=== PATIENT | male | born 1945 | race Caucasian/White ===

== ENCOUNTER 2018-06-25 05:37 | Outpatient (CLI) | payer BC ==
[~2018-06-25] VITALS: Ht 165.1 cm; Wt 88.5 kg
[~2018-06-25 05:37] MED LIST: ASCO500T20 GT; ASP81TEC PO; CALC400T8 PO; CHOL10003 PO; CLOP75TA PO; FENO135C PO; MTP25TSR PO; OMG1KC PO; SMV20T PO
[2018-06-25] MEDS ORDERED: VITA400T9 PO (11:13)
[2018-06-25] MEDS ORDERED: ASPI-999 PO (11:13)
[2018-06-25] MEDS ORDERED: ASCO500T7 PO (11:13)
[2018-06-25] MEDS ORDERED: CLOP75TA69 PO (11:13)
[2018-06-25] MEDS ORDERED: SIMV20TA3 PO (11:13)
[2018-06-25] MEDS ORDERED: CHOL100045 PO (11:13)
[2018-06-25] MEDS ORDERED: OMG1KC PO (11:13)
[2018-06-25] MEDS ORDERED: METO-387 PO (11:13)
[2018-06-26] MEDS ORDERED: FERR-84 PO (11:14)
== END 2018-06-25 11:15 | disposition home or self-care (01) ==
LOC: PREOP 05:37
PROVIDERS: ATTEND Internal Medicine
DX: Z01.818 Encounter for other preprocedural examination (principal)

== ENCOUNTER 2018-06-26 09:06 | Day surgery (SDC) | payer BC ==
--- NOTE | 2018-06-24 12:05 | HISTORY AND PHYSICAL ---
DATE OF SERVICE: COLONOSCOPY HISTORY AND PHYSICAL HISTORY OF PRESENT ILLNESS: The patient is a 73-year-old white male who 9 days ago felt a gurgling sensation in the left lower quadrant area. He then had some urgency and when he went past, but he considered to be a large amount of bright red blood. He denied any associated pain, cramping or bowel habit change. It did subsided 3 days later and had the same set of symptoms. They were not associated with any significant physical activity or trauma. There was a large again this time associated with some mild weakness. He called and was instructed to discontinue aspirin and Plavix that he takes for coronary artery disease. Since that time, he has had no large amount of bleeding, but has had a small amount of bright red blood with each stool. He denies any hemorrhoidal type sensation. He has had no angina, has been a little more fatigued, but denies any increase in dyspnea on exertion, orthopnea, PND or pedal edema. He also denies any problems with heartburn, dysphagia or abdominal pain. PAST MEDICAL HISTORY: Significant for known diverticular disease, last colonoscopy was 3-1/2 years ago at which time he had no evidence for neoplasia, now with moderate diverticular disease. 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 He has had no problems with acute coronary syndrome or any subsequent complications of any form of vascular disease. MEDICATIONS: Plavix 75 mg daily, Zocor 20 mg daily, baby aspirin 81 mg daily and Toprol-XL 25 mg daily. FAMILY HISTORY: He is not aware of any family history for GI tract malignancy. PHYSICAL EXAMINATION: GENERAL: Reveals a white male, questionable mild facial pallor. The conjunctiva and palms are not pale. SKIN: Evaluation was otherwise unremarkable. VITAL SIGNS: Blood pressure 148/60 with a heart rate of 66 and regular, weight 208.2 pounds, was down 7.8 pounds from 6 weeks ago. HEENT: Unremarkable. Sclerae nonicteric. CHEST: Clear to auscultation. CARDIOVASCULAR: Reveals regular rate and rhythm without murmur, S3 or S4. ABDOMEN: Soft, supple without mass, organomegaly or tenderness. EXTREMITIES: Reveal no cyanosis, clubbing or edema. ASSESSMENT AND PLAN: 1. The patient was set up for diagnostic colonoscopy for rectal bleeding. He was sent to the lab for a CBC to evaluate for underlying anemia and will continue to hold aspirin and Plavix. He was scheduled for colonoscopy on 06/26. Prep instructions and Suprep kit were given and questions were answered. 2. Coronary artery disease, clinically stable. The patient had stopped his simvastatin as well, but he was advised to resume simvastatin, continuing to hold aspirin and Plavix. Job ID: [id number] DocumentID: [id number] Dictated Date: 06/24/2018 11:46:48 Claims Collector Date: 06/24/2018 12:04:46 Dictated By: YOAN GONZALEZ MD
[~2018-06-26] VITALS: Ht 165.1 cm; Wt 88.5 kg
[~2018-06-26 09:06] MED LIST changes: +ASCO500T7 PO; +ASPI-999 PO; +CHOL100045 PO; +CLOP75TA69 PO; +METO-387 PO; +SIMV20TA3 PO; +VITA400T9 PO
[2018-06-26 09:10] VITALS: BP 125/62
[2018-06-26] MEDS ORDERED: D5 LR IV SOLUTION 1,000 ML IV ONE (09:11)
--- OUTSIDE RECORDS SUMMARY | 2018-06-26 09:21 | XMS REPORT | Continuity of Care Document ---
Demographics Preferred Language Unknown Marital Status Unknown Quaker Affiliation Unknown Race Unknown Ethnic Group Unknown Author Author [facility] Address Unknown Phone Unavailable Allergies Active Description Code Type Severity Reaction Onset Reported/Identified Relationship to Patient Clinical Status Yes No Known Drug Allergies [id number] Drug Allergy Unknown N/A 05/09/2008 Medications There is no data. Problems Date Dx Coded Attending Type Code Diagnosis Diagnosed By 08/26/2012 V04.81 FLU DX (3 YRS AND ABOVE, IM) 11/29/2014 LISA BURROWS, YOAN Magaña Ot 562.10 DIVERTICULOSIS COLON (W/O MENT OF HEMORR 11/29/2014 YOAN GONZALEZ MD Ot 569.84 ANGIODYSPLASIA INTESTINE (W/O MENT OF HE 11/29/2014 YOAN GONZALEZ MD Ot V76.51 SCREEN MAL NEOP-COLON 07/02/2016 MALCOLM VALDOVINOS PRISON PSYCHIATRIST Ot 414.00 CORON ATHEROSCLER NOS TYPE VESSEL, NATIV 07/02/2016 YOAN GONZALEZ MD Ot 786.2 COUGH 07/02/2016 YOAN GONZALEZ MD Ot V72.84 EXAM PRE-OPERATIVE NOS 07/03/2016 RAFAELA BURROWS FACC, ADELA FACP CCDS Ot E66.9 OBESITY, UNSPECIFIED 07/03/2016 ADELA RUSSO MD, FACC FACP CCDS Ot E78.4 OTHER HYPERLIPIDEMIA 07/03/2016 RAFAELA BURROWS FACC, ADELA FACP CCDS Ot I25.10 ATHSCL HEART DISEASE OF [place] CORONARY 07/03/2016 RAFAELA BURROWS FACC, ALI FACP CCDS Ot I65.23 OCCLUSION AND STENOSIS OF [place] 07/08/2016 ADELA RUSSO MD, FACC FACP CCDS Ot E66.9 OBESITY, UNSPECIFIED 07/08/2016 ADELA RUSSO MD, FACC FACP CCDS Ot E78.4 OTHER HYPERLIPIDEMIA 07/08/2016 RAFAELA BURROWS FACC, ALI FACP CCDS Ot I25.10 ATHSCL HEART DISEASE OF [place] CORONARY 07/08/2016 ADELA RUSSO MD, FACC FACP CCDS Ot I65.23 OCCLUSION AND STENOSIS OF [place] 07/12/2016 RAFAELA MD FACC, ALI FACP CCDS Ot E66.9 OBESITY, UNSPECIFIED 07/12/2016 RAFAELA BURROWS FACC, ALI FACP CCDS Ot E78.4 OTHER HYPERLIPIDEMIA 07/12/2016 RAFAELA BURROWS FACC, ALI FACP CCDS Ot I25.10 ATHSCL HEART DISEASE OF [place] CORONARY 07/12/2016 RAFAELA BURROWS FACC, ALI FACP CCDS Ot I65.23 OCCLUSION AND STENOSIS OF [place] 09/19/2017 BAIMALCOLM ENNIS L PRISON PSYCHIATRIST Ot 414.00 CORON ATHEROSCLER NOS TYPE VESSEL, NATIV 09/19/2017 YOAN GONZALEZ MD Ot 786.2 COUGH 09/19/2017 LISA BURROWS, YOAN [place] Ot V72.84 EXAM PRE-OPERATIVE NOS 09/19/2017 RAFAELA BURROWS FACC, ALI FACP CCDS Ot E66.9 OBESITY, UNSPECIFIED 09/19/2017 RAFAELA BURROWS FACC, ALI FACP CCDS Ot E78.4 OTHER HYPERLIPIDEMIA 09/19/2017 RAFAELA BURROWS FACC, ALI FACP CCDS Ot I25.10 ATHSCL HEART DISEASE OF [place] CORONARY 09/19/2017 RAFAELA BURROWS FACC, ALI FACP CCDS Ot I65.23 OCCLUSION AND STENOSIS OF [place] 10/06/2017 BAIMARCO A ENNISHER L PRISON PSYCHIATRIST Ot 414.00 CORON ATHEROSCLER NOS TYPE VESSEL, NATIV 10/06/2017 YOAN GONZALEZ MD Ot 786.2 COUGH 10/06/2017 YOAN GONZALEZ MD Ot V72.84 EXAM PRE-OPERATIVE NOS 10/06/2017 RAFAELA BURROWS FACC, ADELA FACP CCDS Ot E66.9 OBESITY, UNSPECIFIED 10/06/2017 RAFAELA BURROWS FACC, ALI FACP CCDS Ot E78.4 OTHER HYPERLIPIDEMIA 10/06/2017 RAFAELA BURROWS FACC, ALI FACP CCDS Ot I25.10 ATHSCL HEART DISEASE OF [place] CORONARY 10/06/2017 RAFAELA BURROWS FACC, ALI FACP CCDS Ot I65.23 OCCLUSION AND STENOSIS OF [place] 06/24/2018 MALCOLM VALDOVINOS L PRISON PSYCHIATRIST Ot 414.00 CORON ATHEROSCLER NOS TYPE VESSEL, NATIV 06/24/2018 YOAN GONZALEZ MD Ot 786.2 COUGH 06/24/2018 YOAN GONZALEZ MD Ot V72.84 EXAM PRE-OPERATIVE NOS 06/24/2018 RAFAELA BURROWS FACC, ALI FACP CCDS Ot E66.9 OBESITY, UNSPECIFIED 06/24/2018 RAFAELA BURROWS FACC, ALI FACP CCDS Ot E78.4 OTHER HYPERLIPIDEMIA 06/24/2018 RAFAELA BURROWS FACC, ALI FACP CCDS Ot I25.10 ATHSCL HEART DISEASE OF [place] CORONARY 06/24/2018 RAFAELA BURROWS FACC, ALI FACP CCDS Ot I65.23 OCCLUSION AND STENOSIS OF [place] 06/24/2018 BAIMARCO A ENNISHER L PRISON PSYCHIATRIST Ot 414.00 CORON ATHEROSCLER NOS TYPE VESSEL, NATIV 06/24/2018 YOAN GONZALEZ MD Ot 786.2 COUGH 06/24/2018 YOAN GONZALEZ MD Ot V72.84 EXAM PRE-OPERATIVE NOS 06/24/2018 RAFAELA BURROWS FACC, ALI FACP CCDS Ot E66.9 OBESITY, UNSPECIFIED 06/24/2018 RAFAELA BURROWS FACC, ALI FACP CCDS Ot E78.4 OTHER HYPERLIPIDEMIA 06/24/2018 RAFAELA BURROWS FACC, ALI FACP CCDS Ot I25.10 ATHSCL HEART DISEASE OF [place] CORONARY 06/24/2018 RAFAELA BURROWS FACC, ALI FACP CCDS Ot I65.23 OCCLUSION AND STENOSIS OF [place] 06/25/2018 ADRIMARCO A ENNISHER L PRISON PSYCHIATRIST Ot 414.00 CORON ATHEROSCLER NOS TYPE VESSEL, NATIV 06/25/2018 YOAN GONZALEZ MD Ot 786.2 COUGH 06/25/2018 YOAN GONZALEZ MD Ot V72.84 EXAM PRE-OPERATIVE NOS 06/25/2018 RAFAELA BARRAZAC, ADELA FACP CCDS Ot E66.9 OBESITY, UNSPECIFIED 06/25/2018 RAFAELA BURROWS FACC, ALI FACP CCDS Ot E78.4 OTHER HYPERLIPIDEMIA 06/25/2018 RAFAELA BURROWS FACC, ALI FACP CCDS Ot I25.10 ATHSCL HEART DISEASE OF [place] CORONARY 06/25/2018 RAFAELA BURROWS FACC, ALI FACP CCDS Ot I65.23 OCCLUSION AND STENOSIS OF [place] 06/26/2018 MARCO A VALDOVINOSHER L PRISON PSYCHIATRIST Ot 414.00 CORON ATHEROSCLER NOS TYPE VESSEL, NATIV 06/26/2018 YOAN GONZALEZ MD Ot 786.2 COUGH 06/26/2018 YOAN GONZALEZ MD Ot V72.84 EXAM PRE-OPERATIVE NOS 06/26/2018 RAFAELA BARRAZAC, ALI FACP CCDS Ot E66.9 OBESITY, UNSPECIFIED 06/26/2018 RAFAELA BURROWS FACC, ADELA FACP CCDS Ot E78.4 OTHER HYPERLIPIDEMIA 06/26/2018 RAFAELA BURROWS FACC, ADELA FACP CCDS Ot I25.10 ATHSCL HEART DISEASE OF [place] CORONARY 06/26/2018 RAFAELA BURROWS FACC, ADELA FACP CCDS Ot I65.23 OCCLUSION AND STENOSIS OF [place] Procedures There is no data. Results There is no data. Encounters ACCT No. Visit Date/Time Discharge Status Pt. Type Provider Facility Loc./Unit Complaint [id number] 08/26/2012 15:45:00 08/26/2012 23:59:59 CLS Outpatient [id number] 08/26/2012 16:14:09 RECURRING [id number] 07/02/2016 12:27:00 07/02/2016 23:59:59 CLS Outpatient RAFAELA BURROWS FACC, ADELA FACP CCDS [facility] CARD CAD,OBESITY, HYPERLIPIDEMIA,CAROTID ARTERY DIS [id number] 11/29/2014 07:16:00 11/29/2014 09:40:00 DIS Outpatient YOAN GONZALEZ MD [facility] SDC SCREENING [id number] 11/24/2014 05:55:00 11/24/2014 23:59:59 CLS Outpatient YOAN GONZALEZ MD [facility] PREOP SCREENING [id number] 07/02/2013 15:48:00 07/02/2013 23:59:59 CLS Outpatient YOAN GONZALEZ MD [facility] RAD PERSISTANT COUGH [id number] 04/08/2013 08:08:00 04/08/2013 23:59:59 CLS Outpatient MALCOLM VALDOVINOS [facility] RAD CAD [id number] 06/26/2018 09:06:00 ACT Outpatient YOAN GONZALEZ MD [facility] ENDO RECTAL BLEEDING [id number] 06/25/2018 05:37:00 ACT Outpatient YOAN GONZALEZ MD [facility] PREOP COLONOSCOPY [id number] 11/29/2014 07:16:57 ACT Document Registration
[2018-06-26] MEDS ORDERED: D5 LR IV SOLUTION 1,000 ML IV STA (09:29)
[2018-06-26] MEDS ORDERED: LIDOCAINE JELLY 2% 6 ML SYRINGE MM PRN (09:30)
[2018-06-26] MEDS ORDERED: MIDAZOLAM 2 MG/2 ML (VERSED) VIAL IVP ONE (09:30)
[2018-06-26] MEDS ORDERED: fentaNYL INJECTION 100 MCG/2 ML AMP IVP ONE (09:30)
--- NOTE | 2018-06-26 10:43 | Pre-Op Note & Conscious Sedat ---
Pre-Operative Progress Note H&P Reviewed The H&P was reviewed, patient examined and no changes noted. Date H&P Reviewed: Jun 26, 2018 Time H&P Reviewed: 10:40 Conscious Sedation Pre-Proced ASA Score 2 For ASA 3 and 4: Consider anesthesia and medical clearance. Also, for patients with a history of failed moderate sedation consider anesthesia. Airway Lungs Heart ASA score ASA 1: a normal healthy patient ASA 2: a patient with a mild systemic disease (mid diabetes, controlled hypertension, obesity ASA 3: a patient with a severe systemic disease that limits activity (angina , COPD, prior Myocardial infarction) ASA 4: a patient with an incapacitating disease that is a constant threat to life (CHF, renal failure) ASA 5: a moribund patient not expected to survive 24 hrs. (ruptured aneurysm) ASA 6: a declared brain patient whose organs are being harvested. For emergent operations, add the letter E after the classification Mallampati Classification Grade 3 Sedation Plan Analgesia, Amnesia, Plan communicated to team members, Discussed options with patient/fam, Discussed risks with patient/fam The patient is an appropriate candidate to undergo the planned procedure, sedation, and anesthesia. The patient immediately re-assessed prior to indication. YOAN GONZALEZ MD Jun 26, 2018 10:43
[2018-06-26] MEDS ORDERED: fentaNYL INJECTION 100 MCG/2 ML AMP ONE (10:46)
[2018-06-26] MEDS ORDERED: MIDAZOLAM 2 MG/2 ML (VERSED) VIAL ONE ×2 (10:46)
[2018-06-26] MEDS ORDERED: LIDOCAINE JELLY 2% 6 ML SYRINGE ONE (10:46)
[2018-06-26] MEDS ORDERED: FERR-84 PO (11:14)
[2018-06-26 11:20] VITALS: BP 140/62
[2018-06-26 11:50] VITALS: BP 131/63
[2018-06-26 11:55] VITALS: BP 131/63
--- NOTE | 2018-06-26 18:50 | OPERATIVE REPORT ---
DATE OF SERVICE: 06/26/2018 COLONOSCOPY SUMMARY Diagnostic colonoscopy for rectal bleeding with secondary anemia and hemoglobin of 8.6 on blood test from 06/24/2018. The patient was placed in left lateral decubitus position. Prior to undergoing colonoscopy, digital rectal evaluation was performed. Anal sphincter tone was normal and the perianal reflex was intact. Prostate was anodular and nontender and unremarkable in size. There was no evidence for blood on the examining finger. No rectal vault abnormalities were noted. The colonoscope was then inserted in the rectum under direct visualization and advanced to cecum. The cecum was identified by identification of the ileocecal valve and cecal strap. Photographic documentation was obtained. Careful inspection was made as the colonoscope was withdrawn. FINDINGS: There is no evidence for internal or external hemorrhoids and no blood was noted throughout the colon on today's procedure. The rectum was unremarkable. A moderate number of small to medium size sigmoid diverticulum were present, some with a little more vascular than average, but no definitive bleeding site is being identified and no evidence to suggest diverticulitis was noted. No overt vascular malformations were noted. The descending colon, splenic flexure, transverse colon, hepatic flexure, ascending colon and cecum were unremarkable. ASSESSMENT: Mild to moderate diverticular disease predominately involving the sigmoid colon was present. Suspected source of this patient's bleeding and most likely cause of moderate anemia. The patient was advised to remain off of the aspirin and Plavix as he is more than a year out from stent placement. We will likely be abdicating resuming a baby aspirin upon return to the office in one week. We will initiate iron 325 mg q.a.m. daily with vitamin C with repeat blood counts on return. Job ID: [id number] DocumentID: [id number] Dictated Date: 06/26/2018 12:14:46 Culinary Arts Teacher Date: 06/26/2018 18:49:25 Dictated By: YOAN GONZALEZ MD [facility]
== END 2018-06-26 11:56 | disposition home or self-care (01) ==
LOC: ENDO 09:06
PROVIDERS: ATTEND Internal Medicine
DX: K57.31 Diverticulosis of large intestine without perforation or abscess with bleeding (principal); D64.9 Anemia, unspecified; I25.10 Atherosclerotic heart disease of native coronary artery without angina pectoris; Z79.02 Long term (current) use of antithrombotics/antiplatelets; Z79.82 Long term (current) use of aspirin; Z79.899 Other long term (current) drug therapy; Z95.5 Presence of coronary angioplasty implant and graft

== ENCOUNTER → 2018-10-13 | Outpatient (CLI) | payer BC ==
[~2018-10-13] VITALS: Ht 165.1 cm; Wt 97.1 kg
[~2018-10-13] MED LIST changes: +CATHETER FLUSH 10 ML SYR IV PRN; +FERR-84 PO; +REGADENOSON 0.4 MG/5 ML SYR (LEXISCAN) IV ONE
[2018-10-13 09:39] VITALS: BP 173/85
[2018-10-13 09:42] VITALS: BP 167/83
--- NOTE | 2018-10-13 23:44 | STRESS TEST ---
DATE OF SERVICE: 10/13/2018 RESTING AND POST REGADENOSON TECHNETIUM-99M TETROFOSMIN SPECT CT IMAGING ORDERING PHYSICIAN: Lori Vann APRN CLINICAL DIAGNOSIS: Coronary artery disease. Baseline images were carried out after injection of 10.71 mCi of technetium-99m Tetrofosmin. This was followed by 0.4 mg regadenoson and 30.8 mCi of technetium-99m Tetrofosmin for stress imaging. The electrocardiogram showed sinus rhythm with intermittent isolated premature ventricular contractions. The patient had a feeling of palpitations following regadenoson infusion, which resolved in a few minutes. Review of images at rest and following stress indicates a small fixed basal inferior perfusion defect. Gated images showed localized basal inferior hypokinesis. This appears to be a small basal inferior infarction without significant ischemia. Left ventricular ejection fraction is calculated to be 73%. Left ventricular end-diastolic volume is 72 mL. TID is absent (1.05). CONCLUSIONS: 1. This study is suggestive of a small basal inferior infarction without significant ischemia. 2. Localized basal inferior hypokinesis. 3. Left ventricular ejection fraction is calculated to be 73%. Job ID: [id number] DocumentID: [id number] Dictated Date: 10/13/2018 17:44:21 Shirt Creaser Date: 10/13/2018 23:43:15 Dictated By: ADELA RUSSO MD, MA, FACP, FACC,
== END ==
LOC: CARD 08:03
PROVIDERS: ATTEND Nurse Practitioner Family
DX: I25.10 Atherosclerotic heart disease of native coronary artery without angina pectoris (principal); I77.9 Disorder of arteries and arterioles, unspecified; I10 Essential (primary) hypertension; E78.5 Hyperlipidemia, unspecified
CPT/HCPCS: 78452; 93017

== ENCOUNTER → 2019-06-14 | Outpatient (CLI) | payer BC ==
[~2019-06-14] MED LIST changes: -CATHETER FLUSH 10 ML SYR IV PRN; -REGADENOSON 0.4 MG/5 ML SYR (LEXISCAN) IV ONE
--- NOTE | 2019-06-14 16:37 | Diagnostic Imaging Report ---
INDICATION: Falls. Confusion. Amnesia. TECHNIQUE: Routine non contrast-enhanced axial images were obtained from the skull base to the vertex. Auto Exposure Controls were utilized during the CT exam to meet ALARA standards for radiation dose reduction COMPARISON: None. FINDINGS: The ventricles and cortical sulci are diffusely prominent, compatible with age-related volume loss. There are confluent areas of abnormal, low attenuation in the periventricular white matter. This is consistent with small vessel ischemic changes; age-indeterminate. There is no prior study available for comparison. There is no midline shift or mass-effect. No acute intra-axial hemorrhage is seen. There are no abnormal areas of increased or decreased density to suggest acute hemorrhage or edema. No extra-axial masses or collections are present. The bony calvarium is intact. The visualized paranasal sinuses are unremarkable. The mastoid air cells are clear. IMPRESSION: 1. No acute intracranial abnormality. No CT evidence of mass, acute infarct or intracranial hemorrhage. 2. Small vessel ischemic changes in the periventricular and subcortical white matter; likely chronic. Dictated by: Dictated on workstation # [id number]
--- NOTE | 2019-06-14 16:57 | Diagnostic Imaging Report ---
PROCEDURE: CT chest without contrast. TECHNIQUE: Multiple contiguous axial images were obtained through the chest without the use of intravenous contrast. Auto Exposure Controls were utilized during the CT exam to meet ALARA standards for radiation dose reduction. INDICATION: Chest wall contusion. Multiple falls. COMPARISON: None. FINDINGS: Evaluation of the lung bowens demonstrates several bilateral pulmonary micronodules, all measuring 4 mm or less in diameter (images 41, 59, 66, 70, and 104, series 4). There is no focal consolidation, large effusion, nor pneumothorax. Cardiomediastinal structures show normal heart size. There is moderate scattered calcified coronary atherosclerosis. There is probable stent within the right coronary artery. Evaluation is degraded by motion artifact. Note is also made of moderate scattered calcified aortic atherosclerosis. No pathologically enlarged or morphologically abnormal adenopathy is seen within the mediastinum, celso, nor axilla. 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 Osseous structures show age-related degenerative changes. No acute abnormalities are identified. No lytic or blastic bony lesions are seen. Included portions of the upper abdomen suggest partially visualized mass of the left kidney. Area in question measures 3.9 x 3.2 cm. There is also generalized hypodense appearance of liver suggestive of background hepatic steatosis. IMPRESSION: 1. No acute cardiopulmonary process is identified. 2. Multiple small bilateral pulmonary micronodules. Please see below for follow-up recommendations. 3. Moderate calcified aortic and coronary atherosclerosis. 4. Findings suggestive of partially visualized left renal mass. Follow-up with dedicated CT of the abdomen with and without contrast is recommended. 5. Hepatic steatosis. PULMONARY NODULE FOLLOW-UP Multiple nodules: <6 mm: * Low risk patient - no routine follow up * High risk patient - optional CT at 12 months 6-8 mm in size: * Low risk patient - Ct at 3-6 months, then consider CT at 18-24 months * High risk patient - CT at 3-6 months, then at 18-24 months >8 mm: * Low risk patient - CT at 3-6 months, then consider CT at 18-24 months * High risk patient - CT at 3-6 months, then at 18-24 months (Use most suspicious nodule as guide to management. Follow up interval may vary according to size and risk) Dictated by: Dictated on workstation # [id number]
== END ==
LOC: RAD 16:06
PROVIDERS: ATTEND Nurse Practitioner Family
DX: I25.10 Atherosclerotic heart disease of native coronary artery without angina pectoris (principal); K76.0 Fatty (change of) liver, not elsewhere classified; S92.355A Nondisplaced fracture of fifth metatarsal bone, left foot, initial encounter for closed fracture; M79.672 Pain in left foot; R41.3 Other amnesia; S20.212A Contusion of left front wall of thorax, initial encounter; W18.39XA Other fall on same level, initial encounter; I10 Essential (primary) hypertension; E78.49 Other hyperlipidemia; R91.8 Other nonspecific abnormal finding of lung field
CPT/HCPCS: 70450; 71250

== ENCOUNTER → 2019-09-16 | Outpatient (CLI) | payer BC ==
[~2019-09-16] MED LIST changes: -METO-387 PO; +SIMV20TA26 PO; -SIMV20TA3 PO
--- NOTE | 2019-09-16 15:09 | Diagnostic Imaging Report ---
INDICATION: COUGH, PAST TOBACCOISM COMPARISON: 07/02/2013. FINDINGS: Frontal and lateral views of the chest demonstrate normal heart size and pulmonary vascularity. The lungs are clear. There are no signs of infiltrate, pleural effusions or pneumothoraces. The visualized osseous structures show no acute abnormalities. IMPRESSION: 1. No acute process. No signs of infiltrates, effusions or pneumothoraces. Dictated by: Dictated on workstation # [id number]
== END ==
LOC: RAD 13:39
PROVIDERS: ATTEND Internal Medicine
DX: R05 Cough (principal); Z87.891 Personal history of nicotine dependence
CPT/HCPCS: 71046

== ENCOUNTER 2020-07-06 18:01 | Inpatient (IN) | payer BC, MEDICARE ==
[~2020-07-06] VITALS: Ht 165 cm; Wt 102.6 kg
[2020-07-06] MEDS ORDERED: ASPIRIN 81 MG CHEW (CHILDREN'S ASA) PO ONE (18:30)
[2020-07-06] MEDS ORDERED: ENOXAPARIN 100 MG/1 ML (LOVENOX) SYR SC ONE (18:30)
--- NOTE | 2020-07-06 18:30 | ED Respiratory ---
General Chief Complaint: Cough/Cold/Flu Symptoms Stated Complaint: POSITIVE COVID/FEVER/SOB Source: patient (PT IS AN EXTREMELY VAGUE AND DIFFICULT AND POOR HISTORIAN) History of Present Illness Date Seen by Provider: Jul 06, 2020 Time Seen by Provider: 18:09 Initial Comments PT ARRIVES VIA POV FROM HOME STATES HE TESTED + FOR COVID ON Friday07/05/20-YESTERDAY--DONE AT [facility] [place] STATES HE STARTED GETTING SICK ON FRIDAY NIGHT 07/02/20 C/O NON-PRODUCTIVE COUGH C/O FEVER UP TO 101 C/O SHORTNESS OF BREATH AND ORTHOPNEA FOR THE LAST 2 DAYS NO CHEST PAIN + PALPITATIONS THE LAST COUPLE OF DAYS--"MY HEART'S FELT A LITTLE FUNNY"- DESCRIBES IRREGULAR HEART BEAT NO GI SYMPTOMS NO HEADACHE NO BODY ACHES NO LOSS OF TASTE OR SMELL STATES HE "HAD A ROUGH NIGHT LAST NIGHT" BUT WAS BETTER DURING THE DAY TODAY IS UNCLEAR WHAT SYMPTOMS ARE DIFFERENT TONIGHT TOOK 1 "TYLENOL" YESTERDAY FOR FEVER, BUT IT UPSET HIS STOMACH SO HE HAS NOT TAKEN ANYTHING ELSE FOR HIS SYMPTOMS HAS HX OF CAD WITH STENT X 1--12 YEARS AGO. HAD STEMI WITH COMPLETE HEART BLOCK AND CARDIOGENIC SHOCK 2007-- PT IS ON TOPROL AND 81 MG ASPIRIN PCP: DR. GONZALEZ MEDICAL IMAGING DIRECTOR: DR. RUSSO Allergies and Home Medications Allergies Coded Allergies: No Known Drug Allergies (Verified , 05/23/08) Home Medications Ascorbic Acid 500 Mg Tablet, 500 MG PO DAILY, (Reported) Cholecalciferol (Vitamin D3) 1,000 Unit Tablet, 1,000 UNIT PO DAILY, (Reported) Ferrous Sulfate 325 Mg Tablet, 325 MG PO DAILY Prescribed by: YOAN GONZALEZ on 06/26/18 1114 Metoprolol Succinate 25 Mg Tab.er.24h, 25 MG PO DAILY, (Reported) [place] 3 Polyunsat Fatty Acids 1,000 Mg Cap, 1,000 MG PO DAILY, (Reported) Simvastatin 20 Mg Tablet, 20 MG PO DAILY, (Reported) Vitamin E Mixed 400 Unit Tablet, 400 UNIT PO DAILY, (Reported) Patient Home Medication List Home Medication List Reviewed: Yes Review of Systems Review of Systems Constitutional: see HPI, fever, malaise EENTM: no symptoms reported Respiratory: see HPI, cough, dyspnea on exertion, orthopnea, short of breath Cardiovascular: see HPI; No chest pain, No edema, No palpitations, No syncope; vascular heart diseas Gastrointestinal: no symptoms reported; No abdominal pain, No diarrhea, No loss of appetite, No nausea, No vomiting Genitourinary: no symptoms reported Musculoskeletal: no symptoms reported Skin: no symptoms reported Psychiatric/Neurological: No Symptoms Reported; Denies Headache Hematologic/Lymphatic: No Symptoms Reported Immunological/Allergic: no symptoms reported Past Aoqepyz-Skmvpo-Yxfdfs Hx Past Med/Social Hx: Reviewed and Corrections made Patient Social History Alcohol Use: Denies Use Recreational Drug Use: No Smoking Status: Never a Smoker Recent Foreign Travel: No Contact w/Someone Who Travel: No Recent Hopitalizations: No Seasonal Allergies Seasonal Allergies: No Past Medical History Surgeries: Yes (CARDIAC CATH-STENT X 1 TO RCA) Appendectomy, Cardiac, Coronary Stent Respiratory: No Cardiac: Yes (2007--STEMI WITH COMPLETE HEART BLOCK AND CARDIOGENIC SHOCK 2007;STENT X 1 ) Coronary Artery Disease, Heart Attack, High Cholesterol, Hypertension Neurological: No Reproductive Disorders: No Genitourinary: No Gastrointestinal: No Musculoskeletal: Yes Arthritis Endocrine: No HEENT: No Cancer: No Psychosocial: No Integumentary: No Blood Disorders: No Family Medical History ADDITIONAL PMH/PSH: -CARDIAC CATH 2007--STEMI/COMPLETE HEART BLOCK/CARDIOGENIC SHOCK WITH STENT X 1 TO RCA -MOST RECENT STRESS TEST 10/13/2018--EF 73% -COLONOSCOPIES--MOST RECENT 11/2014--DIVERTICULAR DISEASE Physical Exam Vital Signs - First Documented 07/06/20 18:11 Temp 36.2 Pulse 122 Resp 28 B/P (MAP) 187/103 (131) Pulse Ox 96 O2 Delivery Nasal Cannula O2 Flow Rate 2.00 Capillary Refill : Height: 5'5.00" Weight: 214lbs. 0.0oz. 97.426761pc; 35.6 BMI Method: General Appearance: WD/WN, no apparent distress, other (TALKS AT LENGTH IN FULL SENTENCES) HEENT: PERRL/EOMI Neck: normal inspection Respiratory: no respiratory distress, no accessory muscle use, decreased breath sounds (DECREASED IN BASES); No rales, No rhonchi, No wheezing Cardiovascular: no JVD, no murmur, tachycardia, irregularly irregular Gastrointestinal: normal bowel sounds, non tender, soft Extremities: no calf tenderness, normal capillary refill, pedal edema (TRACE BILATERALLY) Neurologic/Psychiatric: no motor/sensory deficits, alert, normal mood/affect, oriented x 3 (BUT POOR MEMORY) Skin: normal color, warm/dry Focused Exam Lactate Level 07/06/20 08:26: Lactic Acid Level 0.89 Lactic Acid Level Laboratory Tests Test 07/06/20 08:26 Lactic Acid Level 0.89 MMOL/L (0.50-2.00) Progress/Results/Core Measures Suspected Sepsis SIRS Temperature: Pulse: Respiratory Rate: Laboratory Tests 07/06/20 18:15: White Blood Count 5.1 Blood Pressure / Mean: 07/06/20 08:26: Lactic Acid Level 0.89 Laboratory Tests 07/06/20 18:15: Creatinine 0.98, INR Comment 0.9, Platelet Count 195, Total Bilirubin 0.4 Results/Orders Lab Results Laboratory Tests Test 07/06/20 08:26 07/06/20 18:15 Range/Units Lactic Acid Level 0.89 0.50-2.00 MMOL/L White Blood Count 5.1 4.3-11.0 10^3/uL Red Blood Count 4.54 4.30-5.52 10^6/uL Hemoglobin 13.0 L 13.3-17.7 g/dL Hematocrit 41 40-54 % Mean Corpuscular Volume 90 80-99 fL Mean Corpuscular Hemoglobin 29 25-34 pg Mean Corpuscular Hemoglobin Concent 32 32-36 g/dL Red Cell Distribution Width 14.0 10.0-14.5 % Platelet Count 195 130-400 10^3/uL Mean Platelet Volume 10.3 9.0-12.2 fL Immature Granulocyte % (Auto) 1 % Neutrophils (%) (Auto) 76 H 42-75 % Lymphocytes (%) (Auto) 14 12-44 % Monocytes (%) (Auto) 9 0-12 % Eosinophils (%) (Auto) 0 0-10 % Basophils (%) (Auto) 0 0-10 % Neutrophils # (Auto) 3.9 1.8-7.8 10^3/uL Lymphocytes # (Auto) 0.7 L 1.0-4.0 10^3/uL Monocytes # (Auto) 0.5 0.0-1.0 10^3/uL Eosinophils # (Auto) 0.0 0.0-0.3 10^3/uL Basophils # (Auto) 0.0 0.0-0.1 10^3/uL Immature Granulocyte # (Auto) 0.0 0.0-0.1 10^3/uL Erythrocyte Sedimentation Rate 36 H 0-30 MM/HR Prothrombin Time 12.8 12.2-14.7 SEC INR Comment 0.9 0.8-1.4 Activated Partial Thromboplast Time 40 H 24-35 SEC D-Dimer 0.28 0.00-0.49 UG/ML Sodium Level 133 L 135-145 MMOL/L Potassium Level 3.7 3.6-5.0 MMOL/L Chloride Level 99 98-107 MMOL/L Carbon Dioxide Level 21 21-32 MMOL/L Anion Gap 13 5-14 MMOL/L Blood Urea Nitrogen 14 7-18 MG/DL Creatinine 0.98 0.60-1.30 MG/DL Estimat Glomerular Filtration Rate > 60 BUN/Creatinine Ratio 14 Glucose Level 114 H 70-105 MG/DL Calcium Level 8.9 8.5-10.1 MG/DL Corrected Calcium 8.9 8.5-10.1 MG/DL Magnesium Level 1.5 L 1.6-2.4 MG/DL Total Bilirubin 0.4 0.1-1.0 MG/DL Aspartate Amino Transf (AST/SGOT) 70 H 5-34 U/L Alanine Aminotransferase (ALT/SGPT) 80 H 0-55 U/L Alkaline Phosphatase 49 40-136 U/L Lactate Dehydrogenase 278 H 125-220 U/L Total Creatine Kinase 92 30-200 U/L Creatine Kinase MB 0.6 <6.6 NG/ML Myoglobin 51.5 10.0-92.0 NG/ML Troponin I 0.028 <0.028 NG/ML C-Reactive Protein High Sensitivity 2.95 H 0.00-0.50 MG/DL B-Type Natriuretic Peptide 45.9 <100.0 PG/ML Total Protein 7.4 6.4-8.2 GM/DL Albumin 4.0 3.2-4.5 GM/DL Procalcitonin 0.08 <0.10 NG/ML TSH [place] Testing 1.66 0.35-4.94 UIU/ML Micro Results Microbiology 07/06/20 Influenza Types A,B Antigen (WONG) - Final, Complete My Orders Orders - GARRETT HERRERA DO Ed Iv/Invasive Line Start (07/06/20 18:09) Ekg Tracing (07/06/20 18:09) O2 (07/06/20 18:09) Monitor-Rhythm Ecg Trace Only (07/06/20 18:09) BNP (07/06/20 18:09) Cbc With Automated Diff (07/06/20 18:09) Comprehensive Metabolic Panel (07/06/20 18:09) Creatine Kinase (07/06/20 18:09) Creatine Kinase Mb (07/06/20 18:09) Hs C Reactive Protein (07/06/20 18:09) Fibrin Degradation Products (07/06/20 18:09) Lactic Acid Analyzer (07/06/20 18:09) Magnesium (07/06/20 18:09) Procalcitonin (Pct) (07/06/20 18:09) Protime With Inr (07/06/20 18:09) Partial Thromboplastin Time (07/06/20 18:09) Ua Culture If Indicated (07/06/20 18:09) Blood Culture (07/06/20 18:09) Influenza A And B Antigens (07/06/20 18:09) Erythrocyte Sedimentation Rate (07/06/20 18:09) Myoglobin Serum (07/06/20 18:09) Troponin I (07/06/20 18:09) Chest 1 View, Ap/Pa Only (07/06/20 18:09) LDH (07/06/20 18:09) Enoxaparin Injection (Lovenox Injection) (07/06/20 18:30) Aspirin Chewable Tablet (Baby Aspirin Ch (07/06/20 18:30) Diltiazem Injection (Cardizem Injection) (07/06/20 18:30) Metoprolol Succinate (Xl) Tab (Toprol Xl (07/06/20 19:00) Ekg Tracing (07/06/20 18:52) Diltiazem Drip Pre-Mix (Cardizem Drip Pr (07/06/20 18:56) Magnesium 1 Gm/100 Ml Ivpb (Magnesium Bryan (07/06/20 19:15) Thyroid Analyzer (07/06/20 19:47) Medications Given in ED Current Medications Medications Dose Ordered Sig/Caden Route Start Time Stop Time Status Last Admin Dose Admin Aspirin 324 mg ONCE ONCE PO 07/06/20 18:30 07/06/20 18:32 DC 07/06/20 18:39 324 MG Diltiazem HCl 10 mg ONCE ONCE IVP 07/06/20 18:30 07/06/20 18:32 DC 07/06/20 18:39 10 MG Enoxaparin Sodium 100 mg ONCE ONCE SC 07/06/20 18:30 07/06/20 18:32 DC 07/06/20 18:39 100 MG Vital Signs/I&O 07/06/20 07/06/20 18:11 18:11 Temp 36.2 Pulse 122 Resp 28 B/P (MAP) 187/103 (131) Pulse Ox 96 O2 Delivery Nasal Cannula Room Air O2 Flow Rate 2.00 Capillary Refill : Progress Note : Progress Note PLACED IN ISOLATION ROOM PPE WORN AT ALL TIMES O2 SATS 93-95% ON ROOM AIR--PLACED ON O2 AT 2L/NC AND O2 SATS UP TO 99% GIVEN ASPIRIN, LOVENOX, TOPROL XL AND CARDIZEM FOR [id number] WITH RVR--RATE CONTROLLED TO < 100. OTHER VITALS STABLE PT HELD / BOARDED IN ER DUE TO NO ICU BEDS AT THIS TIME AND DUE TO COVID PANDEMIC, ALL LOCAL AND REGIONAL HOSPITALS OVER SEVERAL STATES ALL ARE FULL. ECG Initial ECG Impression Date: Jul 06, 2020 Initial ECG Impression Time: 18:25 Initial ECG Rate: 121 Initial ECG Rhythm: A Fib/Flutter (WTIH RVR) Initial ECG Comparisson: Changed (FROM 2007) EKG : EKG Time: 19:08 Rate: 86 Rhythm: A Fib/Flutter Diagnostic Imaging Comments CXR--PER RADIOLOGIST REPORT AT 193 FINDINGS: Stable overall appearance of the cardiomediastinal silhouette. There is no identified pneumothorax. There is no large pleural effusion. There is no radiographically apparent interval focal airspace consolidation. IMPRESSION: No radiographically apparent interval acute cardiopulmonary abnormality. Reviewed: Reviewed by Me Departure Communication (Admissions) 1937--SPOKE WITH DR. BURGESS, HOSPITALIST, ACCEPTS PT FOR ADMIT. PT NOT CANDIDATE FOR REMDESIVIR OR DECADRON AT THIS TIME. HE WILL DISCUSS CONVALESCENT PLASMA WITH THE PATIENT IN THE MORNING 1943--SPOKE WITH DECISION SUPPORT MANAGER. WE WILL HOLD/BOARD THE PT IN ER, UNTIL ICU BED OPENS UP ( PT ON CARDIZEM DRIP, AND THEREFORE NEEDS ICU BED) 1947--SPOKE WITH DR. HOLLINGSWORTH, MEDICAL IMAGING DIRECTOR, ADVISES ADDITION OF CARDIZEM 60 MG PO Q6 HOURS. Impression Primary Impression: COVID-19 virus infection Additional Impressions: HTN (hypertension) NEW ONSET ATRIAL FIBRILLATION/FLUTTER WITH RVR Disposition: ADMITTED INPATIENT Condition: Stable Admissions Decision to Admit Reason: Admit from ER (General) Decision to Admit/Date: Jul 06, 2020 Time/Decision to Admit Time: 19:40 Departure-Patient Inst. Referrals: YOAN GONZALEZ MD (PCP/Family) Primary Care Physician GARRETT HERRERA DO Jul 06, 2020 18:30
[2020-07-06 18:33] LABS: BASOPHILS % (AUTO) 0 % (0-10); EOSINOPHILS % (AUTO) 0 % (0-10); HEMATOCRIT 41 % (40-54); LYMPHOCYTES # (AUTO) 0.7 10^3/uL (1.0-4.0); LYMPHOCYTES % (AUTO) 14 % (12-44); MEAN CORPUSCULAR HEMOGLOBIN 29 pg (25-34); MEAN CORPUSCULAR HGB CONC 32 g/dL (32-36); MEAN CORPUSCULAR VOLUME 90 fL (80-99); MEAN PLATELET VOLUME 10.3 fL (9.0-12.2); MONOCYTES # (AUTO) 0.5 10^3/uL (0.0-1.0); MONOCYTES % (AUTO) 9 % (0-12); NEUTROPHILS # (AUTO) 3.9 10^3/uL (1.8-7.8); NEUTROPHILS % (AUTO) 76 % (42-75); PLATELET COUNT 195 10^3/uL (130-400); WHITE BLOOD COUNT 5.1 10^3/uL (4.3-11.0)
[2020-07-06 18:50] LABS: FIBRIN DEGRADATION PRODUCTS 0.28 UG/ML (0.00-0.49); INR 0.9 (0.8-1.4); PROTHROMBIN TIME PATIENT 12.8 SEC (12.2-14.7)
[2020-07-06 18:55] LABS: ALANINE AMINOTRANSFERASE 80 U/L (0-55); ALKALINE PHOSPHATASE 49 U/L (40-136); BILIRUBIN,TOTAL 0.4 MG/DL (0.1-1.0); BUN/CREATININE RATIO 14; CALCIUM 8.9 MG/DL (8.5-10.1); CARBON DIOXIDE 21 MMOL/L (21-32); CHLORIDE 99 MMOL/L (98-107); CREATINE KINASE 92 U/L (30-200); CREATININE SERUM 0.98 MG/DL (0.60-1.30); GFR ESTIMATED > 60; GLUCOSE 114 MG/DL (70-105); MAGNESIUM 1.5 MG/DL (1.6-2.4); POTASSIUM 3.7 MMOL/L (3.6-5.0); SODIUM 133 MMOL/L (135-145); TOTAL PROTEIN 7.4 GM/DL (6.4-8.2)
[2020-07-06] MEDS ORDERED: dilTIAZem DRIP PRE-MIX 125 ML IV ONE (18:56)
[2020-07-06] MEDS ORDERED: meTOproloL SUCCINATE 50 MG (TOPROL XL) TAB PO SCH (19:00)
[2020-07-06] MEDS: dilTIAZem DRIP PRE-MIX 125 ML IV SCH ×3 (19:10→22:00)
[2020-07-06 19:16] LABS: CREATINE KINASE MB 0.6 NG/ML (<6.6)
[2020-07-06 19:19] LABS: ERYTHROCYTE SEDIMENTATION RATE 36 MM/HR (0-30)
--- NOTE | 2020-07-06 19:28 | Diagnostic Imaging Report ---
EXAMINATION: Chest radiograph, portable AP view. DATE: 07/06/2020 7:26 PM. INDICATION: 75-year-old male, fever. Shortness of breath. Covid positive. COMPARISON: September 16, 2019. FINDINGS: Stable overall appearance of the cardiomediastinal silhouette. There is no identified pneumothorax. There is no large pleural effusion. There is no radiographically apparent interval focal airspace consolidation. IMPRESSION: No radiographically apparent interval acute cardiopulmonary abnormality. Dictated by: Dictated on workstation # [id number]
[2020-07-06] MEDS: MAGNESIUM 1 GM/100 ML IVPB 100 ML IV SCH ×2 (19:30→21:25)
[2020-07-06] MEDS ORDERED: PANTOPRAZOLE 40 MG (PROTONIX) VIAL ONE (20:02)
[2020-07-06] MEDS ORDERED: PANTOPRAZOLE 40 MG (PROTONIX) VIAL IV ONE (20:15)
[2020-07-06] MEDS ORDERED: D5 1/2 NS W/KCL 20 MEQ/L 1,000 ML IV ONE (22:33)
[2020-07-06 22:45] VITALS: BP 120/54
[2020-07-06] MEDS ORDERED: dilTIAZem DRIP PRE-MIX 125 ML IV SCH (23:30)
[2020-07-06 23:38] LABS: BILIRUBIN,URINE NEGATIVE (NEGATIVE); CLARITY,URINE CLEAR; COLOR,URINE YELLOW; GLUCOSE, URINE (UA) NEGATIVE (NEGATIVE); KETONES,URINE NEGATIVE (NEGATIVE); LEUKOCYTE ESTERASE ,URINE NEGATIVE (NEGATIVE); NITRITE,URINE NEGATIVE (NEGATIVE); PROTEIN,URINE 1+ (NEGATIVE)
[2020-07-06 23:57] LABS: BACTERIA,URINE NEGATIVE /HPF; HYALINE CASTS, URINE 0-2 /LPF; SQUAMOUS EPITHELIAL CELL,UR RARE /HPF; WBC,URINE 0-2 /HPF
[2020-07-07] MEDS: D5 1/2 NS W/KCL 20 MEQ/L 1,000 ML IV SCH ×2 (00:24→08:04)
[2020-07-07] MEDS ORDERED: NS 100 ML (IVPB) BAG IV ONE (01:00)
[2020-07-07] MEDS ORDERED: IOHEXOL 350 MG/ML 100 ML (OMNIPAQUE 350) VIAL IV ONE (01:00)
[2020-07-07] MEDS ORDERED: HOLD METFORMIN - RECEIVED CONTRAST 20 ML VIAL IV SCH (01:00)
[2020-07-07 03:10] LABS: BASOPHILS % (AUTO) 0 % (0-10); EOSINOPHILS % (AUTO) 0 % (0-10); HEMATOCRIT 35 % (40-54); HEMOGLOBIN 11.4 g/dL (13.3-17.7); LYMPHOCYTES % (AUTO) 22 % (12-44); MEAN CORPUSCULAR HEMOGLOBIN 29 pg (25-34); MEAN CORPUSCULAR HGB CONC 32 g/dL (32-36); MEAN CORPUSCULAR VOLUME 90 fL (80-99); MEAN PLATELET VOLUME 10.5 fL (9.0-12.2); MONOCYTES # (AUTO) 0.4 10^3/uL (0.0-1.0); MONOCYTES % (AUTO) 8 % (0-12); NEUTROPHILS # (AUTO) 3.2 10^3/uL (1.8-7.8); NEUTROPHILS % (AUTO) 70 % (42-75); PLATELET COUNT 176 10^3/uL (130-400); WHITE BLOOD COUNT 4.7 10^3/uL (4.3-11.0)
[2020-07-07 03:21] LABS: ALBUMIN 3.4 GM/DL (3.2-4.5); CHLORIDE 98 MMOL/L (98-107); POTASSIUM 3.7 MMOL/L (3.6-5.0); SODIUM 131 MMOL/L (135-145)
[2020-07-07 03:22] LABS: CALCIUM 8.2 MG/DL (8.5-10.1)
[2020-07-07 03:24] LABS: GLUCOSE 125 MG/DL (70-105); TOTAL PROTEIN 6.2 GM/DL (6.4-8.2)
[2020-07-07 03:25] LABS: BILIRUBIN,TOTAL 0.3 MG/DL (0.1-1.0); CARBON DIOXIDE 21 MMOL/L (21-32)
[2020-07-07 03:27] LABS: ALKALINE PHOSPHATASE 41 U/L (40-136); GFR ESTIMATED > 60
[2020-07-07 03:28] LABS: BUN/CREATININE RATIO 16
[2020-07-07 03:30] LABS: ALANINE AMINOTRANSFERASE 68 U/L (0-55); MAGNESIUM 2.2 MG/DL (1.6-2.4)
--- NOTE | 2020-07-07 06:33 | Diagnostic Imaging Report ---
PROCEDURE: CT angiography of the chest with contrast. TECHNIQUE: Multiple contiguous axial images were obtained through the chest after uneventful bolus administration of intravenous contrast. 3D reconstructed CTA MIP acquisitions were also performed. Auto Exposure Controls were utilized during the CT exam to meet ALARA standards for radiation dose reduction. INDICATION: Dyspnea. COMPARISON: Chest radiograph 07/06/2020. FINDINGS: Examination limited by respiratory motion and contrast timing. No large or central pulmonary emboli. Normal heart size. No pericardial effusion. No mediastinal, hilar or axillary lymphadenopathy. No pleural effusion or pneumothorax. Mild patchy scattered groundglass opacities. Simple appearing cysts in the liver. No acute osseous findings. IMPRESSION: 1. No large or central pulmonary emboli. 2. Mild patchy groundglass opacities in the lung bases are nonspecific but could be seen with an infectious/inflammatory process, including COVID. Report was faxed to Felipe/RN Infection Control by arash at 6:32am. Dictated by: Dictated on workstation # [id number]
--- NOTE | 2020-07-07 08:46 | NUR ---
RN educated pt on Aflutter/Afib diagnosis. Pt educated on medications and cardioversion possibility. Pt is currently awaiting physician to explain procedures and confirm diagnosis at this time. VSS at this time. Pt remains on cardizem gtt. Will continue to monitor.
[2020-07-07] MEDS ORDERED: PANTOPRAZOLE 40 MG (PROTONIX) VIAL IV SCH (09:00)
[2020-07-07] MEDS ORDERED: ENOXAPARIN 100 MG/1 ML (LOVENOX) SYR SC SCH (09:00)
[2020-07-07] MEDS ORDERED: ASPIRIN E.C. 325 MG (ECOTRIN) TABLET PO SCH (09:00)
[2020-07-07] MEDS ORDERED: APIX5TAB PO (10:16)
[2020-07-07] MEDS ORDERED: DILT240C90 PO (10:16)
[2020-07-07] MEDS ORDERED: DEXA6TAB PO (10:17)
--- NOTE | 2020-07-07 10:24 | NUR ---
CM/SS discharge planning. Patient will be sent home with a new prescription for Eliquis. The patient has commercial insurance; therefore, qualifies for both the 30-day-free and the 10 dollar co-pay card. CM/SS provided both to the patient's nurse. No further needs.
--- NOTE | 2020-07-07 10:54 | Consultation-Cardiology ---
HPI-Cardiology Cardiology Consultation Date of Consultation 07/07/20 Date of Admission Time Seen by Provider: 10:50 Indication: atrial fibrillation HPI 75 years old gentleman with history of coronary artery disease, hypertension hyperlipidemia. Patient started to have increasing shortness of breath, cough productive. Fever. Diagnosed with COVID-19 pneumonia. He was noted to be in atrial fibrillation/flutter. Reported episode of palpitation for the past couple of days. No chest pain. No syncope or near syncopal episode. On arrival he was started on Cardizem drip and his heart rate became better controlled. He denied any chest pain. Last stress test was done last year Home Medications & Allergies Allergies: Coded Allergies: No Known Drug Allergies (Verified , 05/23/08) Home Medication List Reviewed: Yes YFT-Zjjogv-Rfgvby Hx Patient Social History Marital Status: Employed/Student: retired Alcohol Use: Denies Use Recreational Drug Use: No Smoking Status: Never a Smoker Recent Foreign Travel: No Recent Infectious Disease Expo: No Recent Hopitalizations: No Past Medical History Discussed below Family Medical History Family Medical Hx Noncontributory Review of Systems-General Review of Systems Constitutional: see HPI, fever, malaise EENTM: no symptoms reported Respiratory: see HPI, cough, dyspnea on exertion, orthopnea, short of breath Cardiovascular: see HPI; No chest pain, No edema; palpitations; No syncope; vascular heart diseas Gastrointestinal: no symptoms reported, see HPI; No abdominal pain, No diarrhea, No loss of appetite, No nausea, No vomiting Genitourinary: no symptoms reported, see HPI Musculoskeletal: no symptoms reported, see HPI Skin: no symptoms reported, see HPI Psychiatric/Neurological: No Symptoms Reported, See HPI; Denies Headache Reviewed Test Results Reviewed Test Results Lab Laboratory Tests Test 07/06/20 18:15 07/06/20 22:20 07/06/20 23:10 07/07/20 02:29 Range/Units White Blood Count 5.1 4.7 4.3-11.0 10^3/uL Red Blood Count 4.54 3.93 L 4.30-5.52 10^6/uL Hemoglobin 13.0 L 11.4 L 13.3-17.7 g/dL Hematocrit 41 35 L 40-54 % Mean Corpuscular Volume 90 90 80-99 fL Mean Corpuscular Hemoglobin 29 29 25-34 pg Mean Corpuscular Hemoglobin Concent 32 32 32-36 g/dL Red Cell Distribution Width 14.0 14.1 10.0-14.5 % Platelet Count 195 176 130-400 10^3/uL Mean Platelet Volume 10.3 10.5 9.0-12.2 fL Immature Granulocyte % (Auto) 1 0 % Neutrophils (%) (Auto) 76 H 70 42-75 % Lymphocytes (%) (Auto) 14 22 12-44 % Monocytes (%) (Auto) 9 8 0-12 % Eosinophils (%) (Auto) 0 0 0-10 % Basophils (%) (Auto) 0 0 0-10 % Neutrophils # (Auto) 3.9 3.2 1.8-7.8 10^3/uL Lymphocytes # (Auto) 0.7 L 1.0 1.0-4.0 10^3/uL Monocytes # (Auto) 0.5 0.4 0.0-1.0 10^3/uL Eosinophils # (Auto) 0.0 0.0 0.0-0.3 10^3/uL Basophils # (Auto) 0.0 0.0 0.0-0.1 10^3/uL Immature Granulocyte # (Auto) 0.0 0.0 0.0-0.1 10^3/uL Erythrocyte Sedimentation Rate 36 H 0-30 MM/HR Prothrombin Time 12.8 12.2-14.7 SEC INR Comment 0.9 0.8-1.4 Activated Partial Thromboplast Time 40 H 24-35 SEC D-Dimer 0.28 0.54 H 0.00-0.49 UG/ML Sodium Level 133 L 131 L 135-145 MMOL/L Potassium Level 3.7 3.7 3.6-5.0 MMOL/L Chloride Level 99 98 98-107 MMOL/L Carbon Dioxide Level 21 21 21-32 MMOL/L Anion Gap 13 12 5-14 MMOL/L Blood Urea Nitrogen 14 18 7-18 MG/DL Creatinine 0.98 1.10 0.60-1.30 MG/DL Estimat Glomerular Filtration Rate > 60 > 60 BUN/Creatinine Ratio 14 16 Glucose Level 114 H 125 H 70-105 MG/DL Calcium Level 8.9 8.2 L 8.5-10.1 MG/DL Corrected Calcium 8.9 8.7 8.5-10.1 MG/DL Magnesium Level 1.5 L 2.2 1.6-2.4 MG/DL Total Bilirubin 0.4 0.3 0.1-1.0 MG/DL Aspartate Amino Transf (AST/SGOT) 70 H 58 H 5-34 U/L Alanine Aminotransferase (ALT/SGPT) 80 H 68 H 0-55 U/L Alkaline Phosphatase 49 41 40-136 U/L Lactate Dehydrogenase 278 H 125-220 U/L Total Creatine Kinase 92 30-200 U/L Creatine Kinase MB 0.6 <6.6 NG/ML Myoglobin 51.5 10.0-92.0 NG/ML Troponin I 0.028 0.071 H <0.028 NG/ML C-Reactive Protein High Sensitivity 2.95 H 0.00-0.50 MG/DL B-Type Natriuretic Peptide 45.9 <100.0 PG/ML Total Protein 7.4 6.2 L 6.4-8.2 GM/DL Albumin 4.0 3.4 3.2-4.5 GM/DL Procalcitonin 0.08 <0.10 NG/ML TSH [place] Testing 1.66 0.35-4.94 UIU/ML Urine Color YELLOW Urine Clarity CLEAR Urine pH 6.0 5-9 Urine Specific [place] 1.010 L 1.016-1.022 Urine Protein 1+ H NEGATIVE Urine Glucose (UA) NEGATIVE NEGATIVE Urine Ketones NEGATIVE NEGATIVE Urine Nitrite NEGATIVE NEGATIVE Urine Bilirubin NEGATIVE NEGATIVE Urine Urobilinogen 1.0 < = 1.0 MG/DL Urine Leukocyte Esterase NEGATIVE NEGATIVE Urine RBC (Auto) TRACE-I NEGATIVE Urine RBC NONE /HPF Urine WBC 0-2 /HPF Urine Squamous Epithelial Cells RARE /HPF Urine Crystals NONE /LPF Urine Bacteria NEGATIVE /HPF Urine Casts PRESENT /LPF Urine Hyaline Casts 0-2 H /LPF Urine Mucus SMALL H /LPF Urine Culture Indicated NO Phosphorus Level 4.0 2.3-4.7 MG/DL Physical Exam Physical Exam Vital Signs Vital Signs - First Documented 07/06/20 18:11 Temp 36.2 Pulse 122 Resp 28 B/P (MAP) 187/103 (131) Pulse Ox 96 O2 Delivery Nasal Cannula O2 Flow Rate 2.00 Capillary Refill : Less Than 3 Seconds Height, Weight, BMI Height: 5'5.00" Weight: 214lbs. 0.0oz. 97.658538eb; 37.61 BMI Method: General Appearance: No Apparent Distress, WD/WN Eyes: Bilateral Eye Normal Inspection, Bilateral Eye PERRL, Bilateral Eye EOMI HEENT: PERRL/EOMI, TMs Normal, Normal ENT Inspection, Pharynx Normal, Moist Mucous Membranes Neck: Full Range of Motion, Normal Inspection, Non Tender, Supple, Carotid Bruit Respiratory: Chest Non Tender, Normal Breath Sounds, No Accessory Muscle Use, No Respiratory Distress, Crackles Cardiovascular: No Edema, No Gallop, No JVD, No Murmur, Normal Peripheral Pulses, Irregularly Irregular Gastrointestinal: Normal Bowel Sounds, No Organomegaly, No Pulsatile Mass, Non Tender, Soft Back: Normal Inspection, No CVA Tenderness, No Vertebral Tenderness Extremity: Normal Capillary Refill, Normal Inspection, Normal Range of Motion, Non Tender, No Calf Tenderness, No Pedal Edema Neurologic/Psychiatric: Alert, Oriented x3, No Motor/Sensory Deficits, Normal Mood/Affect Skin: Normal Color, Warm/Dry Lymphatic: No Adenopathy A/P-Cardiology Admission Diagnosis Atrial fibrillation COVID-19 pneumonia Coronary artery disease Hyperlipidemia Assessment/Plan COVID-19 pneumonia, managed by primary care physician Atrial fibrillation/flutter with rapid ventricular response, heart rate is better controlled on Cardizem drip. Changed to oral Cardizem CD 240 mg daily. Continue to monitor [id number] score of 4, yearly risk of stroke without oral anticoagulation is 4 percent. I will start him on oral anticoagulation. Coronary artery disease, history of stent to the right coronary artery done in April 2008. Last stress test done by Dr. Kumari in October 2018 reported of small basal infarction without significant ischemia. EF 73 percent History of persistent left sided superior vena cava Hyperlipidemia, maintained on Zocor, fish oil and Trilipix Mild elevation in liver enzymes. And tinea to monitor as an outpatient Mild bilateral carotid stenosis, ultrasound was done in October [address] Kumari From cardiology standpoint okay for discharge, continue on diltiazem as an outpatient and continue on oral anticoagulation Clinical Quality Measures DVT/VTE Risk/Contraindication: Risk Factor Score Per Nursin RFS Level Per Nursing on Admit: 4+=Very High SANKET HOLLINGSWORTH MD Jul 07, 2020 10:54 am
--- NOTE | 2020-07-07 11:01 | NUR ---
MILAGRO CRAIG demonstrates understanding of discharge instructions and accurately returns instructions upon questioning. Copy of Post-Discharge Instructions and Medication Discharge Instructions given to patient. MILAGRO CRAIG is able to manage continuing needs after discharge. Patients belongings returned to patient. Skin dry and intact; no breakdown noted. Patient discharged from [facility] on 07/07/20 at 1115. MILAGRO CRAIG left floor via wheelchair, accompanied by BHAVNA Cox.
--- NOTE | 2020-07-07 14:52 | Discharge Summary ---
Discharge Summary Hospital Course Was the Problem List Reviewed?: Yes Problems/Dx: (1) Atrial fibrillation with rapid ventricular response Status: Acute (2) COVID-19 virus infection Status: Acute Hospital Course Date of Admission: Jul 06, 2020 at 19:51 Admission Diagnosis : Atrial flutter with rapid ventricular response Family Physician/Provider: Yoan Stoll MD Date of Discharge: 07/07/20 Discharge Diagnosis: Atrial flutter with rapid ventricular response Hospital Course: Jonatan Castro is a 75 year old male who was admitted with atrial flutter with rapid ventricular response. He was started on a Cardizem drip. Cardiology was consulted and asisted with his care. He was transitioned to oral Cardizem. He was started on Eliquis for stroke prophylaxis. His course was complicated by COVID-19. He was not symptomatic and was not requiring any supplemental oxygen. He was given a short course of Decadron to complete at home. He should follow up with his PCP and Cardiology in about two weeks. Labs and Pending Lab Test: Laboratory Tests 07/06/20 18:15: White Blood Count 5.1, Red Blood Count 4.54, Hemoglobin 13.0L, Hematocrit 41, Mean Corpuscular Volume 90, Mean Corpuscular Hemoglobin 29, Mean Corpuscular Hemoglobin Concent 32, Red Cell Distribution Width 14.0, Platelet Count 195, Mean Platelet Volume 10.3, Immature Granulocyte % (Auto) 1, Neutrophils (%) (Aut o) 76H, Lymphocytes (%) (Auto) 14, Monocytes (%) (Auto) 9, Eosinophils (%) (Auto) 0, Basophils (%) (Auto) 0, Neutrophils # (Auto) 3.9, Lymphocytes # (Auto) 0.7L, Monocytes # (Auto) 0.5, Eosinophils # (Auto) 0.0, Basophils # (Auto) 0.0, Immature Granulocyte # (Auto) 0.0, Erythrocyte Sedimentation Rate 36H, Prothrombin Time 12.8, INR Comment 0.9, Activated Partial Thromboplast Time 40H, D-Dimer 0.28, Sodium Level 133L, Potassium Level 3.7, Chloride Level 99, Carbon Dioxide Level 21, Anion Gap 13, Blood Urea Nitrogen 14, Creatinine 0.98, Estimat Glomerular Filtration Rate > 60, BUN/Creatinine Ratio 14, Glucose Level 114H, Calcium Level 8.9, Corrected Calcium 8.9, Magnesium Level 1.5L, Total Bilirubin 0.4, Aspartate Amino Transf (AST/SGOT) 70H, Alanine Aminotransferase (ALT/SGPT) 80H, Alkaline Phosphatase 49, Lactate Dehydrogenase 278H, Total Creatine Kinase 92, Creatine Kinase MB 0.6, Myoglobin 51.5, Troponin I 0.028, C-Reactive Protein High Sensitivity 2.95H, B-Type Natriuretic Peptide 45.9, Total Protein 7.4, Albumin 4.0, Procalcitonin 0.08, TSH [place] Testing 1.66 07/06/20 22:20: Urine Color YELLOW, Urine Clarity CLEAR, Urine pH 6.0, Urine Specific [place] 1.010L, Urine Protein 1+H, Urine Glucose (UA) NEGATIVE, Urine Ketones NEGATIVE, Urine Nitrite NEGATIVE, Urine Bilirubin NEGATIVE, Urine Urobilinogen 1.0, Urine Leukocyte Esterase NEGATIVE, Urine RBC (Auto) TRACE-I, Urine RBC NONE, Urine WBC 0-2, Urine Squamous Epithelial Cells RARE, Urine Crystals NONE, Urine Bacteria NEGATIVE, Urine Casts PRESENT, Urine Hyaline Casts 0-2H, Urine Mucus SMALLH, Urine Culture Indicated NO 07/06/20 23:10: D-Dimer 0.54H 07/07/20 02:29: White Blood Count 4.7, Red Blood Count 3.93L, Hemoglobin 11.4L, Hematocrit 35L, Mean Corpuscular Volume 90, Mean Corpuscular Hemoglobin 29, Mean Corpuscular Hemoglobin Concent 32, Red Cell Distribution Width 14.1, Platelet Count 176, Mean Platelet Volume 10.5, Immature Granulocyte % (Auto) 0, Neutrophils (%) (Auto) 70, Lymphocytes (%) (Auto) 22, Monocytes (%) (Auto) 8, Eosinophils (%) (Auto) 0, Basophils (%) (Auto) 0, Neutrophils # (Auto) 3.2, Lymphocytes # (Auto) 1.0, Monocytes # (Auto) 0.4, Eosinophils # (Auto) 0.0, Basophils # (Auto) 0.0, Immature Granulocyte # (Auto) 0.0, Sodium Level 131L, Potassium Level 3.7, Chloride Level 98, Carbon Dioxide Level 21, Anion Gap 12, Blood Urea Nitrogen 18, Creatinine 1.10, Estimat Glomerular Filtration Rate > 60, BUN/Creatinine Ratio 16, Glucose Level 125H, Calcium Level 8.2L, Corrected Calcium 8.7, Magnesium Level 2.2, Total Bilirubin 0.3, Aspartate Amino Transf (AST/SGOT) 58H, Alanine Aminotransferase (ALT/SGPT) 68H, Alkaline Phosphatase 41, Troponin I 0.071H, Total Protein 6.2L, Albumin 3.4, Phosphorus Level 4.0 Microbiology 07/06/20 Influenza Types A,B Antigen (WONG) - Final, Complete Home Meds Active Dexamethasone 6 Mg Tablet 6 Mg PO DAILY 5 Days Eliquis (Apixaban) 5 Mg Tablet 5 Mg PO BID 30 Days TAKE 2 TABLETS BID X 7 DAYS, THEN 1 TABLET BID Diltiazem 24Hr Cd (Diltiazem HCl) 240 Mg Cap.er.24h 240 Mg PO DAILY 30 Days Iron (Ferrous Sulfate) 325 Mg Tablet 325 Mg PO DAILY 60 Days Reported Vitamin E (Vitamin E Mixed) 400 Unit Tablet 400 Unit PO DAILY Ascorbic Acid 500 Mg Tablet 500 Mg PO DAILY Vitamin D (Cholecalciferol (Vitamin D3)) 1,000 Unit Tablet 1,000 Unit PO DAILY Fish Oil 1,000 mg Capsule ([place] 3 Polyunsat Fatty Acids) 1,000 Mg Cap 1,000 Mg PO DAILY Metoprolol Succinate 25 Mg Tab.er.24h 25 Mg PO DAILY Simvastatin 20 Mg Tablet 20 Mg PO DAILY Assessment/Pt Instructions Take medications as prescribed. Complete your course of Decadron. Begin taking Cardizem and Eliquis for atrial flutter. Follow up with Dr. Stoll and Dr. Kumari in a couple weeks. Return with worsening shortness of breath, chest pain, or if you feel like you are getting worse. Discharge Planning: <30 minutes discharge planning Discharge Instructions Discharge Diet: No Restrictions Activity as Tolerated: Yes Discharge Physical Examination Vital Signs Vital Signs Date Time Temp Pulse Resp B/P (MAP) Pulse Ox O2 Delivery O2 Flow Rate FiO2 07/07/20 11:02 Room Air 07/07/20 10:00 82 14 97 07/07/20 07:52 35.8 07/07/20 00:45 2.00 General Appearance: No Apparent Distress, WD/WN HEENT: PERRL/EOMI, Pharynx Normal Respiratory: Lungs Clear, Normal Breath Sounds, No Respiratory Distress Cardiovascular: No Murmur, Irregularly Irregular (regular rate) Gastrointestinal: Normal Bowel Sounds, Non Tender, Soft Extremity: Normal Inspection, Non Tender, No Pedal Edema Skin: Normal Color, Warm/Dry Neurologic/Psychiatric: Alert, Oriented x3, No Motor/Sensory Deficits, Normal Mood/Affect Allergies: Coded Allergies: No Known Drug Allergies (Verified , 05/23/08) Copy Copies To 1: YOAN STOLL MD Discharge Summary Date of Admission Jul 06, 2020 at 19:51 Date of Discharge Jul 07, 2020 at 11:15 Discharge Date: Jul 07, 2020 Discharge Time: 11:15 Admission Diagnosis Atrial flutter with rapid ventricular response Consults/Procedures Consulations Cardiology Discharge Diagnosis (1) Atrial fibrillation with rapid ventricular response Status: Acute (2) COVID-19 virus infection Status: Acute Clinical Quality Measures DVT/VTE Risk/Contraindication: Risk Factor Score Per Nursin RFS Level Per Nursing on Admit: 4+=Very High JOSEPH BURGESS MD Jul 07, 2020 14:49
[2020-07-07] MEDS ORDERED: APIXABAN 5 MG (ELIQUIS) TABLET PO SCH (21:00)
[2020-07-08] MEDS ORDERED: PANTOPRAZOLE 40 MG (PROTONIX) TAB PO SCH (09:00)
== END 2020-07-07 11:15 | disposition home or self-care (01) | DRG 308 ==
LOC: EDUNIT# 18:01 → ER 18:02 → ICU 19:51 → OBSVTOIN 19:51 → ICU 21:51
PROVIDERS: ADMIT Internal Medicine; ATTEND Internal Medicine
DX: I48.91 Unspecified atrial fibrillation (principal); U07.1 COVID-19; J12.89 Other viral pneumonia; I10 Essential (primary) hypertension; I25.10 Atherosclerotic heart disease of native coronary artery without angina pectoris; E78.5 Hyperlipidemia, unspecified; I48.92 Unspecified atrial flutter; I65.23 Occlusion and stenosis of bilateral carotid arteries; Z95.5 Presence of coronary angioplasty implant and graft; Z73.0 Burn-out
CPT/HCPCS: 36415; 71045; 71275; 80053; 81000; 82550; 82553; 83605; 83615; 83735; 83874; 83880; 84100; 84145; 84443; 84484; 85025; 85379; 85610; 85652; 85730; 86141; 87040; 87804; 93005; 93041; 96365; 96366; 96372; 96375

== ENCOUNTER 2020-07-11 00:17 | Inpatient (IN) | payer BC, MEDICARE ==
[2020-07-11] VITALS (11 sets, daily range): BP systolic 164–219; BP diastolic 78–107
[~2020-07-11] VITALS: Ht 165 cm; Wt 121.8 kg
[~2020-07-11 00:17] MED LIST changes: +APIX5TAB PO; +DEXA6TAB PO; +DILT240C90 PO
[2020-07-11] MEDS ORDERED: APIXABAN 5 MG (ELIQUIS) TABLET PO ONE (00:45)
[2020-07-11] MEDS ORDERED: methylPREDNISolone 125 MG (Solu-MEDROL) VIAL IVP ONE (00:45)
[2020-07-11 00:50] LABS: BASOPHILS % (AUTO) 0 % (0-10); EOSINOPHILS % (AUTO) 0 % (0-10); HEMATOCRIT 40 % (40-54); HEMOGLOBIN 12.8 g/dL (13.3-17.7); LYMPHOCYTES # (AUTO) 0.6 10^3/uL (1.0-4.0); LYMPHOCYTES % (AUTO) 5 % (12-44); MEAN CORPUSCULAR HEMOGLOBIN 29 pg (25-34); MEAN CORPUSCULAR HGB CONC 32 g/dL (32-36); MEAN CORPUSCULAR VOLUME 89 fL (80-99); MEAN PLATELET VOLUME 10.5 fL (9.0-12.2); MONOCYTES # (AUTO) 0.5 10^3/uL (0.0-1.0); MONOCYTES % (AUTO) 4 % (0-12); NEUTROPHILS # (AUTO) 9.9 10^3/uL (1.8-7.8); NEUTROPHILS % (AUTO) 89 % (42-75); PLATELET COUNT 248 10^3/uL (130-400); WHITE BLOOD COUNT 11.1 10^3/uL (4.3-11.0)
[2020-07-11 00:54] LABS: ALBUMIN 3.6 GM/DL (3.2-4.5); CHLORIDE 100 MMOL/L (98-107); POTASSIUM 4.6 MMOL/L (3.6-5.0); SODIUM 132 MMOL/L (135-145)
[2020-07-11 00:55] LABS: CALCIUM 8.5 MG/DL (8.5-10.1)
[2020-07-11 00:56] LABS: GLUCOSE 179 MG/DL (70-105); TOTAL PROTEIN 7.1 GM/DL (6.4-8.2)
[2020-07-11 00:57] LABS: CARBON DIOXIDE 22 MMOL/L (21-32)
[2020-07-11 00:58] LABS: BILIRUBIN,TOTAL 0.6 MG/DL (0.1-1.0); FIBRIN DEGRADATION PRODUCTS 0.59 UG/ML (0.00-0.49); INR 1.4 (0.8-1.4); PROTHROMBIN TIME PATIENT 17.4 SEC (12.2-14.7)
[2020-07-11 01:00] LABS: ALKALINE PHOSPHATASE 57 U/L (40-136); CREATININE SERUM 0.87 MG/DL (0.60-1.30); GFR ESTIMATED > 60
[2020-07-11 01:01] LABS: BUN/CREATININE RATIO 28
[2020-07-11 01:03] LABS: ALANINE AMINOTRANSFERASE 85 U/L (0-55)
[2020-07-11 01:18] LABS: BILIRUBIN,URINE NEGATIVE (NEGATIVE); CLARITY,URINE CLEAR; COLOR,URINE YELLOW; GLUCOSE, URINE (UA) NEGATIVE (NEGATIVE); KETONES,URINE NEGATIVE (NEGATIVE); LEUKOCYTE ESTERASE ,URINE NEGATIVE (NEGATIVE); NITRITE,URINE NEGATIVE (NEGATIVE); PH,URINE 6.5 (5-9); PROTEIN,URINE 3+ (NEGATIVE)
[2020-07-11 01:34] LABS: BAND NEUTROPHILS 3 %; LYMPHOCYTES % (MANUAL) 7 %; MONOCYTES % (MANUAL) 3 %; NEUTROPHILS % (MANUAL) 87 %; RBC MORPH NORMAL
[2020-07-11 01:35] LABS: BACTERIA,URINE NEGATIVE /HPF; SQUAMOUS EPITHELIAL CELL,UR 0-2 /HPF
--- NOTE | 2020-07-11 02:06 | ED General ---
General Chief Complaint: Respiratory Problems Stated Complaint: COVID+,O2 91,TEMP 98.3 Nursing Triage Note: RECENTLY DISCHARGED FROM THE HOSPITAL WITH A COVID DIAGNOSIS AND A FIB WITH RVR. DISCHARGED HOME ON FRIDAY. STATES HAS BEEN GETTING PROGRESSIVELY WORSE SINCE DISCHARGE. TODAY COMPLAINS OF SHORTNESS OF BREATH AND LOW O2 SATURATION AT REST AND SIGNIFICANTLY LOWER WITH ACTIVITY. A/O X4, CALL LIGHT IN REACH ORIENTED TO ITS USE. Nursing Sepsis Screen: No Definite Risk Source of Information: Patient Exam Limitations: No Limitations History of Present Illness Date Seen by Provider: Jul 10, 2020 Time Seen by Provider: 00:19 Initial Comments This 75-year-old gentleman presents to the emergency room with shortness of breath and wheezing. He was admitted to the hospital on July 06 with new onset A. fib with RVR. He had been diagnosed with COVID-19 prior to that but was not suffering from significant symptoms. Tonight his oxygen saturations have dipped as low as the 70s with exertion. He does not have supplemental oxygen available at home. He arrives via [facility]. They are administering a DuoNeb in route. He is in rate controlled atrial fibrillation at this time. He is anticoagulated on Eliquis and uses Cardizem for rate control. He has not yet taken these medications tonight. Allergies and Home Medications Allergies Coded Allergies: No Known Drug Allergies (Verified , 05/23/08) Home Medications Apixaban 5 Mg Tablet, 5 MG PO BID TAKE 2 TABLETS BID X 7 DAYS, THEN 1 TABLET BID Prescribed by: JOSEPH BURGESS on 07/07/20 1016 Ascorbic Acid 500 Mg Tablet, 500 MG PO DAILY, (Reported) Cholecalciferol (Vitamin D3) 1,000 Unit Tablet, 1,000 UNIT PO DAILY, (Reported) Dexamethasone 6 Mg Tablet, 6 MG PO DAILY Prescribed by: JOSEPH BURGESS on 07/07/20 1017 Diltiazem HCl 240 Mg Cap.er.24h, 240 MG PO DAILY Prescribed by: JOSEPH BURGESS on 07/07/20 1016 Ferrous Sulfate 325 Mg Tablet, 325 MG PO DAILY Prescribed by: YOAN GONZALEZ on 06/26/18 1114 Metoprolol Succinate 25 Mg Tab.er.24h, 25 MG PO DAILY, (Reported) [place] 3 Polyunsat Fatty Acids 1,000 Mg Cap, 1,000 MG PO DAILY, (Reported) Simvastatin 20 Mg Tablet, 20 MG PO DAILY, (Reported) Vitamin E Mixed 400 Unit Tablet, 400 UNIT PO DAILY, (Reported) Patient Home Medication List Home Medication List Reviewed: Yes Review of Systems Review of Systems Constitutional: no symptoms reported EENTM: no symptoms reported Respiratory: see HPI Cardiovascular: see HPI Gastrointestinal: no symptoms reported Genitourinary: no symptoms reported Musculoskeletal: no symptoms reported Skin: no symptoms reported Psychiatric/Neurological: No Symptoms Reported Hematologic/Lymphatic: No Symptoms Reported Immunological/Allergic: no symptoms reported Past Mpicrzx-Qxephc-Hknhux Hx Past Med/Social Hx: Reviewed Nursing Past Med/Soc Hx Patient Social History Alcohol Use: Regular Use Number of Drinks Today: 0 Recreational Drug Use: No Smoking Status: Former Smoker Type Used: Cigarettes Former Smoker, Quit: Jul 11, 2008 2nd Hand Smoke Exposure: No Recent Foreign Travel: No Contact w/Someone Who Travel: No Recent Infectious Disease Expo: No Recent Hopitalizations: No Physical Abuse: No Sexual Abuse: No Mistreated: No Fear: No Seasonal Allergies Seasonal Allergies: No Past Medical History Surgeries: Yes (CARDIAC CATH-STENT X 1 TO RCA) Appendectomy, Cardiac, Coronary Stent Respiratory: Yes COPD Cardiac: Yes (2007--STEMI WITH COMPLETE HEART BLOCK AND CARDIOGENIC SHOCK 2007;STENT X 1 ) Atrial Fibrillation, Coronary Artery Disease, Heart Attack, High Cholesterol, Hypertension Neurological: No Reproductive Disorders: No Genitourinary: No Gastrointestinal: No Musculoskeletal: Yes Arthritis Endocrine: No HEENT: No Cancer: No Psychosocial: No Integumentary: No Blood Disorders: No Family Medical History ADDITIONAL PMH/PSH: -CARDIAC CATH 2007--STEMI/COMPLETE HEART BLOCK/CARDIOGENIC SHOCK WITH STENT X 1 TO RCA -MOST RECENT STRESS TEST 10/13/2018--EF 73% -COLONOSCOPIES--MOST RECENT 11/2014--DIVERTICULAR DISEASE Physical Exam-Suspected Sepsis Physical Exam Vital Signs Vital Signs - First Documented 07/11/20 00:17 Temp 37.0 Pulse 75 Resp 34 B/P (MAP) 173/102 (125) Pulse Ox 96 O2 Delivery Simple Mask O2 Flow Rate 6.00 Capillary Refill : Less Than 3 Seconds Blood Pressure Mean: 125 Height, Weight, BMI Height: 5'5.00" Weight: 214lbs. 0.0oz. [id number]; 34.00 BMI Method: General Appearance: WD/WN, Mild Distress HEENT: PERRL/EOMI, Normal ENT Inspection Neck: Normal Inspection; No JVD Respiratory: No Accessory Muscle Use, No Respiratory Distress, Wheezing (Coarse and audible wheezing throughout) Cardiovascular: No Edema, No Murmur, Irregularly Irregular Gastrointestinal: Normal Bowel Sounds, Non Tender, Soft Extremity: Normal Inspection, No Pedal Edema Neurologic/Psychiatric: Alert, Oriented x3, No Motor/Sensory Deficits, Normal Mood/Affect, civil engineer helper II-XII Norm as Tested Skin: normal color, warm/dry Focused Exam Lactate Level 07/11/20 00:30: Lactic Acid Level 1.61 Lactic Acid Level Laboratory Tests Test 07/11/20 00:30 Lactic Acid Level 1.61 MMOL/L (0.50-2.00) Progress/Results/Core Measures Suspected Sepsis Recent Fever Within 48 Hours: Yes Infection Criteria Present: None New/Unexplained Altered Menta: No Sepsis Screen: No Definite Risk SIRS Temperature: Pulse: 75 Respiratory Rate: 34 Laboratory Tests 07/11/20 00:30: White Blood Count 11.1H Blood Pressure 173 /102 Mean: 125 07/11/20 00:30: Lactic Acid Level 1.61 Laboratory Tests 07/11/20 00:30: Creatinine 0.87, INR Comment 1.4, Platelet Count 248, Total Bilirubin 0.6 Results/Orders Lab Results Laboratory Tests Test 07/11/20 00:30 07/11/20 01:08 Range/Units White Blood Count 11.1 H 4.3-11.0 10^3/uL Red Blood Count 4.48 4.30-5.52 10^6/uL Hemoglobin 12.8 L 13.3-17.7 g/dL Hematocrit 40 40-54 % Mean Corpuscular Volume 89 80-99 fL Mean Corpuscular Hemoglobin 29 25-34 pg Mean Corpuscular Hemoglobin Concent 32 32-36 g/dL Red Cell Distribution Width 14.2 10.0-14.5 % Platelet Count 248 130-400 10^3/uL Mean Platelet Volume 10.5 9.0-12.2 fL Immature Granulocyte % (Auto) 1 % Neutrophils (%) (Auto) 89 H 42-75 % Lymphocytes (%) (Auto) 5 L 12-44 % Monocytes (%) (Auto) 4 0-12 % Eosinophils (%) (Auto) 0 0-10 % Basophils (%) (Auto) 0 0-10 % Neutrophils # (Auto) 9.9 H 1.8-7.8 10^3/uL Lymphocytes # (Auto) 0.6 L 1.0-4.0 10^3/uL Monocytes # (Auto) 0.5 0.0-1.0 10^3/uL Eosinophils # (Auto) 0.0 0.0-0.3 10^3/uL Basophils # (Auto) 0.0 0.0-0.1 10^3/uL Immature Granulocyte # (Auto) 0.2 H 0.0-0.1 10^3/uL Neutrophils % (Manual) 87 % Lymphocytes % (Manual) 7 % Monocytes % (Manual) 3 % Band Neutrophils 3 % Blood Morphology Comment NORMAL Prothrombin Time 17.4 H 12.2-14.7 SEC INR Comment 1.4 0.8-1.4 Activated Partial Thromboplast Time 40 H 24-35 SEC D-Dimer 0.59 H 0.00-0.49 UG/ML Sodium Level 132 L 135-145 MMOL/L Potassium Level 4.6 3.6-5.0 MMOL/L Chloride Level 100 98-107 MMOL/L Carbon Dioxide Level 22 21-32 MMOL/L Anion Gap 10 5-14 MMOL/L Blood Urea Nitrogen 24 H 7-18 MG/DL Creatinine 0.87 0.60-1.30 MG/DL Estimat Glomerular Filtration Rate > 60 BUN/Creatinine Ratio 28 Glucose Level 179 H 70-105 MG/DL Lactic Acid Level 1.61 0.50-2.00 MMOL/L Calcium Level 8.5 8.5-10.1 MG/DL Corrected Calcium 8.8 8.5-10.1 MG/DL Total Bilirubin 0.6 0.1-1.0 MG/DL Aspartate Amino Transf (AST/SGOT) 45 H 5-34 U/L Alanine Aminotransferase (ALT/SGPT) 85 H 0-55 U/L Alkaline Phosphatase 57 40-136 U/L Lactate Dehydrogenase 509 H 125-220 U/L C-Reactive Protein High Sensitivity 5.72 H 0.00-0.50 MG/DL B-Type Natriuretic Peptide 246.5 H <100.0 PG/ML Total Protein 7.1 6.4-8.2 GM/DL Albumin 3.6 3.2-4.5 GM/DL Procalcitonin 0.08 <0.10 NG/ML Urine Color YELLOW Urine Clarity CLEAR Urine pH 6.5 5-9 Urine Specific [place] 1.025 H 1.016-1.022 Urine Protein 3+ H NEGATIVE Urine Glucose (UA) NEGATIVE NEGATIVE Urine Ketones NEGATIVE NEGATIVE Urine Nitrite NEGATIVE NEGATIVE Urine Bilirubin NEGATIVE NEGATIVE Urine Urobilinogen 2.0 < = 1.0 MG/DL Urine Leukocyte Esterase NEGATIVE NEGATIVE Urine RBC (Auto) 1+ H NEGATIVE Urine RBC 2-5 H /HPF Urine WBC NONE /HPF Urine Squamous Epithelial Cells 0-2 /HPF Urine Crystals NONE /LPF Urine Bacteria NEGATIVE /HPF Urine Casts NONE /LPF Urine Mucus SMALL H /LPF Urine Culture Indicated CULTURE PENDING Micro Results Microbiology 07/11/20 Influenza Types A,B Antigen (WONG) - Final, Complete My Orders Orders - JACINDA CRANE MD Cbc With Automated Diff (07/11/20 00:30) Comprehensive Metabolic Panel (07/11/20 00:30) Blood Culture (07/11/20 00:30) Sputum Culture (07/11/20 00:30) Urinalysis (07/11/20 00:30) Urine Culture (07/11/20 00:30) Protime With Inr (07/11/20 00:30) Partial Thromboplastin Time (07/11/20 00:30) Chest 1 View, Ap/Pa Only (07/11/20 00:30) Ed Iv/Invasive Line Start (07/11/20 00:30) Ed Iv/Invasive Line Start (07/11/20 00:30) Vital Signs Adult Sepsis Patie Q15M (07/11/20 00:30) O2 (07/11/20 00:30) Remove Rings In Anticipation O (07/11/20 00:30) Lactic Acid Analyzer (07/11/20 00:30) Fibrin Degradation Products (07/11/20 00:30) Hs C Reactive Protein (07/11/20 00:30) LDH (07/11/20 00:30) Methylprednisolone Sod Succ (Solu-Medrol (07/11/20 00:45) BNP (07/11/20 00:31) Manual Differential (07/11/20 00:30) Procalcitonin (Pct) (07/11/20 01:20) Diltiazem Cd 24 Hr Capsule (Cardizem Cd (07/11/20 00:45) Apixaban Tablet (Eliquis Tablet) (07/11/20 00:45) Influenza A And B Antigens (07/11/20 00:35) Medications Given in ED Current Medications Medications Dose Ordered Sig/Caden Route Start Time Stop Time Status Last Admin Dose Admin Apixaban 5 mg ONCE ONCE PO 07/11/20 00:45 07/11/20 01:45 DC 07/11/20 00:46 5 MG Diltiazem HCl 240 mg ONCE ONCE PO 07/11/20 00:45 07/11/20 01:45 DC 07/11/20 00:46 240 MG Methylprednisolone Sodium Succinate 125 mg ONCE ONCE IVP 07/11/20 00:45 07/11/20 00:46 DC 07/11/20 00:46 125 MG Vital Signs/I&O 07/11/20 07/11/20 07/11/20 07/11/20 00:17 00:17 02:50 03:17 Temp 37.0 36.7 Pulse 75 87 69 Resp 34 20 25 B/P (MAP) 173/102 (125) 130/89 172/81 Pulse Ox 96 96 96 92 O2 Delivery Simple Mask Simple Mask Nasal Cannula Nasal Cannula O2 Flow Rate 6.00 4.00 6.00 Capillary Refill : Less Than 3 Seconds Blood Pressure Mean: 125 Progress Note : Progress Note Patient received a dose of Solu-Medrol along with his usual evening Eliquis and Cardizem. Between the DuoNeb treatment and the Solu-Medrol, patient's wheezing gradually improved. He was maintaining oxygen saturations in the upper 90s on 4 L by nasal cannula. Admission was necessary due to his hypoxia. Diagnostic Imaging Diagonstic Imaging: Xray Plain Films/CT/US/NM/MRI: chest Comments Chest x-ray reviewed by me. Report not yet available. Diffuse patchy infiltrates consistent with COVID-19. Departure Communication (Admissions) Time/Spoke to Admitting Phy: 01:58 Dr. Gonzalez Impression Primary Impression: COVID-19 virus infection Additional Impressions: Hypoxia COPD exacerbation Disposition: ADMITTED INPATIENT Condition: Improved Admissions Decision to Admit Reason: Admit from ER (General) Decision to Admit/Date: Jul 11, 2020 Time/Decision to Admit Time: 00:30 Departure-Patient Inst. Referrals: YOAN GONZALEZ MD (PCP/Family) Primary Care Physician JACINDA CRANE MD Jul 11, 2020 02:06
--- NOTE | 2020-07-11 02:40 | NUR ---
CALLED REPORT TO CORINNE NAVARRO
--- NOTE | 2020-07-11 02:55 | NUR ---
MILAGRO CRAIG admitted to room 427-1, with an admitting diagnosis of COVID+; HYPOXIA; and COPD Exacerbation, on 07/11/20 from ED via hospital bed, accompanied by staff.MILAGRO CRAIG introduced to surroundings, call light, bed controls, phone, TV, temperature control, lights, meal times, smoking policy, visitor policy, side rail policy, bathrooms and showers. Patient Rights given to patient in the handbook. MILAGRO CRAIG verbalizes understanding that [facility] is not responsible for the loss or damage to any personal effects or valuables that are kept in the patients posession during their hospitalization. MILAGRO CRAIG verbalizes understanding of Interdisciplinary Patient Education. Patient and/or family were informed about the Rapid Response Team and its purpose.
[2020-07-11] MEDS ORDERED: ONDANSETRON 4 MG/2 ML (SDV) Z0FRAN IV PRN (03:15)
[2020-07-11] MEDS ORDERED: CATHETER FLUSH 10 ML SYR IV PRN (03:15)
[2020-07-11] MEDS ORDERED: RT-ALBUTEROL INHALER HFA (VENTOLIN HFA) 18 GM IH ONE (04:42)
--- NOTE | 2020-07-11 06:57 | Diagnostic Imaging Report ---
INDICATION: Sepsis, shortness of air. TECHNIQUE: Single view chest 1238 AM. CORRELATION STUDY: 07/06/2020 FINDINGS: Extensive patchy somewhat nodular infiltrates throughout both lung bowens have adversely changed from prior. Heart size also appears increased. Vasculature is largely obscured but appears increased as well. IMPRESSION: 1. Adverse change at follow-up chest. Bilateral pulmonary opacities are present favoring multilobe pneumonia. Given apparent increase in heart size and vascularity, possibility of edema is not excluded. Dictated by: Dictated on workstation # [id number]
--- NOTE | 2020-07-11 07:25 | NUR ---
pt does not have mdi in room at this time. can not give treatment to pt at this time. Addendum: 07/11/20 at 0842 by BLADE GRIFFITHS RT Amended: Links added.
[2020-07-11] MEDS: RT-ALBUTEROL INHALER HFA (VENTOLIN HFA) 18 GM IH SCH ×6 (08:41→21:47)
[2020-07-11] MEDS ORDERED: NS IV 500 ML 500 ML IV SCH (11:38)
[2020-07-11] MEDS ORDERED: REMDESIVIR INJ 200 MG in NS (IVPB) 210 ML IV ONE (11:45)
--- NOTE | 2020-07-11 11:46 | History & Physical-Hospitalist ---
History of Present Illness HPI/Chief Complaint Pt is a 75yoCM with a PMH of a-fib, HLD, HTN who presented to the ER due to shortness of braeth and wheezing. He was admitted last week due to new onset atrail fibrillation and diagnosed with COVID at that time but was doing well so was discharged home. Last night his oxygen dropped to the 70s with exertion prompting him to call EMS for evaluation. He remained hypoxic here as well. He was admitted for oxygen supplementation. This morning he repors he is breathing ok but is now on vapotherm. State he is mostly anxious about how he will do as he knows he is high risk. He is also concerned about his . Source: patient Date Seen 07/11/20 Time Seen by a Provider: 11:40 Attending Physician Marco Antonio Stoll MD PCP Marco Antonio Stoll MD Referring Physician Date of Admission Jul 11, 2020 at 02:04 Home Medications & Allergies Home Medications Reviewed patient Home Medication Reconciliation performed by pharmacy medication reconciliations planetarium technician and/or nursing. Patients Allergies have been reviewed. Allergies Allergies Coded Allergies No Known Drug Allergies (Gkitvuuw01/13/08) Past Cdtdqox-Thuqgb-Bdhsqf Hx Past Med/Social Hx: Reviewed Nursing Past Med/Soc Hx Patient Social History Marrital Status: Alcohol Use: Regular Use Recreational Drug Use: No Smoking Status: Former Smoker Former Smoker, Quit: Jul 11, 2008 Type Used: Cigarettes 2nd Hand Smoke Exposure: No Recent Foreign Travel: No Contact w/other who traveled: No Recent Hopitalizations: No Recent Infectious Disease Expo: No Immunizations Up To Date Date of Influenza Vaccine: Jun 19, 2020 Seasonal Allergies Seasonal Allergies: No Past Medical History Surgeries: Appendectomy, Cardiac, Coronary Stent Cardiac: Atrial Fibrillation, Coronary Artery Disease, Heart Attack, High Cholesterol, Hypertension Reproductive: No Musculoskeletal: Arthritis History of Blood Disorders: No Family History Reviewed Nursing Family Hx ADDITIONAL PMH/PSH: -CARDIAC CATH 2007--STEMI/COMPLETE HEART BLOCK/CARDIOGENIC SHOCK WITH STENT X 1 TO RCA -MOST RECENT STRESS TEST 10/13/2018--EF 73% -COLONOSCOPIES--MOST RECENT 11/2014--DIVERTICULAR DISEASE Review of Systems Constitutional: fever, malaise EENTM: no symptoms reported Respiratory: cough, short of breath Cardiovascular: No chest pain, No palpitations Gastrointestinal: No abdominal pain; loss of appetite; No nausea, No vomiting Genitourinary: no symptoms reported Musculoskeletal: no symptoms reported Skin: no symptoms reported Psychiatric/Neurological: No Symptoms Reported Physical Exam Physical Exam Vital Signs Vital Signs - First Documented 07/11/20 07/11/20 00:17 03:30 Temp 37.0 Pulse 75 Resp 34 B/P (MAP) 173/102 (125) Pulse Ox 96 O2 Delivery Simple Mask O2 Flow Rate 6.00 FiO2 60 Capillary Refill : Less Than 3 Seconds Height, Weight, BMI Height: 5'5.00" Weight: 214lbs. 0.0oz. 97.226174ir; 34.89 BMI Method: General Appearance: No Apparent Distress, Anxious, Chronically ill, Obese HEENT: PERRL/EOMI, Moist Mucous Membranes; No Scleral Icterus (L), No Scleral Icterus (R) Neck: Normal Inspection, Supple Respiratory: No Accessory Muscle Use, Decreased Breath Sounds, Other (on Vapotherm) Cardiovascular: Regular Rate, Rhythm, No Murmur Gastrointestinal: Normal Bowel Sounds, Non Tender, Soft Extremity: Normal Capillary Refill, No Calf Tenderness, No Pedal Edema Neurologic/Psychiatric: Alert, Oriented x3 Results Results/Procedures Labs Laboratory Tests 07/11/20 00:30 Patient resulted labs reviewed. Imaging: Reviewed Imaging Report Imaging [facility], [place] NAME: MILAGRO CRAIG Tracey [facility] REC#: [id number] PT STATUS: ADM IN : 1945 PHYSICIAN: JACINDA CRANE MD ADMIT DATE: 07/11/20 Signed Date of Exam:07/11/20 CHEST 1 VIEW, AP/PA ONLY INDICATION: Sepsis, shortness of air. TECHNIQUE: Single view chest 1238 AM. CORRELATION STUDY: 07/06/2020 FINDINGS: Extensive patchy somewhat nodular infiltrates throughout both lung bowens have adversely changed from prior. Heart size also appears increased. Vasculature is largely obscured but appears increased as well. IMPRESSION: 1. Adverse change at follow-up chest. Bilateral pulmonary opacities are present favoring multilobe pneumonia. Given apparent increase in heart size and vascularity, possibility of edema is not excluded. Dictated by: Dictated on workstation # [id number] Dict: 07/11/20 0647 Trans: 07/11/20 1150 CANDICE [id number] Interpreted by: NAVA VASQUEZ DO Electronically signed by: NAVA VASQUEZ DO 07/11/20 1150 Assessment/Plan Admission Diagnosis Acute hypoxic respiratory failure from COVID19 Admission Status: Inpatient Order (span 2 midnights) Reason for Inpatient Admission: see below Assessment and Plan Acute hypoxic respiratory failure from COVID19 Continue decadron Vapotherm, wean as able Consented for convalescent plasma, EUA status explained Remdesivir ordered Prone as able Already on Eliquis for anticoagulation MAT protocol Rate controlled a-fib HTN Monitor on telemetry [facility] [place] Diagnosis/Problems Diagnosis/Problems (1) Acute respiratory failure Status: Acute Qualifiers: Respiratory failure complication: hypoxia Qualified Codes: J96.01 - Acute respiratory failure with hypoxia (2) Atrial fibrillation Status: Chronic Qualifiers: Atrial fibrillation type: unspecified Qualified Codes: I48.91 - Unspecified atrial fibrillation (3) COVID-19 virus infection Status: Acute (4) HTN (hypertension) Status: Chronic Qualifiers: Hypertension type: essential hypertension Qualified Codes: I10 - Essential (primary) hypertension Clinical Quality Measures DVT/VTE Risk/Contraindication: Risk Factor Score Per Nursin RFS Level Per Nursing on Admit: 4+=Very High ELLYN RODRIGUEZ MD Jul 11, 2020 11:46
[2020-07-11] MEDS: LORazepam 0.5 MG (ATIVAN) TABLET PO PRN ×2 (12:21→20:38)
--- NOTE | 2020-07-11 14:23 | NUR ---
Initial visit: The patient is Worship and shared that he was baptized in the hospital when he came in for a cardiac procedure some years ago. 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 Electronic Field Service Engineer facilitated reflective conversation, during which the patient shared that he is commonly praying, "Lord, have mercy on me a sinner." Electronic Field Service Engineer reflected with the patient about it's depth of meaning and comfort to him, and invited him to pray this together. The patient expressed appreciation for the opportunity to share about his tabitha, and expressed he was able to release stress and felt affirmed.
--- NOTE | 2020-07-11 14:39 | NUR ---
"RD ASSESSMENT PMHx: COPD; afib; CAD; hypercholesterolemia; HTN; COVID-19; PT INTERACTION: Note pt currently in COVID isolation, per chart review. Note all diet information for consult for MST score is per Sánchez RN or per chart review. Sánchez states current appetite appears fine. Note avg PO intake 100% x2meal, per chart review. Sánchez states no issues with nausea, vomiting, constipation, or diarrhea, and that his last BM was 07/10. Note pt not currently on bowel regimen per chart review. Note unable to determine recent wt hx, per chart review. Note unable to conduct visual assessment d/t isolation precautions. Note current BMI 34.9 (Obese class I for age), per chart review. Given PO intake, unknown wt hx, and no visual assessment, it is difficult to determine wheter pt meets criteria for malnutrition per ASPEN guidelines. Given PO intake 100% x2meal, it is unlikely pt is malnourished at this time. ABNORMAL NUTRITION-RELATED LAB VALUES LOW: Na 133; HIGH: BUN 24; glu 179; AST 45; ALT 85 Est. kcal needs: 0443-1541 kcal | 15-18 kcal/kg Est. Pro needs: 76-95 g Pro | 0.8-1.0 g Pro/kg PES STATEMENT: Given current PO intake, no nutrition diagnosis at this time (NO-1.1). INTERVENTION: Continue with current diet order of 2000mg Na diet. DC current supplementation order of Ensure Enlive (vary) with meals TID. Note pt is consuming >75% meals. Will continue to follow and reassess as pt needs, intake, and status change. Sunil Borjas, RD LD [phone] cell"
[2020-07-11] MEDS: FLUTICASONE NASAL SPRAY (FLONASE) 16 GM BTL NS SCH (17:36)
[2020-07-11] MEDS ORDERED: SALINE NASAL SPRAY (OCEAN) 45 ML BTL PRN (18:45)
[2020-07-11 20:04] LABS: ABG PCO2 23 MMHG (35-45); ABG PO2 142 MMHG (79-93); ABG TCO2 29.1 MMOL/L (21.0-31.0)
[2020-07-11 20:06] LABS: ABG OXYGEN SATURATION 73 % (94-100)
[2020-07-11 20:09] LABS: ALLENS TEST YES-POS; INSPIRED O2 70%; VENTILATOR NO
--- NOTE | 2020-07-11 20:30 | NUR ---
Notified Dr. Flaherty of the following: - critical ABG results - PH = 7.7 - SBP has been in the 180's - 190's through the day and pt gets Cardizem at night No new orders at this time.
[2020-07-11] MEDS: APIXABAN 5 MG (ELIQUIS) TABLET PO SCH (20:38)
[2020-07-12] MEDS: RT-ALBUTEROL INHALER HFA (VENTOLIN HFA) 18 GM IH SCH ×5 (02:48→22:25)
[2020-07-12 04:19] VITALS: BP 164/72
[2020-07-12 06:13] LABS: HEMOGLOBIN 11.5 g/dL (13.3-17.7); MEAN PLATELET VOLUME 10.9 fL (9.0-12.2); WHITE BLOOD COUNT 11.2 10^3/uL (4.3-11.0)
[2020-07-12 06:29] LABS: ALBUMIN 3.4 GM/DL (3.2-4.5); CHLORIDE 99 MMOL/L (98-107); POTASSIUM 4.2 MMOL/L (3.6-5.0)
[2020-07-12 06:30] LABS: SODIUM 133 MMOL/L (135-145)
[2020-07-12 06:31] LABS: CALCIUM 8.4 MG/DL (8.5-10.1)
[2020-07-12 06:32] LABS: GLUCOSE 173 MG/DL (70-105); TOTAL PROTEIN 6.7 GM/DL (6.4-8.2)
[2020-07-12 06:33] LABS: CARBON DIOXIDE 20 MMOL/L (21-32)
[2020-07-12 06:34] LABS: BILIRUBIN,TOTAL 0.6 MG/DL (0.1-1.0)
[2020-07-12 06:35] LABS: ALKALINE PHOSPHATASE 53 U/L (40-136); CREATININE SERUM 0.78 MG/DL (0.60-1.30); GFR ESTIMATED > 60
[2020-07-12 06:37] LABS: BUN/CREATININE RATIO 31
[2020-07-12 06:38] LABS: ALANINE AMINOTRANSFERASE 52 U/L (0-55)
[2020-07-12 08:00] VITALS: BP 150/71
[2020-07-12] MEDS: APIXABAN 5 MG (ELIQUIS) TABLET PO SCH ×2 (08:56→20:46)
[2020-07-12] MEDS: FLUTICASONE NASAL SPRAY (FLONASE) 16 GM BTL NS SCH ×2 (08:56→20:47)
[2020-07-12] MEDS: REMDESIVIR INJ 100 MG in NS (IVPB) 230 ML IV SCH (11:18)
[2020-07-12 12:00] VITALS: BP 142/65
--- NOTE | 2020-07-12 14:20 | Progress Note - Hospitalist ---
Subjective HPI/CC On Admission Date Seen by Provider: Jul 12, 2020 Time Seen by Provider: 14:16 Pt is a 75yoCM with a PMH of a-fib, HLD, HTN who presented to the ER due to shortness of braeth and wheezing. He was admitted last week due to new onset atrail fibrillation and diagnosed with COVID at that time but was doing well so was discharged home. Last night his oxygen dropped to the 70s with exertion prompting him to call EMS for evaluation. He remained hypoxic here as well. He was admitted for oxygen supplementation. This morning he repors he is breathing ok but is now on vapotherm. State he is mostly anxious about how he will do as he knows he is high risk. He is also concerned about his . Subjective/Events-last exam Pt is coming down on oxygen need. He states he is still frightened which was ma de worse by his finding out she is positive as well. he states "I feel like my organs are shutting down." When asked why he thought that he said "I think I'm letting my imagination get the best of me." He otherwise has no specifics complaints. I reassured him that his kidney function is stable as is his liver enzymes are improving and that we monitor that every day. He asked that I hold his hand for a while before I left. Focused Exam Lactate Level 07/11/20 00:30: Lactic Acid Level 1.61 Objective Exam Vital Signs Vital Signs Date Time Temp Pulse Resp B/P (MAP) Pulse Ox O2 Delivery O2 Flow Rate FiO2 07/12/20 12:40 92 07/12/20 12:00 35.8 20 142/65 (90) 90 Vapotherm 40.00 60.00 07/12/20 11:23 60 Capillary Refill : Less Than 3 Seconds General Appearance: No Apparent Distress, Anxious, Chronically ill, Obese Respiratory: Lungs Clear, No Accessory Muscle Use, Other (on Vapotherm) Cardiovascular: Regular Rate, Rhythm, No Murmur Gastrointestinal: Normal Bowel Sounds, Non Tender, Soft Neurologic/Psychiatric: Alert, Oriented x3 Results/Procedures Lab Laboratory Tests 07/12/20 05:45 Patient resulted labs reviewed. Imaging: Reviewed Imaging Report Assessment/Plan Assessment and Plan Assess & Plan/Chief Complaint Acute hypoxic respiratory failure from COVID19 Continue decadron and remdesivir Vapotherm, wean as able, coming down slightly today S/p 1 unit convalescent plasma Prone as able Already on Eliquis for anticoagulation MAT protocol Discussed with Recreational therapy who will do phone visit Rate controlled a-fib HTN Monitor on telemetry Continue home meds Morbid obesity Clinically significant, no acute management needs DVT ppx: Lovenox Diagnosis/Problems Diagnosis/Problems (1) Acute respiratory failure Status: Acute Qualifiers: Respiratory failure complication: hypoxia Qualified Codes: J96.01 - Acute respiratory failure with hypoxia (2) Atrial fibrillation Status: Chronic Qualifiers: Atrial fibrillation type: unspecified Qualified Codes: I48.91 - Unspecified atrial fibrillation (3) COVID-19 virus infection Status: Acute (4) HTN (hypertension) Status: Chronic Qualifiers: Hypertension type: essential hypertension Qualified Codes: I10 - Essential (primary) hypertension Clinical Quality Measures DVT/VTE Risk/Contraindication: Risk Factor Score Per Nursin RFS Level Per Nursing on Admit: 4+=Very High ELLYN RODRIGUEZ MD Jul 12, 2020 14:20
--- NOTE | 2020-07-12 15:25 | NUR ---
Recreational Therapy referral from Dr. Henry. Talked with patient via phone and discussed how he was feeling. Patient states at noon he was having a really rough time and was pretty scared. He told this ENVIRONMENTAL LAWYER that he talked to a doctor and held her hand. He states, "I am now sitting up and feeling much better." Also watching t.v. even though he says it is toxic. He asked that this ENVIRONMENTAL LAWYER let Dr. Henry know he is doing better. Patient and this credit underwriter talked of tabitha and prayers and that this credit underwriter will be praying for him. Patient appreciative that this ENVIRONMENTAL LAWYER talked with him. Patient declining in room activity books. He has his phone and reports that is all he needs right now. Talked with patient from [phone]. [address] Henry for referral.
--- NOTE | 2020-07-12 15:34 | Occupational Therapy Eval ---
OT Evaluation-General/PLF Medical Diagnosis Admission Date Jul 11, 2020 at 02:04 Medical Diagnosis: COVID+, hypoxia Onset Date: Jul 11, 2020 Therapy Diagnosis Therapy Diagnosis: Decreased ADL status Height/Weight Height (Feet): 5 Height (Inches): 5.00 Weight (Pounds): 214 Weight (Ounces): 0.0 Precautions Precautions/Isolations: Airborne Isolation, Contact Isolation, Droplet Isolation Referral Physician: Carl Referral Reason: Evaluation/Treatment Medical History Pertinent Medical History: Atrial Fib, CAD, HTN Additional Medical History heart attack, coronary stent Current History ED due to SOB and wheezing. Pt admitted last week, diagnosed with new onset AFib and COVID. Pt discharged home, but decreased O2 sat. Social History Home: Multilevel Current Living Status: Spouse Entry Into Home: Stairs With Railing Steps Into Home: 9 ADL-Prior Level of Function SCALE: Activities may be completed with or without assistive devices. 0-Inbtgnafes-hepjhpy completes the activity by him/herself with no assistance f rom a helper. 5-Set-up or Clean-up Assistance-helper sets up or cleans up; patient completes activity. [place] assists only prior to or following the activity. 4-Supervision or Touching Assistance-helper provides verbal cues and/or touching/steadying and/or contact guard assistance as patient completes activity. Assistance may be provided throughout the activity or intermittently. 3-Partial/Moderate Assistance-helper does LESS THAN HALF the effort. [place] lifts, holds or supports trunk or limbs, but provides less than half the effort. 2-Substantial/Maximal Assistance-helper does MORE THAN HALF the effort. [place] lifts or holds trunk or limbs and provides more than half the effort. 3-Bxhbcrubf-lbqizj does ALL the effort. Patient does none of the effort to complete the activity. Or, the assistance of 2 or more helpers is required for the patient to complete the activity. If activity was not attempted, code reason: 7-Patient Refused. 9-Not Applicable-not attempted and the patient did not perform the activity before the current illness, exacerbation or injury. 10-Not Attempted due to Environmental Limitations-(lack of equipment, weather restraints, etc.). 88-Not Attempted due to Medical Conditions or Safety Concerns. ADL PLOF Comments Pt indicates independent with ADLS and functional mobility, no AD/AE Self Care: Independent Functional Cognition: Independent OT Current Status Subjective Pt laying in bed, agreeable to OT evaluation/tx. Pt denies pain, but indicates he feels better than he did at lunch. Mental Status/Objective Patient Orientation: Person, Place, Time, Situation Attachments: Oxygen (Vapotherm) Current Glasses/Contacts: Yes Upper Extremity ROM WFL, BUE shoulder flexion to approx 160 degrees Upper Extremity Coordination WFL Upper Extremity Sensation WFL Upper Extremity Strength grossly 4+/5 ADL-Treatment Eating (QC): 6 (Pt reports independent with feeding) On/Off Footwear (QC): 4 (Pt able to pull sock on seated EOB, SBA) Toileting Hygiene (QC): 4 (SBA in stand to use urinal) Other Treatments Pt laying in bed, agreeable to OT evaluation and tx. Pt indicates he felt terrible at lunch time but he is now sitting with HOB elevated. Pt transferred supine to sit EOB with min A. Pt then stood and ambulated to chair, slow pace, SBA. Pt SOB after sitting in recliner, but resolved with pursed lip breathing. Pt then indicates he needs to use the urinal, SBA in stand. Pt able to place ur inal, OT emptied afterwards. Post tx, pt seated in recliner, call light in reach and all needs met. Education OT Patient Education: Correct positioning, Energy conservation, Modified ADL techniques, Progress toward Goal/Update tx plan, Purpose of tx/functional activities Teaching Recipient: Patient Teaching Methods: Discussion Response to Teaching: Verbalize Understanding OT Renal Medicine Physician Goals Renal Medicine Physician Goals Time Frame: Jul 21, 2020 Eating (QC): 6 Oral Hygiene (QC): 6 Toileting Hygiene (QC): 6 Shower/Bathe Self (QC): 6 Upper Body Dressing (QC): 6 Lower Body Dressing (QC): 6 On/Off Footwear (QC): 6 Additional Goals: 1-Demonstrate ADL Tasks, 2-Verbalize Understanding, 3- ImproveStrength/Hilario 1=Demonstrate adherence to instructed precautions during ADL tasks. 2=Patient will verbalize/demonstrate understanding of assistive d evices/modifications for ADL. 3=Patient will improve strength/tolerance for activity to enable patient to perform ADL's. OT Education/Plan Problem List/Assessment Assessment: Decreased Activ Tolerance, Impaired I ADL's Pt would benefit from skilled OT services in order to increase functional endurance with task to increase independence with ADLS and functional tasks and to maximize LOF for safe return home. Discharge Recommendations Plan/Recommendations: Continue POC Treatment Plan/Plan of Care Patient would benefit from OT for education, treatment and training to promote independence in ADL's, mobility, safety and/or upper extremity function for ADL's. Plan of Care: ADL Retraining, Functional Mobility, UE Funct Exercise/Act Treatment Duration: Jul 21, 2020 Frequency: 5 times per week Estimated Hrs Per Day: .25 hour per day Agreement: Yes Rehab Potential: Fair Time/GCodes Start Time: 15:05 Stop Time: 15:20 Total Time Billed (hr/min): 15 Billed Treatment Time 1, ABIGAIL AGUDELO OT Jul 12, 2020 15:34
--- NOTE | 2020-07-12 15:37 | NUR ---
CM/SS was notified by [place], Inpatient physical therapy technician, that the patient expressed concern for his , Annette. His was just recently diagnosed with Covid today and he reported he was unable to get a hold of her. CM/SS attempted to contact Annette Rutledge ([phone]) to check on her. No answer. Annette called back and reports she is doing well. She has attempted to call the patient but has been unable to talk with him. CM/SS notified the patient's nurse. He states he will pass it on to the patient. CM/SS will continue to follow.
--- NOTE | 2020-07-12 15:39 | Physical Therapy Evaluation ---
PT Evaluation-General Medical Diagnosis Admission Date Jul 11, 2020 at 02:04 Medical Diagnosis: covid 19 Onset Date: Jul 11, 2020 Therapy Diagnosis Therapy Diagnosis: impaired mobility, endurance Height/Weight Height (Feet): 5 Height (Inches): 5.00 Weight (Pounds): 214 Weight (Ounces): 0.0 Precautions Precautions/Isolations: Airborne Isolation, Contact Isolation, Droplet Isolation Referral Physician: Carl Reason for Referral: Evaluation/Treatment Medical History Additional Medical History Past Medical History Surgeries: Appendectomy, Cardiac, Coronary Stent Cardiac: Atrial Fibrillation, Coronary Artery Disease, Heart Attack, High Cholesterol, Hypertension Reproductive: No Musculoskeletal: Arthritis Reviewed History: Yes Social History Home: [facility] Current Living Status: Spouse Entry Into Home: Stairs With Railing PT Steps Into Home: 8 Prior Prior Level of Function SCALE: Activities may be completed with or without assistive devices. 6-Kdzprokunl-rharkcv completes the activity by him/herself with no assistance from a helper. 5-Set-up or Clean-up Assistance-helper sets up or cleans up; patient completes activity. [place] assists only prior to or following the activity. 4-Supervision or Touching Assistance-helper provides verbal cues and/or touching/steadying and/or contact guard assistance as patient completes activity. Assistance may be provided throughout the activity or intermittently. 3-Partial/Moderate Assistance-helper does LESS THAN HALF the effort. [place] lifts, holds or supports trunk or limbs, but provides less than half the effort. 2-Substantial/Maximal Assistance-helper does MORE THAN HALF the effort. [place] lifts or holds trunk or limbs and provides more than half the effort. 9-Fpncjytew-uhqexc does ALL the effort. Patient does none of the effort to complete the activity. Or, the assistance of 2 or more helpers is required for the patient to complete the activity. If activity was not attempted, code reason: 7-Patient Refused. 9-Not Applicable-not attempted and the patient did not perform the activity before the current illness, exacerbation or injury. 10-Not Attempted due to Environmental Limitations-(lack of equipment, weather restraints, etc.). 88-Not Attempted due to Medical Conditions or Safety Concerns. Bed Mobility: 6 Transfers (B,C,W/C): 6 Gait: 6 Stairs: 6 Indoor Mobility (Ambulation): Independent Stairs: Independent PT Evaluation-Current Subjective Patient in bed pre tx, agrees to PT, has no complaints of pain. Pt/Family Goals to be independent at home Objective Patient Orientation: Person, Place, Situation Attachments: Oxygen vapotherm ROM/Strength ROM Lower Extremities WNL Strength Lower Extremities 5/5 gross BLE Sensory Hearing: Functional Sensation Right Lower Extremit: Intact Sensation Left Lower Extremity: Intact Transfers Roll Left to Right (QC): 6 Sit to Lying (QC): 6 Lying to Sitting/Side of Bed(Q: 6 Sit to Stand (QC): 6 Chair/Xhg-rv-Affuj Xfer(QC): 6 Gait Does the Patient Walk?: Yes Mode of Locomotion: Walk Anticipated Mode of Locomotion: Walk Distance: 6' Gait Assistive Device: None Comments/Gait Description SBA, SOB after ambulation but resolves shortly with purse lip breathing Balance Sitting Static: Normal Sitting Dynamic: Normal Standing Static: Good Standing Dynamic: Good Assessment/Needs Patient has impaired mobility, endurance. He gets SOB with activity Rehab Potential: Fair PT [facility] Goals Ultimate Hoops Trainer Goals PT Ultimate Hoops Trainer Goals Time Frame: Jul 19, 2020 Roll Left & Right (QC): 6 Sit to Lying (QC): 6 Lying-Sitting on Side/Bed(QC): 6 Sit to Stand (QC): 6 Chair/Pzn-cz-Zwuby Xfer(QC): 6 Walk 10 feet (QC): 6 Walk 50ft with 2 Turns (QC): 6 PT Plan Problem List Problem List: Activity Tolerance, Functional Strength, Safety, Balance, Gait, Transfer Treatment/Plan Treatment Plan: Continue Plan of Care Treatment Plan: Education, Functional Activity Hilario, Functional Strength, Gait, Safety, Therapeutic Exercise, Transfers Treatment Duration: Jul 19, 2020 Frequency: 6 times per week Estimated Hrs Per Day: .25 hour per day Patient and/or Family Agrees t: Yes Safety Risks/Education Patient Education: Gait Training, Transfer Techniques, Correct Positioning, Safety Issues Teaching Recipient: Patient Teaching Methods: Demonstration, Discussion Response to Teaching: Reinforcement Needed Discharge Recommendations Plan Patient will perform bed mobility and transfer training, balance and endurance training, functional strengthening, stair training, gait training, and educa tion, to improve functional mobility and independence at home. Therapy Discharge Recommendati: Home & Family Time/GCodes Time In: 1505 Time Out: 1520 Total Billed Treatment Time: 15 Total Billed Treatment 1 visit FA 15' ISSA LONG PT Jul 12, 2020 15:39
[2020-07-12 15:43] VITALS: BP 172/79
[2020-07-12] MEDS: amLODIPine 5 MG (NORVASC) TAB PO SCH (16:24)
[2020-07-12 19:39] VITALS: BP 174/81
[2020-07-13] VITALS (7 sets, daily range): BP systolic 144–185; BP diastolic 74–86
[2020-07-13] MEDS: LORazepam 0.5 MG (ATIVAN) TABLET PO PRN ×3 (00:55→19:25)
[2020-07-13] MEDS: RT-ALBUTEROL INHALER HFA (VENTOLIN HFA) 18 GM IH SCH ×6 (02:05→21:47)
[2020-07-13 07:48] LABS: ALBUMIN 3.2 GM/DL (3.2-4.5); CHLORIDE 98 MMOL/L (98-107); POTASSIUM 4.5 MMOL/L (3.6-5.0); SODIUM 132 MMOL/L (135-145)
[2020-07-13 07:50] LABS: GLUCOSE 151 MG/DL (70-105)
[2020-07-13 07:51] LABS: TOTAL PROTEIN 6.6 GM/DL (6.4-8.2)
[2020-07-13 07:52] LABS: CARBON DIOXIDE 22 MMOL/L (21-32)
[2020-07-13 07:53] LABS: BILIRUBIN,TOTAL 0.6 MG/DL (0.1-1.0)
[2020-07-13 07:54] LABS: ALKALINE PHOSPHATASE 64 U/L (40-136); CREATININE SERUM 0.72 MG/DL (0.60-1.30); GFR ESTIMATED > 60
[2020-07-13 07:55] LABS: BUN/CREATININE RATIO 35
[2020-07-13 07:57] LABS: ALANINE AMINOTRANSFERASE 55 U/L (0-55)
--- NOTE | 2020-07-13 09:00 | NUR ---
Patient very anxious and asking for reassurance that he is going to be ok and that he will not have to be placed on a ventilator. Assured patient that we are hoping for the best. Informed Dr. Henry of the patients anxiety and administered lorazepam at this time.
[2020-07-13] MEDS: APIXABAN 5 MG (ELIQUIS) TABLET PO SCH ×2 (09:26→19:22)
[2020-07-13] MEDS: amLODIPine 5 MG (NORVASC) TAB PO SCH (09:26)
[2020-07-13] MEDS: FLUTICASONE NASAL SPRAY (FLONASE) 16 GM BTL NS SCH ×2 (09:27→19:22)
[2020-07-13] MEDS: REMDESIVIR INJ 100 MG in NS (IVPB) 230 ML IV SCH (13:24)
--- NOTE | 2020-07-13 13:26 | Progress Note - Hospitalist ---
Subjective HPI/CC On Admission Date Seen by Provider: Jul 13, 2020 Time Seen by Provider: 13:23 Pt is a 75yoCM with a PMH of a-fib, HLD, HTN who presented to the ER due to shortness of braeth and wheezing. He was admitted last week due to new onset atrail fibrillation and diagnosed with COVID at that time but was doing well so was discharged home. Last night his oxygen dropped to the 70s with exertion prompting him to call EMS for evaluation. He remained hypoxic here as well. He was admitted for oxygen supplementation. This morning he repors he is breathing ok but is now on vapotherm. State he is mostly anxious about how he will do as he knows he is high risk. He is also concerned about his . Subjective/Events-last exam Pt reports that he felt very well yesterday but not quite as good today. Fixated on FiO2. Informed him that he is stable and we will continue to monitor him closely. he asked many questions regarding the percentage likelihood that he would end up on a ventilator and if he would ever see his again. I informed him that he is stable and we'll continue to work on progressing but that I can't answer those questions as it remains unseen. He expressed understanding and stated again today that he is just anxious about everything. Focused Exam Lactate Level 07/11/20 00:30: Lactic Acid Level 1.61 Objective Exam Vital Signs Vital Signs Date Time Temp Pulse Resp B/P (MAP) Pulse Ox O2 Delivery O2 Flow Rate FiO2 07/13/20 12:00 37.0 97 20 144/86 (105) 90 Vapotherm 40.00 60.00 07/13/20 10:56 90 Capillary Refill : Less Than 3 Seconds General Appearance: No Apparent Distress, Anxious, Chronically ill Respiratory: Lungs Clear, No Accessory Muscle Use, Other (on vapotherm) Cardiovascular: Regular Rate, Rhythm, No Murmur Results/Procedures Lab Laboratory Tests 07/13/20 07:12 Patient resulted labs reviewed. Imaging: Reviewed Imaging Report Assessment/Plan Assessment and Plan Assess & Plan/Chief Complaint Acute hypoxic respiratory failure from COVID19 Continue decadron and remdesivir Vapotherm, wean as able, stable since yesterday S/p 1 unit convalescent plasma Prone as able Already on Eliquis for anticoagulation MAT protocol Continue recreational therapy Rate controlled a-fib HTN Monitor on telemetry Continue home meds Morbid obesity Clinically significant, no acute management needs DVT ppx: Lovenox Diagnosis/Problems Diagnosis/Problems (1) Acute respiratory failure Status: Acute Qualifiers: Respiratory failure complication: hypoxia Qualified Codes: J96.01 - Acute respiratory failure with hypoxia (2) Atrial fibrillation Status: Chronic Qualifiers: Atrial fibrillation type: unspecified Qualified Codes: I48.91 - Unspecified atrial fibrillation (3) COVID-19 virus infection Status: Acute (4) HTN (hypertension) Status: Chronic Qualifiers: Hypertension type: essential hypertension Qualified Codes: I10 - Essential (primary) hypertension Clinical Quality Measures DVT/VTE Risk/Contraindication: Risk Factor Score Per Nursin RFS Level Per Nursing on Admit: 4+=Very High ELLYN RODRIGUEZ MD Jul 13, 2020 13:26
--- NOTE | 2020-07-13 15:02 | Physical Therapy Daily Note ---
PT Daily Note-Current Subjective Patient agrees to PT. Mental Status Patient Orientation: Normal For Age Attachments: Oxygen (vapotherm) Transfers SCALE: Activities may be completed with or without assistive devices. 7-Atkvwpyokj-gvijzza completes the activity by him/herself with no assistance from a helper. 5-Set-up or Clean-up Assistance-helper sets up or cleans up; patient completes activity. [place] assists only prior to or following the activity. 4-Supervision or Touching Assistance-helper provides verbal cues and/or touching/steadying and/or contact guard assistance as patient completes activity. Assistance may be provided throughout the activity or intermittently. 3-Partial/Moderate Assistance-helper does LESS THAN HALF the effort. [place] lifts, holds or supports trunk or limbs, but provides less than half the effort. 2-Substantial/Maximal Assistance-helper does MORE THAN HALF the effort. [place] lifts or holds trunk or limbs and provides more than half the effort. 6-Ftbmcbqln-pzlnvh does ALL the effort. Patient does none of the effort to complete the activity. Or, the assistance of 2 or more helpers is required for the patient to complete the activity. If activity was not attempted, code reason: 7-Patient Refused. 9-Not Applicable-not attempted and the patient did not perform the activity before the current illness, exacerbation or injury. 10-Not Attempted due to Environmental Limitations-(lack of equipment, weather restraints, etc.). 88-Not Attempted due to Medical Conditions or Safety Concerns. Sit to Stand (QC): 6 Gait Training Does the Patient Walk?: Yes Distance: 5' x 6 Gait Assistive Device: FWW Exercises Standing: Heel/toe raises, Marching, Mini squats Standing Reps: 15 (2 sets) Assessment Patient tolerated treatment well and has been instructed to perform standing and seated exercises independently PRN. PT Room Service Manager Goals Room Service Manager Goals PT Room Service Manager Goals Time Frame: Jul 19, 2020 Roll Left & Right (QC): 6 Sit to Lying (QC): 6 Lying-Sitting on Side/Bed(QC): 6 Sit to Stand (QC): 6 Chair/Wsk-ag-Iapjb Xfer(QC): 6 Walk 10 feet (QC): 6 Walk 50ft with 2 Turns (QC): 6 PT Plan Treatment/Plan Treatment Plan: Continue Plan of Care Treatment Plan: Education, Functional Activity Hilario, Functional Strength, Gait, Safety, Therapeutic Exercise, Transfers Treatment Duration: Jul 19, 2020 Frequency: 6 times per week Estimated Hrs Per Day: .25 hour per day Patient and/or Family Agrees t: Yes Time/GCodes Time In: 1445 Time Out: 1457 Total Billed Treatment Time: 13 Total Billed Treatment 1 visit EX 13 min KAYLEN NAQVI PT Jul 13, 2020 15:02
--- NOTE | 2020-07-13 15:56 | Occupational Ther Daily Note ---
OT Current Status-Daily Note Subjective No pain reported. Appearance Pt. in bed. Agrees to work with OT. Mental Status/Objective Patient Orientation: Person, Place, Time, Situation Attachments: IV, Oxygen ADL-Treatment Therapy Code Descriptions/Definitions Functional [place] Measure: 0=Not Assessed/NA 4=Minimal Assistance 1=Total Assistance 5=Supervision or Setup 2=Maximal Assistance 6=Modified [place] 3=Moderate Assistance 7=Complete IndependenceSCALE: Activities may be completed with or without assistive devices. 9-Hkwahwwcvt-fiiguhc completes the activity by him/herself with no assistance from a helper. 5-Set-up or Clean-up Assistance-helper sets up or cleans up; patient completes activity. [place] assists only prior to or following the activity. 4-Supervision or Touching Assistance-helper provides verbal cues and/or touching/steadying and/or contact guard assistance as patient completes activity. Assistance may be provided throughout the activity or intermittently. 3-Partial/Moderate Assistance-helper does LESS THAN HALF the effort. [place] lifts, holds or supports trunk or limbs, but provides less than half the effort. 2-Substantial/Maximal Assistance-helper does MORE THAN HALF the effort. [place] lifts or holds trunk or limbs and provides more than half the effort. 5-Dbfzqpotd-aiduqg does ALL the effort. Patient does none of the effort to complete the activity. Or, the assistance of 2 or more helpers is required for the patient to complete the activity. If activity was not attempted, code reason: 7-Patient Refused. 9-Not Applicable-not attempted and the patient did not perform the activity before the current illness, exacerbation or injury. 10-Not Attempted due to Environmental Limitations-(lack of equipment, weather restraints, etc.). 88-Not Attempted due to Medical Conditions or Safety Concerns. On/Off Footwear: 4 (Pt. is able to bring bilateral LE up to him while seated on side of bed. Able to doff/don slipper socks.) Other Treatment Pt. agrees to treatment. Transfers supine-sit with min assist. Pt. sits on side of bed and engages in deep breathing exercises, as well as trunk/core exercises. OT brushes pt's hair while pt. balances on side of bed. Pt. works on standing balance and is able to stand with SBA. Stands approximately 10 minutes and works on balance and weight shifts. Pt. transfers to reclining chair with CGA. All needs met up in chair. Education OT Patient Education: Correct positioning, Exercise program, Modified ADL techniques, Progress toward Goal/Update tx plan, Purpose of tx/functional activities, Reviewed precautions, Rehab process, Transfer techniques Teaching Recipient: Patient Teaching Methods: Demonstration, Discussion Response to Teaching: Verbalize Understanding, Return Demonstration OT Police Specialist Goals Police Specialist Goals Time Frame: Jul 21, 2020 Eating (QC): 6 Oral Hygiene (QC): 6 Toileting Hygiene (QC): 6 Shower/Bathe Self (QC): 6 Upper Body Dressing (QC): 6 Lower Body Dressing (QC): 6 On/Off Footwear (QC): 6 Additional Goals: 1-Demonstrate ADL Tasks, 2-Verbalize Understanding, 3- ImproveStrength/Hilario 1=Demonstrate adherence to instructed precautions during ADL tasks. 2=Patient will verbalize/demonstrate understanding of assistive devices/modifications for ADL. 3=Patient will improve strength/tolerance for activity to enable patient to perform ADL's. OT Education/Plan Problem List/Assessment Assessment: Decreased Activ Tolerance, Impaired Bed Mobility, Impaired I ADL's, Impaired Self-Care Skills Pt would benefit from skilled OT services in order to increase functional endurance with task to increase independence with ADLS and functional tasks and to maximize LOF for safe return home. Discharge Recommendations Plan/Recommendations: Continue POC Therapy Discharge Recommendati: Home & Family, Post Acute OT Treatment Plan/Plan of Care Treatment,Training & Education: Yes Patient would benefit from OT for education, treatment and training to promote independence in ADL's, mobility, safety and/or upper extremity function for ADL's. Plan of Care: ADL Retraining, Functional Mobility, UE Funct Exercise/Act Treatment Duration: Jul 21, 2020 Frequency: 5 times per week Estimated Hrs Per Day: .25 hour per day Agreement: Yes Rehab Potential: Fair Time/GCodes Start Time: 13:35 Stop Time: 14:10 Total Time Billed (hr/min): 35 Billed Treatment Time 1, FA x 20minutes, Ex x 15minutes ANGELLA US OT Jul 13, 2020 15:56
[2020-07-13] MEDS: MILK OF MAGNESIA 400 MG/5 ML 30 ML UDC PO PRN (20:59)
[2020-07-14 04:09] VITALS: BP 173/76
[2020-07-14] MEDS: RT-ALBUTEROL INHALER HFA (VENTOLIN HFA) 18 GM IH SCH ×6 (04:21→22:29)
[2020-07-14 06:57] LABS: ALANINE AMINOTRANSFERASE 47 U/L (0-55); ALBUMIN 3.1 GM/DL (3.2-4.5); ALKALINE PHOSPHATASE 71 U/L (40-136); BILIRUBIN,TOTAL 0.7 MG/DL (0.1-1.0); BUN/CREATININE RATIO 42; CALCIUM 8.9 MG/DL (8.5-10.1); CARBON DIOXIDE 22 MMOL/L (21-32); CHLORIDE 99 MMOL/L (98-107); CREATININE SERUM 0.73 MG/DL (0.60-1.30); GFR ESTIMATED > 60; GLUCOSE 138 MG/DL (70-105); POTASSIUM 4.6 MMOL/L (3.6-5.0); SODIUM 134 MMOL/L (135-145); TOTAL PROTEIN 6.4 GM/DL (6.4-8.2)
--- NOTE | 2020-07-14 08:08 | Pulmonary Consultation ---
History of Present Illness History of Present Illness Date Seen by Provider: Jul 14, 2020 Time Seen by Provider: 08:08 Date of Admission Allergies and Home Medications Allergies Coded Allergies: No Known Drug Allergies (Verified , 05/23/08) Home Medications Acetaminophen 500 Mg Tablet, 500-1,000 MG PO Q8H PRN for PAIN-MILD (1-4), (Reported) Apixaban 5 Mg Tablet, 5 MG PO BID TAKE 2 TABLETS BID X 7 DAYS, THEN 1 TABLET BID Prescribed by: JOSEPH BURGESS on 07/07/20 1016 Aspirin 81 Mg Tablet.dr, 81 MG PO DAILY, (Reported) Dexamethasone 4 Mg Tablet, 6 MG PO DAILY, (Reported) TAKES 1 & (4MG) TABS FILLED 07-07-2020 #8/5 DAY SUPPLY Diltiazem HCl 240 Mg Cap.er.24h, 240 MG PO DAILY, (Reported) Fenofibric Acid (Choline) 135 Mg Capsule.dr, 135 MG PO DAILY, (Reported) Metoprolol Succinate 100 Mg Tab.er.24h, 100 MG PO DAILY, (Reported) Simvastatin 20 Mg Tablet, 20 MG PO HS, (Reported) Past Paqaoso-Wzysel-Zlylwd Hx Past Med/Social Hx: Reviewed Nursing Past Med/Soc Hx Patient Social History Alcohol Use: Regular Use Number of Drinks Today: 0 Recreational Drug Use: No Smoking Status: Former Smoker Type Used: Cigarettes Former Smoker, Quit: Jul 11, 2008 2nd Hand Smoke Exposure: No Recent Foreign Travel: No Contact w/Someone Who Travel: No Recent Infectious Disease Expo: No Recent Hopitalizations: No Physical Abuse: No Sexual Abuse: No Mistreated: No Fear: No Immunizations Up To Date Date of Influenza Vaccine: Jun 19, 2020 Seasonal Allergies Seasonal Allergies: No Past Medical History Surgeries: Yes (CARDIAC CATH-STENT X 1 TO RCA) Appendectomy, Cardiac, Coronary Stent Respiratory: Yes COPD Cardiac: Yes (2007--STEMI WITH COMPLETE HEART BLOCK AND CARDIOGENIC SHOCK 2007;STENT X 1 ) Atrial Fibrillation, Coronary Artery Disease, Heart Attack, High Cholesterol, Hypertension Neurological: No Reproductive Disorders: No Genitourinary: No Gastrointestinal: No Musculoskeletal: Yes Arthritis Endocrine: No HEENT: No Cancer: No Psychosocial: No Integumentary: No Blood Disorders: No Family Medical History Reviewed Nursing Family Hx ADDITIONAL PMH/PSH: -CARDIAC CATH 2007--STEMI/COMPLETE HEART BLOCK/CARDIOGENIC SHOCK WITH STENT X 1 TO RCA -MOST RECENT STRESS TEST 10/13/2018--EF 73% -COLONOSCOPIES--MOST RECENT 11/2014--DIVERTICULAR DISEASE Review of Systems Time Seen by Provider: 08:08 Sepsis Event Evaluation Height, Weight, BMI Height: 5'5.00" Weight: 214lbs. 0.0oz. 97.757622en; 34.89 BMI Method: Exam Exam Vital Signs Date Time Temp Pulse Resp B/P (MAP) Pulse Ox O2 Delivery O2 Flow Rate FiO2 07/14/20 04:09 36.0 78 20 173/76 (108) 91 Vapotherm 40.00 90.00 07/14/20 01:00 65 07/13/20 23:55 36.2 85 20 173/78 (109) 92 Vapotherm 40.00 80.00 07/13/20 21:47 87 Vapotherm 40.00 80 07/13/20 19:28 36.0 61 20 174/75 (108) 93 Vapotherm 40.00 80.00 07/13/20 19:22 Vapotherm 40.00 60 07/13/20 19:00 73 07/13/20 18:38 92 Vapotherm 40.00 80 07/13/20 15:44 35.9 89 20 185/81 (115) 91 Vapotherm 40.00 80.00 07/13/20 15:23 97 Vapotherm 40.00 80 07/13/20 12:46 97 07/13/20 12:00 37.0 97 20 144/86 (105) 90 Vapotherm 40.00 60.00 07/13/20 10:56 90 Vapotherm 40.00 90 07/13/20 08:29 92 Vapotherm 40.00 65 I & O 07/14/20 07:00 Intake Total 1910 ml Output Total 1375 ml Balance 535 ml Height & Weight Height: 5'5.00" Weight: 214lbs. 0.0oz. 97.710153yq; 34.89 BMI Method: General Appearance: No Apparent Distress, Anxious, Chronically ill HEENT: PERRL/EOMI, Moist Mucous Membranes; No Scleral Icterus (L), No Scleral Icterus (R) Neck: Normal Inspection, Supple Respiratory: Lungs Clear, No Accessory Muscle Use, Other (on vapotherm) Cardiovascular: Regular Rate, Rhythm, No Murmur Capillary Refill: Less Than 3 Seconds Extremity: Normal Capillary Refill, No Calf Tenderness, No Pedal Edema Neurologic/Psychiatric: Alert, Oriented x3 Results Lab Laboratory Tests 07/13/20 07:12 07/14/20 05:43 Assessment/Plan Assessment/Plan COVID 19 with acute hypoxia -Decadron, Remdesivir -Repeat CXR, BNP, PCT -Will give 40mg of Lasix -Titrate Vapotherm as tolerated -S/p CVP -Awake proning Rate controlled a-fib HTN Morbid obesity Clinically significant, no acute management needs PETR LUTHER DO Jul 14, 2020 08:08
[2020-07-14] MEDS ORDERED: FUROSEMIDE 40 MG/4 ML INJ (LASIX) IVP NR (08:15)
[2020-07-14] MEDS: APIXABAN 5 MG (ELIQUIS) TABLET PO SCH ×2 (08:54→19:50)
[2020-07-14] MEDS: amLODIPine 5 MG (NORVASC) TAB PO SCH (08:54)
[2020-07-14] MEDS: FLUTICASONE NASAL SPRAY (FLONASE) 16 GM BTL NS SCH ×2 (08:55→19:50)
[2020-07-14 09:55] VITALS: BP 168/76
--- NOTE | 2020-07-14 10:13 | Diagnostic Imaging Report ---
INDICATION: COVID positive, shortness of breath. TECHNIQUE: Single view chest 8:46 AM. CORRELATION STUDY: 07/11/2020 FINDINGS: Heart size enlarged, mediastinum prominent. Extensive five lobe infiltrate is again demonstrated. Given differences in technique, likely relatively stable. IMPRESSION: 1. Extensive five lobe infiltrate again demonstrated. Overall likely relatively stable. Dictated by: Dictated on workstation # [id number]
--- NOTE | 2020-07-14 10:58 | Progress Note - Hospitalist ---
Subjective HPI/CC On Admission Date Seen by Provider: Jul 14, 2020 Time Seen by Provider: 10:53 Pt is a 75yoCM with a PMH of a-fib, HLD, HTN who presented to the ER due to shortness of braeth and wheezing. He was admitted last week due to new onset atrail fibrillation and diagnosed with COVID at that time but was doing well so was discharged home. Last night his oxygen dropped to the 70s with exertion prompting him to call EMS for evaluation. He remained hypoxic here as well. He was admitted for oxygen supplementation. This morning he repors he is breathing ok but is now on vapotherm. State he is mostly anxious about how he will do as he knows he is high risk. He is also concerned about his . Subjective/Events-last exam Pt reports breathing is better. Laying prone. Sats 96% while doing this. States he is mostly anxious right now. Objective Exam Vital Signs Vital Signs Date Time Temp Pulse Resp B/P (MAP) Pulse Ox O2 Delivery O2 Flow Rate FiO2 07/14/20 09:55 36.0 110 22 168/76 (106) 96 Vapotherm 35.00 80.00 07/14/20 09:00 80 Capillary Refill : Less Than 3 Seconds General Appearance: Anxious, Chronically ill, Obese Respiratory: Decreased Breath Sounds; No Wheezing Cardiovascular: Regular Rate, Rhythm, No Murmur Gastrointestinal: Normal Bowel Sounds, Non Tender, Soft Neurologic/Psychiatric: Alert, Oriented x3 Results/Procedures Lab Laboratory Tests 07/14/20 05:43 Patient resulted labs reviewed. Imaging: Reviewed Imaging Report Assessment/Plan Assessment and Plan Assess & Plan/Chief Complaint Acute hypoxic respiratory failure from COVID19 Continue decadron and remdesivir Vapotherm, increasing need overnight, stable at the moment and proning Discussed with Dr Lopez who will see in consultation s/p lasix this AM S/p 1 unit convalescent plasma Prone as able Already on Eliquis for anticoagulation MAT protocol Continue recreational therapy Low threshold for transfer to ICU Rate controlled a-fib HTN Monitor on telemetry Continue home meds Morbid obesity Clinically significant, no acute management needs DVT ppx: Lovenox Diagnosis/Problems Diagnosis/Problems (1) Acute respiratory failure Status: Acute Qualifiers: Respiratory failure complication: hypoxia Qualified Codes: J96.01 - Acute respiratory failure with hypoxia (2) Atrial fibrillation Status: Chronic Qualifiers: Atrial fibrillation type: unspecified Qualified Codes: I48.91 - Unspecified atrial fibrillation (3) COVID-19 virus infection Status: Acute (4) HTN (hypertension) Status: Chronic Qualifiers: Hypertension type: essential hypertension Qualified Codes: I10 - Essential (primary) hypertension Clinical Quality Measures DVT/VTE Risk/Contraindication: Risk Factor Score Per Nursin RFS Level Per Nursing on Admit: 4+=Very High ELLYN RODRIGUEZ MD Jul 14, 2020 10:58
[2020-07-14 12:00] VITALS: BP 168/72
--- NOTE | 2020-07-14 12:40 | Occupational Ther Daily Note ---
OT Current Status-Daily Note Subjective braider setter states pt was proned this am, though didn't stay for more than hour. Nursing desires in bed per nurse lead assistant manager. Pt alert/ oriented upon entry. agrees to tx. On vapotherm, 02 90's. Mental Status/Objective Patient Orientation: Person, Place, Situation Attachments: [place] Catheter, Oxygen ADL-Treatment Therapy Code Descriptions/Definitions Functional [place] Measure: 0=Not Assessed/NA 4=Minimal Assistance 1=Total Assistance 5=Supervision or Setup 2=Maximal Assistance 6=Modified [place] 3=Moderate Assistance 7=Complete IndependenceSCALE: Activities may be completed with or without assistive devices. 5-Ihmvyzoiyo-bsvahqj completes the activity by him/herself with no assistance from a helper. 5-Set-up or Clean-up Assistance-helper sets up or cleans up; patient completes activity. [place] assists only prior to or following the activity. 4-Supervision or Touching Assistance-helper provides verbal cues and/or touching/steadying and/or contact guard assistance as patient completes activity. Assistance may be provided throughout the activity or intermittently. 3-Partial/Moderate Assistance-helper does LESS THAN HALF the effort. [place] lifts, holds or supports trunk or limbs, but provides less than half the effort. 2-Substantial/Maximal Assistance-helper does MORE THAN HALF the effort. [place] lifts or holds trunk or limbs and provides more than half the effort. 9-Njsdzespt-xjgbjy does ALL the effort. Patient does none of the effort to complete the activity. Or, the assistance of 2 or more helpers is required for the patient to complete the activity. If activity was not attempted, code reason: 7-Patient Refused. 9-Not Applicable-not attempted and the patient did not perform the activity before the current illness, exacerbation or injury. 10-Not Attempted due to Environmental Limitations-(lack of equipment, weather restraints, etc.). 88-Not Attempted due to Medical Conditions or Safety Concerns. Eating (QC): 3 (min A bringing to mouth this am.) Bathing Location: L Arm, R Arm Shower/Bathe Self (QC): 2 Upper Body Dressing (QC): 3 (min A doffing gown/ assisting in threading on UE's) Toileting Hygiene (QC): 2 (max A morenita hygiene. Pt denies rolling for bottom at this time.) Other Treatment Bed bath performed supine in bed. 02 sats monitored throughout. 02 maintains in 90's excluding one instance of low 80's, recovered within 15 seconds. Pt completes UB washing, OT completes morenita/ LE washing (max A). Pt redressed, educated on monitoring vitals and what to look for. Pt left in bed with all needs met, call light in reach. Education OT Patient Education: Correct positioning, Modified ADL techniques, Purpose of tx/functional activities, Safety issues Teaching Recipient: Patient Teaching Methods: Demonstration, Discussion Response to Teaching: Verbalize Understanding, Return Demonstration OT Casing Wringer Operator Goals Casing Wringer Operator Goals Time Frame: Jul 21, 2020 Eating (QC): 6 Oral Hygiene (QC): 6 Toileting Hygiene (QC): 6 Shower/Bathe Self (QC): 6 Upper Body Dressing (QC): 6 Lower Body Dressing (QC): 6 On/Off Footwear (QC): 6 Additional Goals: 1-Demonstrate ADL Tasks, 2-Verbalize Understanding, 3- ImproveStrength/Hilario 1=Demonstrate adherence to instructed precautions during ADL tasks. 2=Patient will verbalize/demonstrate understanding of assistive devices/modifications for ADL. 3=Patient will improve strength/tolerance for activity to enable patient to perform ADL's. OT Education/Plan Problem List/Assessment Assessment: Decreased Activ Tolerance, Impaired I ADL's, Impaired Self-Care Skills Pt would benefit from skilled OT services in order to increase functional endurance with task to increase independence with ADLS and functional tasks and to maximize LOF for safe return home. Discharge Recommendations Plan/Recommendations: Continue POC Therapy Discharge Recommendati: Post Acute OT Treatment Plan/Plan of Care Treatment,Training & Education: Yes Patient would benefit from OT for education, treatment and training to promote independence in ADL's, mobility, safety and/or upper extremity function for ADL's. Plan of Care: ADL Retraining, Functional Mobility, UE Funct Exercise/Act Treatment Duration: Jul 21, 2020 Frequency: 5 times per week Estimated Hrs Per Day: .25 hour per day Agreement: Yes Rehab Potential: Fair Time/GCodes Start Time: 11:00 Stop Time: 11:18 Total Time Billed (hr/min): 18 Billed Treatment Time 1, ADL (18) BAKARI MACIEL OTR Jul 14, 2020 12:40
--- NOTE | 2020-07-14 13:30 | Physical Therapy Daily Note ---
PT Daily Note-Current Subjective Patient is in bed and appears lethargic. SAO2 95% on vapotherm at rest. Mental Status Patient Orientation: Person, Time, Situation Attachments: Oxygen (vapotherm), [place] Catheter Transfers SCALE: Activities may be completed with or without assistive devices. 8-Cbxvzurnps-uqgeknl completes the activity by him/herself with no assistance from a helper. 5-Set-up or Clean-up Assistance-helper sets up or cleans up; patient completes activity. [place] assists only prior to or following the activity. 4-Supervision or Touching Assistance-helper provides verbal cues and/or touching/steadying and/or contact guard assistance as patient completes activity. Assistance may be provided throughout the activity or intermittently. 3-Partial/Moderate Assistance-helper does LESS THAN HALF the effort. [place] lifts, holds or supports trunk or limbs, but provides less than half the effort. 2-Substantial/Maximal Assistance-helper does MORE THAN HALF the effort. [place] lifts or holds trunk or limbs and provides more than half the effort. 8-Vjeebmlim-clnvuw does ALL the effort. Patient does none of the effort to complete the activity. Or, the assistance of 2 or more helpers is required for the patient to complete the activity. If activity was not attempted, code reason: 7-Patient Refused. 9-Not Applicable-not attempted and the patient did not perform the activity be fore the current illness, exacerbation or injury. 10-Not Attempted due to Environmental Limitations-(lack of equipment, weather restraints, etc.). 88-Not Attempted due to Medical Conditions or Safety Concerns. Lying to Sitting/Side of Bed(Q: 6 Sit to Stand (QC): 5 Chair/Cjc-zo-Kuafc Xfer(QC): 5 Gait Training Does the Patient Walk?: Yes Distance: 10' Walk 10 feet (QC): 5 Gait Assistive Device: None restricted by vapotherm Exercises Seated Therapy Exercises: Ankle pumps, Long arc quads, Hip flexion Seated Reps: 15 Standing: Marching, Mini squats Standing Reps: 12 Assessment SAO2 decreases to 88% on vapotherm with activity. Patient is up in recliner with needs met. Increase activity as tolerated by patient. PT Correction Goals Ship'S Pilot Goals PT Ship'S Pilot Goals Time Frame: Jul 19, 2020 Roll Left & Right (QC): 6 Sit to Lying (QC): 6 Lying-Sitting on Side/Bed(QC): 6 Sit to Stand (QC): 6 Chair/Zdl-ef-Gnegx Xfer(QC): 6 Walk 10 feet (QC): 6 Walk 50ft with 2 Turns (QC): 6 PT Plan Treatment/Plan Treatment Plan: Continue Plan of Care Treatment Plan: Education, Functional Activity Hilario, Functional Strength, Gait, Safety, Therapeutic Exercise, Transfers Treatment Duration: Jul 19, 2020 Frequency: 6 times per week Estimated Hrs Per Day: .25 hour per day Patient and/or Family Agrees t: Yes Time/GCodes Time In: 1211 Time Out: 1219 Total Billed Treatment Time: 8 Total Billed Treatment 1 visit EX 8 min KAYLEN NAQVI PT Jul 14, 2020 13:30
--- NOTE | 2020-07-14 13:45 | NUR ---
This CUTTER AND PRESSER talked to patient via phone. Patient was glad to hear this credit underwriter's voice. We talked of tabitha, prayers, his , his family and sons from [place] and [place] call him daily. States his has COVID and he is worried about her. Patient states family checks on her daily. CUTTER AND PRESSER offering support/words of comfort and letting him know this CUTTER AND PRESSER is praying for him. Patient appreciative of all the care and states everyone has been excellent. CUTTER AND PRESSER to continue room visits for support/comfort and socialization.
[2020-07-14] MEDS: REMDESIVIR INJ 100 MG in NS (IVPB) 230 ML IV SCH (14:47)
[2020-07-14] MEDS ORDERED: ACET-2267 PO (14:58)
[2020-07-14] MEDS ORDERED: ASPI-1238 PO (14:58)
[2020-07-14] MEDS ORDERED: MTP100TCR PO (14:58)
[2020-07-14] MEDS ORDERED: FENO135C4 PO (14:58)
[2020-07-14] MEDS ORDERED: DILT240C91 PO (14:58)
[2020-07-14] MEDS ORDERED: DEXA4TAB PO (14:58)
--- NOTE | 2020-07-14 15:17 | NUR ---
Follow up visit for ongoing support. Pt said it is painful to talk, but that hearing Manufacturing Coordinator's "kind voice" offers him comfort. He requested anti-anxiety medication. Manufacturing Coordinator relayed request to pt's nurse.
--- NOTE | 2020-07-14 15:35 | NUR ---
SPOKE WITH THE PT (CALLED HIS ROOM PHONE) AND WENT THRU THE EXT MED HISTORY TO COMPLETE THE MED REC PT WAS ABLE TO NAME HIS MEDICATIONS AND ALSO LET ME KNOW HOW/WHEN HE TOOK EACH MEDICATION PT WAS RECENTLY HERE AND WAS DISCHARGED ON 07-07-2020 AND WAS TO START DEXAMETHASONE 6MG, DILTIAZEM AND ELIQUIS (AND PT HAS STARTED). OTC MEDS: TYLENOL ASPIRIN 81
[2020-07-14 15:56] VITALS: BP 180/74
[2020-07-14] MEDS: LORazepam 0.5 MG (ATIVAN) TABLET PO PRN (18:21)
[2020-07-14 19:25] VITALS: BP 150/66
[2020-07-14 23:24] VITALS: BP 134/65
[2020-07-15] MEDS: LORazepam 0.5 MG (ATIVAN) TABLET PO PRN ×3 (00:46→20:00)
[2020-07-15] MEDS: RT-ALBUTEROL INHALER HFA (VENTOLIN HFA) 18 GM IH SCH ×6 (01:40→21:18)
[2020-07-15 06:47] LABS: CHLORIDE 97 MMOL/L (98-107); POTASSIUM 4.5 MMOL/L (3.6-5.0); SODIUM 133 MMOL/L (135-145)
[2020-07-15 06:49] LABS: CALCIUM 7.9 MG/DL (8.5-10.1)
[2020-07-15 06:50] LABS: GLUCOSE 123 MG/DL (70-105); TOTAL PROTEIN 5.4 GM/DL (6.4-8.2)
[2020-07-15 06:51] LABS: CARBON DIOXIDE 23 MMOL/L (21-32)
[2020-07-15 06:52] LABS: BILIRUBIN,TOTAL 0.8 MG/DL (0.1-1.0)
[2020-07-15 06:53] LABS: ALKALINE PHOSPHATASE 71 U/L (40-136); CREATININE SERUM 0.69 MG/DL (0.60-1.30); GFR ESTIMATED > 60
[2020-07-15 06:54] LABS: BUN/CREATININE RATIO 52
[2020-07-15 06:56] LABS: ALANINE AMINOTRANSFERASE 41 U/L (0-55)
[2020-07-15 08:15] VITALS: BP 158/74
[2020-07-15] MEDS: amLODIPine 5 MG (NORVASC) TAB PO SCH (08:37)
[2020-07-15] MEDS: FLUTICASONE NASAL SPRAY (FLONASE) 16 GM BTL NS SCH ×2 (08:37→19:59)
[2020-07-15] MEDS: APIXABAN 5 MG (ELIQUIS) TABLET PO SCH ×2 (08:37→19:59)
[2020-07-15 11:23] VITALS: BP 140/67
--- NOTE | 2020-07-15 12:18 | Progress Note - Hospitalist ---
Subjective HPI/CC On Admission Date Seen by Provider: Jul 15, 2020 Time Seen by Provider: 12:15 Pt is a 75yoCM with a PMH of a-fib, HLD, HTN who presented to the ER due to shortness of braeth and wheezing. He was admitted last week due to new onset atrail fibrillation and diagnosed with COVID at that time but was doing well so was discharged home. Last night his oxygen dropped to the 70s with exertion prompting him to call EMS for evaluation. He remained hypoxic here as well. He was admitted for oxygen supplementation. This morning he repors he is breathing ok but is now on vapotherm. State he is mostly anxious about how he will do as he knows he is high risk. He is also concerned about his . Subjective/Events-last exam Pt reports doing ok but tired. Already up with PT today and took a shower. Objective Exam Vital Signs Vital Signs Date Time Temp Pulse Resp B/P (MAP) Pulse Ox O2 Delivery O2 Flow Rate FiO2 07/15/20 11:23 36.0 69 18 140/67 (91) 97 Vapotherm 35.00 85.00 07/15/20 08:33 85 Capillary Refill : Less Than 3 Seconds General Appearance: No Apparent Distress, Chronically ill, Obese Respiratory: Decreased Breath Sounds; No Rhonci, No Wheezing; Other (on vapoth erm) Cardiovascular: Regular Rate, Rhythm, No Murmur Neurologic/Psychiatric: Alert, Oriented x3 Results/Procedures Lab Laboratory Tests 07/15/20 05:28 Patient resulted labs reviewed. Imaging: Reviewed Imaging Report Assessment/Plan Assessment and Plan Assess & Plan/Chief Complaint Acute hypoxic respiratory failure from COVID19 Continue decadron and remdesivir Vapotherm, stable to slightly decreased need today while in cahir s/p lasix this AM S/p 1 unit convalescent plasma Prone as able Already on Eliquis for anticoagulation MAT protocol Continue recreational therapy Low threshold for transfer to ICU if vapotherm settings increase Rate controlled a-fib HTN Monitor on telemetry Continue home meds Morbid obesity Clinically significant, no acute management needs PT/OT DVT ppx: Lovenox Diagnosis/Problems Diagnosis/Problems (1) Acute respiratory failure Status: Acute Qualifiers: Respiratory failure complication: hypoxia Qualified Codes: J96.01 - Acute respiratory failure with hypoxia (2) Atrial fibrillation Status: Chronic Qualifiers: Atrial fibrillation type: unspecified Qualified Codes: I48.91 - Unspecified atrial fibrillation (3) COVID-19 virus infection Status: Acute (4) HTN (hypertension) Status: Chronic Qualifiers: Hypertension type: essential hypertension Qualified Codes: I10 - Essential (primary) hypertension Clinical Quality Measures DVT/VTE Risk/Contraindication: Risk Factor Score Per Nursin RFS Level Per Nursing on Admit: 4+=Very High ELLYN RODRIGUEZ MD Jul 15, 2020 12:18
--- NOTE | 2020-07-15 12:44 | Physical Therapy Daily Note ---
PT Daily Note-Current Subjective Agrees to PT. Asks if I think he is doing OK. "I do not want to go on a ventilator." Transfers SCALE: Activities may be completed with or without assistive devices. 4-Ziaypvkedb-zsmvwjf completes the activity by him/herself with no assistance from a helper. 5-Set-up or Clean-up Assistance-helper sets up or cleans up; patient completes activity. [place] assists only prior to or following the activity. 4-Supervision or Touching Assistance-helper provides verbal cues and/or touching/steadying and/or contact guard assistance as patient completes activity. Assistance may be provided throughout the activity or intermittently. 3-Partial/Moderate Assistance-helper does LESS THAN HALF the effort. [place] lifts, holds or supports trunk or limbs, but provides less than half the effort. 2-Substantial/Maximal Assistance-helper does MORE THAN HALF the effort. [place] lifts or holds trunk or limbs and provides more than half the effort. 4-Zxqshgpwf-gvkcwj does ALL the effort. Patient does none of the effort to complete the activity. Or, the assistance of 2 or more helpers is required for the patient to complete the activity. If activity was not attempted, code reason: 7-Patient Refused. 9-Not Applicable-not attempted and the patient did not perform the activity before the current illness, exacerbation or injury. 10-Not Attempted due to Environmental Limitations-(lack of equipment, weather restraints, etc.). 88-Not Attempted due to Medical Conditions or Safety Concerns. Treatments Sit to stand x 3 with CGA and skilled cues for hand placment. Marching, toe raises and mini squats 3 x 10. Oxygen in situ throughout and post treatment. Assessment Current Status: Good Progress Tolerated treatment well. Shows good strength. PT Fpc Goals Viscose Cellar Worker Goals PT Fpc Goals Time Frame: Jul 19, 2020 Roll Left & Right (QC): 6 Sit to Lying (QC): 6 Lying-Sitting on Side/Bed(QC): 6 Sit to Stand (QC): 6 Chair/Ban-il-Gzlud Xfer(QC): 6 Walk 10 feet (QC): 6 Walk 50ft with 2 Turns (QC): 6 PT Plan Problem List Problem List: Activity Tolerance, Functional Strength, Safety Treatment/Plan Treatment Plan: Continue Plan of Care Treatment Plan: Education, Functional Activity Hilario, Functional Strength, Gait, Safety, Therapeutic Exercise, Transfers Treatment Duration: Jul 19, 2020 Frequency: 6 times per week Estimated Hrs Per Day: .25 hour per day Patient and/or Family Agrees t: Yes Safety Risks/Education Patient Education: Transfer Techniques Teaching Recipient: Patient Teaching Methods: Demonstration, Discussion Response to Teaching: Reinforcement Needed Time/GCodes Time In: 940 Time Out: 1000 Total Billed Treatment Time: 20 Total Billed Treatment visit EX 20 JASSI SCHULZ PT Jul 15, 2020 12:44
[2020-07-15] MEDS: REMDESIVIR INJ 100 MG in NS (IVPB) 230 ML IV SCH (13:22)
[2020-07-15 16:17] VITALS: BP 152/67
--- NOTE | 2020-07-15 16:52 | NUR ---
PT BEING VERY DEPENDENT AND CALLING OUT VERBALLY OFTEN. THIS RN HAS REPEATEDLY REASSURED AND ASSISTED PT WITH RETRIEVING CALL LIGHT AND CLIPPING CALL LIGHT TO GOWN. PT ABLE TO PERFORM TASK ON OWN AND HAS BEEN EDUCATED ON THE IMPORTANCE OF CLUSTERING CARE, PRESERVING PPE, AND USING CALL LIGHT APPROPRIATELY. THIS RN STANDS AT PT SIDE WHILE PT ATTEMPTS TO PICK CALL LIGHT UP OFF FLOOR INDEPENDENTLY. PT TOLERATED WELL AND VERBALIZES UNDERSTANDING.
[2020-07-15 19:21] VITALS: BP 157/71
[2020-07-16] VITALS (7 sets, daily range): BP systolic 156–199; BP diastolic 64–89
[2020-07-16] MEDS: RT-ALBUTEROL INHALER HFA (VENTOLIN HFA) 18 GM IH SCH ×5 (02:18→22:48)
[2020-07-16] MEDS: LORazepam 0.5 MG (ATIVAN) TABLET PO PRN ×2 (04:12→19:53)
[2020-07-16 07:51] LABS: ALANINE AMINOTRANSFERASE 43 U/L (0-55); ALBUMIN 2.9 GM/DL (3.2-4.5); ALKALINE PHOSPHATASE 70 U/L (40-136); BILIRUBIN,TOTAL 0.7 MG/DL (0.1-1.0); BUN/CREATININE RATIO 49; CALCIUM 8.1 MG/DL (8.5-10.1); CARBON DIOXIDE 21 MMOL/L (21-32); CHLORIDE 100 MMOL/L (98-107); CREATININE SERUM 0.63 MG/DL (0.60-1.30); GFR ESTIMATED > 60; GLUCOSE 116 MG/DL (70-105); POTASSIUM 4.7 MMOL/L (3.6-5.0); SODIUM 134 MMOL/L (135-145); TOTAL PROTEIN 5.4 GM/DL (6.4-8.2)
[2020-07-16] MEDS: APIXABAN 5 MG (ELIQUIS) TABLET PO SCH ×2 (09:42→19:53)
[2020-07-16] MEDS: amLODIPine 5 MG (NORVASC) TAB PO SCH (09:42)
[2020-07-16] MEDS: FLUTICASONE NASAL SPRAY (FLONASE) 16 GM BTL NS SCH ×2 (09:43→19:58)
--- NOTE | 2020-07-16 12:32 | Progress Note - Hospitalist ---
Subjective HPI/CC On Admission Date Seen by Provider: Jul 16, 2020 Time Seen by Provider: 12:26 Pt is a 75yoCM with a PMH of a-fib, HLD, HTN who presented to the ER due to shortness of braeth and wheezing. He was admitted last week due to new onset atrail fibrillation and diagnosed with COVID at that time but was doing well so was discharged home. Last night his oxygen dropped to the 70s with exertion prompting him to call EMS for evaluation. He remained hypoxic here as well. He was admitted for oxygen supplementation. This morning he repors he is breathing ok but is now on vapotherm. State he is mostly anxious about how he will do as he knows he is high risk. He is also concerned about his . Subjective/Events-last exam Pt reports doing better today. No complaints. Still states he is just frightened of how he will do. Again asks what his percentage chance of ending up on the ventilator are. We discussed the known unpredictable course of COVID and that he is making progress every day but that we won't ever know that answer. Objective Exam Vital Signs Vital Signs Date Time Temp Pulse Resp B/P (MAP) Pulse Ox O2 Delivery O2 Flow Rate FiO2 07/16/20 12:25 92 07/16/20 11:32 93 Vapotherm 35.00 75 07/16/20 11:06 35.9 17 170/72 (104) Capillary Refill : Less Than 3 Seconds General Appearance: Anxious, Chronically ill, Obese Respiratory: Decreased Breath Sounds; No Rhonci, No Wheezing; Other (on Vapotherm) Cardiovascular: Regular Rate, Rhythm, No Murmur Gastrointestinal: Normal Bowel Sounds, Non Tender, Soft Neurologic/Psychiatric: Alert, Oriented x3 Results/Procedures Lab Laboratory Tests 07/16/20 06:48 Patient resulted labs reviewed. Imaging: Reviewed Imaging Report Assessment/Plan Assessment and Plan Assess & Plan/Chief Complaint Acute hypoxic respiratory failure from COVID19 Continue decadron and remdesivir Vapotherm, stable to slightly decreased need again today, encouraged continue use of IS and proning S/p 1 unit convalescent plasma Prone as able Already on Eliquis for anticoagulation MAT protocol Continue recreational therapy Rate controlled a-fib HTN Monitor on telemetry Continue home meds Morbid obesity Clinically significant, no acute management needs PT/OT DVT ppx: Lovenox Diagnosis/Problems Diagnosis/Problems (1) Acute respiratory failure Status: Acute Qualifiers: Respiratory failure complication: hypoxia Qualified Codes: J96.01 - Acute respiratory failure with hypoxia (2) Atrial fibrillation Status: Chronic Qualifiers: Atrial fibrillation type: unspecified Qualified Codes: I48.91 - Unspecified atrial fibrillation (3) COVID-19 virus infection Status: Acute (4) HTN (hypertension) Status: Chronic Qualifiers: Hypertension type: essential hypertension Qualified Codes: I10 - Essential (primary) hypertension Clinical Quality Measures DVT/VTE Risk/Contraindication: Risk Factor Score Per Nursin RFS Level Per Nursing on Admit: 4+=Very High ELLYN RODRIGUEZ MD Jul 16, 2020 12:32
[2020-07-16] MEDS: ACETAMINOPHEN 500 MG TAB (TYLENOL) PO PRN (19:53)
[2020-07-16] MEDS: hydrALAZINE (APESOLINE) 20 MG/ML VIAL IV PRN (19:53)
--- NOTE | 2020-07-16 20:14 | NUR ---
PT ASKED RN IF HE COULD HAVE CORRECTIONAL GUARD COME TALK TO HIM RE MEDICARE. SOCIAL SERVICE CONSULT ENTERED BY THIS NURSE ORGANIZATION DEVELOPMENT CONSULTANT.
[2020-07-17] VITALS (7 sets, daily range): BP systolic 133–182; BP diastolic 62–79
[2020-07-17] MEDS: RT-ALBUTEROL INHALER HFA (VENTOLIN HFA) 18 GM IH SCH ×6 (02:26→21:33)
[2020-07-17] MEDS: ACETAMINOPHEN 500 MG TAB (TYLENOL) PO PRN ×3 (02:58→16:14)
[2020-07-17] MEDS: LORazepam 0.5 MG (ATIVAN) TABLET PO PRN ×3 (02:58→16:14)
--- NOTE | 2020-07-17 07:56 | NUR ---
AT APPROX 0630 THIS MORNING RN HEARD SOMEONE YELLING HELP. THIS RN WENT TO CHECK ON PT IN ROOM 429 AND HE WAS SITTING IN CHAIR BY WINDOW IN ROOM WITHOUT HIS VAPOTHERM O2 ON AND SMALL AMOUNT OF BLOOD POOLED AT FEET. RN PUT PPE ON AND PUT VAPO THERM ON PT ( HE WAS AT 35/75) I HAD FELLOW RN, HEIDI KIM, CALL RT TO COME SEE HIM AND HOOKED HIM UP TO VS MACHINE TO TRACK IS 02. HE WAS IN THE MID 80S AFTER [address] RODRIGUEZ NOTIFIED OF THIS AND THAT PT HAD PULLED POTTS OUT WHEN HE WAS AMBULATING FROM BED TO CHAIR. THERE WAS BLOOD COMING OUT OF PENIS, RN CLEANED UP AREA AND HE WAS ABLE TO VOID BLOODY URINE, 50 CC, INTO URINAL. THIS RN COLOR GRINDER WASHED HIM UP WITH WARM SOAPY WATER AND CLEANED THE BLOOD OFF THE FLOOR. i MOVED HIM TO RECLINER, ELEVATED HIS FEET. HE WAS EDUCATED ON USING CALL LIGHT AND NOT TO GET UP BY HIMSELF. HE REPORTED TO RN THAT HE HAD BEEN ASLEEP AND WOKE UP CONFUSED. RN FOUND POTTS ON FLOOR, THERE WAS 500 ML OF URINE IN DRAINAGE BAG AND 10 CC OF STERILE WATER STILL IN BALLOON. DR RODRIGUEZ SAID TO WATCH HIS OUTPUT AND IF HE HAD ISSUES WITH NOT VOIDING A THREE WAY CATH MIGHT BE A POSSIBILITY. PT WILL SEE DR BURGESS TODAY. RN GAVE REPORT TO NEXT RN WITH THIS INFO.
[2020-07-17] MEDS: amLODIPine 5 MG (NORVASC) TAB PO SCH (09:22)
[2020-07-17] MEDS: APIXABAN 5 MG (ELIQUIS) TABLET PO SCH ×2 (09:22→20:38)
[2020-07-17] MEDS: FLUTICASONE NASAL SPRAY (FLONASE) 16 GM BTL NS SCH ×2 (09:23→20:38)
[2020-07-17] MEDS: MILK OF MAGNESIA 400 MG/5 ML 30 ML UDC PO PRN (09:30)
--- NOTE | 2020-07-17 13:14 | Progress Note - Hospitalist ---
Subjective HPI/CC On Admission Date Seen by Provider: Jul 17, 2020 Time Seen by Provider: 11:10 Pt is a 75yoCM with a PMH of a-fib, HLD, HTN who presented to the ER due to shortness of braeth and wheezing. He was admitted last week due to new onset atrail fibrillation and diagnosed with COVID at that time but was doing well so was discharged home. Last night his oxygen dropped to the 70s with exertion prompting him to call EMS for evaluation. He remained hypoxic here as well. He was admitted for oxygen supplementation. This morning he repors he is breathing ok but is now on vapotherm. State he is mostly anxious about how he will do as he knows he is high risk. He is also concerned about his . Subjective/Events-last exam He is still short of breath. He denies fevers. He denies pain. He is doing breathing treatments at the time of my exam. Objective Exam Vital Signs Vital Signs Date Time Temp Pulse Resp B/P (MAP) Pulse Ox O2 Delivery O2 Flow Rate FiO2 07/17/20 16:20 35.8 75 18 171/75 (107) 90 Vapotherm 35.00 80.00 07/17/20 14:39 80 Capillary Refill : Less Than 3 Seconds General Appearance: No Apparent Distress, Obese Respiratory: Lungs Clear, Normal Breath Sounds, No Respiratory Distress Cardiovascular: Regular Rate, Rhythm, No Murmur Gastrointestinal: Normal Bowel Sounds, Non Tender, Soft Extremity: Normal Inspection, Non Tender, Pedal Edema Neurologic/Psychiatric: Alert, Oriented x3, No Motor/Sensory Deficits, Normal Mood/Affect Skin: Normal Color, Warm/Dry Results/Procedures Lab Patient resulted labs reviewed. Imaging: Reviewed Imaging Report Assessment/Plan Assessment and Plan Assess & Plan/Chief Complaint Acute respiratory failure due to COVID-19 COVID positive 07/05 Continue decadron day 7 s/p remdesivir s/p 1 unit convalescent plasma Continue Vapotherm, weaning as tolerated Prone as able Already on Eliquis for anticoagulation MAT protocol Prolonged oxygen weaning expected, referral made to [facility] Rate controlled a-fib HTN Monitor on telemetry Continue home meds Morbid obesity Clinically significant, no acute management needs PT/OT DVT ppx: Lovenox Diagnosis/Problems Diagnosis/Problems (1) Acute respiratory failure due to COVID-19 Status: Acute (2) Morbid obesity Status: Chronic (3) HTN (hypertension) Status: Chronic Qualifiers: Hypertension type: essential hypertension Qualified Codes: I10 - Essential (primary) hypertension (4) Atrial fibrillation Status: Chronic Qualifiers: Atrial fibrillation type: unspecified Qualified Codes: I48.91 - Un specified atrial fibrillation Clinical Quality Measures DVT/VTE Risk/Contraindication: Risk Factor Score Per Nursin RFS Level Per Nursing on Admit: 4+=Very High JOSEPH BURGESS MD Jul 17, 2020 13:14
--- NOTE | 2020-07-17 13:42 | Physical Therapy Daily Note ---
PT Daily Note-Current Subjective Patient is in bed with alarm activated. Agrees to PT. Mental Status Patient Orientation: Confused Attachments: Oxygen Transfers SCALE: Activities may be completed with or without assistive devices. 9-Hppgbsyzot-eyxvlvf completes the activity by him/herself with no assistance from a helper. 5-Set-up or Clean-up Assistance-helper sets up or cleans up; patient completes activity. [place] assists only prior to or following the activity. 4-Supervision or Touching Assistance-helper provides verbal cues and/or touching/steadying and/or contact guard assistance as patient completes activity. Assistance may be provided throughout the activity or intermittently. 3-Partial/Moderate Assistance-helper does LESS THAN HALF the effort. [place] lifts, holds or supports trunk or limbs, but provides less than half the effort. 2-Substantial/Maximal Assistance-helper does MORE THAN HALF the effort. [place] lifts or holds trunk or limbs and provides more than half the effort. 5-Pgerzagmf-gijovy does ALL the effort. Patient does none of the effort to complete the activity. Or, the assistance of 2 or more helpers is required for the patient to complete the activity. If activity was not attempted, code reason: 7-Patient Refused. 9-Not Applicable-not attempted and the patient did not perform the activity before the current illness, exacerbation or injury. 10-Not Attempted due to Environmental Limitations-(lack of equipment, weather restraints, etc.). 88-Not Attempted due to Medical Conditions or Safety Concerns. Lying to Sitting/Side of Bed(Q: 5 Sit to Stand (QC): 4 Chair/Vzr-ap-Jlimb Xfer(QC): 4 Gait Training Does the Patient Walk?: Yes Distance: 10' Walk 10 feet (QC): 4 Gait Assistive Device: FWW Exercises Seated Therapy Exercises: Long arc quads Seated Reps: 15 Standing: Marching, Mini squats Standing Reps: 15 (2 sets) Assessment SAO2 maintained >90% with activity on vapotherm. PT to increase activity as tolerated by patient. PT Jail Goals Manager Contract Goals PT Manager Contract Goals Time Frame: Jul 19, 2020 Roll Left & Right (QC): 6 Sit to Lying (QC): 6 Lying-Sitting on Side/Bed(QC): 6 Sit to Stand (QC): 6 Chair/Rew-qd-Odztw Xfer(QC): 6 Walk 10 feet (QC): 6 Walk 50ft with 2 Turns (QC): 6 PT Plan Treatment/Plan Treatment Plan: Continue Plan of Care Treatment Plan: Education, Functional Activity Hilario, Functional Strength, Gait, Safety, Therapeutic Exercise, Transfers Treatment Duration: Jul 19, 2020 Frequency: 6 times per week Estimated Hrs Per Day: .25 hour per day Patient and/or Family Agrees t: Yes Time/GCodes Time In: 1210 Time Out: 1220 Total Billed Treatment Time: 10 Total Billed Treatment 1 visit EX 10 min KAYLEN NAQVI PT Jul 17, 2020 13:42
--- NOTE | 2020-07-17 15:17 | Occ Therapy Progress Note ---
Therapy Progress Note Pt. in bed. Declines all attempts of OOB activity but does talk with OT in depth regarding concerns and goals. Pt. would like to return home and wants to know that he is doing well. Pt. indicates that he had a rough night, and was confused, getting out of bed, and pulled out catheter. Pt. verbalizes that he is tired at this time, and wants to rest at this time. OT encourages pt., but pt. would like to sleep. Pt. positioned in bed to comfort level with encour agement. Will come back in a.m. 1, visit x 20minutes [id number] ANGELLA US OT Jul 17, 2020 15:17
--- NOTE | 2020-07-17 15:40 | NUR ---
CM/SS follow up. CM/SS spoke with physician regarding plan of care. He reports that he spoke with patient regarding [facility] placement. The physician stated that the patient is agreeable and wanted this sw to send referral to [facility]. CM/SS faxed referral to [facility] and awaiting acceptance/denial.
[2020-07-18] VITALS (19 sets, daily range): BP systolic 108–179; BP diastolic 45–78
[2020-07-18] MEDS: LORazepam 0.5 MG (ATIVAN) TABLET PO PRN (01:16)
--- NOTE | 2020-07-18 01:40 | NUR ---
THIS PTS BP AT 0140 WAS 194/80. HYDRAZALINE .25 ML GIVEN. WILL REASSESS PT
[2020-07-18] MEDS: hydrALAZINE (APESOLINE) 20 MG/ML VIAL IV PRN (01:45)
[2020-07-18] MEDS: RT-ALBUTEROL INHALER HFA (VENTOLIN HFA) 18 GM IH SCH ×6 (01:50→22:58)
--- NOTE | 2020-07-18 02:06 | NUR ---
BP now 177/78
[2020-07-18] MEDS ORDERED: ALPRAZolam 0.25 MG (XANAX) TAB PO PRN (04:45)
[2020-07-18] MEDS ORDERED: amLODIPine 5 MG (NORVASC) TAB PO ONE (04:45)
--- NOTE | 2020-07-18 04:52 | NUR ---
At 0431, Dr. badillo was notified about this pt's BP being 186/80, HR 117, respirations 30, and SPO2% at 88 on 40/100 vapotherm. Norvasc 5mg was ordered once and given and an order for the bipap was obtained and set up. PT is on 70%O2 on the bipap. Will continue to monitor pt and provide care as ordered.
[2020-07-18 05:10] LABS: ABG BASE EXCESS 1.8 MMOL/L (-2.5-2.5); ABG OXYGEN SATURATION 93 % (94-100); ABG PCO2 27 MMHG (35-45); ABG PH 7.56 (7.37-7.43); ABG PO2 66 MMHG (79-93); ABG TCO2 25.1 MMOL/L (21.0-31.0)
[2020-07-18 05:11] LABS: INSPIRED O2 90%; VENTILATOR NO
[2020-07-18 05:12] LABS: PATIENT TEMP 36.5
[2020-07-18 05:14] LABS: BASOPHILS % (AUTO) 0 % (0-10); EOSINOPHILS % (AUTO) 0 % (0-10); HEMATOCRIT 37 % (40-54); HEMOGLOBIN 11.8 g/dL (13.3-17.7); LYMPHOCYTES # (AUTO) 0.3 10^3/uL (1.0-4.0); LYMPHOCYTES % (AUTO) 2 % (12-44); MEAN CORPUSCULAR HEMOGLOBIN 28 pg (25-34); MEAN CORPUSCULAR HGB CONC 32 g/dL (32-36); MEAN CORPUSCULAR VOLUME 87 fL (80-99); MEAN PLATELET VOLUME 10.4 fL (9.0-12.2); MONOCYTES # (AUTO) 0.3 10^3/uL (0.0-1.0); MONOCYTES % (AUTO) 1 % (0-12); NEUTROPHILS # (AUTO) 21.8 10^3/uL (1.8-7.8); NEUTROPHILS % (AUTO) 96 % (42-75); PLATELET COUNT 309 10^3/uL (130-400); WHITE BLOOD COUNT 22.7 10^3/uL (4.3-11.0)
[2020-07-18 05:25] LABS: ALBUMIN 2.9 GM/DL (3.2-4.5); CHLORIDE 100 MMOL/L (98-107); POTASSIUM 4.6 MMOL/L (3.6-5.0); SODIUM 134 MMOL/L (135-145)
[2020-07-18 05:26] LABS: CALCIUM 7.8 MG/DL (8.5-10.1)
[2020-07-18 05:27] LABS: GLUCOSE 113 MG/DL (70-105); TOTAL PROTEIN 5.6 GM/DL (6.4-8.2)
[2020-07-18 05:28] LABS: CARBON DIOXIDE 21 MMOL/L (21-32)
[2020-07-18 05:29] LABS: BILIRUBIN,TOTAL 1.5 MG/DL (0.1-1.0)
[2020-07-18] MEDS ORDERED: VANCOMYCIN INJECTION 1,000 MG in NS (IVPB) 250 ML IV SCH (05:30)
[2020-07-18] MEDS ORDERED: PIPERACILLIN/TAZOBACTAM (BULK) 4.5 GM in NS (IVPB) 100 ML IV SCH (05:30)
[2020-07-18 05:31] LABS: ALKALINE PHOSPHATASE 68 U/L (40-136); CREATININE SERUM 0.79 MG/DL (0.60-1.30); GFR ESTIMATED > 60
[2020-07-18 05:32] LABS: BUN/CREATININE RATIO 48
[2020-07-18 05:34] LABS: ALANINE AMINOTRANSFERASE 39 U/L (0-55)
[2020-07-18] MEDS: VANCOMYCIN 1 GM/NS 250 ML IVPB IV SCH ×4 (05:45→06:17)
[2020-07-18] MEDS ORDERED: VANCOMYCIN 1000 MG/VIAL ONE (05:45)
[2020-07-18] MEDS ORDERED: NS (IVPB) 250 ML ONE (05:45)
[2020-07-18] MEDS ORDERED: NS (IVPB) 100 ML ONE (05:46)
[2020-07-18] MEDS ORDERED: PIPERACILLIN/TAZO 4.5 GM VIAL (ZOSYN) IV ONE (05:46)
[2020-07-18] MEDS ORDERED: PIPERACILLIN/TAZOBACTAM 4.5 GM in NS (IVPB) 100 ML IV ONE (06:00)
[2020-07-18 06:03] LABS: BAND NEUTROPHILS 13 %; LYMPHOCYTES % (MANUAL) 2 %; MONOCYTES % (MANUAL) 2 %; NEUTROPHILS % (MANUAL) 83 %; RBC MORPH NORMAL
--- NOTE | 2020-07-18 07:10 | Diagnostic Imaging Report ---
EXAMINATION: Chest 1 view HISTORY: Shortness of breath. COVID positive. Follow-up. COMPARISON: Chest radiograph on 07/14/2020. FINDINGS: Patchy opacities are seen throughout the lungs with relatively improved aeration in the left mid and upper lung. No large pleural effusion or pneumothorax. The cardiac silhouette is stable. No acute osseous abnormalities. IMPRESSION: 1. Widespread patchy opacities are again seen with slight improved aeration in the left mid and upper lung. Report was faxed to [facility] by arash at 7:09AM. Dictated by: Dictated on workstation # [id number]
--- NOTE | 2020-07-18 07:45 | Pulmonary Progress Note ---
Subjective Time Seen by a Provider: 07:44 Subjective/Events-last exam Pt has worsening respiratory failure. Sepsis Event Evaluation Height, Weight, BMI Height: 5'5.00" Weight: 214lbs. 0.0oz. 97.166720su; 34.89 BMI Method: Focused Exam Lactate Level 07/18/20 06:00: Lactic Acid Level 1.10 Lactic Acid Level Laboratory Tests Test 07/18/20 06:00 Lactic Acid Level 1.10 MMOL/L (0.50-2.00) Exam Exam Vital Signs Date Time Temp Pulse Resp B/P (MAP) Pulse Ox O2 Delivery O2 Flow Rate FiO2 07/18/20 04:48 106 33 94 100.00 07/18/20 03:59 36.0 90 20 170/70 (103) 90 Vapotherm 40.00 90.00 07/18/20 01:54 88 Vapotherm 35.00 75 07/18/20 01:00 85 07/18/20 00:22 90 Vapotherm 35.00 75 07/17/20 23:02 36.3 75 20 150/67 (94) 90 Vapotherm 30.00 75.00 07/17/20 21:33 90 Vapotherm 35.00 75 07/17/20 20:00 98 Vapotherm 35.00 75 07/17/20 19:39 36.1 95 20 182/79 (113) 94 Vapotherm 30.00 75.00 07/17/20 19:00 82 07/17/20 18:27 87 Vapotherm 35.00 60 07/17/20 16:20 35.8 75 18 171/75 (107) 90 Vapotherm 35.00 80.00 07/17/20 14:39 95 Vapotherm 35.00 80 07/17/20 12:33 96 07/17/20 11:11 35.7 69 22 166/70 (102) 90 Vapotherm 35.00 80.00 07/17/20 10:55 97 Vapotherm 40.00 100 07/17/20 08:00 98 Vapotherm 40.00 100 I & O 07/18/20 07:00 Intake Total 1160 ml Output Total 925 ml Balance 235 ml Height & Weight Height: 5'5.00" Weight: 214lbs. 0.0oz. 97.611999ya; 34.89 BMI Method: General Appearance: No Apparent Distress, Obese HEENT: PERRL/EOMI, Moist Mucous Membranes; No Scleral Icterus (L), No Scleral Icterus (R) Neck: Normal Inspection, Supple Respiratory: Lungs Clear, Normal Breath Sounds, No Respiratory Distress Cardiovascular: Regular Rate, Rhythm, No Murmur Capillary Refill: Less Than 3 Seconds Extremity: Normal Inspection, Non Tender, Pedal Edema Neurologic/Psychiatric: Alert, Oriented x3, No Motor/Sensory Deficits, Normal Mood/Affect Skin: Normal Color, Warm/Dry Results Lab Laboratory Tests 07/18/20 05:00 Assessment/Plan Assessment/Plan COVID 19 with acute hypoxia -Decadron, s/p Remdesivir, and CVP -Repeat DDimer -Currently requiring BiPAP. -Transfer to ICU -Low threshold for intubation -S/p CVP -Awake proning P Rate controlled a-fib HTN Morbid obesity Clinically significant, no acute management needs PETR LUTHER DO Jul 18, 2020 07:45
--- NOTE | 2020-07-18 09:50 | NUR ---
TIMELINE NOTE: 0950-PT ARRIVED FROM 4TH FLOOR VIA HOSPITAL BED. BIPAP WITH FI02 AT 80% WITH OXYGEN SATURATIONS 87-88%, INCREASED TO 100% WITH SATS 90%. RR 35-40/MIN. PT RESTING WITH EYES CLOSED BUT AWAKENS TO VERBAL STIMULI AND ANSWERS ALL QUESTIONS APPROPRIATELY. PATIENT CONSENTS TO INTUBATION IF NEEDED. NIALL ALLEN AT BEDSIDE. DR LUTHER NOTIFIED THAT PATIENT HAS ARRIVED. ALL OTHER VITALS STABLE AT THIS TIME. 1300: DECISION MADE BY DR LUTHER TO INTUBATE SECONDARY TO INCREASED WORK OF BREATHING AND SATURATIONS 89-93 ON 100%FI02 ON BIPAP. PATIENTS MADE AWARE AND PATIENT SPOKE WITH HER OVER SPEAKER PHONE. ROOM BEING READIED FOR INTUBATION AND RT NOTIFIED. 1330: DR LUTHER, RT, AND RN X 2 AT BEDSIDE FOR INTUBATION. 4MG VERSED GIVEN PER DR LUTHER. 1332: 5ML OF PROPOFOL AND 50MG YOON GIVEN PER DR LUTHER. 1333: 5ML OF PROPOFOL GIVEN PER DR LUTHER. INTUBATION IN PROGRESS. 1334: PT INTUBATED. POSITION OF TUBE 24 AT THE LIP WITH POSITIVE COLOR CHANGE. BILATERAL BREATH SOUNDS AUSCULTATED BY THIS RN. STAT CXR ORDERED. PT PLACED ON VENT WITH VENTILATOR SETTINGS PER DR LUTHER BY RT. PEEP TITRATED BY RT. 1339: PROPOFOL GTT INITIATED AT 20MCG/KG/MIN, NS BOLUS INFUSING AT THIS TIME. OGT PLACED. POTTS PLACED. RESTRAINTS PLACED. PATIENT VITALS REMAIN STABLE. 1500: UPDATED AND ANSWERED ALL QUESTIONS.
--- NOTE | 2020-07-18 09:55 | NUR ---
PATIENT TRANSFERRED TO ROOM ICU4 BY BED ACCOMPANIED BY MOLD YARD CRANE OPERATOR AND RT NIALL. DHARMESH KEY RN RECEIVED REPORT FROM MVA REACTOR OPERATOR HEAD 4TH FLOOR RN KINJAL AND ASSUMED CARE OF THE PATIENT AT THIS TIME.
--- NOTE | 2020-07-18 11:04 | Occ Therapy Progress Note ---
Therapy Progress Note Pt. transferred to ICU due to worsening symptoms and change in medical status. Will continue to monitor pt. and will need new orders to resume therapy. 1104 ANGELLA US OT Jul 18, 2020 11:04
--- NOTE | 2020-07-18 11:23 | NUR ---
CM/SS follow up. Stephen reached out to this sw and asked for updated clinicals. CM/SS faxed clinicals and informed Stephen that the patient's respiratory status has worsened today. The patient was transferred to the ICU. CM/SS will discuss plan of care with physician due to change in status. CM/SS will continue to follow.
--- NOTE | 2020-07-18 11:42 | Physical Therapy Progress Note ---
Therapy Progress Note Patient transferred to ICU and, per RN, will be intubated on this date. PT will continue to monitor patient status. KAYLEN NAQVI PT Jul 18, 2020 11:42
[2020-07-18] MEDS ORDERED: PROPOFOL DRIP (ICU) 100 ML IV ONE (13:17)
[2020-07-18] MEDS ORDERED: NS IV 1000 ML 1,000 ML ONE ×2 (13:22→14:30)
--- NOTE | 2020-07-18 13:45 | Pulmonary Procedures ---
Pulmonary Procedures Date of Procedure Date of Service: Jul 18, 2020 Reason for Intubation: Acute respiratory failure Time of Intubation: 13:44 Intubation Method: orotracheal Tube Size: 8 Medications: Fentanyl, Propofol, Rocuronium, Versed Positive End Tide CO2: Yes Breath Sounds after Intubation: bilateral-equal Intubation Complications: no complications Post Intubation Xray: Yes (Pending) PETR LUTHER DO Jul 18, 2020 13:45
--- NOTE | 2020-07-18 13:46 | Pulmonary Progress Note ---
Standard Progress Note Progress Notes Date Seen by Provider: Jul 18, 2020 Time Seen by Provider: 13:00 Called to bedside by RN secondary to worsening respiratory failure while on 100% BiPAP. Will proceed to intubation. Assessment & Plan COVID 19 with acute hypoxia -Proceed with intubation. -Decadron, s/p Remdesivir, and CVP -Repeat DDimer -Currently requiring BiPAP. -Transfer to ICU -S/p CVP -Awake proning PNA -Continue Vanco and Zosyn Rate controlled a-fib HTN Morbid obesity Clinically significant, no acute management needs UpDate: 1400 Together with energy derivatives trader discussed with patient's current medical condition and prognosis. We answered all questions to the best of our ability. Critical Care: Critically Ill Patient Time spent with patient (mins): 60 Focused Exam Lactate Level 07/18/20 06:00: Lactic Acid Level 1.10 PETR LUTHER DO Jul 18, 2020 13:46
--- NOTE | 2020-07-18 14:01 | Diagnostic Imaging Report ---
EXAMINATION: Portable semierect AP chest at 147h. INDICATION: Respiratory distress, ET tube placement In the interval since prior exam performed earlier today at 5:12am the patient has been intubated. The ET tube tip overlies the midportion tracheal air shadow roughly 3.5 cm cephalad to the ian. An NG line is also been inserted. The tip of line overlies the gastric body. The overall appearance of the chest has not changed significantly otherwise. The heart is stable in size and there are still diffuse alveolar/interstitial pulmonary infiltrates bilaterally. The mediastinum is not widened. The osseous structures are intact. IMPRESSION: The newly inserted ET tube and NG lines appear to be in good position. The overall appearance of the chest itself has not changed significantly. A follow up study would be recommended for continued evaluation. Dictated by: Dictated on workstation # [id number]
[2020-07-18 14:24] LABS: BILIRUBIN,URINE NEGATIVE (NEGATIVE); CLARITY,URINE CLOUDY; COLOR,URINE YELLOW; GLUCOSE, URINE (UA) NEGATIVE (NEGATIVE); KETONES,URINE NEGATIVE (NEGATIVE); LEUKOCYTE ESTERASE ,URINE TRACE (NEGATIVE); NITRITE,URINE NEGATIVE (NEGATIVE); PH,URINE 5.5 (5-9); PROTEIN,URINE TRACE (NEGATIVE)
[2020-07-18] MEDS ORDERED: fentaNYL DRIP PRE-MIX 250 ML IV ONE (14:30)
[2020-07-18 14:43] LABS: AMORPHOUS SEDIMENT,UR MOD AMOR URATES /LPF; BACTERIA,URINE NEGATIVE /HPF; RBC,URINE 25-50 /HPF; WBC,URINE RARE /HPF
[2020-07-18] MEDS: PIPERACILLIN/TAZO 4.5 GM/NS 100 ML IV SCH ×4 (15:10→20:21)
[2020-07-18] MEDS: APIXABAN 5 MG (ELIQUIS) TABLET PO SCH ×2 (15:10→20:22)
[2020-07-18] MEDS ORDERED: MIDAZOLAM 5 MG/5 ML (VERSED) VIAL IJ ONE (15:23)
[2020-07-18] MEDS ORDERED: ROCURONIUM 50 MG/5 ML (ZEMURON) VIAL IV ONE (15:23)
[2020-07-18 15:39] LABS: ABG BASE EXCESS -1.9 MMOL/L (-2.5-2.5); ABG OXYGEN SATURATION 83 % (94-100); ABG PCO2 61 MMHG (35-45); ABG PO2 62 MMHG (79-93)
[2020-07-18 15:41] LABS: ABG PH 7.23 (7.37-7.43)
[2020-07-18 15:42] LABS: ALLENS TEST POS; INSPIRED O2 100%; PATIENT TEMP 35.9; VENTILATOR YES
--- NOTE | 2020-07-18 15:56 | NUR ---
Palliative Care RN got a call back from Annette that I missed. Called her with Dr. Lopez to discuss the events of this morning, which included transfer to ICU and intubation. She asked questions that Dr. Lopez answered. We let her know that we are unsure which direction this will turn and that only time will tell. Dr. Lynn agreed to give her every other day to every couple of day updates from himself and nursing to update daily. While on the phone we obtained consent for a PICC and ART line.
--- NOTE | 2020-07-18 16:15 | Diagnostic Imaging Report ---
INDICATION: PICC line placement. Pneumonia. COMPARISON: Earlier this same day. FINDINGS: A single frontal radiographic view of the chest was obtained and demonstrates an indwelling left upper extremity PICC line. The tip of the PICC line terminates just inferior to the left mainstem bronchus. 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 Endotracheal tube is again seen with the tip below the clavicular heads and above the ian. The gastric tube tip terminates near the hiatus. Cardiac silhouette and pulmonary vasculature are within normal limits. Lungs continue to show diffuse scattered patchy and confluent mixed interstitial and alveolar infiltrates. Overall, aeration is stable. There is no new large effusion or pneumothorax. IMPRESSION: 1. 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 2. Persistent diffuse bilateral infiltrates. No significant change in aeration. Dictated by: Dictated on workstation # [id number]
--- NOTE | 2020-07-18 17:05 | NUR ---
Dr Renny Dwyer interpreted cxr that picc tip is in duplicated svc along left mainstem bronchus. Talked with Dr Dwyer via telephone, et he reports that the picc is safe to use in this position. MELANIE Trent notified.
[2020-07-18] MEDS: PROPOFOL DRIP (ICU) 100 ML IV SCH ×2 (17:33→23:42)
[2020-07-18] MEDS: amLODIPine 5 MG (NORVASC) TAB PO SCH (17:33)
--- NOTE | 2020-07-18 17:33 | Anesthesia-Procedure Note ---
Procedures/Interventions Procedure Start/Stop/Diagnosis Date of Procedure: Jul 18, 2020 Start Time: 17:00 Stop Time: 17:20 Arterial Line Arterial Line Catheter: 20G Type: Radial Procedure: prepped, draped in sterile fashion, 1% lidocaine used to numb region, good wave-form was obtained, patient tolerated procedure well, no immediate complications, post procedure dressing applied DIEGO MELENDREZ CRNA Jul 18, 2020 17:33
[2020-07-18] MEDS: VANCOMYCIN 1250 MG/NS 250 ML IVPB IV SCH ×2 (17:43)
[2020-07-18] MEDS: FLUTICASONE NASAL SPRAY (FLONASE) 16 GM BTL NS SCH ×2 (17:48→20:23)
--- NOTE | 2020-07-18 19:39 | NUR ---
THIS RN NOTIFIED E[facility] OF PT DECREASED URINE OUTPUT. DR STATED SHE WOULD REVIEW PT CHART.
[2020-07-18] MEDS ORDERED: FUROSEMIDE 40 MG/4 ML INJ (LASIX) IVP ONE (19:45)
[2020-07-18] MEDS: NS IV 1000 ML 1,000 ML IV SCH (22:30)
[2020-07-19] VITALS (32 sets, daily range): BP systolic 98–192; BP diastolic 37–69
[2020-07-19] MEDS: RT-ALBUTEROL INHALER HFA (VENTOLIN HFA) 18 GM IH SCH ×6 (01:12→21:28)
[2020-07-19 02:31] LABS: BASOPHILS % (AUTO) 0 % (0-10); EOSINOPHILS % (AUTO) 0 % (0-10); LYMPHOCYTES # (AUTO) 0.3 10^3/uL (1.0-4.0); LYMPHOCYTES % (AUTO) 1 % (12-44); MEAN CORPUSCULAR HGB CONC 31 g/dL (32-36); MEAN CORPUSCULAR VOLUME 91 fL (80-99); MEAN PLATELET VOLUME 10.6 fL (9.0-12.2); MONOCYTES # (AUTO) 0.4 10^3/uL (0.0-1.0); MONOCYTES % (AUTO) 2 % (0-12); NEUTROPHILS # (AUTO) 19.2 10^3/uL (1.8-7.8); NEUTROPHILS % (AUTO) 96 % (42-75)
[2020-07-19 02:34] LABS: ALBUMIN 2.4 GM/DL (3.2-4.5); POTASSIUM 5.9 MMOL/L (3.6-5.0)
[2020-07-19 02:36] LABS: CALCIUM 7.4 MG/DL (8.5-10.1)
[2020-07-19 02:37] LABS: TOTAL PROTEIN 5.5 GM/DL (6.4-8.2)
[2020-07-19 02:38] LABS: BILIRUBIN,TOTAL 0.9 MG/DL (0.1-1.0)
[2020-07-19 02:39] LABS: HEMATOCRIT 30 % (40-54); HEMOGLOBIN 9.1 g/dL (13.3-17.7); MEAN CORPUSCULAR HEMOGLOBIN 28 pg (25-34)
[2020-07-19 02:40] LABS: CREATININE SERUM 2.02 MG/DL (0.60-1.30); PHOSPHORUS 7.8 MG/DL (2.3-4.7); PLATELET COUNT 138 10^3/uL (130-400)
[2020-07-19 02:41] LABS: ABG BASE EXCESS -3.4 MMOL/L (-2.5-2.5); ABG OXYGEN SATURATION 99 % (94-100); ABG PCO2 53 MMHG (35-45); ABG PO2 189 MMHG (79-93); ABG TCO2 24.4 MMOL/L (21.0-31.0)
[2020-07-19 02:42] LABS: ABG PH 7.25 (7.37-7.43); ALLENS TEST ART LINE
[2020-07-19 02:43] LABS: INSPIRED O2 90%; MAGNESIUM 2.8 MG/DL (1.6-2.4); PATIENT TEMP 35.8; VENTILATOR YES
[2020-07-19 03:06] LABS: INR 2.2 (0.8-1.4); PROTHROMBIN TIME PATIENT 24.6 SEC (12.2-14.7)
[2020-07-19] MEDS: PIPERACILLIN/TAZO 4.5 GM/NS 100 ML IV SCH ×4 (03:06→11:22)
[2020-07-19] MEDS ORDERED: NOREPINEPHRINE 4 MG/250 ML 250 ML IV ONE (03:35)
--- NOTE | 2020-07-19 03:36 | NUR ---
TeleICU notified of low bp, orders received.
[2020-07-19] MEDS: NOREPINEPHRINE 4 MG/250 ML 250 ML IV SCH ×3 (03:43→16:08)
[2020-07-19] MEDS ORDERED: NS 100 ML (IVPB) BAG IV ONE (03:45)
[2020-07-19] MEDS: NS IV 1000 ML 1,000 ML IV SCH (03:52)
--- NOTE | 2020-07-19 03:54 | Pulmonary Progress Note ---
WALLY HUDSON,MED STUDENT 07/19/20 0354: Subjective Date Seen by a Provider: Jul 19, 2020 Time Seen by a Provider: 03:45 Subjective/Events-last exam On vent, FiO2 currently 90%, PEEP 16 Patient became hypotensive this morning, BP noted to be 74/35, and was started on levophed Creatinine 2.02 today Sepsis Event Evaluation Height, Weight, BMI Height: 5'5.00" Weight: 214lbs. 0.0oz. 97.598118eu; 34.89 BMI Method: Focused Exam Lactate Level 07/18/20 06:00: Lactic Acid Level 1.10 Exam Exam Vital Signs Date Time Temp Pulse Resp B/P (MAP) Pulse Ox O2 Delivery O2 Flow Rate FiO2 07/19/20 03:43 72 74/35 07/19/20 03:30 Mechanical Ventilator 75.00 07/19/20 02:40 35.8 07/19/20 02:10 70 13 112/45 (67) 98 Mechanical Ventilator 90.00 07/19/20 01:12 70 26 96 90 07/19/20 01:00 75 23 104/45 (64) 96 Mechanical Ventilator 90.00 07/19/20 01:00 75 07/19/20 00:00 73 23 125/52 (76) 95 Mechanical Ventilator 90.00 07/18/20 23:43 35.8 Mechanical Ventilator 90.00 07/18/20 23:42 70 157/50 07/18/20 23:00 65 19 153/52 (85) 95 Mechanical Ventilator 95.00 07/18/20 22:58 67 26 95 100 07/18/20 22:00 70 23 132/49 (76) 96 Mechanical Ventilator 95.00 07/18/20 21:00 66 27 118/46 (70) 96 Mechanical Ventilator 95.00 07/18/20 20:21 Mechanical Ventilator 95.00 07/18/20 20:00 70 21 131/49 (76) 96 Mechanical Ventilator 100.00 07/18/20 20:00 Mechanical Ventilator 90 07/18/20 19:44 35.7 07/18/20 19:00 65 21 116/46 (69) 96 Mechanical Ventilator 100.00 07/18/20 19:00 65 07/18/20 18:58 69 30 96 100 07/18/20 17:33 104/50 07/18/20 17:00 73 26 93 Mechanical Ventilator 100.00 07/18/20 16:00 62 25 145/47 (79) 91 Mechanical Ventilator 100.00 07/18/20 15:57 35.4 07/18/20 15:00 71 28 137/45 (75) 90 Mechanical Ventilator 100.00 07/18/20 14:35 80 26 94 100 07/18/20 14:00 77 26 155/72 (99) 91 Mechanical Ventilator 100.00 07/18/20 13:35 75 26 93 100 07/18/20 13:00 101 31 108/59 (75) 94 NIV Bilevel 100.00 07/18/20 12:51 72 07/18/20 12:46 36.6 07/18/20 12:00 106 33 143/57 (85) 93 NIV Bilevel 100.00 07/18/20 11:38 92 33 93 100.00 07/18/20 11:00 112 39 162/66 (98) 93 NIV Bilevel 100.00 07/18/20 10:00 108 37 179/78 (111) 90 NIV Bilevel 100.00 07/18/20 09:50 89 NIV Bilevel 100 07/18/20 09:00 135 145/63 (90) NIV Bilevel 100.00 07/18/20 08:00 37.1 120 28 150/68 (95) 91 Vapotherm 40.00 90.00 07/18/20 06:36 113 07/18/20 04:48 106 33 94 100.00 07/18/20 03:59 36.0 90 20 170/70 (103) 90 Vapotherm 40.00 90.00 I & O 07/19/20 07:00 Intake Total 577.5 ml Output Total 575 ml Balance 2.5 ml Height & Weight Height: 5'5.00" Weight: 214lbs. 0.0oz. 97.976907ct; 34.89 BMI Method: General Appearance: No Apparent Distress, Obese HEENT: PERRL/EOMI, Moist Mucous Membranes; No Scleral Icterus (L), No Scleral Icterus (R) Neck: Normal Inspection, Supple Respiratory: Lungs Clear, Normal Breath Sounds, No Respiratory Distress Cardiovascular: Regular Rate, Rhythm, No Murmur Capillary Refill: Less Than 3 Seconds Extremity: Normal Inspection, Non Tender, Pedal Edema Neurologic/Psychiatric: Alert, Oriented x3, No Motor/Sensory Deficits, Normal Mood/Affect Skin: Normal Color, Warm/Dry Results Lab Laboratory Tests 07/18/20 05:00 07/19/20 02:10 PETR LUTHER DO 07/19/20 0538: Assessment/Plan Assessment/Plan COVID 19 with acute hypoxia with ARDS -Pt is now on ventilator -Decadron, s/p Remdesivir, and CVP -Repeat DDimer -Currently requiring BiPAP. -Transfer to ICU -S/p CVP -proning Acute GIB -D/C eliquis -Start Lovenox 40mg BID for now -Monitor Hb -Start protonix BID Acute renal failure with metabolic acidosis and hyperphos -Start bicarb gtt -Start phoslo PNA -Continue Vanco and Zosyn -Ng cultures Rate controlled a-fib HTN Morbid obesity WALLY HUDSON,MED STUDENT Jul 19, 2020 03:54 PETR LUTHER DO Jul 19, 2020 05:38
[2020-07-19] MEDS ORDERED: inSUlin (REGULAR) HUMAN 1 UNIT/0.01 ML (CHARGE PER UNIT) IV ONE (05:45)
[2020-07-19] MEDS ORDERED: DEXTROSE 50% 50 ML (IMS) SYR IV ONE (05:45)
[2020-07-19] MEDS ORDERED: SODIUM BICARB 8.4% 50 MEQ/50 ML VIAL IV ONE (05:45)
[2020-07-19] MEDS ORDERED: SODIUM BICARBONATE 8.4% VIAL 100 MEQ in 1/2 NS IV SOLUTION 1,000 ML IV SCH (05:45)
[2020-07-19] MEDS ORDERED: LACTATED RINGERS 1,000 ML IV SCH (05:45)
[2020-07-19] MEDS: VANCOMYCIN 1250 MG/NS 250 ML IVPB IV SCH ×2 (06:45)
[2020-07-19] MEDS: PROPOFOL DRIP (ICU) 100 ML IV SCH ×3 (06:47→22:35)
[2020-07-19] MEDS: fentaNYL DRIP PRE-MIX 250 ML IV SCH ×2 (06:48→22:34)
--- NOTE | 2020-07-19 08:04 | Physical Therapy Progress Note ---
Therapy Progress Note Patient was transferred to ICU and intubated. Will need new orders to start again when appropriate. Will follow. ISSA LONG PT Jul 19, 2020 08:04
[2020-07-19] MEDS: SODIUM BICARBONATE 8.4% VIAL 100 MEQ in 1/2 NS IV SOLUTION 1,000 ML IV SCH ×2 (08:55→18:29)
[2020-07-19] MEDS: PANTOPRAZOLE 40 MG (PROTONIX) VIAL IV SCH ×2 (08:57→20:50)
[2020-07-19] MEDS: CALCIUM ACETATE 667 MG CAP (PHOSLO) PO SCH ×3 (08:58→18:29)
[2020-07-19] MEDS ORDERED: ENOXAPARIN 40 MG/0.4 ML (LOVENOX) SYR SC SCH (09:00)
[2020-07-19 13:50] LABS: BASOPHILS % (AUTO) 0 % (0-10); EOSINOPHILS % (AUTO) 0 % (0-10); HEMATOCRIT 24 % (40-54); HEMOGLOBIN 7.1 g/dL (13.3-17.7); LYMPHOCYTES # (AUTO) 0.2 10^3/uL (1.0-4.0); LYMPHOCYTES % (AUTO) 1 % (12-44); MEAN CORPUSCULAR HEMOGLOBIN 28 pg (25-34); MEAN CORPUSCULAR HGB CONC 30 g/dL (32-36); MEAN CORPUSCULAR VOLUME 95 fL (80-99); MEAN PLATELET VOLUME 10.9 fL (9.0-12.2); MONOCYTES # (AUTO) 0.2 10^3/uL (0.0-1.0); MONOCYTES % (AUTO) 1 % (0-12); NEUTROPHILS % (AUTO) 97 % (42-75); PLATELET COUNT 150 10^3/uL (130-400); WHITE BLOOD COUNT 16.6 10^3/uL (4.3-11.0)
[2020-07-19 14:01] LABS: ALBUMIN 2.3 GM/DL (3.2-4.5); POTASSIUM 4.9 MMOL/L (3.6-5.0)
[2020-07-19 14:04] LABS: TOTAL PROTEIN 5.2 GM/DL (6.4-8.2)
[2020-07-19 14:06] LABS: BILIRUBIN,TOTAL 0.7 MG/DL (0.1-1.0)
[2020-07-19 14:07] LABS: PHOSPHORUS 6.1 MG/DL (2.3-4.7)
[2020-07-19 14:08] LABS: CREATININE SERUM 1.7 MG/DL (0.60-1.30)
[2020-07-19 14:10] LABS: MAGNESIUM 2.9 MG/DL (1.6-2.4)
[2020-07-19] MEDS ORDERED: NS IV 500 ML 500 ML IV SCH (14:30)
--- NOTE | 2020-07-19 15:06 | NUR ---
Note pt is currently intubated/sedated. Note pt currently has GI bleed, per Yenny NAVARRO. Would not recommend TF at this time. Will continue to follow and reassess as pt needs, intake, and status change. Lola BARRON, MS RD LD [phone] CELL
[2020-07-19] MEDS: cefTRIAXone FOR IV USE 2,000 MG in WATER (STERILE) FOR INJECTION 20 ML IV SCH (16:01)
--- NOTE | 2020-07-19 16:03 | Physical Therapy Progress Note ---
Therapy Progress Note PROM B U/LE available planes. JASSI SCHULZ PT Jul 19, 2020 16:03
[2020-07-19] MEDS ORDERED: TROUGH ORDER-PHARMACY XX NR (17:00)
[2020-07-19 22:47] LABS: HEMOGLOBIN 10.2 g/dL (13.3-17.7)
[2020-07-20] VITALS (29 sets, daily range): BP systolic 125–210; BP diastolic 48–71
[2020-07-20] MEDS: RT-ALBUTEROL INHALER HFA (VENTOLIN HFA) 18 GM IH SCH ×6 (01:05→20:48)
[2020-07-20] MEDS: NOREPINEPHRINE 4 MG/250 ML 250 ML IV SCH ×4 (01:33→23:26)
[2020-07-20] MEDS: PROPOFOL DRIP (ICU) 100 ML IV SCH ×4 (02:48→16:25)
[2020-07-20 03:27] LABS: ABG BASE EXCESS 5.1 MMOL/L (-2.5-2.5); ABG OXYGEN SATURATION 98 % (94-100); ABG PCO2 62 MMHG (35-45); ABG PO2 113 MMHG (79-93); ABG TCO2 32.7 MMOL/L (21.0-31.0)
[2020-07-20 03:29] LABS: BASOPHILS % (AUTO) 0 % (0-10); EOSINOPHILS % (AUTO) 0 % (0-10); HEMATOCRIT 27 % (40-54); HEMOGLOBIN 8.2 g/dL (13.3-17.7); LYMPHOCYTES # (AUTO) 0.2 10^3/uL (1.0-4.0); LYMPHOCYTES % (AUTO) 1 % (12-44); MEAN CORPUSCULAR HEMOGLOBIN 29 pg (25-34); MEAN CORPUSCULAR HGB CONC 31 g/dL (32-36); MEAN CORPUSCULAR VOLUME 93 fL (80-99); MEAN PLATELET VOLUME 11.2 fL (9.0-12.2); MONOCYTES # (AUTO) 0.3 10^3/uL (0.0-1.0); MONOCYTES % (AUTO) 2 % (0-12); NEUTROPHILS # (AUTO) 12.5 10^3/uL (1.8-7.8); NEUTROPHILS % (AUTO) 95 % (42-75); PLATELET COUNT 133 10^3/uL (130-400); WHITE BLOOD COUNT 13.2 10^3/uL (4.3-11.0)
--- NOTE | 2020-07-20 03:43 | Pulmonary Progress Note ---
Subjective Date Seen by a Provider: Jul 20, 2020 Time Seen by a Provider: 03:30 Subjective/Events-last exam On vent, currently FiO2 75% and PEEP of 14 Received 1 unit RBC's, Hgb improved to 10.2 Sepsis Event Evaluation Height, Weight, BMI Height: 5'5.00" Weight: 214lbs. 0.0oz. 97.337693fj; 34.89 BMI Method: Focused Exam Lactate Level 07/18/20 06:00: Lactic Acid Level 1.10 Exam Exam Vital Signs Date Time Temp Pulse Resp B/P (MAP) Pulse Ox O2 Delivery O2 Flow Rate FiO2 07/20/20 02:49 37.3 Mechanical Ventilator 75.00 07/20/20 01:22 Mechanical Ventilator 90.00 07/20/20 01:05 83 26 99 90 07/20/20 00:00 91 26 130/50 (76) 26 Mechanical Ventilator 100.00 07/19/20 23:00 90 26 148/69 (95) 20 Mechanical Ventilator 100.00 07/19/20 22:53 Mechanical Ventilator 100.00 07/19/20 22:48 Mechanical Ventilator 70.00 07/19/20 22:43 Mechanical Ventilator 60.00 07/19/20 22:00 74 20 174/57 (96) 90 50.00 07/19/20 21:28 73 26 92 50 07/19/20 21:00 74 26 192/59 (103) 84 Mechanical Ventilator 50.00 07/19/20 20:00 Mechanical Ventilator 50 07/19/20 20:00 73 25 184/60 (101) 95 Mechanical Ventilator 50.00 07/19/20 19:39 75 26 97 50 07/19/20 19:00 70 25 154/56 (88) 95 Mechanical Ventilator 50.00 07/19/20 19:00 Mechanical Ventilator 50.00 07/19/20 18:46 80 07/19/20 18:31 36.8 74 26 145/54 94 Mechanical Ventilator 07/19/20 18:00 69 26 130/51 (77) 95 Mechanical Ventilator 100.00 07/19/20 17:05 34.8 07/19/20 17:00 70 25 140/50 (80) 95 Mechanical Ventilator 100.00 07/19/20 16:30 36.4 78 26 153/51 95 Mechanical Ventilator 07/19/20 16:18 36.2 70 26 149/52 94 07/19/20 16:00 70 12 144/50 (81) 94 Mechanical Ventilator 100.00 07/19/20 15:00 74 26 128/51 (76) 93 Mechanical Ventilator 100.00 07/19/20 14:38 72 26 94 100 07/19/20 14:30 74 07/19/20 14:00 66 25 117/47 (70) 94 Mechanical Ventilator 100.00 07/19/20 13:00 65 26 114/48 (70) 94 Mechanical Ventilator 100.00 07/19/20 12:42 71 07/19/20 12:00 68 26 119/49 (72) 94 Mechanical Ventilator 100.00 07/19/20 11:52 35.5 07/19/20 11:25 62 26 94 100 07/19/20 11:00 68 26 126/48 (74) 94 Mechanical Ventilator 100.00 07/19/20 10:00 62 26 129/49 (75) 94 Mechanical Ventilator 100.00 07/19/20 09:00 67 17 151/57 (88) 95 Mechanical Ventilator 100.00 07/19/20 08:00 94 NIV Bilevel 100 07/19/20 08:00 73 14 111/48 (69) 92 Mechanical Ventilator 100.00 07/19/20 07:44 35.6 07/19/20 07:18 77 30 96 100 07/19/20 07:15 Mechanical Ventilator 100.00 07/19/20 07:00 82 26 98/37 (57) 90 Mechanical Ventilator 60.00 07/19/20 06:47 71 130/48 07/19/20 06:43 Mechanical Ventilator 60.00 07/19/20 06:39 60 07/19/20 06:00 66 25 110/45 (66) 97 Mechanical Ventilator 75.00 07/19/20 05:00 71 25 108/43 (64) 97 Mechanical Ventilator 75.00 07/19/20 04:00 68 13 133/47 (75) 97 Mechanical Ventilator 75.00 07/19/20 03:50 59 132/47 07/19/20 03:46 68 132/51 07/19/20 03:43 72 74/35 I & O 07/20/20 07:00 Intake Total 380 ml Output Total 1650 ml Balance -1270 ml Height & Weight Height: 5'5.00" Weight: 214lbs. 0.0oz. 97.432141ls; 34.89 BMI Method: General Appearance: No Apparent Distress, Obese HEENT: PERRL/EOMI, Moist Mucous Membranes; No Scleral Icterus (L), No Scleral Icterus (R) Neck: Normal Inspection, Supple Respiratory: Lungs Clear, Normal Breath Sounds, No Respiratory Distress Cardiovascular: Regular Rate, Rhythm, No Murmur Capillary Refill: Less Than 3 Seconds Extremity: Normal Inspection, Non Tender, Pedal Edema Neurologic/Psychiatric: Alert, Oriented x3, No Motor/Sensory Deficits, Normal Mood/Affect Skin: Normal Color, Warm/Dry Results Lab Laboratory Tests 07/18/20 05:00 07/19/20 02:10 07/19/20 13:35 07/19/20 22:40 Assessment/Plan Assessment/Plan COVID 19 with acute hypoxia with ARDS -On ventilator -Decadron, s/p Remdesivir, and CVP -Repeat DDimer -proning Acute GIB -D/C eliquis -Monitor Hb-improved -Start protonix BID Acute renal failure with metabolic acidosis and hyperphos -Start bicarb gtt -Start phoslo PNA -Continue Vanco and Zosyn -Ng cultures Rate controlled a-fib HTN WALLY HUDSON,MED STUDENT Jul 20, 2020 03:43
[2020-07-20 03:48] LABS: ALBUMIN 2.2 GM/DL (3.2-4.5); POTASSIUM 4.8 MMOL/L (3.6-5.0)
[2020-07-20 03:49] LABS: CALCIUM 6.9 MG/DL (8.5-10.1)
[2020-07-20 03:52] LABS: BILIRUBIN,TOTAL 0.5 MG/DL (0.1-1.0)
[2020-07-20 03:54] LABS: CREATININE SERUM 1.34 MG/DL (0.60-1.30)
[2020-07-20 04:12] LABS: ABG PH 7.32 (7.37-7.43); ALLENS TEST ARTLINE; INSPIRED O2 26%
[2020-07-20 04:13] LABS: PATIENT TEMP 37.3; VENTILATOR YES
[2020-07-20] MEDS: SODIUM BICARBONATE 8.4% VIAL 100 MEQ in 1/2 NS IV SOLUTION 1,000 ML IV SCH ×2 (05:53→16:26)
--- NOTE | 2020-07-20 08:02 | NUR ---
Sedation gtts needed replaced at this time. Pt awake, unable to follow commands O2 saturation 68% upon nurse arrival to room. Sedation hung per RN. FIO2 increased to 100%. Pt saturation slowly rising. 88% at this time. BP 191/53. RN to remain at bedside until pt becomes more stable.
[2020-07-20] MEDS: PANTOPRAZOLE 40 MG (PROTONIX) VIAL IV SCH ×2 (09:51→20:46)
[2020-07-20] MEDS: CALCIUM ACETATE 667 MG CAP (PHOSLO) PO SCH ×3 (09:52→16:00)
[2020-07-20] MEDS: fentaNYL DRIP PRE-MIX 250 ML IV SCH ×2 (09:53→23:27)
--- NOTE | 2020-07-20 11:43 | NUR ---
Take Away Worker spoke w/ pt's by phone and offered spiritual support.
[2020-07-20] MEDS: MIDAZOLAM DRIP PRE-MIX 100 ML IV SCH ×2 (12:18→14:21)
--- NOTE | 2020-07-20 12:41 | NUR ---
This RN spoke with Annette, pt's , at this time. Updates provided. expressed that pt's son who is a physician would like to speak directly to a physician if possible at some point. Will notify Dr. Lopez of requests and encouraged family to follow up with request in the next couple of days.
--- NOTE | 2020-07-20 13:12 | Physical Therapy Progress Note ---
Therapy Progress Note PROM all extremities in supine. Patient sedated on vent. KAYLEN NAQVI PT Jul 20, 2020 13:12
[2020-07-20] MEDS: cefTRIAXone FOR IV USE 2,000 MG in WATER (STERILE) FOR INJECTION 20 ML IV SCH (14:25)
--- NOTE | 2020-07-20 15:12 | NUR ---
Note pt is still having issues with GI bleed, per chart review. Would not recommend initiation of TF at this time. Will continue to follow and reassess as pt needs, intake, and status change. Lola BARRON, MS RD LD
[2020-07-20] MEDS: hydrALAZINE (APESOLINE) 20 MG/ML VIAL IV PRN (16:26)
[2020-07-21] VITALS (29 sets, daily range): BP systolic 114–165; BP diastolic 55–69
[2020-07-21] MEDS: RT-ALBUTEROL INHALER HFA (VENTOLIN HFA) 18 GM IH SCH ×5 (00:54→19:03)
[2020-07-21 04:48] LABS: BASOPHILS % (AUTO) 0 % (0-10); EOSINOPHILS % (AUTO) 0 % (0-10); HEMATOCRIT 27 % (40-54); HEMOGLOBIN 7.9 g/dL (13.3-17.7); LYMPHOCYTES # (AUTO) 0.2 10^3/uL (1.0-4.0); LYMPHOCYTES % (AUTO) 1 % (12-44); MEAN CORPUSCULAR HEMOGLOBIN 29 pg (25-34); MEAN CORPUSCULAR HGB CONC 30 g/dL (32-36); MEAN CORPUSCULAR VOLUME 97 fL (80-99); MEAN PLATELET VOLUME 10.5 fL (9.0-12.2); MONOCYTES # (AUTO) 0.5 10^3/uL (0.0-1.0); MONOCYTES % (AUTO) 4 % (0-12); NEUTROPHILS # (AUTO) 12.4 10^3/uL (1.8-7.8); NEUTROPHILS % (AUTO) 91 % (42-75); PLATELET COUNT 149 10^3/uL (130-400); WHITE BLOOD COUNT 13.6 10^3/uL (4.3-11.0)
[2020-07-21 04:50] LABS: ABG BASE EXCESS 8.9 MMOL/L (-2.5-2.5); ABG OXYGEN SATURATION 97 % (94-100); ABG PO2 95 MMHG (79-93); ABG TCO2 38.5 MMOL/L (21.0-31.0)
[2020-07-21 04:52] LABS: ALLENS TEST ARTLINE; INSPIRED O2 75; PATIENT TEMP 35.3; VENTILATOR YES
[2020-07-21 04:53] LABS: ABG PCO2 77 MMHG (35-45); ABG PH 7.28 (7.37-7.43)
[2020-07-21 05:07] LABS: ALBUMIN 2.4 GM/DL (3.2-4.5)
[2020-07-21 05:08] LABS: CHLORIDE 103 MMOL/L (98-107); POTASSIUM 5.5 MMOL/L (3.6-5.0); SODIUM 144 MMOL/L (135-145)
[2020-07-21 05:09] LABS: CALCIUM 7.5 MG/DL (8.5-10.1)
[2020-07-21 05:10] LABS: GLUCOSE 144 MG/DL (70-105); TOTAL PROTEIN 5.5 GM/DL (6.4-8.2)
[2020-07-21 05:11] LABS: CARBON DIOXIDE 33 MMOL/L (21-32)
[2020-07-21 05:12] LABS: BILIRUBIN,TOTAL 0.5 MG/DL (0.1-1.0)
[2020-07-21 05:13] LABS: ALKALINE PHOSPHATASE 85 U/L (40-136)
[2020-07-21 05:14] LABS: CREATININE SERUM 1.13 MG/DL (0.60-1.30); GFR ESTIMATED > 60
[2020-07-21 05:15] LABS: BUN/CREATININE RATIO 53
[2020-07-21 05:17] LABS: ALANINE AMINOTRANSFERASE 22 U/L (0-55)
[2020-07-21] MEDS: NOREPINEPHRINE 4 MG/250 ML 250 ML IV SCH ×3 (05:20→20:40)
[2020-07-21] MEDS: fentaNYL DRIP PRE-MIX 250 ML IV SCH ×3 (06:04→17:54)
[2020-07-21] MEDS: SODIUM BICARBONATE 8.4% VIAL 100 MEQ in 1/2 NS IV SOLUTION 1,000 ML IV SCH (06:04)
[2020-07-21] MEDS ORDERED: FUROSEMIDE 40 MG/4 ML INJ (LASIX) IVP NR (06:45)
--- NOTE | 2020-07-21 06:48 | Pulmonary Progress Note ---
Subjective Time Seen by a Provider: 06:43 Sepsis Event Evaluation Height, Weight, BMI Height: 5'5.00" Weight: 214lbs. 0.0oz. 97.851918ys; 34.89 BMI Method: Exam Exam Vital Signs Date Time Temp Pulse Resp B/P (MAP) Pulse Ox O2 Delivery O2 Flow Rate FiO2 07/21/20 06:05 Mechanical Ventilator 70.00 07/21/20 04:27 35.4 07/21/20 01:00 90 07/21/20 00:54 110 26 94 75 07/20/20 23:45 35.6 Mechanical Ventilator 75.00 07/20/20 20:54 114 26 94 80 07/20/20 20:00 Mechanical Ventilator 80 07/20/20 19:45 35.8 07/20/20 19:00 116 07/20/20 18:51 112 26 95 80 07/20/20 18:00 100 23 175/58 (97) 94 Mechanical Ventilator 80.00 07/20/20 17:00 105 25 200/59 (106) 93 Mechanical Ventilator 80.00 07/20/20 16:25 202/66 07/20/20 16:00 93 8 210/71 (117) 94 Mechanical Ventilator 80.00 07/20/20 15:41 35.6 07/20/20 15:21 102 26 92 80 07/20/20 15:00 95 9 202/70 (114) 93 Mechanical Ventilator 80.00 07/20/20 14:21 102 07/20/20 14:00 98 25 145/60 (88) 93 Mechanical Ventilator 80.00 07/20/20 13:00 85 26 160/57 (91) 93 Mechanical Ventilator 80.00 07/20/20 12:32 81 07/20/20 12:18 77 07/20/20 12:00 83 25 160/53 (88) 92 Mechanical Ventilator 80.00 07/20/20 11:30 36.0 07/20/20 11:00 Mechanical Ventilator 80.00 07/20/20 11:00 83 25 152/53 (86) 90 Mechanical Ventilator 80.00 07/20/20 10:00 85 17 150/54 (86) 93 Mechanical Ventilator 65.00 07/20/20 09:52 90 166/58 07/20/20 09:00 89 25 146/50 (82) 92 Mechanical Ventilator 65.00 07/20/20 08:05 205/57 07/20/20 08:00 Mechanical Ventilator 100.00 07/20/20 08:00 98 25 163/52 (89) 82 Mechanical Ventilator 65.00 07/20/20 08:00 Mechanical Ventilator 80 07/20/20 07:40 36.6 07/20/20 07:06 80 26 95 65 07/20/20 07:03 79 07/20/20 07:00 82 25 144/53 (83) 94 Mechanical Ventilator 65.00 I & O 07/21/20 07:00 Intake Total 90 ml Output Total 2300 ml Balance -2210 ml Height & Weight Height: 5'5.00" Weight: 214lbs. 0.0oz. 97.917778eb; 34.89 BMI Method: General Appearance: No Apparent Distress, Obese HEENT: PERRL/EOMI, Moist Mucous Membranes; No Scleral Icterus (L), No Scleral Icterus (R) Neck: Normal Inspection, Supple Respiratory: Lungs Clear, Normal Breath Sounds, No Respiratory Distress Cardiovascular: Regular Rate, Rhythm, No Murmur Capillary Refill: Less Than 3 Seconds Extremity: Normal Inspection, Non Tender, Pedal Edema Neurologic/Psychiatric: Alert, Oriented x3, No Motor/Sensory Deficits, Normal Mood/Affect Skin: Normal Color, Warm/Dry Results Lab Laboratory Tests 07/19/20 13:35 07/19/20 22:40 07/20/20 02:50 07/21/20 04:30 Assessment/Plan Assessment/Plan COVID 19 with acute hypoxia with ARDS -On ventilator -Decadron, s/p Remdesivir, and CVP -Repeat DDimer -proning Acute GIB s/p 1 unit PRBC -D/C eliquis -Monitor Hb-improved -protonix BID Acute renal failure with metabolic acidosis and hyperphos -D/C bicarb gtt -Start -Start phoslo Hyperkalemia-mild -Give 40mg of Lasix x 1 PNA with Strep -Continue Rocpehin -Ng cultures Rate controlled a-fib HTN PETR LUTHER DO Jul 21, 2020 06:47
--- NOTE | 2020-07-21 07:45 | Diagnostic Imaging Report ---
INDICATION: COVID positive. TECHNIQUE: Single view chest 7:19 AM. CORRELATION STUDY: 07/18/2020 FINDINGS: Endotracheal tube and gastric tube remain in place. Left upper extremity central line is again noted, tip along the left paramediastinal region. Heart size and mediastinum appear generally stable. Extensive 5 lobe infiltrate is again demonstrated. Overall appears increased in severity, more consolidated nodular from prior. IMPRESSION: 1. Stable appearance about the support lines and tubes. It is, however, noted that the left upper extremity central line tip is along the left paramediastinal region. 2. Extensive five lobe infiltrate again demonstrated overall has increased and worsened in severity. Dictated by: Dictated on workstation # [id number]
[2020-07-21] MEDS: LACTATED RINGERS 1,000 ML IV SCH (08:30)
[2020-07-21] MEDS: PANTOPRAZOLE 40 MG (PROTONIX) VIAL IV SCH ×2 (08:30→20:40)
[2020-07-21] MEDS: CALCIUM ACETATE 667 MG CAP (PHOSLO) PO SCH ×3 (08:33→18:06)
[2020-07-21] MEDS: MIDAZOLAM DRIP PRE-MIX 100 ML IV SCH ×2 (10:08→20:52)
--- NOTE | 2020-07-21 11:23 | Physical Therapy Progress Note ---
Therapy Progress Note Patient sedated and ventilated. PROM all extremities. KAYLEN NAQVI PT Jul 21, 2020 11:23
--- NOTE | 2020-07-21 13:43 | NUR ---
Note pt currently intubated/sedated. Note pt having continued issues with GI bleed. Pt is not a candidate for EN at this time. Pt likely a candidate for TPN to meet nutrition needs at this time. Sunil Borjas, MS RD LD [phone] cell
[2020-07-21] MEDS: cefTRIAXone FOR IV USE 2,000 MG in WATER (STERILE) FOR INJECTION 20 ML IV SCH (16:09)
--- NOTE | 2020-07-21 16:31 | NUR ---
CALLED EARLIER THIS AFTERNOON FOR UPDATE ON PT, PASSWORD VERIFIED, STATES THAT PT'S SON IN A DOCTOR IN [place] AND WOULD LIKE TO TALK TO CARE TEAM AND THIS RN NOTIFIED DR LUTHER, UPDATED THAT DR LUTHER UNAVAILABLE UNTIL FRIDAY. PT'S SON'S NAME IS NYDIA CRAIG PHONE NUMBER [phone]
[2020-07-21] MEDS: PROPOFOL DRIP (ICU) 100 ML IV SCH (21:23)
[2020-07-22] VITALS (61 sets, daily range): BP systolic 87–215; BP diastolic 50–73
[2020-07-22] MEDS: fentaNYL DRIP PRE-MIX 250 ML IV SCH ×3 (01:30→20:35)
--- NOTE | 2020-07-22 01:35 | NUR ---
HYDRALAZINE GIVEN IV FOR INCREASED BLOOD PRESSURE
[2020-07-22] MEDS: hydrALAZINE (APESOLINE) 20 MG/ML VIAL IV PRN (01:37)
[2020-07-22] MEDS ORDERED: hydrALAZINE (APESOLINE) 20 MG/ML VIAL IV ONE (02:00)
--- NOTE | 2020-07-22 02:15 | NUR ---
2ND DOSE OF HYDRALAZINE GIVEN IV FOR INCREASED BLOOD PRESSURE PER ORDERS FROM EICU
[2020-07-22] MEDS: RT-ALBUTEROL INHALER HFA (VENTOLIN HFA) 18 GM IH SCH ×6 (02:29→22:23)
[2020-07-22 02:38] LABS: BASOPHILS % (AUTO) 0 % (0-10); EOSINOPHILS % (AUTO) 0 % (0-10); HEMATOCRIT 29 % (40-54); HEMOGLOBIN 8.6 g/dL (13.3-17.7); LYMPHOCYTES # (AUTO) 0.4 10^3/uL (1.0-4.0); LYMPHOCYTES % (AUTO) 3 % (12-44); MEAN CORPUSCULAR HEMOGLOBIN 28 pg (25-34); MEAN CORPUSCULAR HGB CONC 29 g/dL (32-36); MEAN CORPUSCULAR VOLUME 96 fL (80-99); MEAN PLATELET VOLUME 10.9 fL (9.0-12.2); MONOCYTES # (AUTO) 0.5 10^3/uL (0.0-1.0); MONOCYTES % (AUTO) 4 % (0-12); NEUTROPHILS # (AUTO) 11.9 10^3/uL (1.8-7.8); NEUTROPHILS % (AUTO) 88 % (42-75); PLATELET COUNT 132 10^3/uL (130-400); WHITE BLOOD COUNT 13.6 10^3/uL (4.3-11.0)
[2020-07-22 02:39] LABS: ABG BASE EXCESS 11.9 MMOL/L (-2.5-2.5); ABG OXYGEN SATURATION 91 % (94-100); ABG PCO2 66 MMHG (35-45); ABG PH 7.37 (7.37-7.43); ABG PO2 66 MMHG (79-93); ABG TCO2 39.9 MMOL/L (21.0-31.0)
[2020-07-22 02:40] LABS: ALLENS TEST POSITIVE; INSPIRED O2 70; PATIENT TEMP 35.9; VENTILATOR YES
[2020-07-22 02:50] LABS: ALBUMIN 2.7 GM/DL (3.2-4.5); CHLORIDE 104 MMOL/L (98-107); POTASSIUM 5.5 MMOL/L (3.6-5.0); SODIUM 148 MMOL/L (135-145)
[2020-07-22 02:51] LABS: CALCIUM 8.2 MG/DL (8.5-10.1)
[2020-07-22 02:52] LABS: TRIGLYCERIDES 439 MG/DL (<150)
[2020-07-22 02:53] LABS: GLUCOSE 127 MG/DL (70-105); TOTAL PROTEIN 6.1 GM/DL (6.4-8.2)
[2020-07-22 02:54] LABS: BILIRUBIN,TOTAL 0.5 MG/DL (0.1-1.0); CARBON DIOXIDE 33 MMOL/L (21-32)
[2020-07-22 02:56] LABS: ALKALINE PHOSPHATASE 73 U/L (40-136); CREATININE SERUM 0.91 MG/DL (0.60-1.30); GFR ESTIMATED > 60; PHOSPHORUS 3.3 MG/DL (2.3-4.7)
[2020-07-22 02:57] LABS: BUN/CREATININE RATIO 73
[2020-07-22 02:59] LABS: ALANINE AMINOTRANSFERASE 21 U/L (0-55); MAGNESIUM 3.5 MG/DL (1.6-2.4)
[2020-07-22] MEDS: NOREPINEPHRINE 4 MG/250 ML 250 ML IV SCH ×3 (03:01→17:08)
[2020-07-22] MEDS ORDERED: niCARdipine IV FOR DRIP 50 MG KIT ONE (03:04)
[2020-07-22] MEDS ORDERED: NS (IVPB) 250 ML ONE (03:04)
[2020-07-22] MEDS: niCARdipine IV 50 MG in NS (IVPB) 230 ML IV SCH ×2 (03:20→14:47)
--- NOTE | 2020-07-22 03:23 | NUR ---
BLOOD PRESSURE CONTINUES TO BE ELEVATED. CARDENE DRIP STARTED AT THIS TIME
[2020-07-22] MEDS: LACTATED RINGERS 1,000 ML IV SCH ×2 (06:27→17:48)
[2020-07-22] MEDS: PROPOFOL DRIP (ICU) 100 ML IV SCH ×2 (06:27→15:47)
--- NOTE | 2020-07-22 06:50 | Diagnostic Imaging Report ---
INDICATION: COVID pneumonia. Comparison made with prior examination of 07/21/2020. FINDINGS: There is diffuse bilateral airspace disease. Heart size is stable. No pneumothorax. ET and NG tubes are in satisfactory position. IMPRESSION: Diffuse bilateral pulmonary infiltrates compatible with underlying COVID pneumonia. Dictated by: Dictated on workstation # [id number]
[2020-07-22] MEDS: PANTOPRAZOLE 40 MG (PROTONIX) VIAL IV SCH ×2 (08:09→20:24)
[2020-07-22] MEDS: CALCIUM ACETATE 667 MG CAP (PHOSLO) PO SCH ×3 (08:10→17:45)
[2020-07-22] MEDS: MIDAZOLAM DRIP PRE-MIX 100 ML IV SCH ×2 (08:16→20:35)
--- NOTE | 2020-07-22 11:00 | NUR ---
NOTIFIED EICU REGARDING PATIENT URINE OUTPUT. STATED SHE WOULD PLACED ORDERS INTO SYSTEM FOR LASIX ONE TIME ET D DIMER.
[2020-07-22] MEDS ORDERED: FUROSEMIDE 40 MG/4 ML INJ (LASIX) IVP ONE (11:45)
--- NOTE | 2020-07-22 11:47 | Progress Note - Hospitalist ---
Subjective HPI/CC On Admission Date Seen by Provider: Jul 22, 2020 Time Seen by Provider: 11:00 Pt is a 75yoCM with a PMH of a-fib, HLD, HTN who presented to the ER due to shortness of braeth and wheezing. He was admitted last week due to new onset atrail fibrillation and diagnosed with COVID at that time but was doing well so was discharged home. Last night his oxygen dropped to the 70s with exertion prompting him to call EMS for evaluation. He remained hypoxic here as well. He was admitted for oxygen supplementation. This morning he repors he is breathing ok but is now on vapotherm. State he is mostly anxious about how he will do as he knows he is high risk. He is also concerned about his . Subjective/Events-last exam Patient stable Updated son Sajan who is a physician in [place] and updated him on exact vent details and med dosing and frequency for 15 minutes Prone position currently Reviewed meds and labs Objective Exam Vital Signs Vital Signs Date Time Temp Pulse Resp B/P (MAP) Pulse Ox O2 Delivery O2 Flow Rate FiO2 07/23/20 06:00 77 25 148/59 (88) 100 Mechanical Ventilator 60.00 07/23/20 03:20 35.0 07/23/20 01:55 60 Capillary Refill : Less Than 3 Seconds General Appearance: No Apparent Distress, WD/WN, Chronically ill, Obese Respiratory: Lungs Clear, Normal Breath Sounds Cardiovascular: Regular Rate, Rhythm Neurologic/Psychiatric: Other (sedated) Results/Procedures Lab Laboratory Tests 07/23/20 02:30 Patient resulted labs reviewed. Imaging: Reviewed Imaging Report Assessment/Plan Assessment and Plan Assess & Plan/Chief Complaint Assessment per Dr Lopez with my modifications in bold italic: COVID 19 with acute hypoxia with ARDS -On ventilator -Decadron, s/p Remdesivir, and CVP -Repeat DDimer -proning Acute GIB -D/C eliquis -Monitor Hb-improved -Start protonix BID Acute renal failure with metabolic acidosis and hyperphos -Start bicarb gtt -Start phoslo PNA -Continue Vanco and Zosyn -Ng cultures Rate controlled a-fib HTN Updated son Sajan who is a physician in research and development of medications for estrogen receptor + breast cancer for past 15 years and lives in [place] who was in [employer] and answered 15 minutes of questions about vent settings and med dosing and frequencies. Critical Care Critically Ill Patient Clinical Quality Measures DVT/VTE Risk/Contraindication: Risk Factor Score Per Nursin RFS Level Per Nursing on Admit: 4+=Very High MAGNO HINKLE DO Jul 22, 2020 11:47
--- NOTE | 2020-07-22 16:09 | NUR ---
call placed to EICU regarding DDIMER, received orders to restart lovenox.
[2020-07-22] MEDS: cefTRIAXone FOR IV USE 2,000 MG in WATER (STERILE) FOR INJECTION 20 ML IV SCH (17:33)
[2020-07-22] MEDS: ENOXAPARIN 100 MG/1 ML (LOVENOX) SYR SC SCH (17:45)
[2020-07-23] VITALS (65 sets, daily range): BP systolic 121–182; BP diastolic 43–62
[2020-07-23] MEDS: RT-ALBUTEROL INHALER HFA (VENTOLIN HFA) 18 GM IH SCH ×6 (01:55→22:47)
[2020-07-23 02:48] LABS: ABG BASE EXCESS 10.1 MMOL/L (-2.5-2.5); ABG OXYGEN SATURATION 94 % (94-100); ABG PCO2 67 MMHG (35-45); ABG PO2 66 MMHG (79-93); ABG TCO2 38.6 MMOL/L (21.0-31.0); ALLENS TEST POSITIVE; INSPIRED O2 60; VENTILATOR YES
[2020-07-23 02:49] LABS: BASOPHILS % (AUTO) 0 % (0-10); EOSINOPHILS % (AUTO) 0 % (0-10); HEMATOCRIT 27 % (40-54); HEMOGLOBIN 7.5 g/dL (13.3-17.7); LYMPHOCYTES # (AUTO) 0.3 10^3/uL (1.0-4.0); LYMPHOCYTES % (AUTO) 3 % (12-44); MEAN CORPUSCULAR HEMOGLOBIN 28 pg (25-34); MEAN CORPUSCULAR HGB CONC 28 g/dL (32-36); MEAN CORPUSCULAR VOLUME 99 fL (80-99); MEAN PLATELET VOLUME 11.2 fL (9.0-12.2); MONOCYTES # (AUTO) 0.4 10^3/uL (0.0-1.0); MONOCYTES % (AUTO) 4 % (0-12); NEUTROPHILS % (AUTO) 91 % (42-75); PATIENT TEMP 35; PLATELET COUNT 94 10^3/uL (130-400); WHITE BLOOD COUNT 9.9 10^3/uL (4.3-11.0)
[2020-07-23 02:50] LABS: ABG PH 7.34 (7.37-7.43)
[2020-07-23] MEDS: fentaNYL DRIP PRE-MIX 250 ML IV SCH ×4 (03:07→21:28)
[2020-07-23] MEDS: PROPOFOL DRIP (ICU) 100 ML IV SCH ×3 (03:18→17:13)
[2020-07-23] MEDS: niCARdipine IV 50 MG in NS (IVPB) 230 ML IV SCH ×3 (03:18→22:21)
[2020-07-23] MEDS: NOREPINEPHRINE 4 MG/250 ML 250 ML IV SCH ×4 (03:19→22:21)
[2020-07-23 03:24] LABS: ALBUMIN 2.5 GM/DL (3.2-4.5); POTASSIUM 5.4 MMOL/L (3.6-5.0)
[2020-07-23 03:26] LABS: TOTAL PROTEIN 5.3 GM/DL (6.4-8.2)
[2020-07-23 03:28] LABS: BILIRUBIN,TOTAL 0.4 MG/DL (0.1-1.0)
[2020-07-23 03:29] LABS: PHOSPHORUS 5.8 MG/DL (2.3-4.7)
[2020-07-23 03:30] LABS: CREATININE SERUM 1.22 MG/DL (0.60-1.30)
[2020-07-23 03:33] LABS: MAGNESIUM 3.7 MG/DL (1.6-2.4)
[2020-07-23] MEDS: ENOXAPARIN 100 MG/1 ML (LOVENOX) SYR SC SCH (05:53)
--- NOTE | 2020-07-23 08:36 | Diagnostic Imaging Report ---
EXAMINATION: Chest radiograph, portable AP view. DATE: 07/23/2020 2:41 AM INDICATION: 75-year-old male, respiratory failure. COMPARISON: July 22, 2020. FINDINGS: The endotracheal tube is approximately 6.4 cm above the ian. The nasogastric tube is at the level of the very proximal stomach. There is a left sided vascular line descending to the left of midline which is likely within a duplicated superior vena cava correlating with prior CT chest. There is no identified pneumothorax. There is multifocal extensive bilateral lung consolidation which is unchanged. IMPRESSION: 1. The left-sided presumable vascular line is descending to the left of midline and within a duplicated left sided SVC correlating with CT chest imaging. 2. Extensive multifocal bilateral lung consolidation is unchanged. Dictated by: Dictated on workstation # [id number]
[2020-07-23] MEDS: cefTRIAXone FOR IV USE 2,000 MG in WATER (STERILE) FOR INJECTION 20 ML IV SCH (08:43)
[2020-07-23] MEDS: CALCIUM ACETATE 667 MG CAP (PHOSLO) PO SCH ×3 (08:43→17:20)
[2020-07-23] MEDS: PANTOPRAZOLE 40 MG (PROTONIX) VIAL IV SCH ×2 (08:43→21:29)
[2020-07-23] MEDS: MIDAZOLAM DRIP PRE-MIX 100 ML IV SCH ×2 (09:16→21:28)
[2020-07-23] MEDS ORDERED: FUROSEMIDE 40 MG/4 ML INJ (LASIX) IVP ONE (11:45)
[2020-07-23] MEDS ORDERED: VANCOMYCIN INJECTION 0.1 MG in NS (IVPB) 250 ML IV SCH (11:45)
--- NOTE | 2020-07-23 11:50 | Progress Note - Hospitalist ---
Subjective HPI/CC On Admission Date Seen by Provider: Jul 23, 2020 Time Seen by Provider: 11:00 Pt is a 75yoCM with a PMH of a-fib, HLD, HTN who presented to the ER due to shortness of braeth and wheezing. He was admitted last week due to new onset atrail fibrillation and diagnosed with COVID at that time but was doing well so was discharged home. Last night his oxygen dropped to the 70s with exertion prompting him to call EMS for evaluation. He remained hypoxic here as well. He was admitted for oxygen supplementation. This morning he repors he is breathing ok but is now on vapotherm. State he is mostly anxious about how he will do as he knows he is high risk. He is also concerned about his . Subjective/Events-last exam Restarted Lovenox last night due to elevated d-dimer Hgb a bit lower so will monitor that closely FiO2 60% PEEP decreased to 14 from 16 Prone today Objective Exam Vital Signs Vital Signs Date Time Temp Pulse Resp B/P (MAP) Pulse Ox O2 Delivery O2 Flow Rate FiO2 07/23/20 19:42 36.0 07/23/20 18:34 77 28 95 75 07/23/20 18:00 162/46 (84) Mechanical Ventilator 60.00 Capillary Refill : Less Than 3 Seconds General Appearance: No Apparent Distress, WD/WN, Chronically ill, Obese Respiratory: Lungs Clear Cardiovascular: Regular Rate, Rhythm Results/Procedures Lab Laboratory Tests 07/23/20 02:30 Patient resulted labs reviewed. Imaging: Reviewed Imaging Report Assessment/Plan Assessment and Plan Assess & Plan/Chief Complaint Assessment per Dr Lopez with my modifications in bold italic: COVID 19 with acute hypoxia with ARDS -On ventilator -Decadron, s/p Remdesivir, and CVP -Repeat DDimer -proning Acute GIB -D/C eliquis -Monitor Hb-improved -Start protonix BID Acute renal failure with metabolic acidosis and hyperphos -Start bicarb gtt -Start phoslo PNA -Continue Vanco and Zosyn -Ng cultures Rate controlled a-fib HTN 07/22/20: Updated son Sajan who is a physician in research and development of medications for estrogen receptor + breast cancer for past 15 years and lives in [place] who was in [employer] and answered 15 minutes of questions about vent settings and med dosing and frequencies. Monitor hgb since restarting Lovenox Monitor BP Critical Care Critically Ill Patient Clinical Quality Measures DVT/VTE Risk/Contraindication: Risk Factor Score Per Nursin RFS Level Per Nursing on Admit: 4+=Very High MAGNO HINKLE DO Jul 23, 2020 11:50
--- NOTE | 2020-07-23 12:33 | NUR ---
PTD VANCOMYCIN LABS 105.5 KG, SCr 1.22 CrCl 58.5, BMI 38.8 VANCOMYCIN LOADING DOSE 20MG/KG x 105.5 KG = 2110 ~ 2GRAMS VANCOMYCIN MAINT DOSE 15MG/KG x 105.5 KG = 1583 ~ 1500MG Q24H. VANCOMYCIN TROUGH DUE 07/26 @ 1200. IF TROUGH >20, HOLD DOSE & NOTIFY PHARMACY FOR ADJUSTMENTS.
[2020-07-23] MEDS ORDERED: VANCOMYCIN 2000 MG/NS 500 ML IVPB IV NR ×2 (13:00)
[2020-07-23] MEDS ORDERED: FUROSEMIDE 40 MG/4 ML INJ (LASIX) ONE (14:03)
--- NOTE | 2020-07-23 14:42 | Diagnostic Imaging Report ---
INDICATION: Tube placement FINDINGS: Portable upright view of the chest demonstrates an orogastric tube initially in the mid esophagus. Final image demonstrates this to be in the gastric antrum. Bilateral pulmonary infiltrates are present. Endotracheal tube is in place. IMPRESSION: 1. Orogastric tube has been placed with its tip in the distal gastric antrum. 2. Stable pulmonary infiltrates. Dictated by: Dictated on workstation # [id number]
[2020-07-23] MEDS: hydrALAZINE (APESOLINE) 20 MG/ML VIAL IV PRN (17:26)
--- NOTE | 2020-07-23 20:30 | NUR ---
PT ASSESSMENT COMPLETED AT THIS TIME. PT IS IN PRONE POSITION. PT DOES RESPOND TO NOXIOUS STIMULI IN ALL EXTREMITIES. PERRL 2+ AND SLUGGISH, HYPOACTIVE COUGH AND GAG REFLEX NOTED. PT INTUBATED C #8 ETT 24 @ TEETH. VENTILATOR SETTINGS TV400/ PEEP 12/ RR 26/75% FIO2. PT DOES HAVE OG TUBE CLAMPED AT THIS TIME. PLACEMENT CONFIRMED C BILE RESIDUAL OF 125 ML THAT WAS RETURNED TO PT. UNABLE TO AUSCULTATE BOWEL SOUNDS DUE TO PRONE POSITION. POTTS CATHETER TO DEPENDENT DRAIN, SCANT HEMATURIA NOTED. URINE IS DARK ADITI. PT DOES HAVE LEFT DOUBLE LUMEN PICC LINE C LR, VERSED, AND FENTANYL INFUSING. 20G LAC AND 20G LH SALINE LOCKED. LEFT RADIAL ART LINE IN PLACE, PRESSURE BAG AT 300. ARTERIAL PRESSURE CORRELATES C CUFF PRESSURE. WILL CONTINUE TO MONITOR PATIENT.
[2020-07-24] VITALS (32 sets, daily range): BP systolic 115–174; BP diastolic 43–64
[2020-07-24] MEDS: LACTATED RINGERS 1,000 ML IV SCH (01:19)
[2020-07-24 02:17] LABS: BASOPHILS % (AUTO) 0 % (0-10); EOSINOPHILS % (AUTO) 0 % (0-10); HEMATOCRIT 26 % (40-54); HEMOGLOBIN 7.5 g/dL (13.3-17.7); LYMPHOCYTES # (AUTO) 0.5 10^3/uL (1.0-4.0); LYMPHOCYTES % (AUTO) 4 % (12-44); MEAN CORPUSCULAR HEMOGLOBIN 29 pg (25-34); MEAN CORPUSCULAR HGB CONC 29 g/dL (32-36); MEAN CORPUSCULAR VOLUME 100 fL (80-99); MEAN PLATELET VOLUME 11.9 fL (9.0-12.2); MONOCYTES # (AUTO) 0.4 10^3/uL (0.0-1.0); MONOCYTES % (AUTO) 4 % (0-12); NEUTROPHILS # (AUTO) 9.8 10^3/uL (1.8-7.8); NEUTROPHILS % (AUTO) 88 % (42-75); PLATELET COUNT 74 10^3/uL (130-400); WHITE BLOOD COUNT 11.1 10^3/uL (4.3-11.0)
[2020-07-24] MEDS: RT-ALBUTEROL INHALER HFA (VENTOLIN HFA) 18 GM IH SCH ×6 (02:19→23:03)
[2020-07-24 02:27] LABS: ALBUMIN 2.5 GM/DL (3.2-4.5); CHLORIDE 110 MMOL/L (98-107); POTASSIUM 5.2 MMOL/L (3.6-5.0); SODIUM 151 MMOL/L (135-145)
[2020-07-24 02:29] LABS: CALCIUM 7.7 MG/DL (8.5-10.1); TRIGLYCERIDES 468 MG/DL (<150)
[2020-07-24 02:30] LABS: GLUCOSE 174 MG/DL (70-105); TOTAL PROTEIN 5.1 GM/DL (6.4-8.2)
[2020-07-24 02:31] LABS: BILIRUBIN,TOTAL 0.5 MG/DL (0.1-1.0); CARBON DIOXIDE 30 MMOL/L (21-32)
[2020-07-24 02:33] LABS: ALKALINE PHOSPHATASE 63 U/L (40-136); CREATININE SERUM 1.07 MG/DL (0.60-1.30); GFR ESTIMATED > 60; PHOSPHORUS 4.9 MG/DL (2.3-4.7)
[2020-07-24 02:35] LABS: BUN/CREATININE RATIO 92
[2020-07-24 02:36] LABS: ALANINE AMINOTRANSFERASE 17 U/L (0-55); MAGNESIUM 3.5 MG/DL (1.6-2.4)
[2020-07-24 02:37] LABS: ABG BASE EXCESS 8.9 MMOL/L (-2.5-2.5); ABG OXYGEN SATURATION 99 % (94-100); ABG PCO2 58 MMHG (35-45); ABG PH 7.38 (7.37-7.43); ABG PO2 137 MMHG (79-93); ABG TCO2 36.1 MMOL/L (21.0-31.0); ALLENS TEST POSITIVE; INSPIRED O2 75; PATIENT TEMP 36.1; VENTILATOR YES
--- NOTE | 2020-07-24 02:45 | NUR ---
PT REPOSITIONED FROM PRONE TO SUPINE C COMPLICATIONS. PT DOES HAVE SCANT AMOUNT OF IRVIN BLOODY STOOL AT RECTUM. ORAL SECRETIONS C SMALL AMOUNT OF BLOOD WELL.
[2020-07-24 03:13] LABS: BAND NEUTROPHILS 5 %; LYMPHOCYTES % (MANUAL) 4 %; MONOCYTES % (MANUAL) 1 %; MYELOCYTES % 1 %; NEUTROPHILS % (MANUAL) 85 %
[2020-07-24 03:14] LABS: ANISOCYTOSIS SLIGHT; ATYPICAL LYMPHOCYTES 4 %; BLAST CELLS 2 %; ELLIPT/OVALOCYTES SLIGHT; MICROCYTOSIS SLIGHT; POLYCHROMASIA SLIGHT; SCHISTOCYTES SLIGHT
[2020-07-24] MEDS: NOREPINEPHRINE 4 MG/250 ML 250 ML IV SCH ×3 (03:17→18:42)
[2020-07-24] MEDS: PROPOFOL DRIP (ICU) 100 ML IV SCH (03:17)
[2020-07-24] MEDS: niCARdipine IV 50 MG in NS (IVPB) 230 ML IV SCH ×2 (03:17→17:36)
[2020-07-24] MEDS: fentaNYL DRIP PRE-MIX 250 ML IV SCH ×3 (03:50→22:35)
[2020-07-24] MEDS ORDERED: FUROSEMIDE 40 MG/4 ML INJ (LASIX) IVP ONE (04:15)
--- NOTE | 2020-07-24 04:17 | Pulmonary Progress Note ---
Subjective Time Seen by a Provider: 04:12 Subjective/Events-last exam Pt is sedated on vent. Sepsis Event Evaluation Height, Weight, BMI Height: 5'5.00" Weight: 214lbs. 0.0oz. 97.699460dg; 34.89 BMI Method: Exam Exam Vital Signs Date Time Temp Pulse Resp B/P (MAP) Pulse Ox O2 Delivery O2 Flow Rate FiO2 07/24/20 02:19 64 26 100 75 07/24/20 02:00 Mechanical Ventilator 65.00 07/24/20 01:00 74 07/24/20 01:00 36.1 Mechanical Ventilator 75.00 07/23/20 23:22 36.2 Mechanical Ventilator 75.00 07/23/20 23:00 80 26 154/45 (81) 90 Mechanical Ventilator 75.00 07/23/20 22:45 90 26 90 75 07/23/20 22:00 76 19 121/44 (69) 88 Mechanical Ventilator 75.00 07/23/20 21:28 82 07/23/20 21:00 81 26 163/51 (88) 91 Mechanical Ventilator 75.00 07/23/20 20:31 Mechanical Ventilator 07/23/20 20:30 75 07/23/20 20:00 71 22 153/47 (82) 91 Mechanical Ventilator 75.00 07/23/20 19:42 36.0 07/23/20 19:00 71 27 160/47 (84) 89 Mechanical Ventilator 75.00 07/23/20 19:00 36.0 Mechanical Ventilator 75.00 07/23/20 19:00 71 07/23/20 18:34 77 28 95 75 07/23/20 18:00 70 27 162/46 (84) 89 Mechanical Ventilator 60.00 07/23/20 17:45 71 28 165/45 (85) 89 07/23/20 17:30 75 27 182/48 (92) 89 07/23/20 17:15 71 25 172/45 (87) 89 07/23/20 17:00 66 25 168/46 (86) 90 Mechanical Ventilator 60.00 07/23/20 16:45 65 27 179/50 (93) 90 07/23/20 16:30 72 30 171/45 (87) 90 07/23/20 16:15 79 28 176/48 (90) 92 07/23/20 16:00 59 18 177/46 (89) 89 Mechanical Ventilator 60.00 07/23/20 15:54 35.9 07/23/20 15:45 75 25 168/44 (85) 89 07/23/20 15:30 92 26 154/43 (80) 89 07/23/20 15:15 80 26 161/48 (85) 88 07/23/20 15:00 85 26 89 Mechanical Ventilator 60.00 07/23/20 14:45 88 25 157/43 (81) 91 07/23/20 14:30 152/58 (89) 95 07/23/20 14:15 93 160/59 (92) 88 07/23/20 14:14 105 30 96 75 07/23/20 14:00 84 25 154/48 (83) 94 Mechanical Ventilator 60.00 07/23/20 13:45 92 25 150/49 (82) 94 07/23/20 13:30 81 25 153/48 (83) 94 07/23/20 13:15 80 34 148/49 (82) 93 07/23/20 13:00 87 25 156/49 (84) 94 Mechanical Ventilator 60.00 07/23/20 12:45 89 25 161/47 (85) 94 07/23/20 12:35 89 07/23/20 12:30 83 26 159/50 (86) 95 07/23/20 12:15 78 26 156/49 (84) 95 07/23/20 12:00 89 26 168/50 (89) 94 Mechanical Ventilator 60.00 07/23/20 11:45 88 28 163/51 (88) 94 07/23/20 11:44 36.0 07/23/20 11:30 81 27 175/53 (93) 94 07/23/20 11:15 89 26 165/56 (92) 94 07/23/20 11:03 76 28 90 80 07/23/20 11:00 84 17 175/62 (99) 91 Mechanical Ventilator 60.00 07/23/20 10:45 87 25 136/57 (83) 88 07/23/20 10:30 75 26 172/60 (97) 87 07/23/20 10:15 87 25 147/48 (81) 95 07/23/20 10:00 87 26 150/49 (82) 95 Mechanical Ventilator 60.00 07/23/20 09:45 81 26 145/44 (77) 96 07/23/20 09:30 83 30 148/47 (80) 96 07/23/20 09:16 85 07/23/20 09:15 81 28 153/50 (84) 95 07/23/20 09:00 78 25 136/46 (76) 94 Mechanical Ventilator 60.00 07/23/20 08:45 81 26 149/45 (79) 92 07/23/20 08:30 73 25 150/56 (87) 96 07/23/20 08:16 36.0 07/23/20 08:15 77 26 153/50 (84) 96 07/23/20 08:00 Mechanical Ventilator 60 07/23/20 08:00 76 25 146/56 (86) 98 Mechanical Ventilator 60.00 07/23/20 07:59 80 26 98 60 07/23/20 07:45 80 25 145/56 (85) 98 07/23/20 07:30 81 25 145/58 (87) 98 07/23/20 07:15 76 25 151/59 (89) 99 07/23/20 07:00 73 26 147/58 (87) 99 Mechanical Ventilator 60.00 07/23/20 07:00 75 07/23/20 06:45 69 26 146/56 (86) 99 07/23/20 06:30 77 25 152/56 (88) 99 07/23/20 06:15 73 25 152/59 (90) 99 07/23/20 06:00 77 25 148/59 (88) 100 Mechanical Ventilator 60.00 07/23/20 05:00 65 26 140/57 (84) 98 Mechanical Ventilator 60.00 I & O 07/24/20 07:00 Intake Total 3670 ml Output Total 1625 ml Balance 2045 ml Height & Weight Height: 5'5.00" Weight: 214lbs. 0.0oz. 97.150546id; 34.89 BMI Method: General Appearance: No Apparent Distress, WD/WN, Chronically ill, Obese HEENT: PERRL/EOMI, Moist Mucous Membranes; No Scleral Icterus (L), No Scleral Icterus (R) Neck: Normal Inspection, Supple Respiratory: Lungs Clear Cardiovascular: Regular Rate, Rhythm Capillary Refill: Less Than 3 Seconds Extremity: Normal Inspection, Non Tender, Pedal Edema Neurologic/Psychiatric: Other (sedated) Skin: Normal Color, Warm/Dry Results Lab Laboratory Tests 07/23/20 02:30 07/24/20 02:00 Assessment/Plan Assessment/Plan COVID 19 with acute hypoxia with ARDS -On ventilator -Decadron, s/p Remdesivir, and CVP -Repeat DDimer -proning Acute GIB s/p 1 unit PRBC -Small amount of blood per rectum -D/C eliquis -Monitor Hb-improved -protonix BID hematuria -small amount - Never evelyn blood -Monitor Acute renal failure with metabolic acidosis and hyperphos -phoslo Hyperkalemia-mild -Give 40mg of Lasix x 1 PNA with Strep -Continue Rocpehin -Ng cultures Rate controlled a-fib HTN DDIMER > 20 yesterday -Lovenox was stopped yesterday secondary to concern of bleeding. -I am concerned has a PE or will have a PE. Pt is very high risk for thrombosis -Will restart Lovenox at 40mg BID and monitor Hb PETR LUTHER DO Jul 24, 2020 04:17
--- NOTE | 2020-07-24 05:54 | NUR ---
PEEP INCREASED TO 14 FIO2 DECREASED TO 55%
[2020-07-24 06:20] LABS: FIBRIN DEGRADATION PRODUCTS 8.02 UG/ML (0.00-0.49); INR 1.3 (0.8-1.4); PROTHROMBIN TIME PATIENT 16.5 SEC (12.2-14.7)
--- NOTE | 2020-07-24 07:42 | Diagnostic Imaging Report ---
INDICATION: Endotracheal tube. COMPARISON: 07/23/2020. TECHNIQUE: Single radiograph of the chest dated 07/24/2020. FINDINGS: Endotracheal tube and enteric catheter are again identified, appearing similar. Cardiac silhouette is unchanged. Pulmonary vasculature is obscured. Left-sided PICC line is again identified. This is present within a left-sided superior vena cava overlying the cavoatrial junction when comparing to prior CT. Extensive bilateral mixed interstitial and airspace opacities are again identified, appearing slightly worsened within the left midlung. No large volume pleural effusion. No pneumothorax. Osseous structures are stable. IMPRESSION: Extensive bilateral pulmonary infiltrates, slightly worsened within the left midlung. Otherwise, similar examination with unchanged lines and tubes. Dictated by: Dictated on workstation # [id number]
[2020-07-24] MEDS: PANTOPRAZOLE 40 MG (PROTONIX) VIAL IV SCH ×2 (08:35→20:31)
[2020-07-24] MEDS: ENOXAPARIN 40 MG/0.4 ML (LOVENOX) SYR SC SCH ×2 (08:35→20:31)
[2020-07-24] MEDS: CALCIUM ACETATE 667 MG CAP (PHOSLO) PO SCH ×3 (11:07→17:36)
--- NOTE | 2020-07-24 11:46 | Physical Therapy Progress Note ---
Therapy Progress Note Pt in prone, PROM not performed this date. JASSI SCHULZ PT Jul 24, 2020 11:46
[2020-07-24] MEDS: VANCOMYCIN 1500 MG/NS 500 ML IVPB IV SCH ×2 (13:18)
[2020-07-24] MEDS: cefTRIAXone FOR IV USE 2,000 MG in WATER (STERILE) FOR INJECTION 20 ML IV SCH (16:39)
--- NOTE | 2020-07-24 17:13 | NUR ---
Note pt is currently receiving TF of Pulmocare via 60ml bolus feeds q4h with 50ml water flushes before/after each bolus. Would recommend increase TF by 30ml q8h as tolerated toward goal of 180ml bolus feeds q4h. Will continue to follow and reassess as pt needs, intake, and status change. Sunil Borjas, MS RD LD [phone] cell
[2020-07-24] MEDS: MIDAZOLAM DRIP PRE-MIX 100 ML IV SCH (20:30)
--- NOTE | 2020-07-24 20:30 | NUR ---
UNABLE TO OBTAIN URINE IN POTTS CATHETER. 60 ML STERILE IRRIGATION ATTEMPTED TO ADVANCE IN TO CATHETER WITHOUT SUCCESS. POTTS CATHETER REMOVED AND NEW POTTS PLACED IN STERILE TECHNIQUE. PT TOLERATED WITHOUT COMPLICATIONS.
[2020-07-25] VITALS (29 sets, daily range): BP systolic 95–196; BP diastolic 46–91
[2020-07-25] MEDS: RT-ALBUTEROL INHALER HFA (VENTOLIN HFA) 18 GM IH SCH ×5 (03:03→22:26)
[2020-07-25] MEDS: NOREPINEPHRINE 4 MG/250 ML 250 ML IV SCH ×4 (03:27→23:46)
[2020-07-25] MEDS: niCARdipine IV 50 MG in NS (IVPB) 230 ML IV SCH ×3 (03:27→23:43)
[2020-07-25 03:42] LABS: BASOPHILS % (AUTO) 0 % (0-10); EOSINOPHILS % (AUTO) 0 % (0-10); HEMATOCRIT 25 % (40-54); HEMOGLOBIN 7.1 g/dL (13.3-17.7); LYMPHOCYTES # (AUTO) 0.5 10^3/uL (1.0-4.0); LYMPHOCYTES % (AUTO) 5 % (12-44); MEAN CORPUSCULAR HEMOGLOBIN 28 pg (25-34); MEAN CORPUSCULAR HGB CONC 29 g/dL (32-36); MEAN CORPUSCULAR VOLUME 100 fL (80-99); MEAN PLATELET VOLUME 12.8 fL (9.0-12.2); MONOCYTES # (AUTO) 0.4 10^3/uL (0.0-1.0); MONOCYTES % (AUTO) 4 % (0-12); NEUTROPHILS # (AUTO) 8.7 10^3/uL (1.8-7.8); NEUTROPHILS % (AUTO) 85 % (42-75); PLATELET COUNT 67 10^3/uL (130-400); WHITE BLOOD COUNT 10.3 10^3/uL (4.3-11.0)
[2020-07-25 03:48] LABS: ABG OXYGEN SATURATION 99 % (94-100); ABG PCO2 53 MMHG (35-45); ABG PH 7.42 (7.37-7.43); ABG PO2 136 MMHG (79-93); ABG TCO2 35.6 MMOL/L (21.0-31.0)
[2020-07-25 03:50] LABS: ALLENS TEST YES-POS; INSPIRED O2 60%; PATIENT TEMP 36.3; VENTILATOR YES
[2020-07-25 03:57] LABS: ALBUMIN 2.4 GM/DL (3.2-4.5); CHLORIDE 112 MMOL/L (98-107); POTASSIUM 5.2 MMOL/L (3.6-5.0); SODIUM 150 MMOL/L (135-145)
[2020-07-25 03:59] LABS: CALCIUM 7.6 MG/DL (8.5-10.1)
[2020-07-25 04:00] LABS: GLUCOSE 164 MG/DL (70-105); TOTAL PROTEIN 5.1 GM/DL (6.4-8.2)
[2020-07-25 04:01] LABS: CARBON DIOXIDE 31 MMOL/L (21-32)
[2020-07-25 04:02] LABS: BILIRUBIN,TOTAL 0.5 MG/DL (0.1-1.0)
[2020-07-25 04:03] LABS: ALKALINE PHOSPHATASE 58 U/L (40-136); PHOSPHORUS 4.3 MG/DL (2.3-4.7)
[2020-07-25 04:04] LABS: CREATININE SERUM 0.89 MG/DL (0.60-1.30); GFR ESTIMATED > 60
[2020-07-25 04:05] LABS: BUN/CREATININE RATIO 100
[2020-07-25 04:07] LABS: ALANINE AMINOTRANSFERASE 17 U/L (0-55); MAGNESIUM 3.4 MG/DL (1.6-2.4)
[2020-07-25] MEDS: LACTATED RINGERS 1,000 ML IV SCH (05:17)
[2020-07-25] MEDS: fentaNYL DRIP PRE-MIX 250 ML IV SCH ×4 (05:18→23:42)
[2020-07-25] MEDS ORDERED: NS IV 1000 ML 1,000 ML IV SCH (05:45)
--- NOTE | 2020-07-25 05:48 | Pulmonary Progress Note ---
Subjective Time Seen by a Provider: 05:43 Sepsis Event Evaluation Height, Weight, BMI Height: 5'5.00" Weight: 214lbs. 0.0oz. 97.958244rp; 34.89 BMI Method: Exam Exam Vital Signs Date Time Temp Pulse Resp B/P (MAP) Pulse Ox O2 Delivery O2 Flow Rate FiO2 07/25/20 04:00 36.1 Mechanical Ventilator 60.00 07/25/20 03:03 64 26 100 70 07/25/20 03:00 66 26 142/56 (84) 100 Mechanical Ventilator 70.00 07/25/20 02:00 71 25 139/59 (85) 100 Mechanical Ventilator 70.00 07/25/20 02:00 36.2 Mechanical Ventilator 60.00 07/25/20 01:00 85 07/25/20 01:00 85 26 126/46 (72) 100 Mechanical Ventilator 70.00 07/25/20 00:00 67 25 146/57 (86) 100 Mechanical Ventilator 70.00 07/24/20 23:03 66 26 94 60 07/24/20 23:00 66 26 156/61 (92) 100 Mechanical Ventilator 70.00 07/24/20 22:00 73 25 155/57 (89) 98 Mechanical Ventilator 70.00 07/24/20 21:00 79 32 174/60 (98) 92 Mechanical Ventilator 70.00 07/24/20 20:50 Mechanical Ventilator 70 07/24/20 20:30 80 07/24/20 20:00 77 26 158/61 (93) 92 Mechanical Ventilator 70.00 07/24/20 20:00 Mechanical Ventilator 70.00 07/24/20 19:48 35.8 07/24/20 19:45 76 25 163/58 (93) 91 Mechanical Ventilator 55.00 07/24/20 19:30 70 26 156/61 (92) 90 Mechanical Ventilator 55.00 07/24/20 19:15 73 26 164/62 (96) 89 Mechanical Ventilator 55.00 07/24/20 19:08 67 26 89 60 07/24/20 19:00 76 07/24/20 19:00 69 26 165/64 (97) 88 Mechanical Ventilator 55.00 07/24/20 18:09 81 27 156/56 (89) 90 Mechanical Ventilator 55.00 07/24/20 17:11 71 26 160/60 (93) 89 Mechanical Ventilator 55.00 07/24/20 16:00 75 25 155/56 (89) 90 Mechanical Ventilator 55.00 07/24/20 15:40 36.0 07/24/20 15:00 82 25 162/62 (95) 90 Mechanical Ventilator 55.00 07/24/20 14:26 81 26 91 60 07/24/20 14:00 71 26 146/53 (84) 90 Mechanical Ventilator 55.00 07/24/20 13:00 82 25 156/56 (89) 90 Mechanical Ventilator 55.00 07/24/20 12:46 75 07/24/20 12:00 82 26 158/57 (90) 90 Mechanical Ventilator 55.00 07/24/20 11:21 35.9 07/24/20 11:00 77 26 163/62 (95) 88 Mechanical Ventilator 55.00 07/24/20 10:00 74 26 142/54 (83) 96 Mechanical Ventilator 55.00 07/24/20 09:00 74 25 115/43 (67) 95 Mechanical Ventilator 55.00 07/24/20 08:00 69 25 137/54 (81) 97 Mechanical Ventilator 55.00 07/24/20 08:00 Mechanical Ventilator 55 07/24/20 07:33 36.1 07/24/20 07:00 83 32 151/54 (86) 99 Mechanical Ventilator 55.00 07/24/20 06:47 84 07/24/20 06:44 79 26 98 55 07/24/20 06:00 73 26 131/47 (75) 100 Mechanical Ventilator 55.00 07/24/20 05:56 55.00 I & O 07/25/20 07:00 Intake Total 1790 ml Output Total 2625 ml Balance -835 ml Height & Weight Height: 5'5.00" Weight: 214lbs. 0.0oz. 97.207222dk; 34.89 BMI Method: General Appearance: No Apparent Distress, WD/WN, Chronically ill, Obese HEENT: PERRL/EOMI, Moist Mucous Membranes; No Scleral Icterus (L), No Scleral Icterus (R) Neck: Normal Inspection, Supple Respiratory: Lungs Clear Cardiovascular: Regular Rate, Rhythm Capillary Refill: Less Than 3 Seconds Extremity: Normal Inspection, Non Tender, Pedal Edema Neurologic/Psychiatric: Other (sedated) Skin: Normal Color, Warm/Dry Results Lab Laboratory Tests 07/24/20 02:00 07/25/20 03:15 Assessment/Plan Assessment/Plan COVID 19 with acute hypoxia with ARDS -On ventilator -Decadron, s/p Remdesivir, and CVP -Repeat DDimer -proning Acute GIB s/p 1 unit PRBC -Small amount of blood per rectum -D/C eliquis -Hold lovenox -Check CTA of chest to r/o PE -Monitor Hb-improved -protonix BID Hyperkalemia -will treat Bacteremia -Pt has picc line and arterial line -Currently on rocephin and vancomycin hematuria -small amount - Never evelyn blood -Monitor Acute renal failure with metabolic acidosis and hyperphos -phoslo Hyperkalemia-mild -Give 40mg of Lasix x 1 PNA with Strep -Continue Rocpehin -Ng cultures -Repeat BC from lines. Rate controlled a-fib HTN PETR LUTHER DO Jul 25, 2020 05:48
[2020-07-25] MEDS ORDERED: inSUlin (REGULAR) HUMAN 1 UNIT/0.01 ML (CHARGE PER UNIT) IV ONE (06:15)
[2020-07-25] MEDS ORDERED: DEXTROSE 50% 50 ML (IMS) SYR IV ONE (06:15)
[2020-07-25] MEDS ORDERED: SODIUM BICARB 8.4% 50 MEQ/50 ML (ABBOTT) SYR IV ONE (06:15)
[2020-07-25] MEDS ORDERED: SODIUM BICARB 8.4% 50 MEQ/50 ML VIAL IV ONE (06:30)
[2020-07-25] MEDS ORDERED: VASOPRESSIN INJECTION 20 UNIT/ML VIAL ONE (06:30)
[2020-07-25] MEDS ORDERED: NS (IVPB) 100 ML ONE (06:31)
[2020-07-25] MEDS: CALCIUM ACETATE 667 MG CAP (PHOSLO) PO SCH ×3 (07:58→17:18)
[2020-07-25] MEDS: PANTOPRAZOLE 40 MG (PROTONIX) VIAL IV SCH ×2 (08:16→20:39)
[2020-07-25] MEDS: MIDAZOLAM DRIP PRE-MIX 100 ML IV SCH ×2 (08:18→20:38)
--- NOTE | 2020-07-25 08:46 | Diagnostic Imaging Report ---
INDICATION: Respiratory infection Portable chest 2:53 AM There is an ET tube projecting over the trachea. NG tube projects over the stomach. Left upper extremity PICC line tip projects over the left side of the mediastinum within a persistent left SVC. There are diffuse pulmonary infiltrates. There is no effusion or pneumothorax. IMPRESSION: Severe diffuse pulmonary infiltrates. These appear to have improved slightly compared to the previous day. Dictated by: Dictated on workstation # [id number]
[2020-07-25] MEDS ORDERED: IOHEXOL 350 MG/ML 100 ML (OMNIPAQUE 350) VIAL IV ONE (10:00)
[2020-07-25] MEDS ORDERED: HOLD METFORMIN - RECEIVED CONTRAST 20 ML VIAL IV SCH (10:00)
[2020-07-25] MEDS ORDERED: NS 100 ML (IVPB) BAG IV ONE (10:00)
[2020-07-25] MEDS ORDERED: CATHETER FLUSH 10 ML SYR IV PRN (10:00)
--- NOTE | 2020-07-25 10:11 | Diagnostic Imaging Report ---
PROCEDURE: US Venous Lower Ext Pelon. TECHNIQUE: Multiple real-time grayscale images were obtained over the lower extremities in various projections, bilaterally. Additional duplex Doppler and color Doppler images were also obtained. INDICATION: Hypoxia, COPD. COMPARISON: There are no prior studies available for comparison. FINDINGS: There is generally good blood flow and compressibility at all levels of the deep venous system of each lower extremity. There is no sign of a deep venous thrombosis. IMPRESSION: There is no evidence for a deep venous thrombus of either lower extremity. Dictated by: Dictated on workstation # [id number]
--- NOTE | 2020-07-25 10:26 | Physical Therapy Progress Note ---
Therapy Progress Note PROM bilateral extremities all planes in supine with repositioning. Restraints in place bilateral UE. KAYLEN NAQVI PT Jul 25, 2020 10:26
[2020-07-25] MEDS: VANCOMYCIN 1500 MG/NS 500 ML IVPB IV SCH ×2 (12:08)
[2020-07-25] MEDS: hydrALAZINE (APESOLINE) 20 MG/ML VIAL IV PRN ×2 (14:22→20:39)
[2020-07-25] MEDS: cefTRIAXone FOR IV USE 2,000 MG in WATER (STERILE) FOR INJECTION 20 ML IV SCH (15:20)
--- NOTE | 2020-07-25 15:34 | NUR ---
Note pt currently receiving Pulmocare via 90ml bolus feeds q4h with 50ml water flush before/after each bolus. Recommend continue to increase TF by 30ml q8 as tolerated toward goal rate of 180ml bolus feed q4h. Will continue to follow and reassess as pt needs, intake, and status change. Sunil Borjas, MS RD LD [phone] cell
--- NOTE | 2020-07-25 16:33 | Diagnostic Imaging Report ---
PROCEDURE: CT angiography of the chest with contrast. TECHNIQUE: Multiple contiguous axial images were obtained through the chest after uneventful bolus administration of intravenous contrast. 3D reconstructed CTA MIP acquisitions were also performed. Auto Exposure Controls were utilized during the CT exam to meet ALARA standards for radiation dose reduction. INDICATION: Hypoxia, COVID patient. COMPARISON: Exam compared to 07/06/2020. FINDINGS: There are no intraluminal pulmonary arterial filling defects. There were no findings of pulmonary arterial embolus. Contrast is via the catheterized left superior vena cava which dumps into the coronary sinus. Heart size is normal. Patient does have bilateral pleural effusions which are nonloculated and are new from previous study. This patient now has severe five-lobe infiltrates with much of the pulmonary opacity confluent. There is no pneumothorax. IMPRESSION: Progressive severe five-lobe infiltrates with new nonloculated pleural effusions, negative for PE however. Dictated by: Dictated on workstation # [id number]
[2020-07-25] MEDS ORDERED: NS (IVPB) 250 ML ONE (22:57)
[2020-07-25] MEDS ORDERED: niCARdipine IV FOR DRIP 50 MG KIT ONE (22:57)
[2020-07-26] VITALS (30 sets, daily range): BP systolic 106–170; BP diastolic 35–70
[2020-07-26] MEDS: RT-ALBUTEROL INHALER HFA (VENTOLIN HFA) 18 GM IH SCH ×6 (02:10→22:13)
[2020-07-26 03:27] LABS: BASOPHILS % (AUTO) 0 % (0-10); EOSINOPHILS % (AUTO) 0 % (0-10); HEMATOCRIT 26 % (40-54); HEMOGLOBIN 7.5 g/dL (13.3-17.7); LYMPHOCYTES # (AUTO) 0.4 10^3/uL (1.0-4.0); LYMPHOCYTES % (AUTO) 3 % (12-44); MEAN CORPUSCULAR HEMOGLOBIN 29 pg (25-34); MEAN CORPUSCULAR HGB CONC 29 g/dL (32-36); MEAN CORPUSCULAR VOLUME 102 fL (80-99); MEAN PLATELET VOLUME 12.8 fL (9.0-12.2); MONOCYTES # (AUTO) 0.4 10^3/uL (0.0-1.0); MONOCYTES % (AUTO) 4 % (0-12); NEUTROPHILS # (AUTO) 9.2 10^3/uL (1.8-7.8); NEUTROPHILS % (AUTO) 84 % (42-75); PLATELET COUNT 63 10^3/uL (130-400)
[2020-07-26 03:33] LABS: ABG BASE EXCESS 8.8 MMOL/L (-2.5-2.5); ABG OXYGEN SATURATION 99 % (94-100); ABG PCO2 60 MMHG (35-45); ABG PH 7.37 (7.37-7.43); ABG PO2 146 MMHG (79-93); ABG TCO2 36.3 MMOL/L (21.0-31.0)
[2020-07-26 03:36] LABS: ALBUMIN 2.4 GM/DL (3.2-4.5); ALLENS TEST YES-POS; CHLORIDE 116 MMOL/L (98-107); INSPIRED O2 80%; POTASSIUM 5.2 MMOL/L (3.6-5.0); SODIUM 154 MMOL/L (135-145); VENTILATOR YES
[2020-07-26 03:38] LABS: CALCIUM 7.4 MG/DL (8.5-10.1)
[2020-07-26 03:39] LABS: GLUCOSE 146 MG/DL (70-105); TOTAL PROTEIN 5.1 GM/DL (6.4-8.2)
[2020-07-26 03:40] LABS: CARBON DIOXIDE 33 MMOL/L (21-32)
[2020-07-26 03:41] LABS: BILIRUBIN,TOTAL 0.5 MG/DL (0.1-1.0)
[2020-07-26 03:42] LABS: ALKALINE PHOSPHATASE 63 U/L (40-136); PHOSPHORUS 3.9 MG/DL (2.3-4.7)
[2020-07-26 03:43] LABS: CREATININE SERUM 0.78 MG/DL (0.60-1.30); GFR ESTIMATED > 60
[2020-07-26 03:44] LABS: BUN/CREATININE RATIO 88
[2020-07-26 03:45] LABS: ALANINE AMINOTRANSFERASE 27 U/L (0-55)
[2020-07-26 03:46] LABS: MAGNESIUM 3.3 MG/DL (1.6-2.4)
--- NOTE | 2020-07-26 04:44 | Pulmonary Progress Note ---
Subjective Time Seen by a Provider: 04:39 Subjective/Events-last exam Pt is sedated on vent. Sepsis Event Evaluation Height, Weight, BMI Height: 5'5.00" Weight: 214lbs. 0.0oz. 97.279648nj; 34.89 BMI Method: Exam Exam Vital Signs Date Time Temp Pulse Resp B/P (MAP) Pulse Ox O2 Delivery O2 Flow Rate FiO2 07/26/20 04:20 36.0 Mechanical Ventilator 70.00 07/26/20 03:00 70 26 133/52 (79) 98 Mechanical Ventilator 70.00 07/26/20 02:10 89 26 94 70 07/26/20 02:00 82 28 150/58 (88) 93 Mechanical Ventilator 70.00 07/26/20 01:00 92 25 154/58 (90) 94 Mechanical Ventilator 70.00 07/26/20 00:14 36.0 Mechanical Ventilator 70.00 07/26/20 00:00 87 25 160/57 (91) 97 Mechanical Ventilator 80.00 07/25/20 23:46 161/62 07/25/20 23:00 82 25 174/61 (98) 97 Mechanical Ventilator 80.00 07/25/20 22:26 92 26 96 70 07/25/20 22:00 92 28 162/60 (94) 97 Mechanical Ventilator 80.00 07/25/20 21:00 89 23 164/59 (94) 98 Mechanical Ventilator 80.00 07/25/20 20:38 74 07/25/20 20:00 35.6 Mechanical Ventilator 80.00 07/25/20 20:00 81 25 172/62 (98) 97 Mechanical Ventilator 100.00 07/25/20 20:00 Mechanical Ventilator 80 07/25/20 19:22 35.0 07/25/20 19:00 87 27 175/61 (99) 96 Mechanical Ventilator 100.00 07/25/20 19:00 87 07/25/20 18:44 77 26 95 80 07/25/20 18:00 80 23 166/54 (91) 94 Mechanical Ventilator 100.00 07/25/20 17:00 94 23 180/67 (104) 98 Mechanical Ventilator 100.00 07/25/20 16:33 Mechanical Ventilator 100.00 07/25/20 16:14 36.4 07/25/20 16:00 92 26 187/58 (101) 90 Mechanical Ventilator 50.00 07/25/20 15:20 36.0 07/25/20 15:00 87 27 196/60 (105) 90 Mechanical Ventilator 50.00 07/25/20 14:00 80 21 190/57 (101) 88 Mechanical Ventilator 50.00 07/25/20 13:48 68 26 94 40 07/25/20 13:00 83 20 172/57 (95) 95 Mechanical Ventilator 50.00 07/25/20 12:00 78 16 172/59 (96) 96 Mechanical Ventilator 50.00 07/25/20 11:48 72 07/25/20 11:00 75 16 165/56 (92) 94 Mechanical Ventilator 50.00 07/25/20 10:00 85 25 95/91 (92) 94 Mechanical Ventilator 50.00 07/25/20 09:00 86 25 154/55 (88) 93 Mechanical Ventilator 50.00 07/25/20 08:18 86 26 158/56 07/25/20 08:18 37.0 07/25/20 08:15 Mechanical Ventilator 50 07/25/20 08:00 88 23 169/58 (95) 93 Mechanical Ventilator 50.00 07/25/20 07:57 89 07/25/20 07:04 86 26 93 50 07/25/20 07:00 81 26 170/56 (94) 94 Mechanical Ventilator 60.00 07/25/20 06:00 78 26 157/53 (87) 96 Mechanical Ventilator 60.00 07/25/20 05:00 61 25 140/55 (83) 99 Mechanical Ventilator 60.00 I & O 07/26/20 07:00 Intake Total 950 ml Output Total 2175 ml Balance -1225 ml Height & Weight Height: 5'5.00" Weight: 214lbs. 0.0oz. 97.021447rp; 34.89 BMI Method: General Appearance: No Apparent Distress, WD/WN, Chronically ill, Obese HEENT: PERRL/EOMI, Moist Mucous Membranes; No Scleral Icterus (L), No Scleral Icterus (R) Neck: Normal Inspection, Supple Respiratory: Lungs Clear Cardiovascular: Regular Rate, Rhythm Capillary Refill: Less Than 3 Seconds Extremity: Normal Inspection, Non Tender, Pedal Edema Neurologic/Psychiatric: Other (sedated) Skin: Normal Color, Warm/Dry Results Lab Laboratory Tests 07/25/20 03:15 07/26/20 03:10 Assessment/Plan Assessment/Plan COVID 19 with acute hypoxia with ARDS -On ventilator -Give Lasix 80mg IV X 1 -Decadron, s/p Remdesivir, and CVP -Repeat DDimer -proning Acute GIB s/p 1 unit PRBC -Small amount of blood per rectum -D/C eliquis -Hold lovenox -Check CTA of chest to r/o PE -Monitor Hb-improved -protonix BID Hypertension -Add Lopressor, increase PRN hydralazine. Hyperkalemia -will treat Bacteremia -Pt has picc line and arterial line -Currently on rocephin and vancomycin hematuria -small amount - Never evelyn blood -Monitor Acute renal failure with metabolic acidosis and hyperphos -phoslo Hyperkalemia-mild -Give 40mg of Lasix x 1 PNA with Strep -Continue Rocpehin -Ng cultures -Repeat BC from lines. Rate controlled a-fib HTN Discussed with pt's current condition and prognosis. I also explained full code vs DNR. is going to call back later after d/w family regarding code status. All questions answered to the best of my ability. PETR LUTHER DO Jul 26, 2020 04:44
[2020-07-26] MEDS ORDERED: FUROSEMIDE 40 MG/4 ML INJ (LASIX) IVP ONE (04:45)
[2020-07-26] MEDS: D5W 1000 ML IV SOLUTION 1,000 ML IV SCH (05:29)
[2020-07-26] MEDS: fentaNYL DRIP PRE-MIX 250 ML IV SCH ×4 (05:29→20:15)
[2020-07-26] MEDS: niCARdipine IV 50 MG in NS (IVPB) 230 ML IV SCH ×2 (05:30→17:09)
[2020-07-26] MEDS: NOREPINEPHRINE 4 MG/250 ML 250 ML IV SCH ×3 (06:39→19:36)
[2020-07-26] MEDS ORDERED: hydrALAZINE (APESOLINE) 20 MG/ML VIAL IV PRN (07:15)
--- NOTE | 2020-07-26 08:34 | Diagnostic Imaging Report ---
Portable erect AP chest at 210h. INDICATION: Respiratory failure, COVID. The appearance of the chest has worsened somewhat since the prior exam of 07/25/2020 as there does seem to be slightly greater involvement of the left lung base by atelectasis/pneumonia. The other diffuse alveolar/interstitial pulmonary infiltrates involving both lungs seen previously are again evident and not significantly changed. The heart is stable in size. The supportive tubes and lines remain in similar position to the prior exam. IMPRESSION: There is somewhat greater involvement of the left lung base by pneumonia/atelectasis. The overall appearance of the chest has not changed significantly otherwise. Dictated by: Dictated on workstation # [id number]
[2020-07-26] MEDS: meTOprolol TARTRATE 25 MG (LOPRESSOR) TABLET PO SCH ×2 (09:13→20:04)
[2020-07-26] MEDS: CALCIUM ACETATE 667 MG CAP (PHOSLO) PO SCH ×3 (09:13→17:09)
[2020-07-26] MEDS: PANTOPRAZOLE 40 MG (PROTONIX) VIAL IV SCH ×2 (09:14→20:03)
--- NOTE | 2020-07-26 11:35 | Physical Therapy Progress Note ---
Therapy Progress Note PT performed PROM to bilateral extremities, restraints on at the end of tx. Proper PPE donned before entering room. Patient O2 sats did not decrease during ROM. ISSA LONG PT Jul 26, 2020 11:35
[2020-07-26] MEDS ORDERED: TROUGH ORDER-PHARMACY XX NR (12:00)
--- NOTE | 2020-07-26 13:02 | NUR ---
LATE ENTRY: BRANDAN PULLED THIS AM TO GIVE PT PRIOR TO PRONING FOR ELEVATED BP. PT'S BLOOD PRESSURE HAS BEEN NOTED TO BE SYSTOLIC BETWEEN 120/160. BRANDAN IN ROOM.
[2020-07-26] MEDS: VANCOMYCIN 1500 MG/NS 500 ML IVPB IV SCH ×2 (14:04)
[2020-07-26] MEDS: MIDAZOLAM DRIP PRE-MIX 100 ML IV SCH (20:04)
[2020-07-27] VITALS (30 sets, daily range): BP systolic 123–170; BP diastolic 42–64
[2020-07-27] MEDS: niCARdipine IV 50 MG in NS (IVPB) 230 ML IV SCH ×3 (00:43→20:35)
[2020-07-27] MEDS: D5W 1000 ML IV SOLUTION 1,000 ML IV SCH ×2 (01:01→20:35)
[2020-07-27] MEDS: fentaNYL DRIP PRE-MIX 250 ML IV SCH ×5 (01:02→20:46)
[2020-07-27] MEDS: RT-ALBUTEROL INHALER HFA (VENTOLIN HFA) 18 GM IH SCH ×6 (02:25→22:32)
[2020-07-27 02:50] LABS: BASOPHILS % (AUTO) 0 % (0-10); EOSINOPHILS # (AUTO) 0.1 10^3/uL (0.0-0.3); EOSINOPHILS % (AUTO) 1 % (0-10); HEMATOCRIT 25 % (40-54); HEMOGLOBIN 7.1 g/dL (13.3-17.7); LYMPHOCYTES # (AUTO) 0.5 10^3/uL (1.0-4.0); LYMPHOCYTES % (AUTO) 4 % (12-44); MEAN CORPUSCULAR HEMOGLOBIN 29 pg (25-34); MEAN CORPUSCULAR HGB CONC 28 g/dL (32-36); MEAN CORPUSCULAR VOLUME 101 fL (80-99); MONOCYTES # (AUTO) 0.3 10^3/uL (0.0-1.0); MONOCYTES % (AUTO) 3 % (0-12); NEUTROPHILS # (AUTO) 8.8 10^3/uL (1.8-7.8); NEUTROPHILS % (AUTO) 87 % (42-75); PLATELET COUNT 57 10^3/uL (130-400); WHITE BLOOD COUNT 10.1 10^3/uL (4.3-11.0)
[2020-07-27 02:58] LABS: ABG BASE EXCESS 7.9 MMOL/L (-2.5-2.5); ABG OXYGEN SATURATION 95 % (94-100); ABG PCO2 60 MMHG (35-45); ABG PH 7.36 (7.37-7.43); ABG PO2 74 MMHG (79-93); ABG TCO2 35.3 MMOL/L (21.0-31.0)
[2020-07-27 03:03] LABS: ALLENS TEST ART LINE; INSPIRED O2 60%; PATIENT TEMP 36.2; VENTILATOR YES
[2020-07-27] MEDS: NOREPINEPHRINE 4 MG/250 ML 250 ML IV SCH ×3 (03:04→17:55)
[2020-07-27 03:05] LABS: ALANINE AMINOTRANSFERASE 36 U/L (0-55); ALBUMIN 2.3 GM/DL (3.2-4.5); ALKALINE PHOSPHATASE 56 U/L (40-136); BILIRUBIN,TOTAL 0.5 MG/DL (0.1-1.0); BUN/CREATININE RATIO 82; CALCIUM 7.5 MG/DL (8.5-10.1); CARBON DIOXIDE 32 MMOL/L (21-32); CHLORIDE 116 MMOL/L (98-107); CREATININE SERUM 0.82 MG/DL (0.60-1.30); GFR ESTIMATED > 60; GLUCOSE 114 MG/DL (70-105); MAGNESIUM 3.3 MG/DL (1.6-2.4); PHOSPHORUS 4.2 MG/DL (2.3-4.7); POTASSIUM 5.1 MMOL/L (3.6-5.0); SODIUM 154 MMOL/L (135-145)
--- NOTE | 2020-07-27 05:14 | Pulmonary Progress Note ---
Sepsis Event Evaluation Height, Weight, BMI Height: 5'5.00" Weight: 214lbs. 0.0oz. 97.806882jt; 34.89 BMI Method: Exam Exam Vital Signs Date Time Temp Pulse Resp B/P (MAP) Pulse Ox O2 Delivery O2 Flow Rate FiO2 07/27/20 03:04 70 07/27/20 02:26 97 26 92 60 07/27/20 01:00 61 07/26/20 23:00 65 26 145/46 (79) 94 Mechanical Ventilator 60.00 07/26/20 22:13 65 26 93 60 07/26/20 22:00 71 26 148/47 (80) 93 Mechanical Ventilator 60.00 07/26/20 22:00 71 25 138/42 (74) 94 Mechanical Ventilator 60.00 07/26/20 21:00 67 26 151/51 (84) 93 Mechanical Ventilator 60.00 07/26/20 20:04 66 07/26/20 20:01 35.6 07/26/20 20:00 93 Mechanical Ventilator 60 07/26/20 20:00 68 25 163/47 (85) 92 Mechanical Ventilator 60.00 07/26/20 19:24 73 26 93 60 07/26/20 19:00 66 24 161/46 (84) 92 Mechanical Ventilator 60.00 07/26/20 19:00 73 07/26/20 18:00 64 26 152/46 (81) 92 Mechanical Ventilator 60.00 07/26/20 17:00 62 26 143/44 (77) 92 Mechanical Ventilator 60.00 07/26/20 16:36 35.9 07/26/20 16:00 66 26 143/44 (77) 93 Mechanical Ventilator 60.00 07/26/20 15:31 72 26 93 60 07/26/20 15:00 66 22 147/46 (79) 93 Mechanical Ventilator 60.00 07/26/20 14:00 74 25 144/47 (79) 93 Mechanical Ventilator 60.00 07/26/20 13:00 65 27 148/46 (80) 91 Mechanical Ventilator 60.00 07/26/20 12:37 66 07/26/20 12:19 35.5 07/26/20 12:00 80 25 117/35 (62) 92 Mechanical Ventilator 60.00 07/26/20 11:00 65 25 139/48 (78) 90 Mechanical Ventilator 60.00 07/26/20 10:36 65 26 90 60 07/26/20 10:00 79 25 106/42 (63) 94 Mechanical Ventilator 60.00 07/26/20 09:00 79 26 135/54 (81) 95 Mechanical Ventilator 60.00 07/26/20 08:55 Mechanical Ventilator 80 07/26/20 08:25 35.9 07/26/20 08:00 70 25 124/48 (73) 94 Mechanical Ventilator 60.00 07/26/20 07:00 82 26 142/55 (84) 93 Mechanical Ventilator 60.00 07/26/20 06:54 81 26 92 60 07/26/20 06:47 79 07/26/20 06:00 Mechanical Ventilator 60.00 07/26/20 06:00 80 25 127/52 (77) 94 Mechanical Ventilator 60.00 I & O 07/27/20 07:00 Intake Total 760 ml Output Total 2365 ml Balance -1605 ml Height & Weight Height: 5'5.00" Weight: 214lbs. 0.0oz. 97.900498sn; 34.89 BMI Method: General Appearance: No Apparent Distress, WD/WN, Chronically ill, Obese HEENT: PERRL/EOMI, Moist Mucous Membranes; No Scleral Icterus (L), No Scleral Icterus (R) Neck: Normal Inspection, Supple Respiratory: Lungs Clear Cardiovascular: Regular Rate, Rhythm Capillary Refill: Less Than 3 Seconds Extremity: Normal Inspection, Non Tender, Pedal Edema Neurologic/Psychiatric: Other (sedated) Skin: Normal Color, Warm/Dry Results Lab Laboratory Tests 07/26/20 03:10 07/27/20 02:33 Assessment/Plan Assessment/Plan COVID 19 with acute hypoxia with ARDS -On ventilator -Peep currently 14 Fi02 60 -Lasix 40 x 1 -Decadron, s/p Remdesivir, and CVP -proning PNA with Strep -Continue Rocpehin -Ng cultures Acute GIB s/p 1 unit PRBC -Small amount of blood per rectum -D/C eliquis -Hold lovenox - CTA of chest to r/o PE = Neg -Monitor Hb-improved -protonix BID Thrombocytopenia -Monitor -Lovenox is on hold Hypertension -Add Lopressor, increase PRN hydralazine. Hyperkalemia Monitor Bacteremia -Pt has picc line and arterial line -Currently on rocephin and vancomycin hematuria -small amount - Never evelyn blood -Monitor Acute renal failure with metabolic acidosis and hyperphos -phoslo Hyperkalemia-mild -Give 40mg of Lasix x 1 Rate controlled a-fib HTN PETR LUTHER DO Jul 27, 2020 05:14
[2020-07-27] MEDS ORDERED: FUROSEMIDE 40 MG/4 ML INJ (LASIX) IVP ONE (05:15)
--- NOTE | 2020-07-27 07:31 | Diagnostic Imaging Report ---
CHEST 1 VIEW, AP/PA ONLY Indication: Respiratory failure, Covid-19 pneumonia. Comparison: 07/26/2020 Findings: Stable ET and enteric tube. No change in diffuse bilateral heterogeneous pulmonary consolidations. No pleural effusion or pneumothorax. Stable left PICC which likely enters a persistent left-sided IVC. Grossly stable cardiomediastinal silhouette. Impression: 1. Stable support devices. 2. No change in diffuse bilateral pulmonary opacities. Dictated by: Dictated on workstation # [id number]
[2020-07-27] MEDS: PANTOPRAZOLE 40 MG (PROTONIX) VIAL IV SCH ×2 (08:26→20:35)
[2020-07-27] MEDS: CALCIUM ACETATE 667 MG CAP (PHOSLO) PO SCH ×3 (08:26→17:55)
[2020-07-27] MEDS: meTOprolol TARTRATE 25 MG (LOPRESSOR) TABLET PO SCH ×2 (08:26→20:36)
[2020-07-27] MEDS: MIDAZOLAM DRIP PRE-MIX 100 ML IV SCH ×2 (08:44→20:46)
--- NOTE | 2020-07-27 09:34 | Physical Therapy Progress Note ---
Therapy Progress Note PT performed PROM to bilateral extremities, restraints on at the end of tx KAYLEN NAQVI PT Jul 27, 2020 09:34
[2020-07-27] MEDS: VANCOMYCIN 1500 MG/NS 500 ML IVPB IV SCH ×2 (13:07)
--- NOTE | 2020-07-27 14:07 | NUR ---
Note pt currently receiving TF of Pulmocare via 60ml bolus feeds q4h, with 30ml flushes before/after each bolus. Recommend continue to increase TF by 30ml 8h as tolerated toward goal of 180ml bolus feeds q4h. Will continue to follow and reassess as pt needs, intake, and status change. Sunil Borjas, MS RD LD [phone] cell
--- NOTE | 2020-07-27 15:59 | NUR ---
MARY/WALT follow up. MARY/WALT received notification from the nurse that the patient's would like to speak with a social research assistant. MARY/SS contacted the patient's Annette back. Zoom: The patient is wanting to set up a zoom call for the family due to not all having face time. MARY/WALT set up a zoom meeting for 2:00 p.m. Saturday 07/28. MARY/WALT sent Annette a zoom meeting link through email. She will call back to verify if she received it. MARY/WALT informed the patient's nurse. [facility]: [facility] discussed [facility]. She had some knowledge of them and the facility in [place] but did have further questions due to step son being a doctor not feeling they are a good option. MARY/WALT explained to the best of abilities. She verbalized understanding and gave thanks. Medicare: The patient's had questions regarding Medicare. She reports prior to the hospital stay they were working with his occupation's HR to set it up. She is unsure if it was completed. MARY/WALT will reach out to care management. MARY/WALT provided emotional support to . She reports it has been difficult not being able to be with her . She did get emotional talking about it but decided she was ready to finally see him. She has not seen him via video yet. MARY/WALT will continue to follow.
[2020-07-28] VITALS (66 sets, daily range): BP systolic 94–179; BP diastolic 43–78
[2020-07-28] MEDS: NOREPINEPHRINE 4 MG/250 ML 250 ML IV SCH ×4 (00:31→20:47)
[2020-07-28 01:49] LABS: BASOPHILS % (AUTO) 0 % (0-10); EOSINOPHILS % (AUTO) 0 % (0-10); MEAN CORPUSCULAR HGB CONC 28 g/dL (32-36); MEAN PLATELET VOLUME 13.5 fL (9.0-12.2); NEUTROPHILS # (AUTO) 10.3 10^3/uL (1.8-7.8)
[2020-07-28 01:50] LABS: HEMATOCRIT 26 % (40-54); HEMOGLOBIN 7.3 g/dL (13.3-17.7); LYMPHOCYTES # (AUTO) 0.4 10^3/uL (1.0-4.0); LYMPHOCYTES % (AUTO) 4 % (12-44); MEAN CORPUSCULAR HEMOGLOBIN 29 pg (25-34); MEAN CORPUSCULAR VOLUME 100 fL (80-99); MONOCYTES # (AUTO) 0.3 10^3/uL (0.0-1.0); MONOCYTES % (AUTO) 3 % (0-12); NEUTROPHILS % (AUTO) 89 % (42-75); PLATELET COUNT 59 10^3/uL (130-400); WHITE BLOOD COUNT 11.6 10^3/uL (4.3-11.0)
[2020-07-28 01:57] LABS: ALBUMIN 2.4 GM/DL (3.2-4.5); CHLORIDE 113 MMOL/L (98-107); POTASSIUM 5.4 MMOL/L (3.6-5.0); SODIUM 151 MMOL/L (135-145)
[2020-07-28 01:58] LABS: CALCIUM 7.4 MG/DL (8.5-10.1)
[2020-07-28 02:00] LABS: GLUCOSE 143 MG/DL (70-105); TOTAL PROTEIN 5.3 GM/DL (6.4-8.2)
[2020-07-28 02:01] LABS: BILIRUBIN,TOTAL 0.6 MG/DL (0.1-1.0); CARBON DIOXIDE 30 MMOL/L (21-32)
[2020-07-28 02:03] LABS: ALKALINE PHOSPHATASE 56 U/L (40-136); CREATININE SERUM 0.87 MG/DL (0.60-1.30); GFR ESTIMATED > 60; PHOSPHORUS 4.7 MG/DL (2.3-4.7)
[2020-07-28 02:04] LABS: BUN/CREATININE RATIO 78
[2020-07-28 02:06] LABS: ALANINE AMINOTRANSFERASE 45 U/L (0-55); MAGNESIUM 3.2 MG/DL (1.6-2.4)
[2020-07-28] MEDS: RT-ALBUTEROL INHALER HFA (VENTOLIN HFA) 18 GM IH SCH ×6 (02:12→22:23)
[2020-07-28 02:25] LABS: ABG BASE EXCESS 6.8 MMOL/L (-2.5-2.5); ABG OXYGEN SATURATION 99 % (94-100); ABG PCO2 63 MMHG (35-45); ABG PO2 133 MMHG (79-93); ABG TCO2 34.7 MMOL/L (21.0-31.0)
[2020-07-28 02:37] LABS: ALLENS TEST ART LINE; INSPIRED O2 60%; PATIENT TEMP 36.2; VENTILATOR YES
[2020-07-28 02:39] LABS: ABG PH 7.33 (7.37-7.43)
--- NOTE | 2020-07-28 04:13 | Pulmonary Progress Note ---
Subjective Time Seen by a Provider: 04:11 Sepsis Event Evaluation Height, Weight, BMI Height: 5'5.00" Weight: 214lbs. 0.0oz. 97.963947rx; 34.89 BMI Method: Exam Exam Vital Signs Date Time Temp Pulse Resp B/P (MAP) Pulse Ox O2 Delivery O2 Flow Rate FiO2 07/28/20 02:12 61 26 97 60 07/28/20 01:00 64 07/27/20 23:00 66 14 150/54 (86) 96 Mechanical Ventilator 60.00 07/27/20 22:32 67 26 94 60 07/27/20 22:00 67 17 152/54 (86) 95 Mechanical Ventilator 60.00 07/27/20 21:00 70 25 153/50 (84) 95 Mechanical Ventilator 60.00 07/27/20 20:46 72 07/27/20 20:08 35.4 07/27/20 20:00 64 20 166/52 (90) 94 Mechanical Ventilator 60.00 07/27/20 20:00 95 Mechanical Ventilator 60 07/27/20 19:37 64 26 94 60 07/27/20 19:00 77 17 165/56 (92) 94 Mechanical Ventilator 60.00 07/27/20 19:00 60 07/27/20 18:03 71 20 155/57 (89) 95 Mechanical Ventilator 60.00 07/27/20 17:00 73 17 162/61 (94) 95 Mechanical Ventilator 60.00 07/27/20 16:00 63 25 136/53 (80) 93 Mechanical Ventilator 60.00 07/27/20 15:54 36.2 07/27/20 15:13 70 07/27/20 15:00 67 25 139/51 (80) 92 Mechanical Ventilator 60.00 07/27/20 14:52 73 26 93 60 07/27/20 14:00 74 26 134/51 (78) 92 Mechanical Ventilator 60.00 07/27/20 13:00 75 26 141/55 (83) 93 Mechanical Ventilator 60.00 07/27/20 12:00 66 25 142/55 (84) 93 Mechanical Ventilator 60.00 07/27/20 11:26 36.0 07/27/20 11:00 71 25 144/53 (83) 88 Mechanical Ventilator 60.00 07/27/20 10:27 76 26 90 60 07/27/20 10:00 62 26 133/54 (80) 95 Mechanical Ventilator 60.00 07/27/20 09:00 76 26 137/53 (81) 94 Mechanical Ventilator 60.00 07/27/20 08:44 77 133/46 07/27/20 08:00 94 Mechanical Ventilator 60 07/27/20 08:00 74 26 145/51 (82) 95 Mechanical Ventilator 60.00 07/27/20 07:21 36.6 07/27/20 07:00 74 07/27/20 07:00 73 26 138/45 (76) 96 Mechanical Ventilator 60.00 07/27/20 06:59 65 26 96 60 07/27/20 06:00 71 25 123/43 (69) 96 Mechanical Ventilator 60.00 07/27/20 06:00 36.3 07/27/20 05:00 66 26 129/44 (72) 96 Mechanical Ventilator 60.00 I & O 07/28/20 07:00 Intake Total 2155 ml Output Total 2200 ml Balance -45 ml Height & Weight Height: 5'5.00" Weight: 214lbs. 0.0oz. 97.377873ok; 34.89 BMI Method: General Appearance: No Apparent Distress, WD/WN, Chronically ill, Obese HEENT: PERRL/EOMI, Moist Mucous Membranes; No Scleral Icterus (L), No Scleral Icterus (R) Neck: Normal Inspection, Supple Respiratory: Lungs Clear Cardiovascular: Regular Rate, Rhythm Capillary Refill: Less Than 3 Seconds Extremity: Normal Inspection, Non Tender, Pedal Edema Neurologic/Psychiatric: Other (sedated) Skin: Normal Color, Warm/Dry Results Lab Laboratory Tests 07/27/20 02:33 07/28/20 01:37 Assessment/Plan Assessment/Plan COVID 19 with acute hypoxia with ARDS -On ventilator -Peep currently 14 Fi02 60 -Lasix 40 x 1 -Decadron, s/p Remdesivir, and CVP -proning PNA with Strep -Continue Rocpehin -Ng cultures Acute GIB s/p 1 unit PRBC -Small amount of blood per rectum -D/C eliquis -Hold lovenox - CTA of chest to r/o PE = Neg -Monitor Hb-improved -protonix BID Thrombocytopenia -Monitor -Lovenox is on hold Hypertension -Add Lopressor, increase PRN hydralazine. Hyperkalemia Monitor Bacteremia -Pt has picc line and arterial line -Currently on rocephin and vancomycin hematuria -small amount - Never evelyn blood -Monitor Acute renal failure with metabolic acidosis and hyperphos -phoslo Hyperkalemia-mild -Give 40mg of Lasix x 1 Rate controlled a-fib HTN PETR LUTHER DO Jul 28, 2020 04:13
[2020-07-28] MEDS ORDERED: SODIUM BICARB 8.4% 50 MEQ/50 ML (ABBOTT) SYR IV ONE (04:15)
[2020-07-28] MEDS ORDERED: SOD POLYSTERENE 15 GM/60 ML (KAYEXALATE) UNIT DOSE PO ONE (04:15)
[2020-07-28] MEDS ORDERED: inSUlin (REGULAR) HUMAN 1 UNIT/0.01 ML (CHARGE PER UNIT) IV ONE (04:15)
[2020-07-28] MEDS ORDERED: DEXTROSE 50% 50 ML (IMS) SYR IV ONE (04:15)
[2020-07-28] MEDS ORDERED: SODIUM BICARB 8.4% 50 MEQ/50 ML VIAL ONE (04:38)
[2020-07-28] MEDS: fentaNYL DRIP PRE-MIX 250 ML IV SCH ×4 (05:08→20:39)
--- NOTE | 2020-07-28 05:25 | Diagnostic Imaging Report ---
Indication: Respiratory failure Portable chest 1:30 AM Comparison made with the previous day There are severe diffuse infiltrates in the lungs. ET tube and NG tube projects over the appropriate structures. Left upper extremity PICC line tip remains at persistent left SVC. IMPRESSION: Severe diffuse pulmonary infiltrates unchanged from the previous day. Dictated by: Dictated on workstation # [id number]
[2020-07-28] MEDS: niCARdipine IV 50 MG in NS (IVPB) 230 ML IV SCH ×2 (06:42→16:56)
[2020-07-28] MEDS: CALCIUM ACETATE 667 MG CAP (PHOSLO) PO SCH ×3 (08:26→18:12)
[2020-07-28] MEDS: PANTOPRAZOLE 40 MG (PROTONIX) VIAL IV SCH ×2 (08:27→20:38)
[2020-07-28] MEDS: MIDAZOLAM DRIP PRE-MIX 100 ML IV SCH ×2 (08:38→20:47)
[2020-07-28] MEDS: meTOprolol TARTRATE 25 MG (LOPRESSOR) TABLET PO SCH ×2 (09:21→20:38)
--- NOTE | 2020-07-28 09:23 | Physical Therapy Progress Note ---
Therapy Progress Note PROM bilateral extremities in supine. Restraints in place bilateral UE. KAYLEN NAQVI PT Jul 28, 2020 09:23
[2020-07-28] MEDS: VANCOMYCIN 1500 MG/NS 500 ML IVPB IV SCH ×2 (12:23)
--- NOTE | 2020-07-28 13:45 | NUR ---
Note pt is currently receiving TF of Pulmocare via 60ml bolus feeds q4h with 30ml free water flushes before/after each bolus. Recommend continue to increase TF by 30ml q8h as tolerated toward goal of 180ml bolus feeds q4h. Will continue to follow and reassess as pt needs, intake, and status change. Sunil Borjas, MS RD LD [phone] cell
[2020-07-28] MEDS: D5W 1000 ML IV SOLUTION 1,000 ML IV SCH (15:21)
--- NOTE | 2020-07-28 15:35 | NUR ---
CM/SS follow up. The patient's Annette wanted to cancel Zoom for today and wanted this sw to reschedule. CM/SS rescheduled for tomorrow Sunday 07/29 at 2:30 p.m. CM/SS sent email with Zoom link to Annette and text meeting ID and passcode. CM/SS informed the patient's nurse.
[2020-07-29] VITALS (62 sets, daily range): BP systolic 113–182; BP diastolic 23–142
[2020-07-29] MEDS: fentaNYL DRIP PRE-MIX 250 ML IV SCH ×4 (00:54→20:39)
[2020-07-29 02:18] LABS: HEMOGLOBIN 7.1 g/dL (13.3-17.7); MEAN CORPUSCULAR VOLUME 98 fL (80-99); MONOCYTES # (AUTO) 0.3 10^3/uL (0.0-1.0); NEUTROPHILS % (AUTO) 91 % (42-75); PLATELET COUNT 58 10^3/uL (130-400)
[2020-07-29 02:20] LABS: BASOPHILS % (AUTO) 0 % (0-10); EOSINOPHILS % (AUTO) 0 % (0-10); HEMATOCRIT 25 % (40-54); LYMPHOCYTES # (AUTO) 0.4 10^3/uL (1.0-4.0); LYMPHOCYTES % (AUTO) 4 % (12-44); MEAN CORPUSCULAR HEMOGLOBIN 29 pg (25-34); MEAN CORPUSCULAR HGB CONC 29 g/dL (32-36); MEAN PLATELET VOLUME 13.8 fL (9.0-12.2); MONOCYTES % (AUTO) 3 % (0-12); NEUTROPHILS # (AUTO) 9.8 10^3/uL (1.8-7.8); WHITE BLOOD COUNT 10.8 10^3/uL (4.3-11.0)
[2020-07-29 02:21] LABS: ABG BASE EXCESS 6.2 MMOL/L (-2.5-2.5); ABG OXYGEN SATURATION 98 % (94-100); ABG PCO2 48 MMHG (35-45); ABG PH 7.42 (7.37-7.43); ABG PO2 99 MMHG (79-93); ABG TCO2 32.1 MMOL/L (21.0-31.0)
[2020-07-29 02:23] LABS: ALLENS TEST ART LINE; INSPIRED O2 65%; PATIENT TEMP 36.9; VENTILATOR YES
[2020-07-29 02:34] LABS: ALBUMIN 2.3 GM/DL (3.2-4.5); CHLORIDE 113 MMOL/L (98-107); POTASSIUM 5.1 MMOL/L (3.6-5.0); SODIUM 149 MMOL/L (135-145)
[2020-07-29 02:35] LABS: CALCIUM 7.2 MG/DL (8.5-10.1)
[2020-07-29 02:37] LABS: GLUCOSE 170 MG/DL (70-105); TOTAL PROTEIN 5.1 GM/DL (6.4-8.2)
[2020-07-29 02:38] LABS: CARBON DIOXIDE 28 MMOL/L (21-32)
[2020-07-29 02:39] LABS: BILIRUBIN,TOTAL 0.5 MG/DL (0.1-1.0)
[2020-07-29 02:40] LABS: ALKALINE PHOSPHATASE 52 U/L (40-136); CREATININE SERUM 0.84 MG/DL (0.60-1.30); GFR ESTIMATED > 60; PHOSPHORUS 4.1 MG/DL (2.3-4.7)
[2020-07-29] MEDS: niCARdipine IV 50 MG in NS (IVPB) 230 ML IV SCH (02:40)
[2020-07-29] MEDS: NOREPINEPHRINE 4 MG/250 ML 250 ML IV SCH ×3 (02:40→17:49)
[2020-07-29 02:41] LABS: BUN/CREATININE RATIO 77
[2020-07-29 02:43] LABS: ALANINE AMINOTRANSFERASE 49 U/L (0-55)
[2020-07-29 02:44] LABS: MAGNESIUM 3.1 MG/DL (1.6-2.4)
[2020-07-29] MEDS: RT-ALBUTEROL INHALER HFA (VENTOLIN HFA) 18 GM IH SCH ×6 (02:50→22:55)
--- NOTE | 2020-07-29 05:08 | Pulmonary Progress Note ---
Subjective Time Seen by a Provider: 05:04 Subjective/Events-last exam Pt is sedated on vent. Sepsis Event Evaluation Height, Weight, BMI Height: 5'5.00" Weight: 214lbs. 0.0oz. 97.029282yr; 34.89 BMI Method: Exam Exam Vital Signs Date Time Temp Pulse Resp B/P (MAP) Pulse Ox O2 Delivery O2 Flow Rate FiO2 07/29/20 02:50 63 26 93 65 07/29/20 02:40 66 07/29/20 01:00 64 07/28/20 23:00 54 26 139/53 (81) 92 Mechanical Ventilator 65.00 07/28/20 22:23 56 26 91 65 07/28/20 22:00 53 26 132/53 (79) 91 Mechanical Ventilator 65.00 07/28/20 21:00 63 25 141/55 (83) 90 Mechanical Ventilator 65.00 07/28/20 20:47 71 07/28/20 20:41 36.8 60 26 145/56 (85) 90 Mechanical Ventilator 65.00 07/28/20 20:00 64 26 154/57 (89) 90 Mechanical Ventilator 65.00 07/28/20 20:00 90 Mechanical Ventilator 65 07/28/20 19:00 70 25 156/55 (88) 90 Mechanical Ventilator 65.00 07/28/20 19:00 70 07/28/20 18:51 74 26 90 60 07/28/20 18:00 70 25 174/63 (100) 90 Mechanical Ventilator 60.00 07/28/20 17:45 55 25 155/55 (88) 89 07/28/20 17:30 63 26 165/60 (95) 90 07/28/20 17:15 67 25 162/58 (92) 93 07/28/20 17:00 60 26 173/61 (98) 92 Mechanical Ventilator 60.00 07/28/20 16:45 67 26 174/64 (100) 92 07/28/20 16:30 64 25 172/60 (97) 91 07/28/20 16:28 36.6 07/28/20 16:15 66 26 179/66 (103) 92 07/28/20 16:00 66 25 168/60 (96) 92 Mechanical Ventilator 60.00 07/28/20 15:45 66 25 159/57 (91) 92 07/28/20 15:30 66 25 161/55 (90) 92 07/28/20 15:15 69 25 164/60 (94) 93 07/28/20 15:00 70 25 148/52 (84) 93 Mechanical Ventilator 60.00 07/28/20 14:45 80 25 139/49 (79) 92 07/28/20 14:42 71 26 92 60 07/28/20 14:30 76 25 134/47 (76) 92 07/28/20 14:15 66 25 161/59 (93) 92 07/28/20 14:00 59 25 94/58 (70) 92 Mechanical Ventilator 60.00 07/28/20 13:45 60 26 96/57 (70) 91 07/28/20 13:30 61 25 96/50 (65) 90 07/28/20 13:15 69 26 99/57 (71) 90 07/28/20 13:00 67 26 100/54 (69) 88 Mechanical Ventilator 60.00 07/28/20 13:00 77 07/28/20 12:45 64 26 96/54 (68) 89 07/28/20 12:30 71 25 97/49 (65) 89 07/28/20 12:19 35.9 07/28/20 12:15 76 25 98/51 (67) 90 07/28/20 12:00 71 26 97/53 (68) 89 Mechanical Ventilator 60.00 07/28/20 11:45 78 25 107/58 (74) 89 07/28/20 11:30 76 25 115/56 (75) 90 07/28/20 11:15 78 26 94 60 07/28/20 11:15 80 26 109/60 (76) 96 07/28/20 11:00 80 25 139/57 (84) 98 Mechanical Ventilator 60.00 07/28/20 10:45 64 21 151/52 (85) 88 07/28/20 10:30 66 17 135/47 (76) 87 07/28/20 10:15 55 20 131/47 (75) 87 07/28/20 10:00 62 21 130/45 (73) 88 Mechanical Ventilator 60.00 07/28/20 09:45 57 25 128/43 (71) 89 07/28/20 09:40 95 Mechanical Ventilator 60 12/18/20 09:30 58 17 122/45 (70) 90 07/28/20 09:15 67 19 134/49 (77) 90 07/28/20 09:00 59 26 124/48 (73) 90 Mechanical Ventilator 60.00 07/28/20 08:45 66 25 124/48 (73) 90 07/28/20 08:38 74 28 156/57 07/28/20 08:30 71 26 135/46 (75) 90 07/28/20 08:17 36.0 07/28/20 08:15 63 25 127/46 (73) 90 07/28/20 08:00 62 25 139/53 (81) 92 Mechanical Ventilator 60.00 07/28/20 07:59 61 26 99 60 07/28/20 07:45 61 25 131/48 (75) 100 07/28/20 07:30 63 26 128/44 (72) 99 07/28/20 07:15 61 25 133/48 (76) 99 07/28/20 07:00 64 07/28/20 07:00 55 25 128/43 (71) 99 Mechanical Ventilator 60.00 07/28/20 06:45 65 25 133/45 (74) 100 07/28/20 06:30 58 25 142/48 (79) 99 07/28/20 06:15 70 26 141/49 (79) 99 07/28/20 06:00 56 21 132/46 (74) 99 Mechanical Ventilator 60.00 I & O 07/29/20 07:00 Intake Total 2575 ml Output Total 2050 ml Balance 525 ml Height & Weight Height: 5'5.00" Weight: 214lbs. 0.0oz. 97.924521ut; 34.89 BMI Method: General Appearance: No Apparent Distress, WD/WN, Chronically ill, Obese HEENT: PERRL/EOMI, Moist Mucous Membranes; No Scleral Icterus (L), No Scleral Icterus (R) Neck: Normal Inspection, Supple Respiratory: Lungs Clear Cardiovascular: Regular Rate, Rhythm Capillary Refill: Less Than 3 Seconds Extremity: Normal Inspection, Non Tender, Pedal Edema Neurologic/Psychiatric: Other (sedated) Skin: Normal Color, Warm/Dry Results Lab Laboratory Tests 07/28/20 01:37 07/29/20 02:03 Assessment/Plan Assessment/Plan COVID 19 with acute hypoxia with ARDS -On ventilator -Peep currently 12 Fi02 60 -Increase PEEP back to 14 -Decadron, s/p Remdesivir, and CVP -proning PNA with Strep -Continue Rocpehin -Ng cultures Acute GIB s/p 1 unit PRBC -Small amount of blood per rectum -D/C eliquis -Hold lovenox - CTA of chest to r/o PE = Neg -Monitor Hb-improved -protonix BID Thrombocytopenia -Monitor -Lovenox is on hold Hypertension -Add Lopressor, increase PRN hydralazine. Hyperkalemia Monitor Bacteremia -Pt has picc line and arterial line -Currently on rocephin and vancomycin hematuria -small amount - Never evelyn blood -Monitor Acute renal failure with metabolic acidosis and hyperphos -phoslo Hyperkalemia-mild -Give 40mg of Lasix x 1 Rate controlled a-fib HTN PETR LUTHER DO Jul 29, 2020 05:08
--- NOTE | 2020-07-29 05:34 | Diagnostic Imaging Report ---
EXAMINATION: Portable erect AP chest at 1:54 AM INDICATION: Dyspnea, COVID-19 As on the prior exam of 07/28/2020, there are diffuse alveolar/interstitial pulmonary infiltrates bilaterally. This appearance is quite similar to the prior exam. The heart is stable in size. The mediastinum is not widened. The osseous structures are intact. The supportive tubes and lines seem similar in position. IMPRESSION: There is persistent involvement of both lungs by diffuse alveolar/interstitial pulmonary infiltrates. Overall, there has been no significant change since the previous study. Dictated by: Dictated on workstation # [id number]
[2020-07-29] MEDS: CALCIUM ACETATE 667 MG CAP (PHOSLO) PO SCH ×3 (08:36→17:24)
[2020-07-29] MEDS: meTOprolol TARTRATE 25 MG (LOPRESSOR) TABLET PO SCH ×2 (08:37→20:38)
[2020-07-29] MEDS: PANTOPRAZOLE 40 MG (PROTONIX) VIAL IV SCH ×2 (08:37→20:38)
[2020-07-29] MEDS: MIDAZOLAM DRIP PRE-MIX 100 ML IV SCH ×2 (08:41→22:29)
[2020-07-29] MEDS: VANCOMYCIN 1500 MG/NS 500 ML IVPB IV SCH ×2 (12:17)
[2020-07-29] MEDS: D5W 1000 ML IV SOLUTION 1,000 ML IV SCH (12:17)
--- NOTE | 2020-07-29 13:00 | NUR ---
Attempted to contact Annette (spouse) regarding staff inability to meet via Zoom call at 1430. Have not heard back.
--- NOTE | 2020-07-29 17:00 | NUR ---
Tube feeding increased to 150cc with 30cc free water before/after (goal is 180cc q 4 hours). Tolerated without difficulty.
[2020-07-30] VITALS (62 sets, daily range): BP systolic 117–191; BP diastolic 39–65
[2020-07-30] MEDS: RT-ALBUTEROL INHALER HFA (VENTOLIN HFA) 18 GM IH SCH ×6 (02:13→20:58)
[2020-07-30] MEDS: NOREPINEPHRINE 4 MG/250 ML 250 ML IV SCH ×4 (02:34→22:28)
[2020-07-30] MEDS: fentaNYL DRIP PRE-MIX 250 ML IV SCH ×3 (02:40→23:22)
[2020-07-30 02:43] LABS: ABG BASE EXCESS 3.9 MMOL/L (-2.5-2.5); ABG OXYGEN SATURATION 93 % (94-100); ABG PCO2 55 MMHG (35-45); ABG PO2 75 MMHG (79-93); ALLENS TEST ARTLINE; INSPIRED O2 65; PATIENT TEMP 36.7; VENTILATOR YES
[2020-07-30 02:45] LABS: ABG PH 7.34 (7.37-7.43)
[2020-07-30 02:49] LABS: BASOPHILS % (AUTO) 0 % (0-10); EOSINOPHILS % (AUTO) 0 % (0-10); HEMATOCRIT 25 % (40-54); HEMOGLOBIN 7.3 g/dL (13.3-17.7); LYMPHOCYTES # (AUTO) 0.5 10^3/uL (1.0-4.0); LYMPHOCYTES % (AUTO) 3 % (12-44); MEAN CORPUSCULAR HEMOGLOBIN 29 pg (25-34); MEAN CORPUSCULAR HGB CONC 29 g/dL (32-36); MEAN CORPUSCULAR VOLUME 100 fL (80-99); MONOCYTES # (AUTO) 0.6 10^3/uL (0.0-1.0); MONOCYTES % (AUTO) 4 % (0-12); NEUTROPHILS # (AUTO) 13.2 10^3/uL (1.8-7.8); NEUTROPHILS % (AUTO) 91 % (42-75); PLATELET COUNT 74 10^3/uL (130-400); WHITE BLOOD COUNT 14.5 10^3/uL (4.3-11.0)
[2020-07-30 02:57] LABS: CHLORIDE 113 MMOL/L (98-107); POTASSIUM 4.9 MMOL/L (3.6-5.0); SODIUM 147 MMOL/L (135-145)
[2020-07-30 02:58] LABS: CALCIUM 7.2 MG/DL (8.5-10.1); GLUCOSE 133 MG/DL (70-105)
[2020-07-30 03:00] LABS: CARBON DIOXIDE 28 MMOL/L (21-32)
[2020-07-30 03:02] LABS: GFR ESTIMATED > 60; PHOSPHORUS 4.1 MG/DL (2.3-4.7)
[2020-07-30 03:03] LABS: BUN/CREATININE RATIO 66
[2020-07-30 03:15] LABS: BAND NEUTROPHILS 6 %; LYMPHOCYTES % (MANUAL) 2 %; MONOCYTES % (MANUAL) 5 %; NEUTROPHILS % (MANUAL) 87 %; POLYCHROMASIA SLIGHT
--- NOTE | 2020-07-30 04:29 | Pulmonary Progress Note ---
Subjective Time Seen by a Provider: 04:24 Subjective/Events-last exam Sedated on vent. Sepsis Event Evaluation Height, Weight, BMI Height: 5'5.00" Weight: 214lbs. 0.0oz. 97.330722qw; 34.89 BMI Method: Exam Exam Vital Signs Date Time Temp Pulse Resp B/P (MAP) Pulse Ox O2 Delivery O2 Flow Rate FiO2 07/30/20 04:00 75.00 07/30/20 02:30 70.00 07/30/20 02:14 74 26 93 65 07/30/20 01:00 71 07/29/20 23:00 85 19 173/62 (99) 94 Mechanical Ventilator 65.00 07/29/20 22:55 75 26 92 65 07/29/20 22:29 70 29 167/60 07/29/20 22:00 73 28 169/60 (96) 93 Mechanical Ventilator 65.00 07/29/20 21:00 75 21 160/56 (90) 92 Mechanical Ventilator 65.00 07/29/20 20:00 63 26 159/58 (91) 90 Mechanical Ventilator 65.00 07/29/20 19:00 81 07/29/20 19:00 88 25 178/67 (104) 90 Mechanical Ventilator 65.00 07/29/20 18:43 80 26 90 65 07/29/20 18:00 87 25 138/50 (79) 90 Mechanical Ventilator 65.00 07/29/20 17:45 75 26 141/52 (81) 86 07/29/20 17:30 61 25 133/56 (81) 95 07/29/20 17:15 61 25 142/142 (142) 95 07/29/20 17:00 57 25 144/56 (85) 94 Mechanical Ventilator 65.00 07/29/20 16:45 65 25 145/57 (86) 94 07/29/20 16:30 57 25 143/55 (84) 92 07/29/20 16:15 71 25 137/53 (81) 90 07/29/20 16:00 66 25 126/52 (76) 89 Mechanical Ventilator 65.00 07/29/20 15:45 73 26 137/23 (61) 90 07/29/20 15:43 36.2 07/29/20 15:37 74 26 90 65 07/29/20 15:30 63 25 139/54 (82) 98 12/19/20 15:15 63 26 138/50 (79) 96 07/29/20 15:00 59 26 138/52 (80) 96 Mechanical Ventilator 65.00 07/29/20 14:45 51 26 135/53 (80) 96 07/29/20 14:30 53 25 139/56 (83) 96 07/29/20 14:15 62 26 137/52 (80) 95 07/29/20 14:00 63 26 136/55 (82) 95 Mechanical Ventilator 65.00 07/29/20 13:45 58 25 136/53 (80) 95 07/29/20 13:30 52 25 136/53 (80) 95 07/29/20 13:15 60 25 135/53 (80) 94 07/29/20 13:00 71 26 122/43 (69) 94 Mechanical Ventilator 65.00 07/29/20 12:49 67 07/29/20 12:45 66 26 129/46 (73) 93 07/29/20 12:30 59 26 125/51 (75) 93 07/29/20 12:15 56 26 132/52 (78) 97 07/29/20 12:00 62 26 139/57 (84) 97 Mechanical Ventilator 65.00 07/29/20 11:45 71 26 137/50 (79) 97 07/29/20 11:34 36.2 07/29/20 11:15 64 26 132/48 (76) 96 07/29/20 11:00 62 26 140/53 (82) 96 Mechanical Ventilator 65.00 07/29/20 10:45 59 28 136/53 (80) 95 07/29/20 10:30 53 26 115/45 (68) 96 07/29/20 10:15 62 14 138/56 (83) 95 07/29/20 10:00 62 14 144/58 (86) 95 Mechanical Ventilator 65.00 07/29/20 09:45 67 27 130/51 (77) 95 07/29/20 09:30 65 25 123/45 (71) 94 07/29/20 09:15 69 26 114/44 (67) 94 07/29/20 09:00 78 14 113/76 (88) 98 Mechanical Ventilator 65.00 07/29/20 08:51 95 Mechanical Ventilator 60 07/29/20 08:45 68 25 93 07/29/20 08:41 72 26 144/57 07/29/20 08:30 65 25 94 07/29/20 08:15 71 15 116/76 (89) 96 07/29/20 08:00 79 25 141/53 (82) 93 Mechanical Ventilator 65.00 07/29/20 07:55 35.8 07/29/20 07:45 78 25 159/60 (93) 94 07/29/20 07:39 66 26 96 65 07/29/20 07:30 54 25 134/49 (77) 96 07/29/20 07:15 56 25 134/52 (79) 96 07/29/20 07:00 64 07/29/20 07:00 56 25 133/54 (80) 96 Mechanical Ventilator 65.00 07/29/20 06:45 135/55 (81) 07/29/20 06:30 50 26 132/54 (80) 96 07/29/20 06:15 56 25 132/49 (76) 96 07/29/20 06:00 63 25 134/53 (80) 96 Mechanical Ventilator 65.00 07/29/20 05:00 60 26 130/50 (76) 96 Mechanical Ventilator 65.00 I & O 07/30/20 07:00 Intake Total 2696 ml Output Total 900 ml Balance 1796 ml Height & Weight Height: 5'5.00" Weight: 214lbs. 0.0oz. 97.766887ov; 34.89 BMI Method: General Appearance: No Apparent Distress, WD/WN, Chronically ill, Obese HEENT: PERRL/EOMI, Moist Mucous Membranes; No Scleral Icterus (L), No Scleral Icterus (R) Neck: Normal Inspection, Supple Respiratory: Crackles, Decreased Breath Sounds Cardiovascular: Regular Rate, Rhythm Capillary Refill: Less Than 3 Seconds Extremity: Normal Inspection, Non Tender, Pedal Edema Neurologic/Psychiatric: Other (sedated) Skin: Normal Color, Warm/Dry Results Lab Laboratory Tests 07/29/20 02:03 07/30/20 02:30 Assessment/Plan Assessment/Plan COVID 19 with acute hypoxia with ARDS -On ventilator -Peep currently 12 Fi02 60 -Increase PEEP back to 14 -Decadron, s/p Remdesivir, and CVP -proning -Give Lasix x 1 40mg PNA with Strep -S/P Rocpehin -Ng cultures Acute GIB s/p 1 unit PRBC -Small amount of blood per rectum -D/C eliquis -Hold lovenox - CTA of chest to r/o PE = Neg -Monitor Hb-improved -protonix BID Thrombocytopenia -Monitor -Lovenox is on hold Hypernatremia -D5W at 50cc/hr -Continue to monitor Hypertension -Add Lopressor, increase PRN hydralazine. Hyperkalemia Monitor Bacteremia -Pt has picc line and arterial line -s/p rocephin -vancomycin hematuria -small amount - Never evelyn blood -Monitor Acute renal failure with metabolic acidosis and hyperphos -phoslo Hyperkalemia-mild -Give 40mg of Lasix x 1 Rate controlled a-fib HTN PETR LUTHER DO Jul 30, 2020 04:29
[2020-07-30] MEDS ORDERED: FUROSEMIDE 40 MG/4 ML INJ (LASIX) IVP ONE (04:30)
[2020-07-30] MEDS: POTASSIUM CL 10MEQ/50ML IVPB 50 ML IV SCH (06:08)
[2020-07-30] MEDS: KCL 20 MEQ TAB (K-DUR) PO SCH (06:08)
[2020-07-30] MEDS: MAGNESIUM 1 GM/100 ML IVPB 100 ML IV SCH (06:08)
--- NOTE | 2020-07-30 07:37 | Diagnostic Imaging Report ---
EXAM: Portable erect AP chest at 2:24 AM INDICATION: Hypoxia FINDINGS: The cardiomegaly and the diffuse alveolar/interstitial pulmonary infiltrates involving both lungs seen on the prior exam of 07/29/2020 are again evident and essentially no different. The mediastinum is not widened. The osseous structures are intact. The supportive tubes and lines are similar in position to the prior study. IMPRESSION: Stable chest. There has been no adverse change since the prior exam. Dictated by: Dictated on workstation # [id number]
[2020-07-30] MEDS: CALCIUM ACETATE 667 MG CAP (PHOSLO) PO SCH ×3 (07:50→17:29)
[2020-07-30] MEDS: meTOprolol TARTRATE 25 MG (LOPRESSOR) TABLET PO SCH ×2 (07:51→20:44)
[2020-07-30] MEDS: PANTOPRAZOLE 40 MG (PROTONIX) VIAL IV SCH ×2 (07:51→20:45)
[2020-07-30] MEDS: D5W 1000 ML IV SOLUTION 1,000 ML IV SCH (08:13)
[2020-07-30] MEDS: ARTIFICIAL TEARS OINT (LACRI-LUBE) 3.5 GM TUBE OU SCH ×3 (08:21→20:45)
[2020-07-30] MEDS: VANCOMYCIN 1500 MG/NS 500 ML IVPB IV SCH ×2 (14:42)
--- NOTE | 2020-07-30 14:45 | NUR ---
CALL PLACED TO DR. LUTHER CONCERNING PATIENT RASH. RECEIVED ORDERS TO D/C REGLA ET CHANGE TO ZYVOX 600MG BID. EMAR UPDATED
[2020-07-30] MEDS: MIDAZOLAM DRIP PRE-MIX 100 ML IV SCH (19:22)
[2020-07-30] MEDS: LINEZOLID IVPB 300 ML IV SCH (20:44)
--- NOTE | 2020-07-30 21:24 | NUR ---
[facility] CONTACTED REGARDING PT PEAK PRESSURES TRENDING UP. WILL CONTINUE TO MONITOR
[2020-07-31] VITALS (32 sets, daily range): BP systolic 111–172; BP diastolic 42–64
[2020-07-31] MEDS: RT-ALBUTEROL INHALER HFA (VENTOLIN HFA) 18 GM IH SCH ×6 (01:44→21:38)
[2020-07-31 02:34] LABS: BASOPHILS % (AUTO) 0 % (0-10); EOSINOPHILS % (AUTO) 0 % (0-10); HEMATOCRIT 23 % (40-54); MEAN CORPUSCULAR HEMOGLOBIN 29 pg (25-34); MEAN CORPUSCULAR HGB CONC 29 g/dL (32-36); MEAN CORPUSCULAR VOLUME 100 fL (80-99); PLATELET COUNT 66 10^3/uL (130-400)
[2020-07-31 02:35] LABS: LYMPHOCYTES # (AUTO) 0.3 10^3/uL (1.0-4.0); LYMPHOCYTES % (AUTO) 5 % (12-44); MEAN PLATELET VOLUME 13.1 fL (9.0-12.2); MONOCYTES # (AUTO) 0.3 10^3/uL (0.0-1.0); MONOCYTES % (AUTO) 4 % (0-12); NEUTROPHILS # (AUTO) 6.1 10^3/uL (1.8-7.8); NEUTROPHILS % (AUTO) 90 % (42-75); WHITE BLOOD COUNT 6.8 10^3/uL (4.3-11.0)
[2020-07-31 02:39] LABS: HEMOGLOBIN 6.8 g/dL (13.3-17.7)
[2020-07-31 02:40] LABS: ABG BASE EXCESS 3.3 MMOL/L (-2.5-2.5); ABG OXYGEN SATURATION 95 % (94-100); ABG PCO2 54 MMHG (35-45); ABG PO2 76 MMHG (79-93); ABG TCO2 30.6 MMOL/L (21.0-31.0); ALLENS TEST NEGATIVE; INSPIRED O2 75; PATIENT TEMP 37; VENTILATOR YES
[2020-07-31 02:41] LABS: ABG PH 7.34 (7.37-7.43)
[2020-07-31 02:45] LABS: CHLORIDE 112 MMOL/L (98-107); POTASSIUM 4.7 MMOL/L (3.6-5.0); SODIUM 145 MMOL/L (135-145)
[2020-07-31 02:46] LABS: CALCIUM 7.2 MG/DL (8.5-10.1)
[2020-07-31 02:47] LABS: GLUCOSE 113 MG/DL (70-105)
[2020-07-31 02:48] LABS: CARBON DIOXIDE 27 MMOL/L (21-32)
[2020-07-31 02:50] LABS: PHOSPHORUS 4.1 MG/DL (2.3-4.7)
[2020-07-31 02:51] LABS: CREATININE SERUM 0.81 MG/DL (0.60-1.30); GFR ESTIMATED > 60
[2020-07-31 02:52] LABS: BUN/CREATININE RATIO 57
[2020-07-31 02:54] LABS: MAGNESIUM 2.9 MG/DL (1.6-2.4)
[2020-07-31] MEDS ORDERED: NS IV 500 ML 500 ML IV SCH ×2 (03:00)
[2020-07-31] MEDS: MIDAZOLAM DRIP PRE-MIX 100 ML IV SCH ×2 (03:44→12:42)
[2020-07-31] MEDS: fentaNYL DRIP PRE-MIX 250 ML IV SCH ×4 (03:45→17:21)
--- NOTE | 2020-07-31 04:32 | Pulmonary Progress Note ---
Subjective Time Seen by a Provider: 04:26 Sepsis Event Evaluation Height, Weight, BMI Height: 5'5.00" Weight: 214lbs. 0.0oz. 97.517368uw; 34.89 BMI Method: Exam Exam Vital Signs Date Time Temp Pulse Resp B/P (MAP) Pulse Ox O2 Delivery O2 Flow Rate FiO2 07/31/20 03:44 78 07/31/20 03:00 77 25 158/45 (82) 94 Mechanical Ventilator 75.00 07/31/20 02:00 78 20 154/44 (80) 96 Mechanical Ventilator 75.00 07/31/20 01:44 74 26 95 75 07/31/20 01:00 74 07/31/20 01:00 74 25 146/50 (82) 95 Mechanical Ventilator 75.00 07/31/20 00:00 62 25 142/45 (77) 95 Mechanical Ventilator 75.00 07/30/20 23:00 74 27 160/48 (85) 94 Mechanical Ventilator 75.00 07/30/20 22:00 64 25 144/47 (79) 93 Mechanical Ventilator 75.00 07/30/20 21:00 78 25 168/52 (90) 95 Mechanical Ventilator 75.00 07/30/20 20:58 75 26 94 75 07/30/20 20:03 36.6 07/30/20 20:00 92 Mechanical Ventilator 75 07/30/20 20:00 80 25 156/49 (84) 93 Mechanical Ventilator 75.00 07/30/20 19:22 55 26 144/47 07/30/20 19:00 50 07/30/20 19:00 50 25 147/44 (78) 92 Mechanical Ventilator 75.00 07/30/20 18:42 55 26 94 75 07/30/20 18:00 64 26 154/47 (82) 91 Mechanical Ventilator 75.00 07/30/20 17:45 67 25 159/48 (85) 92 07/30/20 17:30 68 25 164/53 (90) 92 07/30/20 17:15 65 26 159/47 (84) 95 07/30/20 17:00 71 26 157/51 (86) 95 Mechanical Ventilator 75.00 07/30/20 16:45 61 25 135/45 (75) 95 07/30/20 16:30 68 26 157/46 (83) 95 07/30/20 16:16 37.4 07/30/20 16:15 67 26 147/45 (79) 95 07/30/20 16:00 58 25 150/48 (82) 95 Mechanical Ventilator 75.00 07/30/20 15:45 68 26 137/47 (77) 95 07/30/20 15:30 72 26 149/46 (80) 95 07/30/20 15:17 70 26 95 75 07/30/20 15:15 60 16 149/47 (81) 94 07/30/20 15:00 66 25 146/47 (80) 94 Mechanical Ventilator 75.00 07/30/20 14:45 69 25 160/50 (86) 95 07/30/20 14:30 74 26 160/47 (84) 94 07/30/20 14:15 67 27 158/49 (85) 93 07/30/20 14:00 61 25 159/50 (86) 93 Mechanical Ventilator 75.00 07/30/20 13:45 58 25 158/47 (84) 92 07/30/20 13:30 70 26 149/47 (81) 92 07/30/20 13:15 74 22 126/43 (70) 93 07/30/20 13:00 71 21 172/54 (93) 94 Mechanical Ventilator 75.00 07/30/20 13:00 69 07/30/20 12:45 75 18 176/57 (96) 93 07/30/20 12:30 76 26 170/55 (93) 93 07/30/20 12:15 75 16 166/57 (93) 93 07/30/20 12:00 79 22 166/56 (92) 93 Mechanical Ventilator 75.00 07/30/20 11:58 37.3 07/30/20 11:45 76 18 179/54 (95) 93 07/30/20 11:30 67 25 166/56 (92) 93 07/30/20 11:15 71 18 179/57 (97) 93 07/30/20 10:37 80 27 93 75 07/30/20 10:00 66 25 158/59 (92) 92 Mechanical Ventilator 75.00 07/30/20 09:45 65 26 132/51 (78) 90 07/30/20 09:30 63 25 130/43 (72) 90 07/30/20 09:15 72 27 141/47 (78) 90 07/30/20 09:00 68 26 132/40 (70) 90 Mechanical Ventilator 75.00 07/30/20 08:45 72 27 127/39 (68) 90 07/30/20 08:30 70 27 117/39 (65) 89 07/30/20 08:15 76 26 168/50 (89) 91 07/30/20 08:00 90 Mechanical Ventilator 75 07/30/20 08:00 80 27 191/65 (107) 92 Mechanical Ventilator 75.00 07/30/20 07:45 75 26 161/58 (92) 89 07/30/20 07:35 36.9 07/30/20 07:30 69 25 151/54 (86) 89 07/30/20 07:15 72 26 153/54 (87) 89 07/30/20 07:00 55 07/30/20 07:00 67 25 150/58 (88) 89 Mechanical Ventilator 75.00 07/30/20 06:45 71 26 148/54 (85) 89 07/30/20 06:30 70 26 155/55 (88) 90 07/30/20 06:18 74 26 91 75 07/30/20 06:15 71 26 162/57 (92) 92 07/30/20 06:00 89 28 157/52 (87) 93 Mechanical Ventilator 75.00 07/30/20 05:00 70 26 143/51 (81) 92 Mechanical Ventilator 75.00 I & O 07/31/20 07:00 Intake Total 1000 ml Output Total 2400 ml Balance -1400 ml Height & Weight Height: 5'5.00" Weight: 214lbs. 0.0oz. 97.359468qk; 34.89 BMI Method: General Appearance: No Apparent Distress, WD/WN, Chronically ill, Obese HEENT: PERRL/EOMI, Moist Mucous Membranes; No Scleral Icterus (L), No Scleral Icterus (R) Neck: Normal Inspection, Supple Respiratory: Crackles, Decreased Breath Sounds Cardiovascular: Regular Rate, Rhythm Capillary Refill: Less Than 3 Seconds Extremity: Normal Inspection, Non Tender, Pedal Edema Neurologic/Psychiatric: Other (sedated) Skin: Normal Color, Warm/Dry Results Lab Laboratory Tests 07/30/20 02:30 07/31/20 02:22 Assessment/Plan Assessment/Plan COVID 19 with acute hypoxia with ARDS -On ventilator -Peep currently 12 Fi02 60 -Increase PEEP back to 18 -Decadron, s/p Remdesivir, and CVP -proning -Give Lasix x 1 40mg PNA with Strep -Vanco changed to Zyvox secondary to Red Man Syndrome. -Ng cultures Acute GIB s/p 1 unit PRBC -Transfuse 1 unit of PRBC -D/C eliquis -Hold lovenox - CTA of chest to r/o PE = Neg -Monitor Hb -protonix BID Thrombocytopenia -Monitor -Lovenox is on hold Hypernatremia -D5W at 50cc/hr -Continue to monitor Hypertension -Add Lopressor, increase PRN hydralazine. Hyperkalemia Monitor Bacteremia -Pt has picc line and arterial line -s/p rocephin -vancomycin hematuria -small amount - Never evelyn blood -Monitor Acute renal failure with metabolic acidosis and hyperphos -phoslo Hyperkalemia-mild -Give 40mg of Lasix x 1 Rate controlled a-fib HTN PETR LUTHER DO Jul 31, 2020 04:32
[2020-07-31] MEDS: D5W 1000 ML IV SOLUTION 1,000 ML IV SCH (05:43)
[2020-07-31] MEDS: POTASSIUM CL 10MEQ/50ML IVPB 50 ML IV SCH (06:10)
[2020-07-31] MEDS: NOREPINEPHRINE 4 MG/250 ML 250 ML IV SCH ×3 (06:11→19:32)
[2020-07-31] MEDS: MAGNESIUM 1 GM/100 ML IVPB 100 ML IV SCH (06:11)
[2020-07-31] MEDS: KCL 20 MEQ TAB (K-DUR) PO SCH (06:11)
[2020-07-31] MEDS: PANTOPRAZOLE 40 MG (PROTONIX) VIAL IV SCH ×2 (08:00→20:28)
[2020-07-31] MEDS: FUROSEMIDE 40 MG/4 ML INJ (LASIX) IVP SCH ×2 (08:00→20:27)
[2020-07-31] MEDS: ARTIFICIAL TEARS OINT (LACRI-LUBE) 3.5 GM TUBE OU SCH ×3 (08:01→20:28)
[2020-07-31] MEDS: meTOprolol TARTRATE 25 MG (LOPRESSOR) TABLET PO SCH ×2 (08:01→20:28)
[2020-07-31] MEDS: CALCIUM ACETATE 667 MG CAP (PHOSLO) PO SCH ×3 (08:01→17:00)
[2020-07-31] MEDS: LINEZOLID IVPB 300 ML IV SCH ×2 (08:01→20:27)
--- NOTE | 2020-07-31 08:12 | Diagnostic Imaging Report ---
EXAMINATION: Chest 1 view HISTORY: COVID positive, intubated. COMPARISON: 07/30/2020 FINDINGS: Endotracheal tube tip terminates 3 cm above the ian. Gastric tube tip terminates below the field of view. 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 There are severe bilateral airspace opacities which have slightly worsened in the right mid and lower zones. No pleural effusion or pneumothorax. Heart size normal. IMPRESSION: 1. Slight worsening in the right mid and lower zone opacities in the setting of severe bilateral airspace opacities consistent with COVID 19 pneumonia. Dictated by: Dictated on workstation # [id number]
--- NOTE | 2020-07-31 09:36 | Physical Therapy Progress Note ---
Therapy Progress Note Patient remains on mechanical ventilator. PT will continue to monitor patient status. KAYLEN NAQVI PT Jul 31, 2020 09:36
--- NOTE | 2020-07-31 13:51 | NUR ---
Referral from RN requesting Vacation Planner facilitate Zoom face-time between the pt and his significant other, Annette. Contacted Annette to introduce self, clarify logistics of the zoom call, and provide emotional support fro feelings of concern and isolation. Vacation Planner expressed desire to respect and support the pt's personal beliefs, which Annette described as eclectic with Latter-Day roots. She said he has also demonstrated interest in Anabaptist beliefs, and that he has family in [place] who practice Scientology. Annette shared she and the pt celebrated their 6th anniversary on July 23. Annette has routine dialysis and states she received her first contact from an organ doner the first day the pt was admitted to the hospital, so she declined. She shared feeling hopeful that she is "at the top of the list" for transplant. Annette anticipates caregiver role reversal upon pt's discharge home. Annette states she made arrangements to Zoom on Jul 29 however the nurse was unable to call. Annette called back today to arrange a zoom call on August 02 beginning between 1400 and 1430. This Vacation Planner conformed the meeting ID and Password.
--- NOTE | 2020-07-31 16:50 | NUR ---
Note pt is currently receiving TF via 150ml bolus feeds q8h with 100ml free water flushes before/after each bolus. Recommend continue to increase TF by 30ml q8h as tolerated. If goal is to continue to feed q8h, would recommend goal be changed to 360ml bolus feeds q8h. Will continue to follow and reassess as pt needs, intake, and status change. Sunil Borjas, MS RD LD
[2020-07-31] MEDS ORDERED: DEXTROSE 50% 50 ML (IMS) SYR ONE (16:58)
[2020-07-31] MEDS ORDERED: DEXTROSE 50% 50 ML (IMS) SYR IV NR (17:00)
[2020-08-01] VITALS (31 sets, daily range): BP systolic 112–177; BP diastolic 46–59
[2020-08-01] MEDS: D5W 1000 ML IV SOLUTION 1,000 ML IV SCH ×2 (01:05→02:07)
[2020-08-01] MEDS: POTASSIUM CL 10MEQ/50ML IVPB 50 ML IV SCH (01:30)
[2020-08-01] MEDS: NOREPINEPHRINE 4 MG/250 ML 250 ML IV SCH ×4 (01:30→23:43)
[2020-08-01] MEDS: KCL 20 MEQ TAB (K-DUR) PO SCH (01:31)
[2020-08-01] MEDS: MAGNESIUM 1 GM/100 ML IVPB 100 ML IV SCH (01:31)
[2020-08-01] MEDS: fentaNYL DRIP PRE-MIX 250 ML IV SCH ×3 (02:07→17:52)
[2020-08-01] MEDS: RT-ALBUTEROL INHALER HFA (VENTOLIN HFA) 18 GM IH SCH ×6 (02:11→21:57)
[2020-08-01 02:22] LABS: ABG BASE EXCESS 3.3 MMOL/L (-2.5-2.5); ABG OXYGEN SATURATION 95 % (94-100); ABG PCO2 64 MMHG (35-45); ABG PO2 86 MMHG (79-93); ABG TCO2 31.3 MMOL/L (21.0-31.0)
[2020-08-01 02:24] LABS: EOSINOPHILS # (AUTO) 0.1 10^3/uL (0.0-0.3); EOSINOPHILS % (AUTO) 2 % (0-10); HEMATOCRIT 24 % (40-54)
[2020-08-01 02:26] LABS: BASOPHILS % (AUTO) 0 % (0-10); LYMPHOCYTES # (AUTO) 0.3 10^3/uL (1.0-4.0); LYMPHOCYTES % (AUTO) 5 % (12-44); MEAN CORPUSCULAR HEMOGLOBIN 28 pg (25-34); MEAN CORPUSCULAR HGB CONC 29 g/dL (32-36); MEAN CORPUSCULAR VOLUME 98 fL (80-99); MEAN PLATELET VOLUME 13.1 fL (9.0-12.2); MONOCYTES # (AUTO) 0.1 10^3/uL (0.0-1.0); MONOCYTES % (AUTO) 3 % (0-12); NEUTROPHILS # (AUTO) 4.6 10^3/uL (1.8-7.8); NEUTROPHILS % (AUTO) 90 % (42-75); WHITE BLOOD COUNT 5.1 10^3/uL (4.3-11.0)
[2020-08-01 02:28] LABS: ALLENS TEST ARTLINE; INSPIRED O2 60; VENTILATOR YES
[2020-08-01 02:29] LABS: PATIENT TEMP 37.3
[2020-08-01 02:30] LABS: ABG PH 7.28 (7.37-7.43)
[2020-08-01 02:35] LABS: CHLORIDE 111 MMOL/L (98-107); POTASSIUM 4.8 MMOL/L (3.6-5.0); SODIUM 145 MMOL/L (135-145)
[2020-08-01 02:36] LABS: CALCIUM 7.4 MG/DL (8.5-10.1)
[2020-08-01 02:37] LABS: GLUCOSE 97 MG/DL (70-105)
[2020-08-01 02:38] LABS: CARBON DIOXIDE 26 MMOL/L (21-32)
[2020-08-01 02:40] LABS: CREATININE SERUM 0.93 MG/DL (0.60-1.30); GFR ESTIMATED > 60; PHOSPHORUS 4.4 MG/DL (2.3-4.7)
[2020-08-01 02:41] LABS: BUN/CREATININE RATIO 45
[2020-08-01 02:43] LABS: MAGNESIUM 2.7 MG/DL (1.6-2.4)
[2020-08-01 03:26] LABS: BAND NEUTROPHILS 16 %; EOSINOPHILS % (MANUAL) 3 %; LYMPHOCYTES % (MANUAL) 5 %; MONOCYTES % (MANUAL) 2 %; NEUTROPHILS % (MANUAL) 74 %
[2020-08-01 03:27] LABS: PLATELET COUNT 67 10^3/uL (130-400)
[2020-08-01 03:28] LABS: ANISOCYTOSIS SLIGHT; ELLIPT/OVALOCYTES SLIGHT; HYPOCHROMASIA SLIGHT; MICROCYTOSIS MODERATE; POLYCHROMASIA SLIGHT
[2020-08-01 03:30] LABS: RBC MORPH SEE REFERENCE
[2020-08-01] MEDS: MIDAZOLAM DRIP PRE-MIX 100 ML IV SCH (05:31)
--- NOTE | 2020-08-01 06:06 | Pulmonary Progress Note ---
Subjective Time Seen by a Provider: 06:01 Subjective/Events-last exam Pt is still requiring a lot of PEEP and Fi02. Sepsis Event Evaluation Height, Weight, BMI Height: 5'5.00" Weight: 214lbs. 0.0oz. 97.152370ds; 34.89 BMI Method: Exam Exam Vital Signs Date Time Temp Pulse Resp B/P (MAP) Pulse Ox O2 Delivery O2 Flow Rate FiO2 08/01/20 05:31 109 25 166/51 08/01/20 05:00 109 25 166/51 (89) 90 Mechanical Ventilator 65.00 08/01/20 04:09 36.9 08/01/20 04:00 90 20 131/48 (75) 92 Mechanical Ventilator 65.00 08/01/20 03:05 Mechanical Ventilator 65.00 08/01/20 03:00 81 29 143/46 (78) 89 Mechanical Ventilator 60.00 08/01/20 02:11 85 26 93 60 08/01/20 02:00 80 28 150/49 (82) 93 Mechanical Ventilator 60.00 08/01/20 01:37 Mechanical Ventilator 60.00 08/01/20 01:00 92 08/01/20 01:00 92 23 125/49 (74) 95 Mechanical Ventilator 65.00 08/01/20 00:13 89 26 147/50 (82) 95 Mechanical Ventilator 65.00 08/01/20 00:00 89 25 145/50 (81) 97 Mechanical Ventilator 75.00 07/31/20 23:44 36.9 07/31/20 23:00 90 30 152/55 (87) 96 Mechanical Ventilator 75.00 07/31/20 22:00 78 26 144/49 (80) 96 Mechanical Ventilator 75.00 07/31/20 21:38 79 28 96 75 07/31/20 21:00 79 25 140/49 (79) 96 Mechanical Ventilator 75.00 07/31/20 20:00 82 25 141/49 (79) 96 Mechanical Ventilator 75.00 07/31/20 20:00 94 Mechanical Ventilator 75 07/31/20 19:30 36.9 07/31/20 19:00 77 25 147/50 (82) 96 Mechanical Ventilator 75.00 07/31/20 19:00 77 07/31/20 18:54 69 26 96 75 07/31/20 18:00 64 26 139/46 (77) 94 Mechanical Ventilator 75.00 07/31/20 17:00 93 28 136/48 (77) 95 Mechanical Ventilator 75.00 07/31/20 16:00 76 29 135/51 (79) 94 Mechanical Ventilator 75.00 07/31/20 15:52 36.9 07/31/20 15:08 73 29 138/52 (80) 94 Mechanical Ventilator 75.00 07/31/20 14:31 80 28 93 75 07/31/20 14:00 80 27 148/56 (86) 94 Mechanical Ventilator 75.00 07/31/20 13:27 82 07/31/20 13:00 73 25 139/55 (83) 94 Mechanical Ventilator 75.00 07/31/20 12:42 74 26 154/61 07/31/20 12:00 81 26 162/61 (94) 95 Mechanical Ventilator 75.00 07/31/20 11:18 84 26 149/64 (92) 95 Mechanical Ventilator 75.00 07/31/20 11:06 37.4 07/31/20 10:36 85 26 91 80 07/31/20 10:00 88 26 133/50 (77) 95 Mechanical Ventilator 75.00 07/31/20 09:00 87 25 111/44 (66) 95 Mechanical Ventilator 75.00 07/31/20 08:12 37.6 07/31/20 08:00 98 25 141/50 (80) 95 Mechanical Ventilator 75.00 07/31/20 07:49 94 Mechanical Ventilator 75.00 07/31/20 07:27 38.0 07/31/20 07:00 89 25 137/48 (77) 94 Mechanical Ventilator 75.00 07/31/20 07:00 101 07/31/20 06:46 90 26 94 75 I & O 08/01/20 07:00 Intake Total 620 ml Output Total 1750 ml Balance -1130 ml Height & Weight Height: 5'5.00" Weight: 214lbs. 0.0oz. 97.283673cp; 34.89 BMI Method: General Appearance: WD/WN, Chronically ill, Obese HEENT: PERRL/EOMI, Moist Mucous Membranes; No Scleral Icterus (L), No Scleral Icterus (R) Neck: Normal Inspection, Supple Respiratory: Crackles, Decreased Breath Sounds Cardiovascular: Regular Rate, Rhythm Capillary Refill: Less Than 3 Seconds Extremity: Normal Inspection, Non Tender, Pedal Edema Neurologic/Psychiatric: Other (sedated) Skin: Normal Color, Warm/Dry Results Lab Laboratory Tests 07/31/20 02:22 08/01/20 02:10 Assessment/Plan Assessment/Plan COVID 19 with acute hypoxia with ARDS -On ventilator -Peep currently 12 Fi02 60 PEEP 18 -Decadron, s/p Remdesivir, and CVP -proning -Lasix BID PNA with Strep - Zyvox secondary to Red Man Syndrome. -Ng cultures Acute GIB s/p 2 unit PRBC -D/C eliquis -Hold lovenox - CTA of chest to r/o PE = Neg -Monitor Hb -protonix BID Thrombocytopenia -Monitor -Lovenox is on hold Hypernatremia -D5W at 50cc/hr -Continue to monitor Hypertension -Add Lopressor, increase PRN hydralazine. Hyperkalemia Monitor Bacteremia -Pt has picc line and arterial line -s/p rocephin -vancomycin hematuria -small amount - Never evelyn blood -Monitor Acute renal failure with metabolic acidosis and hyperphos -phoslo Hyperkalemia-mild -Give 40mg of Lasix x 1 Rate controlled a-fib HTN PETR LUTHER DO Aug 01, 2020 06:06
--- NOTE | 2020-08-01 08:00 | Diagnostic Imaging Report ---
INDICATION: COVID positive, mechanical ventilation. TECHNIQUE: Single view chest 2:50 AM. CORRELATION STUDY: 07/31/2020 FINDINGS: Endotracheal tube and gastric tube remain in place. Extensive 5 lobe infiltrate is again demonstrated. This overall appears adversely changed. This is most noticeable involving the right mid and upper lung field. Heart size and mediastinal structures are grossly stable but largely obscured. IMPRESSION: 1. Extensive 5 lobe infiltrate again demonstrated, overall appears adversely increased. This is most noticeable involving the right upper lung distribution. Dictated by: Dictated on workstation # [id number]
[2020-08-01] MEDS: CALCIUM ACETATE 667 MG CAP (PHOSLO) PO SCH ×3 (08:10→17:36)
[2020-08-01] MEDS: PANTOPRAZOLE 40 MG (PROTONIX) VIAL IV SCH ×2 (08:11→20:23)
[2020-08-01] MEDS: ARTIFICIAL TEARS OINT (LACRI-LUBE) 3.5 GM TUBE OU SCH ×3 (08:11→20:23)
[2020-08-01] MEDS: LINEZOLID IVPB 300 ML IV SCH ×2 (08:11→20:23)
[2020-08-01] MEDS: FUROSEMIDE 40 MG/4 ML INJ (LASIX) IVP SCH ×2 (08:11→20:23)
[2020-08-01] MEDS: meTOprolol TARTRATE 25 MG (LOPRESSOR) TABLET PO SCH ×2 (08:17→20:23)
--- NOTE | 2020-08-01 10:23 | Physical Therapy Progress Note ---
Therapy Progress Note PROM all extremities in supine. Sedated and intubated. KAYLEN NAQVI PT Aug 01, 2020 10:23
--- NOTE | 2020-08-01 13:24 | NUR ---
PT'S UPDATED ON PT'S CONDITION.
--- NOTE | 2020-08-01 14:09 | NUR ---
CM/SS attempted to contact the patient's . No answer but a voicemail was left with call back number. CM/SS will continue to follow.
--- NOTE | 2020-08-01 14:30 | NUR ---
Note pt is currently receiving TF via 110ml bolus feeds q4h with 30ml free water flushes before/after each bolus. Continue to increase TF by 30ml q8h as tolerated toward goal of 180ml bolus feeds q4h. Will continue to follow and reassess as pt needs, intake, and status change. Sunil Borjas, MS RD LD [phone] cell
[2020-08-01] MEDS ORDERED: DEXTROSE 50% 50 ML (IMS) SYR IV ONE (23:45)
[2020-08-02] VITALS (64 sets, daily range): BP systolic 105–180; BP diastolic 38–61
[2020-08-02] MEDS: D5W 1000 ML IV SOLUTION 1,000 ML IV SCH (00:03)
[2020-08-02] MEDS: fentaNYL DRIP PRE-MIX 250 ML IV SCH ×4 (00:31→22:34)
[2020-08-02 02:20] LABS: ABG BASE EXCESS 3.2 MMOL/L (-2.5-2.5); ABG OXYGEN SATURATION 98 % (94-100); ABG PCO2 65 MMHG (35-45); ABG PO2 107 MMHG (79-93); ABG TCO2 31.9 MMOL/L (21.0-31.0)
[2020-08-02 02:21] LABS: ALLENS TEST ARTLINE; INSPIRED O2 70; PATIENT TEMP 35.9; VENTILATOR YES
[2020-08-02 02:21] LABS: BASOPHILS % (AUTO) 0 % (0-10); EOSINOPHILS # (AUTO) 0.3 10^3/uL (0.0-0.3); EOSINOPHILS % (AUTO) 4 % (0-10); LYMPHOCYTES # (AUTO) 0.4 10^3/uL (1.0-4.0); LYMPHOCYTES % (AUTO) 6 % (12-44); MEAN CORPUSCULAR HEMOGLOBIN 29 pg (25-34)
[2020-08-02 02:23] LABS: ABG PH 7.27 (7.37-7.43)
[2020-08-02 02:23] LABS: HEMATOCRIT 24 % (40-54); MEAN CORPUSCULAR HGB CONC 29 g/dL (32-36); MEAN CORPUSCULAR VOLUME 98 fL (80-99); MEAN PLATELET VOLUME 12.4 fL (9.0-12.2); MONOCYTES # (AUTO) 0.2 10^3/uL (0.0-1.0); MONOCYTES % (AUTO) 3 % (0-12); NEUTROPHILS # (AUTO) 5.5 10^3/uL (1.8-7.8); NEUTROPHILS % (AUTO) 86 % (42-75); PLATELET COUNT 95 10^3/uL (130-400); WHITE BLOOD COUNT 6.4 10^3/uL (4.3-11.0)
[2020-08-02 02:35] LABS: CHLORIDE 107 MMOL/L (98-107); POTASSIUM 4.4 MMOL/L (3.6-5.0); SODIUM 143 MMOL/L (135-145)
[2020-08-02 02:36] LABS: CALCIUM 7.7 MG/DL (8.5-10.1)
[2020-08-02 02:37] LABS: GLUCOSE 117 MG/DL (70-105)
[2020-08-02 02:38] LABS: CARBON DIOXIDE 26 MMOL/L (21-32)
[2020-08-02 02:40] LABS: CREATININE SERUM 0.83 MG/DL (0.60-1.30); GFR ESTIMATED > 60
[2020-08-02 02:41] LABS: BUN/CREATININE RATIO 41
[2020-08-02 02:42] LABS: MAGNESIUM 2.5 MG/DL (1.6-2.4)
--- NOTE | 2020-08-02 05:04 | Pulmonary Progress Note ---
Subjective Time Seen by a Provider: 04:56 Subjective/Events-last exam Pt is sedated on vent. Sepsis Event Evaluation Height, Weight, BMI Height: 5'5.00" Weight: 214lbs. 0.0oz. 97.862010bo; 34.89 BMI Method: Exam Exam Vital Signs Date Time Temp Pulse Resp B/P (MAP) Pulse Ox O2 Delivery O2 Flow Rate FiO2 08/02/20 04:00 90 26 164/47 (86) 94 Mechanical Ventilator 70.00 08/02/20 03:00 64 24 124/41 (68) 93 Mechanical Ventilator 70.00 08/02/20 02:00 73 16 180/58 (98) 94 Mechanical Ventilator 70.00 08/02/20 01:59 35.9 08/02/20 01:00 72 17 166/59 (94) 94 Mechanical Ventilator 70.00 08/02/20 01:00 90 08/02/20 00:12 36.7 Mechanical Ventilator 70.00 08/02/20 00:00 87 24 160/55 (90) 91 Mechanical Ventilator 60.00 08/01/20 23:00 82 22 169/58 (95) 93 Mechanical Ventilator 60.00 08/01/20 22:00 67 25 148/56 (86) 92 Mechanical Ventilator 60.00 08/01/20 21:57 84 28 92 60 08/01/20 21:00 75 21 138/56 (83) 92 Mechanical Ventilator 60.00 08/01/20 20:32 Mechanical Ventilator 60.00 08/01/20 20:00 86 17 176/59 (98) 94 Mechanical Ventilator 60.00 08/01/20 20:00 Mechanical Ventilator 65 08/01/20 19:09 36.0 08/01/20 19:00 82 22 166/56 (92) 93 Mechanical Ventilator 60.00 08/01/20 19:00 81 08/01/20 18:28 83 30 93 65 08/01/20 18:00 86 27 133/55 (81) 93 Mechanical Ventilator 65.00 08/01/20 17:00 79 29 157/54 (88) 93 Mechanical Ventilator 65.00 08/01/20 16:00 83 23 162/53 (89) 94 Mechanical Ventilator 65.00 08/01/20 15:18 36.0 08/01/20 15:00 80 19 159/57 (91) 93 Mechanical Ventilator 65.00 08/01/20 14:38 73 29 93 65 08/01/20 14:00 74 27 145/53 (83) 93 Mechanical Ventilator 65.00 08/01/20 13:00 68 24 138/52 (80) 92 Mechanical Ventilator 65.00 08/01/20 13:00 73 08/01/20 12:00 85 26 156/59 (91) 92 Mechanical Ventilator 65.00 08/01/20 11:50 36.4 08/01/20 11:00 85 35 145/56 (85) 91 Mechanical Ventilator 65.00 08/01/20 10:26 84 27 91 65 08/01/20 10:00 85 7 138/54 (82) 90 Mechanical Ventilator 65.00 08/01/20 09:00 112 20 129/51 (77) 90 Mechanical Ventilator 65.00 08/01/20 08:40 94 Mechanical Ventilator 65 08/01/20 08:00 96 19 112/50 (70) 93 Mechanical Ventilator 65.00 08/01/20 07:25 37.2 08/01/20 07:00 94 18 142/53 (82) 92 Mechanical Ventilator 65.00 08/01/20 07:00 94 08/01/20 06:07 106 27 90 65 08/01/20 06:00 95 20 151/55 (87) 90 Mechanical Ventilator 65.00 08/01/20 05:31 109 25 166/51 08/01/20 05:00 109 25 166/51 (89) 90 Mechanical Ventilator 65.00 I & O 08/02/20 07:00 Intake Total 2460 ml Output Total 3625 ml Balance -1165 ml Height & Weight Height: 5'5.00" Weight: 214lbs. 0.0oz. 97.643499bl; 34.89 BMI Method: General Appearance: WD/WN, Chronically ill, Obese HEENT: PERRL/EOMI, Moist Mucous Membranes Neck: Normal Inspection, Supple Respiratory: Crackles, Decreased Breath Sounds Cardiovascular: Regular Rate, Rhythm Capillary Refill: Less Than 3 Seconds Extremity: Normal Inspection, Non Tender, Pedal Edema Neurologic/Psychiatric: Other Skin: Normal Color, Warm/Dry Results Lab Laboratory Tests 08/01/20 02:10 08/02/20 01:55 Assessment/Plan Assessment/Plan COVID 19 with acute hypoxia with ARDS -On ventilator -currently on Fi02 70 PEEP 18 -CXR reviewed advance ET tube 4cm -Permissive hypercapnia -s/p Decadron, s/p Remdesivir, and CVP -proning -Lasix BID -TF - start reglan secondary to TF intolerance PNA with Strep - Zyvox secondary to Red Man Syndrome. -Ng cultures Acute GIB s/p 2 unit PRBC -D/C eliquis -Hold lovenox - CTA of chest to r/o PE = Neg -Monitor Hb -protonix BID Thrombocytopenia -Monitor -Lovenox is on hold Hypernatremia - resolved Hypertension -Add Lopressor, increase PRN hydralazine. Hyperkalemia Monitor Bacteremia -Pt has picc line and arterial line -s/p rocephin -vancomycin hematuria -small amount - Never evelyn blood -Monitor Acute renal failure with metabolic acidosis and hyperphos -phoslo Hyperkalemia-mild -Give 40mg of Lasix x 1 Rate controlled a-fib HTN PETR LUTHER DO Aug 02, 2020 05:04
[2020-08-02] MEDS: MAGNESIUM 1 GM/100 ML IVPB 100 ML IV SCH (05:36)
[2020-08-02] MEDS: POTASSIUM CL 10MEQ/50ML IVPB 50 ML IV SCH (05:36)
[2020-08-02] MEDS: KCL 20 MEQ TAB (K-DUR) PO SCH (05:37)
[2020-08-02] MEDS: D5 LR IV SOLUTION 1,000 ML IV SCH (05:37)
[2020-08-02] MEDS: MIDAZOLAM DRIP PRE-MIX 100 ML IV SCH (05:39)
--- NOTE | 2020-08-02 06:30 | NUR ---
ETT advanced per Dr Lopez by RT, CXR re-taken for placement confirmation. ETT is 26 @ teeth.
[2020-08-02] MEDS: RT-ALBUTEROL INHALER HFA (VENTOLIN HFA) 18 GM IH SCH ×5 (06:34→21:15)
--- NOTE | 2020-08-02 06:45 | Diagnostic Imaging Report ---
INDICATION: Repositioning of endotracheal tube AP view of the chest is obtained with comparison made study of earlier in the day. Endotracheal tube has been advanced with tip at the level of the mid trachea below the thoracic inlet. Extensive coarse bilateral infiltrates are predominantly alveolar in nature without significant change. There is no evidence for pneumothorax. 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 IMPRESSION: Coarse bilateral infiltrates similar when compared to previous study. Endotracheal tube reaches the mid trachea. Dictated by: Dictated on workstation # [id number]
--- NOTE | 2020-08-02 07:52 | Diagnostic Imaging Report ---
INDICATION: COVID pneumonia AP view of the chest is obtained. Since examination of one day earlier, there is continued extensive bilateral airspace disease. There may be slight interval improvement in aeration. Endotracheal tube is in place with the tip at the level of thoracic inlet. Nasogastric tube passes below the diaphragm. IMPRESSION: Intensive continued bilateral airspace disease which may be mildly improved when compared to previous study. Report was faxed to [facility] by arash at 7:53am. Dictated by: Dictated on workstation # [id number]
[2020-08-02] MEDS: METOCLOPRAMIDE INJ 10 MG/2 ML (REGLAN) IVP SCH ×2 (09:09→20:13)
[2020-08-02] MEDS: PANTOPRAZOLE 40 MG (PROTONIX) VIAL IV SCH ×2 (09:09→20:13)
[2020-08-02] MEDS: FUROSEMIDE 40 MG/4 ML INJ (LASIX) IVP SCH ×2 (09:09→20:13)
[2020-08-02] MEDS: ARTIFICIAL TEARS OINT (LACRI-LUBE) 3.5 GM TUBE OU SCH ×3 (09:09→20:14)
[2020-08-02] MEDS: LINEZOLID IVPB 300 ML IV SCH ×2 (09:09→20:13)
[2020-08-02] MEDS: CALCIUM ACETATE 667 MG CAP (PHOSLO) PO SCH ×3 (09:09→17:58)
[2020-08-02] MEDS: meTOprolol TARTRATE 25 MG (LOPRESSOR) TABLET PO SCH ×2 (09:09→20:13)
--- NOTE | 2020-08-02 10:02 | Physical Therapy Progress Note ---
Therapy Progress Note Non skilled PROM performed all available planes B U/JASSI ORTEGA PT Aug 02, 2020 10:02
--- NOTE | 2020-08-02 13:36 | NUR ---
CM/SS follow up. CM/SS contacted the patient's Annette to follow up. She reports they were unable to do the Zoom call on Friday due to the nurse not being able to. The patient's states they are doing another Zoom call today at 2:00 with the Jose Jessica. CM/SS informed Annette that the patient does have Medicare part A currently active. She verbalized understanding. CM/SS discussed the financial application. Annette reports she is not currently ready for that yet. Annette reports that she gets updates from the nurses but has not heard from the physician in a while. She reports she has questions for him that the nurses cannot answer. MARY/SS reached out to physician and informed him that she requested a call. MARY/SS will continue to follow.
--- NOTE | 2020-08-02 15:00 | NUR ---
Visit to facilitate Zoom face time with pt's significant other, Annette, his son, and other family and friends. Pt's nurse, Michael, was outside the patient's room and offered to face-time with family following their visit to provide updates on pt's status. The patient's family said the purpose of their call was to let the pt hear their voices and offer him supportive, uplifting words. This Pleating Supervisor visited with the family prior to face-timing the patient, describing the patient as prone and unresponsive. Following their visit with the patient, MELANIE Rodriguez provided updates for the family, who thanked him.
[2020-08-03] VITALS (34 sets, daily range): BP systolic 111–165; BP diastolic 41–54
[2020-08-03] MEDS: MIDAZOLAM DRIP PRE-MIX 100 ML IV SCH ×2 (00:32→20:19)
[2020-08-03] MEDS: RT-ALBUTEROL INHALER HFA (VENTOLIN HFA) 18 GM IH SCH ×6 (02:21→21:30)
[2020-08-03] MEDS: D5 LR IV SOLUTION 1,000 ML IV SCH ×2 (03:43→04:25)
[2020-08-03 04:39] LABS: BASOPHILS % (AUTO) 0 % (0-10); EOSINOPHILS # (AUTO) 0.2 10^3/uL (0.0-0.3); EOSINOPHILS % (AUTO) 4 % (0-10); HEMATOCRIT 22 % (40-54); LYMPHOCYTES # (AUTO) 0.4 10^3/uL (1.0-4.0); LYMPHOCYTES % (AUTO) 7 % (12-44); MEAN CORPUSCULAR HEMOGLOBIN 29 pg (25-34); MEAN CORPUSCULAR HGB CONC 29 g/dL (32-36); MEAN CORPUSCULAR VOLUME 97 fL (80-99); MEAN PLATELET VOLUME 12.4 fL (9.0-12.2); MONOCYTES # (AUTO) 0.2 10^3/uL (0.0-1.0); MONOCYTES % (AUTO) 3 % (0-12); NEUTROPHILS # (AUTO) 4.6 10^3/uL (1.8-7.8); NEUTROPHILS % (AUTO) 85 % (42-75); PLATELET COUNT 92 10^3/uL (130-400); WHITE BLOOD COUNT 5.4 10^3/uL (4.3-11.0)
[2020-08-03 04:40] LABS: ABG BASE EXCESS 2.5 MMOL/L (-2.5-2.5); ABG OXYGEN SATURATION 99 % (94-100); ABG PCO2 53 MMHG (35-45); ABG PO2 107 MMHG (79-93); ABG TCO2 29.6 MMOL/L (21.0-31.0)
[2020-08-03 04:41] LABS: ABG PH 7.34 (7.37-7.43)
[2020-08-03 04:42] LABS: HEMOGLOBIN 6.5 g/dL (13.3-17.7); INSPIRED O2 60%; PATIENT TEMP 36.6; VENTILATOR YES
[2020-08-03] MEDS: POTASSIUM CL 10MEQ/50ML IVPB 50 ML IV SCH (04:45)
[2020-08-03] MEDS: KCL 20 MEQ TAB (K-DUR) PO SCH (04:46)
[2020-08-03] MEDS: MAGNESIUM 1 GM/100 ML IVPB 100 ML IV SCH (04:46)
[2020-08-03 04:56] LABS: BUN/CREATININE RATIO 41; CALCIUM 7.4 MG/DL (8.5-10.1); CARBON DIOXIDE 25 MMOL/L (21-32); CHLORIDE 107 MMOL/L (98-107); CREATININE SERUM 0.79 MG/DL (0.60-1.30); GFR ESTIMATED > 60; GLUCOSE 117 MG/DL (70-105); MAGNESIUM 2.1 MG/DL (1.6-2.4); PHOSPHORUS 3.5 MG/DL (2.3-4.7); SODIUM 142 MMOL/L (135-145)
[2020-08-03] MEDS: fentaNYL DRIP PRE-MIX 250 ML IV SCH ×3 (05:55→20:16)
[2020-08-03 06:18] LABS: BASOPHILS % (AUTO) 0 % (0-10); EOSINOPHILS # (AUTO) 0.2 10^3/uL (0.0-0.3); EOSINOPHILS % (AUTO) 4 % (0-10); HEMATOCRIT 21 % (40-54); LYMPHOCYTES # (AUTO) 0.4 10^3/uL (1.0-4.0); LYMPHOCYTES % (AUTO) 7 % (12-44); MEAN CORPUSCULAR HEMOGLOBIN 30 pg (25-34); MEAN CORPUSCULAR HGB CONC 30 g/dL (32-36); MEAN CORPUSCULAR VOLUME 99 fL (80-99); MEAN PLATELET VOLUME 12.4 fL (9.0-12.2); MONOCYTES # (AUTO) 0.2 10^3/uL (0.0-1.0); MONOCYTES % (AUTO) 3 % (0-12); NEUTROPHILS # (AUTO) 4.5 10^3/uL (1.8-7.8); NEUTROPHILS % (AUTO) 86 % (42-75); PLATELET COUNT 87 10^3/uL (130-400); WHITE BLOOD COUNT 5.2 10^3/uL (4.3-11.0)
[2020-08-03 06:20] LABS: HEMOGLOBIN 6.2 g/dL (13.3-17.7)
[2020-08-03] MEDS ORDERED: NS IV 500 ML 500 ML IV SCH (06:30)
--- NOTE | 2020-08-03 07:12 | Progress Note - Hospitalist ---
Subjective HPI/CC On Admission Date Seen by Provider: Aug 03, 2020 Time Seen by Provider: 11:00 Pt is a 75yoCM with a PMH of a-fib, HLD, HTN who presented to the ER due to shortness of braeth and wheezing. He was admitted last week due to new onset atrail fibrillation and diagnosed with COVID at that time but was doing well so was discharged home. Last night his oxygen dropped to the 70s with exertion prompting him to call EMS for evaluation. He remained hypoxic here as well. He was admitted for oxygen supplementation. This morning he repors he is breathing ok but is now on vapotherm. State he is mostly anxious about how he will do as he knows he is high risk. He is also concerned about his . Subjective/Events-last exam PEEP 18 Zyvox maintained Lasix IV BID GIB continues so no anticoagulation Prognosis poor Objective Exam Vital Signs Vital Signs Date Time Temp Pulse Resp B/P (MAP) Pulse Ox O2 Delivery O2 Flow Rate FiO2 08/04/20 18:00 80 30 133/45 (74) 87 Mechanical Ventilator 70.00 08/04/20 15:32 35.3 08/04/20 14:34 70 Capillary Refill : Less Than 3 Seconds General Appearance: No Apparent Distress, WD/WN, Chronically ill, Obese, Other Respiratory: Decreased Breath Sounds Cardiovascular: Regular Rate, Rhythm Results/Procedures Lab Laboratory Tests 08/04/20 04:30 Patient resulted labs reviewed. Imaging: Reviewed Imaging Report Assessment/Plan Assessment and Plan Assess & Plan/Chief Complaint Assessment per Dr Lopez with my modifications in bold italic: COVID 19 with acute hypoxia with ARDS -On ventilator -Decadron, s/p Remdesivir, and CVP -Repeat DDimer -proning Acute GIB -D/C eliquis -Monitor Hb-improved -Start protonix BID Acute renal failure with metabolic acidosis and hyperphos -Start bicarb gtt -Start phoslo PNA -Continue Vanco and Zosyn -Ng cultures Rate controlled a-fib HTN 07/22/20: Updated son Sajan who is a physician in research and development of medications for estrogen receptor + breast cancer for past 15 years and lives in [place] who was in [employer] and answered 15 minutes of questions about vent settings and med dosing and frequencies. Monitor hgb since restarting Lovenox Monitor BP 08/03/20: Continue vent Difficult issue given GIB and no OAC and high risk for thrombosis Critical Care Critically Ill Patient Clinical Quality Measures DVT/VTE Risk/Contraindication: Risk Factor Score Per Nursin RFS Level Per Nursing on Admit: 4+=Very High MAGNO HINKLE DO Aug 03, 2020 07:12
--- NOTE | 2020-08-03 07:42 | Diagnostic Imaging Report ---
INDICATION: Respiratory failure Portable chest 2:31 AM ET tube projects over the trachea. NG tube appears to enter the stomach. Left upper extremity PICC line appears to be in a persistent left SVC. There are diffuse alveolar nodular infiltrates in both lungs. These are unchanged from the previous day. There is no effusion or pneumothorax. IMPRESSION: Stable chest with diffuse pulmonary infiltrates. Dictated by: Dictated on workstation # [id number]
[2020-08-03] MEDS: PANTOPRAZOLE 40 MG (PROTONIX) VIAL IV SCH ×2 (08:58→20:16)
[2020-08-03] MEDS: CALCIUM ACETATE 667 MG CAP (PHOSLO) PO SCH ×3 (08:58→17:41)
[2020-08-03] MEDS: FUROSEMIDE 40 MG/4 ML INJ (LASIX) IVP SCH ×2 (08:58→20:15)
[2020-08-03] MEDS: meTOprolol TARTRATE 25 MG (LOPRESSOR) TABLET PO SCH ×2 (08:58→20:16)
[2020-08-03] MEDS: METOCLOPRAMIDE INJ 10 MG/2 ML (REGLAN) IVP SCH ×2 (08:58→20:16)
[2020-08-03] MEDS: LINEZOLID IVPB 300 ML IV SCH ×2 (08:58→20:16)
[2020-08-03] MEDS: ARTIFICIAL TEARS OINT (LACRI-LUBE) 3.5 GM TUBE OU SCH ×3 (09:06→20:16)
--- NOTE | 2020-08-03 09:39 | Physical Therapy Progress Note ---
Therapy Progress Note Non skilled PROM B U/LE all available planes JASSI SCHULZ PT Aug 03, 2020 09:39
--- NOTE | 2020-08-03 16:18 | NUR ---
Son, Indio has left Voicemail for Chaplains to facilitate phone call with Pt, is aware pt is intubated however is desirous to speak with father, attempts have been made to contact son number left [phone], left. As typing this note, Indio called and I explained the plan for nurse to call him when nurse is in the room, he was appreciative of this and I made contact with RN and he advised he would call Indio when in the room.
[2020-08-04] VITALS (46 sets, daily range): BP systolic 84–244; BP diastolic 39–71
[2020-08-04] MEDS: RT-ALBUTEROL INHALER HFA (VENTOLIN HFA) 18 GM IH SCH ×6 (01:37→23:02)
--- NOTE | 2020-08-04 02:00 | NUR ---
WHILE TURNING PT FROM PRONE POSITION TO SUPINE, ET TUBE BECAME DISLODGED. PT'S 02 SATURATION IMMEDIATELY BEGAN TO DECLINE. O2 SATURATION OF 57% NOTED ON MONITOR. ET TUBE REMOVED PER R/T, ORAL AIRWAY INSERTED AND PT BAGGED AT THIS TIME; O2 SATURATION OF 9% NOTED ON MONITOR. SINUS TACHYCARDIA NOTED AND PULSE PALPATED. ER PHYSICIAN AT BEDSIDE. O2 SATURATION UP TO 93% AT THIS TIME. PT INTUBATED WITH A SIZE 8 TUBE; COLOR CHANGE NOTED, FOG IN ET TUBE AND EQUAL BREATH SOUNDS AUSCULTATED BILATERALLY. 26 AT THE TEETH. 16 TAMAZIGHT OG INSERTED; CONFIRMED PLACEMENT WITH AUSCULTATION OF AIR BOLUS. VSS. E-ICU NOTIFIED OF EVENTS; NO NEW ORDERS. WILL CONTINUE TO MONITOR.
[2020-08-04] MEDS: MAGNESIUM 1 GM/100 ML IVPB 100 ML IV SCH (04:06)
[2020-08-04] MEDS: POTASSIUM CL 10MEQ/50ML IVPB 50 ML IV SCH (04:06)
[2020-08-04] MEDS: KCL 20 MEQ TAB (K-DUR) PO SCH (04:07)
[2020-08-04] MEDS: fentaNYL DRIP PRE-MIX 250 ML IV SCH ×2 (04:14→20:19)
[2020-08-04 04:47] LABS: ABG BASE EXCESS 3.6 MMOL/L (-2.5-2.5); ABG OXYGEN SATURATION 97 % (94-100); ABG PCO2 55 MMHG (35-45); ABG PO2 90 MMHG (79-93); ABG TCO2 30.5 MMOL/L (21.0-31.0); BASOPHILS % (AUTO) 0 % (0-10); EOSINOPHILS # (AUTO) 0.1 10^3/uL (0.0-0.3); EOSINOPHILS % (AUTO) 3 % (0-10); HEMATOCRIT 23 % (40-54); LYMPHOCYTES # (AUTO) 0.3 10^3/uL (1.0-4.0); LYMPHOCYTES % (AUTO) 7 % (12-44); MEAN CORPUSCULAR HEMOGLOBIN 29 pg (25-34); MEAN CORPUSCULAR HGB CONC 30 g/dL (32-36); MEAN CORPUSCULAR VOLUME 96 fL (80-99); MONOCYTES # (AUTO) 0.1 10^3/uL (0.0-1.0); MONOCYTES % (AUTO) 3 % (0-12); NEUTROPHILS # (AUTO) 3.6 10^3/uL (1.8-7.8); NEUTROPHILS % (AUTO) 79 % (42-75); PLATELET COUNT 101 10^3/uL (130-400); WHITE BLOOD COUNT 4.6 10^3/uL (4.3-11.0)
[2020-08-04 04:48] LABS: HEMOGLOBIN 6.8 g/dL (13.3-17.7)
[2020-08-04 04:49] LABS: ABG PH 7.35 (7.37-7.43); ALLENS TEST ART LINE; INSPIRED O2 70%; PATIENT TEMP 37.2; VENTILATOR YES
[2020-08-04 04:56] LABS: CHLORIDE 106 MMOL/L (98-107); POTASSIUM 3.8 MMOL/L (3.6-5.0); SODIUM 142 MMOL/L (135-145)
[2020-08-04 04:57] LABS: CALCIUM 7.2 MG/DL (8.5-10.1)
[2020-08-04 04:58] LABS: GLUCOSE 101 MG/DL (70-105)
[2020-08-04 04:59] LABS: CARBON DIOXIDE 26 MMOL/L (21-32)
[2020-08-04] MEDS ORDERED: NS IV 500 ML 500 ML IV SCH (05:00)
[2020-08-04 05:01] LABS: PHOSPHORUS 4.1 MG/DL (2.3-4.7)
[2020-08-04 05:02] LABS: CREATININE SERUM 0.82 MG/DL (0.60-1.30); GFR ESTIMATED > 60
[2020-08-04 05:03] LABS: BUN/CREATININE RATIO 37
[2020-08-04 05:04] LABS: MAGNESIUM 1.9 MG/DL (1.6-2.4)
[2020-08-04] MEDS: PANTOPRAZOLE 40 MG (PROTONIX) VIAL IV SCH ×2 (08:01→20:17)
[2020-08-04] MEDS: FUROSEMIDE 40 MG/4 ML INJ (LASIX) IVP SCH ×2 (08:01→20:17)
[2020-08-04] MEDS: METOCLOPRAMIDE INJ 10 MG/2 ML (REGLAN) IVP SCH ×2 (08:01→20:17)
[2020-08-04] MEDS: ARTIFICIAL TEARS OINT (LACRI-LUBE) 3.5 GM TUBE OU SCH ×3 (08:02→20:18)
[2020-08-04] MEDS: LINEZOLID IVPB 300 ML IV SCH (08:02)
[2020-08-04] MEDS: CALCIUM ACETATE 667 MG CAP (PHOSLO) PO SCH ×3 (08:02→17:21)
[2020-08-04] MEDS: meTOprolol TARTRATE 25 MG (LOPRESSOR) TABLET PO SCH ×2 (08:02→20:17)
--- NOTE | 2020-08-04 09:15 | Diagnostic Imaging Report ---
Clinical indications: Patient with COVID 19 and respiratory failure. Exam: Portable chest x-ray upright view. Comparisons: Chest x-ray dated 08/03/2020. Findings: ET tube again seen in stable good position. Feeding tube is noted with proximal port overlying the expected region of the cardiac portion of the stomach. Diffuse bilateral lung infiltrates again seen which is grossly stable involving the left lung and slightly progressed involving the right lung base and periphery of the right lung. There is no pleural effusion or pneumothorax. Pulmonary vasculature and cardiac silhouette is obscured. The remainder of this exam shows no significant interval change compared to the prior study of comparison. IMPRESSION: 1: There is diffuse bilateral lung infiltrates which has progressed in the right mid lung field and right lung base. 2: Lines and tubes are again seen, as described above. Report was faxed to [facility] by arash at 9:14am. Dictated by: Dictated on workstation # [id number]
[2020-08-04] MEDS ORDERED: NS 100 ML (IVPB) BAG IV ONE (10:15)
[2020-08-04] MEDS ORDERED: HOLD METFORMIN - RECEIVED CONTRAST 20 ML VIAL IV SCH (10:15)
[2020-08-04] MEDS ORDERED: IOHEXOL 350 MG/ML 100 ML (OMNIPAQUE 350) VIAL IV ONE (10:15)
--- NOTE | 2020-08-04 10:27 | NUR ---
[id number] THIS RN SPOKE WITH DR JO REGARDING IF PT NEEDED TO PRONE TODAY. ORDERS RECEIVED TO HOLD PRONING TODAY,
--- NOTE | 2020-08-04 11:41 | Progress Note - Hospitalist ---
Subjective HPI/CC On Admission Date Seen by Provider: Aug 04, 2020 Time Seen by Provider: 10:00 Pt is a 75yoCM with a PMH of a-fib, HLD, HTN who presented to the ER due to shortness of braeth and wheezing. He was admitted last week due to new onset atrail fibrillation and diagnosed with COVID at that time but was doing well so was discharged home. Last night his oxygen dropped to the 70s with exertion prompting him to call EMS for evaluation. He remained hypoxic here as well. He was admitted for oxygen supplementation. This morning he repors he is breathing ok but is now on vapotherm. State he is mostly anxious about how he will do as he knows he is high risk. He is also concerned about his . Subjective/Events-last exam Hgb 6.8 ETT was dislodged and O2 sat on A-line was 9% Anoxia could have damaged brain Overall prognosis remains extremely poor Objective Exam Vital Signs Vital Signs Date Time Temp Pulse Resp B/P (MAP) Pulse Ox O2 Delivery O2 Flow Rate FiO2 08/05/20 06:30 122 25 101/40 (60) 95 Mechanical Ventilator 100.00 08/05/20 02:22 100 08/04/20 23:50 36.6 Capillary Refill : Less Than 3 Seconds General Appearance: No Apparent Distress, Chronically ill, Obese Respiratory: Lungs Clear Cardiovascular: Regular Rate, Rhythm Results/Procedures Lab Laboratory Tests 08/05/20 02:25 Patient resulted labs reviewed. Imaging: Reviewed Imaging Report Assessment/Plan Assessment and Plan Assess & Plan/Chief Complaint Assessment per Dr Lopez with my modifications in bold italic: COVID 19 with acute hypoxia with ARDS -On ventilator -Decadron, s/p Remdesivir, and CVP -Repeat DDimer -proning Acute GIB -D/C eliquis -Monitor Hb-improved -Start protonix BID Acute renal failure with metabolic acidosis and hyperphos -Start bicarb gtt -Start phoslo PNA -Continue Vanco and Zosyn -Ng cultures Rate controlled a-fib HTN 07/22/20: Updated son Sajan who is a physician in research and development of medications for estrogen receptor + breast cancer for past 15 years and lives in [place] who was in [employer] and answered 15 minutes of questions about vent settings and med dosing and frequencies. Monitor hgb since restarting Lovenox Monitor BP 08/03/20: Continue vent Difficult issue given GIB and no OAC and high risk for thrombosis 08/04/20: Dislodged ETT with hypoxia could have caused anoxic brain damage? Critical Care Critically Ill Patient Clinical Quality Measures DVT/VTE Risk/Contraindication: Risk Factor Score Per Nursin RFS Level Per Nursing on Admit: 4+=Very High MAGNO HINKLE DO Aug 04, 2020 11:41
--- NOTE | 2020-08-04 12:01 | Diagnostic Imaging Report ---
PROCEDURE: CT abdomen and pelvis with and without contrast. TECHNIQUE: Precontrast acquisitions were acquired through the abdomen and pelvis. Multiple contiguous axial images were obtained through the abdomen and pelvis after the administration of intravenous contrast. Auto Exposure Controls were utilized during the CT exam to meet ALARA standards for radiation dose reduction. INDICATION: Abdominal distention, anemia. Possible gastrointestinal bleed. COVID EXAMINATION: CT abdomen and pelvis without contrast 08/04/2020 FINDINGS: There are small bilateral pleural effusions right greater than left. Patchy airspace opacities throughout both visualized lungs are noted consistent with bilateral infiltrates. Findings consistent with history of COVID. There is fatty infiltration throughout the liver. There is a cystic lesion in the right lobe of liver fairly simple in appearance with other smaller hypodensities too small for characterization at this time. The gallbladder is distended no surrounding inflammation is seen. The pancreas is unremarkable. There are multiple cystic lesions noted throughout the spleen nonspecific in nature. These are stable since a chest CT from 07/25/2020. The pancreas is normal. Adrenal glands unremarkable. There is bilateral hydronephrosis of uncertain etiology. Kidneys otherwise unremarkable. Urinary bladder appears somewhat distended with a Headley catheter in place. There are hyperdensities in the dependent aspect of the bladder possibly recently passed stones follow-up recommended to assure resolution and exclude partial calcification along the wall of the bladder. Minimal free fluid in the pelvis is noted. No free air in the abdomen or pelvis. There is a thick-walled appearance to the sigmoid colon with adjacent diverticular disease noted. Minimal questioned adjacent fat stranding is seen and this could be due to a focal colitis versus early diverticulitis. Appendix is not seen but there is no focal inflammatory change about the cecum. There is atherosclerotic disease noted. There is a feeding tube tip in the stomach. Osseous structures demonstrate diffuse degenerative findings. There is diffuse anasarca. Impression: 1. Diffuse findings of anasarca with bilateral pleural effusions and bilateral infiltrates consistent with history of COVID. 2. Focal colitis versus a mild diverticulitis of the sigmoid colon as above with small adjacent free fluid noted. 3. Possible bladder outlet obstruction given bilateral mild hydronephrosis versus recently passed stones see above discussion in relation to the urinary bladder and kidneys. Other findings as above. Report was faxed to [facility] by arash at 11:59am. Dictated on workstation # [id number]
--- NOTE | 2020-08-04 16:42 | NUR ---
LATE ENTRY: 1045 NEW POTTS CATHETER PLACED BY Roxane RUIZ RN. 20 FRISIAN NOTED. ASEPTIC TECHNIQUE USED.
[2020-08-04] MEDS: D5 LR IV SOLUTION 1,000 ML IV SCH (17:21)
--- NOTE | 2020-08-04 18:24 | NUR ---
LATE ENTRY: 1600 CALLED AND UPDATED ON PT.
[2020-08-04] MEDS: MIDAZOLAM DRIP PRE-MIX 100 ML IV SCH (20:19)
[2020-08-04] MEDS ORDERED: NS IV 1000 ML 1,000 ML ONE (23:39)
[2020-08-05] VITALS (31 sets, daily range): BP systolic 64–196; BP diastolic 31–79
[2020-08-05] MEDS ORDERED: FUROSEMIDE 40 MG/4 ML INJ (LASIX) IVP ONE (02:00)
--- NOTE | 2020-08-05 02:03 | NUR ---
TeleICU contacted, notified of pt condition, oxygen needs increasing, etc, orders received.
[2020-08-05] MEDS ORDERED: D5W 1000 ML IV SOLUTION 1,000 ML IV SCH (02:15)
[2020-08-05] MEDS: RT-ALBUTEROL INHALER HFA (VENTOLIN HFA) 18 GM IH SCH ×4 (02:21→14:48)
[2020-08-05 02:48] LABS: ABG OXYGEN SATURATION 93 % (94-100); ABG PCO2 56 MMHG (35-45); ABG PO2 69 MMHG (79-93); ABG TCO2 30.6 MMOL/L (21.0-31.0)
[2020-08-05 02:50] LABS: ABG PH 7.32 (7.37-7.43); BASOPHILS % (AUTO) 0 % (0-10); EOSINOPHILS # (AUTO) 0.1 10^3/uL (0.0-0.3); EOSINOPHILS % (AUTO) 4 % (0-10); HEMATOCRIT 28 % (40-54); HEMOGLOBIN 8.5 g/dL (13.3-17.7); LYMPHOCYTES # (AUTO) 0.2 10^3/uL (1.0-4.0); LYMPHOCYTES % (AUTO) 8 % (12-44); MEAN CORPUSCULAR HEMOGLOBIN 29 pg (25-34); MEAN CORPUSCULAR HGB CONC 31 g/dL (32-36); MEAN CORPUSCULAR VOLUME 94 fL (80-99); MEAN PLATELET VOLUME 11.8 fL (9.0-12.2); MONOCYTES # (AUTO) 0.1 10^3/uL (0.0-1.0); MONOCYTES % (AUTO) 4 % (0-12); NEUTROPHILS # (AUTO) 2.3 10^3/uL (1.8-7.8); NEUTROPHILS % (AUTO) 83 % (42-75); PLATELET COUNT 123 10^3/uL (130-400); WHITE BLOOD COUNT 2.7 10^3/uL (4.3-11.0)
[2020-08-05 02:52] LABS: ALLENS TEST ART LINE; INSPIRED O2 100%; PATIENT TEMP 96.1; VENTILATOR YES
[2020-08-05 02:59] LABS: CHLORIDE 106 MMOL/L (98-107); POTASSIUM 3.6 MMOL/L (3.6-5.0); SODIUM 143 MMOL/L (135-145)
[2020-08-05 03:00] LABS: CALCIUM 7.5 MG/DL (8.5-10.1)
[2020-08-05 03:01] LABS: GLUCOSE 99 MG/DL (70-105)
[2020-08-05 03:02] LABS: CARBON DIOXIDE 27 MMOL/L (21-32)
[2020-08-05 03:04] LABS: PHOSPHORUS 4.3 MG/DL (2.3-4.7)
[2020-08-05 03:05] LABS: BUN/CREATININE RATIO 35; CREATININE SERUM 0.81 MG/DL (0.60-1.30); GFR ESTIMATED > 60
[2020-08-05 03:07] LABS: MAGNESIUM 1.8 MG/DL (1.6-2.4)
[2020-08-05] MEDS: fentaNYL DRIP PRE-MIX 250 ML IV SCH ×2 (04:53→12:34)
[2020-08-05] MEDS ORDERED: ROCURONIUM 10 MG/ML 5 ML SYRINGE IV ONE (05:05)
--- NOTE | 2020-08-05 05:10 | NUR ---
TeleICU contacted, updated on pt condition, orders received.
[2020-08-05] MEDS: MAGNESIUM 1 GM/100 ML IVPB 100 ML IV SCH (05:57)
[2020-08-05] MEDS: POTASSIUM CL 10MEQ/50ML IVPB 50 ML IV SCH ×3 (05:57→06:40)
[2020-08-05] MEDS ORDERED: NOREPINEPHRINE 4 MG/250 ML 250 ML IV ONE (06:02)
[2020-08-05] MEDS: KCL 20 MEQ TAB (K-DUR) PO SCH (06:17)
[2020-08-05] MEDS ORDERED: NOREPINEPHRINE 4 MG/250 ML 250 ML IV SCH (07:15)
--- NOTE | 2020-08-05 07:25 | Progress Note - Hospitalist ---
Subjective HPI/CC On Admission Date Seen by Provider: Aug 05, 2020 Pt is a 75yoCM with a PMH of a-fib, HLD, HTN who presented to the ER due to shortness of braeth and wheezing. He was admitted last week due to new onset atrail fibrillation and diagnosed with COVID at that time but was doing well so was discharged home. Last night his oxygen dropped to the 70s with exertion prompting him to call EMS for evaluation. He remained hypoxic here as well. He was admitted for oxygen supplementation. This morning he repors he is breathing ok but is now on vapotherm. State he is mostly anxious about how he will do as he knows he is high risk. He is also concerned about his . Objective Exam Vital Signs Vital Signs Date Time Temp Pulse Resp B/P (MAP) Pulse Ox O2 Delivery O2 Flow Rate FiO2 08/05/20 15:41 128/56 08/05/20 15:38 37.8 08/05/20 15:00 115 30 89 Mechanical Ventilator 100.00 08/05/20 14:48 100 Capillary Refill : Less Than 3 Seconds Results/Procedures Lab Laboratory Tests 08/05/20 02:25 Patient resulted labs reviewed. Imaging: Reviewed Imaging Report Assessment/Plan Assessment and Plan Assess & Plan/Chief Complaint Assessment per Dr Lopez with my modifications in bold italic: COVID 19 with acute hypoxia with ARDS -On ventilator -Decadron, s/p Remdesivir, and CVP -Repeat DDimer -proning Acute GIB -D/C eliquis -Monitor Hb-improved -Start protonix BID Acute renal failure with metabolic acidosis and hyperphos -Start bicarb gtt -Start phoslo PNA -Continue Vanco and Zosyn -Ng cultures Rate controlled a-fib HTN 07/22/20: Updated son Sajan who is a physician in research and development of medications for estrogen receptor + breast cancer for past 15 years and lives in [place] who was in [employer] and answered 15 minutes of questions about vent settings and med dosing and frequencies. Monitor hgb since restarting Lovenox Monitor BP 08/03/20: Continue vent Difficult issue given GIB and no OAC and high risk for thrombosis 08/04/20: Dislodged ETT with hypoxia could have caused anoxic brain damage? Critical Care Critically Ill Patient Clinical Quality Measures DVT/VTE Risk/Contraindication: Risk Factor Score Per Nursin RFS Level Per Nursing on Admit: 4+=Very High MAGNO HINKLE DO Aug 05, 2020 07:25
[2020-08-05] MEDS: PANTOPRAZOLE 40 MG (PROTONIX) VIAL IV SCH (08:05)
[2020-08-05] MEDS: METOCLOPRAMIDE INJ 10 MG/2 ML (REGLAN) IVP SCH (08:05)
[2020-08-05] MEDS: CALCIUM ACETATE 667 MG CAP (PHOSLO) PO SCH ×2 (08:05→12:27)
[2020-08-05] MEDS: meTOprolol TARTRATE 25 MG (LOPRESSOR) TABLET PO SCH (08:05)
[2020-08-05] MEDS: ARTIFICIAL TEARS OINT (LACRI-LUBE) 3.5 GM TUBE OU SCH ×2 (08:06→12:18)
--- NOTE | 2020-08-05 08:13 | Diagnostic Imaging Report ---
EXAM: CHEST 1 VIEW, AP/PA ONLY INDICATION: Respiratory failure. COVID. COMPARISON: Chest radiograph 08/04/2020. FINDINGS: ETT tip midway between the level of the clavicles and ian. NG tube tip below the [id number]. Left PICC tip likely within a persistent left SVC. Dense airspace opacification throughout both lungs is stable. No large pleural effusion or pneumothorax. IMPRESSION: 1. Dense airspace opacities throughout both lungs are similar to yesterday. 2. Support lines in stable position. Dictated by: Dictated on workstation # [id number]
[2020-08-05] MEDS ORDERED: NS (IVPB) 100 ML ONE (09:17)
[2020-08-05] MEDS: FUROSEMIDE 40 MG/4 ML INJ (LASIX) IVP SCH (09:24)
[2020-08-05] MEDS ORDERED: VASOPRESSIN INJECTION 20 UNIT in NS (IVPB) 100 ML IV PRN (11:00)
--- NOTE | 2020-08-05 11:37 | NUR ---
Dr. Reyes spoke with Annette at this time regarding pt prognosis and poor likelihood of recovery. to arrive at a later time for comfort care to be started.
[2020-08-05] MEDS: NOREPINEPHRINE 8 MG in NS (IVPB) 250 ML IV SCH ×2 (12:17→15:40)
[2020-08-05] MEDS: MIDAZOLAM DRIP PRE-MIX 100 ML IV SCH (12:35)
[2020-08-05] MEDS: VASOPRESSIN INJECTION 20 UNIT in NS (IVPB) 100 ML IV PRN ×2 (12:37→15:41)
--- NOTE | 2020-08-05 16:21 | NUR ---
, Annette, at bedside at this time. Updates provided by this RN. agrees to proceed with comfort care measures at this time. Dr. Reyes called and notified of family's wishes. Orders given for terminal extubation at this time. Pastoral care also called at this time for family support. This RN remains at bedside at for family support at this time.
[2020-08-05] MEDS ORDERED: LORazepam INJ 2 MG/ML (ATIVAN) VIAL ONE (16:23)
[2020-08-05] MEDS ORDERED: morphine INJ 4 MG/ML 1 ML (VIAL/SYRINGE) ONE (16:23)
--- NOTE | 2020-08-05 16:26 | NUR ---
Rt notified of orders to terminally extubate pt at this time. Comfort care orders in place at this time.
[2020-08-05] MEDS ORDERED: SALIVA STIMULANT MOUTH SPRAY (BIOTENE) 1.5 OZ MM PRN (16:30)
[2020-08-05] MEDS ORDERED: GLYCOPYRROLATE 0.2 MG/ML (ROBINUL) 2 ML VIAL IV PRN (16:30)
[2020-08-05] MEDS ORDERED: ONDANSETRON 4 MG/2 ML (SDV) Z0FRAN IVP PRN (16:30)
[2020-08-05] MEDS ORDERED: ARTIFICAL TEARS 0.4 ML UNIT DOSE (REFRESH PLUS) OU PRN (16:30)
[2020-08-05] MEDS ORDERED: morphine INJ 10 MG/ML 1ML (SYR OR VIAL) IVP PRN (16:30)
[2020-08-05] MEDS ORDERED: BISACODYL 10 MG SUPP (DULCOLAX) PR PRN (16:30)
[2020-08-05] MEDS ORDERED: ACETAMINOPHEN 650 MG SUPP (TYLENOL) PR PRN (16:30)
[2020-08-05] MEDS ORDERED: PROMETHAZINE INJ 25 MG/ML (PHENERGAN) AMP IVP PRN (16:30)
[2020-08-05] MEDS ORDERED: LORazepam INJ 2 MG/ML (ATIVAN) VIAL IVP PRN (16:30)
[2020-08-05] MEDS ORDERED: RT-ALBUTEROL/IPRATROPIUM 3 ML (DUONEB) VIAL INH PRN (16:30)
--- NOTE | 2020-08-05 16:35 | NUR ---
Pt extubated to room air at this time. remains at bedside during extubation. Will continue to provide support at this time.
--- NOTE | 2020-08-05 16:49 | NUR ---
Respirations ceased and no perceptible heart beat noted at this time by this RN and verified by Ivan washhouse worker, RN. remains at bedside at this time. Pastoral care awaiting 's exit of pt's room for consultation. This RN remains at bedside with at this time. Education provided on post mortem arrangements. expresses wishes of cremation and use of Summer services.
--- NOTE | 2020-08-05 17:00 | NUR ---
MTN notified of pt passing. Pt is not a candidate for organ donation at this time.
--- NOTE | 2020-08-05 17:19 | NUR ---
Dr. Reyes and NATALIE notified of pt's TOD.
--- NOTE | 2020-08-05 17:31 | NUR ---
wishes to leave personal belongings to be cleaned by light due to painting being ruined if wiped down. States that she will return for belongings tomorrow. 08/06/20
--- NOTE | 2020-08-05 17:42 | NUR ---
[facility] contacted at this time. Will await call for ETA.
--- NOTE | 2020-08-05 19:04 | NUR ---
Pt discharged to [facility] at this time.
--- NOTE | 2020-08-05 19:19 | Discharge Summary ---
Discharge Summary Hospital Course Was the Problem List Reviewed?: Yes Problems/Dx: (1) Acute respiratory failure due to COVID-19 Status: Acute (2) Morbid obesity Status: Chronic (3) HTN (hypertension) Status: Chronic Qualifiers: Qualified Codes: I10 - Essential (primary) hypertension (4) Atrial fibrillation Status: Chronic Qualifiers: Qualified Codes: I48.91 - Unspecified atrial fibrillation Hospital Course Date of Admission: Jul 11, 2020 at 02:04 Admission Diagnosis : Family Physician/Provider: Marco Antonio Stoll MD Date of Discharge: 08/05/20 Discharge Diagnosis: vent dependent resp failure from COVID-19, GI Bleed, AF Hospital Course: Lengthy course in ICU for 26 days when he was ultimately intubated for resp failure from COVID-19 and remained intubated for 3.[address] Lopez consulted for vent management. Could not tolerate anticoagulation due to recurrent GIB. Multiple attempts to wean after prone schedule completed but continued to worsen and simply did not improve. Had conversations with family and came to bedside for terminal extubaiton and patient quickly. Labs and Pending Lab Test: Laboratory Tests 08/04/20 23:50: Glucometer 108 08/04/20 23:51: Glucometer 109 08/05/20 02:25: White Blood Count 2.7L, Red Blood Count 2.96L, Hemoglobin 8.5#L, Hematocrit 28L, Mean Corpuscular Volume 94, Mean Corpuscular Hemoglobin 29, Mean Corpuscular Hemoglobin Concent 31L, Red Cell Distribution Width 15.9H, Platelet Count 123L, Mean Platelet Volume 11.8, Immature Granulocyte % (Auto) 1, Neutrophils (%) (Auto) 83H, Lymphocytes (%) (Auto) 8L, Monocytes (%) (Auto) 4, Eosinophils (%) (Auto) 4, Basophils (%) (Auto) 0, Neutrophils # (Auto) 2.3, Lymphocytes # (Auto) 0.2L, Monocytes # (Auto) 0.1, Eosinophils # (Auto) 0.1, Basophils # (Auto) 0.0, Immature Granulocyte # (Auto) 0.0, Blood Gas Puncture Site LEFT RADIAL, Blood Gas Patient Temperature 96.1, Arterial Blood pH 7.32*L, Arterial Blood Partial Pressure CO2 56H, Arterial Blood Partial Pressure O2 69L, Arterial Blood HCO3 29H, Arterial Blood Total CO2 30.6, Arterial Blood Oxygen Saturation 93L, Arterial Blood Base Excess 3.0H, Ganesh Test ART LINE, Blood Gas Ventilator Setting YES, Blood Gas Inspired Oxygen 100%, Sodium Level 143, Potassium Level 3.6, Chloride Level 106, Carbon Dioxide Level 27, Anion Gap 10, Blood Urea Nitrogen 28H, Creatinine 0.81, Estimat Glomerular Filtration Rate > 60, BUN/Creatinine Ratio 35, Glucose Level 99, Calcium Level 7.5L, Phosphorus Level 4.3, Magnesium Level 1.8 08/05/20 11:58: Glucometer 96 Microbiology 07/25/20 Blood Culture - Final, Complete No growth 07/18/20 Gram Stain - Final, Complete 07/18/20 Sputum Culture - Final, Complete Streptococcus pneumoniae Usual upper respiratory grant 07/11/20 Urine Culture - Final, Complete NO GROWTH Home Meds Active Eliquis (Apixaban) 5 Mg Tablet 5 Mg PO BID 30 Days TAKE 2 TABLETS BID X 7 DAYS, THEN 1 TABLET BID Reported Tylenol Extra Strength (Acetaminophen) 500 Mg Tablet 500-1,000 Mg PO Q8H PRN Aspirin EC (Aspirin) 81 Mg Tablet.dr 81 Mg PO DAILY Metoprolol Succinate 100 Mg Tab.er.24h 100 Mg PO DAILY Fenofibric Acid (Fenofibric Acid (Choline)) 135 Mg Capsule.dr 135 Mg PO DAILY Diltiazem 24Hr ER (Diltiazem HCl) 240 Mg Cap.er.24h 240 Mg PO DAILY Dexamethasone 4 Mg Tablet 6 Mg PO DAILY TAKES 1 & (4MG) TABS FILLED 07-07-2020 #8/ DAY SUPPLY Simvastatin 20 Mg Tablet 20 Mg PO HS Assessment/Pt Instructions Discharge Planning: <30 minutes discharge planning Discharge Instructions Pneumonia Vaccine Order Indica: Yes Discharge Physical Examination Vital Signs Vital Signs Date Time Temp Pulse Resp B/P (MAP) Pulse Ox O2 Delivery O2 Flow Rate FiO2 08/05/20 15:41 128/56 08/05/20 15:38 37.8 08/05/20 15:00 115 30 89 Mechanical Ventilator 100.00 08/05/20 14:48 100 General Appearance: Other (decreased) Allergies: Coded Allergies: No Known Drug Allergies (Verified , 05/23/08) Discharge Summary Date of Admission Jul 11, 2020 at 02:04 Date of Discharge Aug 05, 2020 at 19:05 Admission Diagnosis Acute hypoxic respiratory failure from COVID19 Comfort Measures/ End of Life Care: Comfort Measures Discharge Diagnosis Assessment per Dr Lopez with my modifications in bold italic: COVID 19 with acute hypoxia with ARDS -On ventilator -Decadron, s/p Remdesivir, and CVP -Repeat DDimer -proning Acute GIB -D/C eliquis -Monitor Hb-improved -Start protonix BID Acute renal failure with metabolic acidosis and hyperphos -Start bicarb gtt -Start phoslo PNA -Continue Vanco and Zosyn -Ng cultures Rate controlled a-fib HTN 07/22/20: Updated son Sajan who is a physician in research and development of medications for estrogen receptor + breast cancer for past 15 years and lives in [place] who was in [place] and answered 15 minutes of questions about vent settings and med dosing and frequencies. Monitor hgb since restarting Lovenox Monitor BP 08/03/20: Continue vent Difficult issue given GIB and no OAC and high risk for thrombosis 08/04/20: Dislodged ETT with hypoxia could have caused anoxic brain damage? (1) Acute respiratory failure due to COVID-19 Status: Acute (2) Morbid obesity Status: Chronic (3) HTN (hypertension) Status: Chronic Qualifiers: Qualified Codes: I10 - Essential (primary) hypertension (4) Atrial fibrillation Status: Chronic Qualifiers: Qualified Codes: I48.91 - Unspecified atrial fibrillation Clinical Quality Measures DVT/VTE Risk/Contraindication: Risk Factor Score Per Nursin RFS Level Per Nursing on Admit: 4+=Very High MAGNO HINKLE DO Aug 05, 2020 19:19
== END 2020-08-05 19:05 | disposition expired | DRG 207 ==
LOC: EDUNIT# 00:17 → ER 00:19 → 4TH 02:04 → ICU 07-18 09:50
PROVIDERS: ADMIT Internal Medicine; ATTEND Internal Medicine
PROC: XW033E5 Introduction of Remdesivir Anti-infective into Peripheral Vein, Percutaneous Approach, New Technology Group 5 (ICD-10-PCS; principal; 2020-07-12)
PROC: XW13325 Transfusion of Convalescent Plasma (Nonautologous) into Peripheral Vein, Percutaneous Approach, New Technology Group 5 (ICD-10-PCS; 2020-07-12)
PROC: 5A1955Z Respiratory Ventilation, Greater than 96 Consecutive Hours (ICD-10-PCS; 2020-07-18)
PROC: 02HV33Z Insertion of Infusion Device into Superior Vena Cava, Percutaneous Approach (ICD-10-PCS; 2020-07-18)
PROC: 0BH17EZ Insertion of Endotracheal Airway into Trachea, Via Natural or Artificial Opening (ICD-10-PCS; 2020-07-18)
DX: U07.1 COVID-19 (principal); J80 Acute respiratory distress syndrome; J12.89 Other viral pneumonia; J15.4 Pneumonia due to other streptococci; K92.2 Gastrointestinal hemorrhage, unspecified; N17.9 Acute kidney failure, unspecified; E87.2 Acidosis; J44.1 Chronic obstructive pulmonary disease with (acute) exacerbation; J44.0 Chronic obstructive pulmonary disease with (acute) lower respiratory infection; E87.0 Hyperosmolality and hypernatremia; R78.81 Bacteremia; Z68.41 Body mass index [BMI] 40.0-44.9, adult; Z66 Do not resuscitate; Z51.5 Encounter for palliative care; E66.01 Morbid (severe) obesity due to excess calories; I10 Essential (primary) hypertension; I48.91 Unspecified atrial fibrillation; E83.39 Other disorders of phosphorus metabolism; Z87.891 Personal history of nicotine dependence; Z95.5 Presence of coronary angioplasty implant and graft; I25.10 Atherosclerotic heart disease of native coronary artery without angina pectoris; E78.00 Pure hypercholesterolemia, unspecified; M19.90 Unspecified osteoarthritis, unspecified site; D69.6 Thrombocytopenia, unspecified; E87.5 Hyperkalemia; R31.9 Hematuria, unspecified
CPT/HCPCS: 36415; 36569; 71045; 71275; 74178; 76937; 80048; 80053; 80202; 81000; 82805; 82962; 83605; 83615; 83735; 83880; 84100; 84145; 84478; 85007; 85014; 85018; 85025; 85027; 85379; 85384; 85610; 85730; 86022; 86141; 86850; 86900; 86901; 86920; 87040; 87070; 87077; 87081; 87088; 87181; 87184; 87205; 87804; 93970; 94002; 94003; 94640; 94660; 94760; 94799; 96374